=== PATIENT | male | born 1950 | race Caucasian/White ===

== ENCOUNTER 2020-08-22 10:37 | Day surgery (SDC) | payer MEDICARE, MEDICAID, SELFPAY ==
[2020-08-17 15:00] VITALS: BMI 25.4
--- NOTE | 2020-08-21 15:42 | HO.ANESPROP2 ---
HPI - Anesthesia Eval Consult details Narrative: 69yo M for colonoscopy Recent cardiac and neuro visits - stable conditions PMFSH Past Medical History Medical History Anxiety Arthritis Back pain Bipolar 1 disorder BPH (benign prostatic hyperplasia) Depression Diarrhea Heart palpitations History of alcohol abuse Hypertension Insomnia Leukopenia OAB (overactive bladder) Seizure disorder Surgical History Surgical History History of total knee arthroplasty Hx of bilateral inguinal hernia repair Hx of cervical spine surgery Hx of colonoscopy Social History Social History Smoking Status: Never smoker Meds Allergies Allergy/AdvReac Type Severity Reaction Status Date / Time No Known Allergies Allergy Unverified 08/03/20 17:18 Home Medications Medication Instructions Recorded Confirmed Type buspirone 1 tab PO BID 08/17/20 08/17/20 History metoprolol succinate 1 tab PO DAILY 08/17/20 08/17/20 History mirabegron [Myrbetriq] 1 tab PO DAILY 08/17/20 08/17/20 History mv,Ca,sfn-vmck-IM-lycopene 1 tab PO 08/17/20 History [Centrum Men] omeprazole 1 cap PO DAILY 08/17/20 08/17/20 History oxcarbazepine 1 tab PO BID 08/17/20 08/17/20 History paroxetine HCl 1 tab PO DAILY 08/17/20 08/17/20 History primidone 1 tab PO BID 08/17/20 08/17/20 History tamsulosin 1 cap PO BEDTIME 08/17/20 08/17/20 History trazodone 0.5 tab PO BEDTIME PRN 08/17/20 08/17/20 History zolpidem 1 tab PO BEDTIME 08/17/20 08/17/20 History Exam Exam Date and Time: August 21, 2020 1542 Height,Weight and Vital Signs: Height 5 ft 10 in Weight 80.286 kg Pertinent Lab Results Pertinent Lab Results: Laboratory Tests 07/31/20 07/31/20 15:35 15:35 WBC 4.6 L Hgb 13.7 L Hct 40.7 L Plt Count 255 Sodium 139 Potassium 4.8 Chloride 105 Bicarbonate 27 BUN 19 H Creatinine 0.95 Assessment and Plan Assessment Anesthesia Assessment: Chart Reviewed
[2020-08-22 11:21] VITALS: BP 138/73; PULSE 60; RESP 16; TEMP 36.6; O2SAT 98
[2020-08-22 11:26] VITALS: BMI 25.4
[2020-08-22] MEDS: Lactated Ringers 1,000 ML 100 ML IVCONT (11:26)
--- NOTE | 2020-08-22 12:09 | P.BOP_ITS ---
Brief Operative Note Date of procedure: 08/22/20 Pre-op diagnosis: Colon cancer screening, hx of colon polyps Post-op diagnosis: other (Colon polyps, diverticulosis, hemorrhoids) Procedure: COLONOSCOPY PROCEDURE NOTE Consent: Indications for the procedure and potential complications of bleeding, perforation, reaction to medications and missed diagnosis were discussed with the patient and informed consent was obtained. Instrument: Olympus PCF H 190 L variable stiffness pediatric colonoscope Monitoring: Vital signs and clinical assessment, intermittent blood pressure monitoring, continuous EKG monitoring, Pulse oximetry and Carbon Dioxide monitoring were done throughout the procedure. Colon withdrawl time was 50 minutes. Procedure: The patient was placed in the left lateral decubitis position and pre-procedure medications were administered. After a digital rectal examination of the ano-rectum, the video colonoscope was inserted into the rectum and advanced through the colon to the cecum. The colonoscope was slowly withdrawn in a retrograde panoramic fashion and the colon mucosa was carefully examined including a retroflexed view of the rectum. Findings and interventions are described below. Procedure Difficulty: Without difficulty Findings: Terminal Ileum: Distal 5 cms was examined and appeared normal Cecum: A 15 - 18 mm sessile polyp raised with 4 cc of normal saline and removed with a hot snare. Polyp was retrieved with a [place] net. Ascending Colon: A 7-8 mm sessile polyp in the distal AC removed with a hot snare Transverse Colon: Three 8-10 mm sessile polyps removed with a cold snare and a 3-4 mm sessile polyp removed with a cold bx (one polyp was not retrieved Descending Colon: A 12-14 mm sessile polyp removed with a hot snare and moderate diverticulosis. Sigmoid Colon: Three 10-12 mm sessile polyp removed with a hot and cold snare and a 2 cms sessile polyp at 30 cms removed with a hot snare. Severe diverticulosis with luminal narrowing. Rectum: Normal Ano-rectum: Small internal hemorrhoids Colon preparation: Excellent Impression and Post Procedure Diagnosis: Colonoscopy Findings: Ten polyps removed - one polyp was not retrieved Random biopsies were obtained from the right and left colon. Moderate to severe diverticulosis seen in the left colon Small hemorrhoids on retroflexed exam. Plan: Await pathology results Patient has an appointment on 08/29/20 in the GI Clinic with HARRY Wilcox. Repeat Colonoscopy interval based on path results - in 1 years if several polyps are adenomatous and consider Genetic Testing since multiple polyps removed. Above findings were reviewed with the patient and colon polyps and divert iculosis handouts were given in the discharge area Anesthesia: MAC ( Dr. Marques, Dr. Vera) Surgeon: Anu Vallejo Pathology: other (A. cecal polyp, B. right colon random biopsies, C. ascending colon polyp, D. transverse colon polyps, E. descending colon polyp, F. sigmoid colon polyps, G. left colon random biopsies, H. sigmoid colon polyp at 30 cm) Condition: stable Disposition: PACU
--- NOTE | 2020-08-22 12:09 | MHC.SHP ---
Pre-Procedural Eval Section A The patient is an INPATIENT: No Changes since office visit: Yes Patient answered all questions The History & Physical has been completed within 30 days and I have reviewed it.: No Section B Chief Complaint: Colon cancer screening Details of Present Illness: Colon cancer screening, history of colon polyps Post prandial abdominal pain, diarrhea alternating with constipation Relevant Family History (Specify if Yes): Yes Relevant Social History: Alcohol Use (past ETOH abuse) Present Medications: see Short Stay Collaborative assessment Medical History: Significant History (BPH, LBP, Vertigo, DJD, OA Rt knee, Depression, Anxiety, High cholesterol) History of Previous Operations: Relevant previous surgery/procedure and date(s) (Double hernia repair, Left TKR) Allergies: Allergies Allergy/AdvReac Type Severity Reaction Status Date / Time No Known Allergies Allergy Unverified 08/03/20 17:18 Review of Systems Sugical H&P ROS: Negative: Constitution, Neurological and Musculoskeletal and Yes, Specify: Cardiovascular (Heart murmur and palpitations), Respiratory (intermittent cough with phlegm), Psychiatric (Anxiety and depression), Gastrointestinal (abd pain, diarrhea alternating with constipation) and Genitourinary (Difficulty urinating) Exam Surgical H&P Exam: Normal: HEENT, Normal: Heart, Normal: Lungs, Normal: Extremities and Normal: Abdomen Plan Diagnosis/Plan: Unchanged Patient has been examined and remains a candidate for the planned procedure
--- NOTE | 2020-08-22 12:13 | P.CONAN_ITS ---
[facility] Past Medical History Medical History Anxiety Arthritis Back pain Bipolar 1 disorder BPH (benign prostatic hyperplasia) Depression Diarrhea Heart palpitations History of alcohol abuse Hypertension Insomnia Leukopenia OAB (overactive bladder) Seizure disorder Surgical History Surgical History History of total knee arthroplasty Hx of bilateral inguinal hernia repair Hx of cervical spine surgery Hx of colonoscopy Social History Social History Smoking Status: Never smoker Use of substances other than those prescribed or required for medical reasons: No Advance Directives: No Advance Directives Information Provided: No Advance Directives on File: No Meds Allergies Allergy/AdvReac Type Severity Reaction Status Date / Time No Known Allergies Allergy Unverified 08/03/20 17:18 Home Medications Medication Instructions Recorded Confirmed Type buspirone 1 tab PO BID 08/17/20 08/17/20 History metoprolol succinate 1 tab PO DAILY 08/17/20 08/17/20 History mirabegron [Myrbetriq] 1 tab PO DAILY 08/17/20 08/17/20 History mv,Ca,tfj-erky-RS-lycopene 1 tab PO 08/17/20 History [Centrum Men] omeprazole 1 cap PO DAILY 08/17/20 08/17/20 History oxcarbazepine 1 tab PO BID 08/17/20 08/17/20 History paroxetine HCl 1 tab PO DAILY 08/17/20 08/17/20 History primidone 1 tab PO BID 08/17/20 08/17/20 History tamsulosin 1 cap PO BEDTIME 08/17/20 08/17/20 History trazodone 0.5 tab PO BEDTIME PRN 08/17/20 08/17/20 History zolpidem 1 tab PO BEDTIME 08/17/20 08/17/20 History Exam Exam Date and Time: August 22, 2020 1213 Height,Weight and Vital Signs: Height 5 ft 10 in Weight 80.286 kg Last Vital Signs Temp 97.8 F 08/22/20 11:21 Pulse 60 08/22/20 11:21 Resp 16 08/22/20 11:21 BP 138/73 08/22/20 11:21 Pulse Ox 98 08/22/20 11:21 Airway Mallampati Class: I TM Dist: >3cm Neck ROM: Full Heart: RRR Lungs: CTA BL
[2020-08-22 13:52] VITALS: BP 124/59; PULSE 63; RESP 16; TEMP 36.6; O2SAT 98
[2020-08-22 14:24] VITALS: BP 132/62; PULSE 56; RESP 20; TEMP 36.6; O2SAT 98
--- NOTE | 2020-08-22 15:03 | HO.POSTANES ---
Post Anesthesia Evaluation Post Anesthesia Evaluation Vital Signs: Vital Signs Temp Pulse Resp BP Pulse Ox 08/22/20 14:24 97.9 F 56 20 132/62 98 08/22/20 13:52 97.9 F 63 16 124/59 L 98 08/22/20 11:21 97.8 F 60 16 138/73 98 Anesthesia: Monitored Mental Status: Awake Pain Control: Satisfactory Nausea/Vomiting: None Hydration: Adequate Anesthesia-Related Issues: No Anes. Related Issues
== END 2020-08-22 15:16 | disposition home or self-care (01) ==
PROVIDERS: PCP Internal Medicine; Visit Provider Internal Medicine Gastroenterology
PROC: 0DJD8ZZ Inspection of Lower Intestinal Tract, Via Natural or Artificial Opening Endoscopic (ICD-10-PCS; CPT 45378; principal; 2020-08-22 11:40)
DX: Z12.11 Encounter for screening for malignant neoplasm of colon (principal); Z86.010 Personal history of colon polyps; D12.0 Benign neoplasm of cecum; D12.2 Benign neoplasm of ascending colon; D12.3 Benign neoplasm of transverse colon; D12.5 Benign neoplasm of sigmoid colon; K57.30 Diverticulosis of large intestine without perforation or abscess without bleeding; K64.8 Other hemorrhoids; I10 Essential (primary) hypertension
CPT/HCPCS: 45385; 45380; 88305

== ENCOUNTER → 2020-08-29 13:59 | Outpatient (BNVA) | payer MEDICARE, MEDICAID, SELFPAY | PROVIDERS: PCP Internal Medicine; Referring Provider Internal Medicine; Visit Provider Physician Assistant | DX: K57.30 Diverticulosis of large intestine without perforation or abscess without bleeding (principal); D12.6 Benign neoplasm of colon, unspecified; Z98.890 Other specified postprocedural states | CPT/HCPCS: 99213 ==

== ENCOUNTER 2020-09-01 16:20 | Outpatient (REF) | payer MEDICARE, MEDICAID, SELFPAY ==
--- NOTE | 2020-09-01 | XR_ITS ---
EXAMINATION: XR CHEST CLINICAL INFORMATION: Cough. Hypertension. COMPARISON: None TECHNIQUE: 2 views of the chest were obtained. FINDINGS: Cardiac silhouette is normal in size. The lungs are well aerated. There is no lobar consolidation. No pleural effusion or pneumothorax. Symmetric subcentimeter nodular densities of the lung bases are most suggestive of nipple shadow. Moderate degenerative changes of the thoracic spine. IMPRESSION: No acute pulmonary pathology.
[2020-09-01 17:12] LABS: MANUAL DIFF FLAG NO
[2020-09-01 17:29] LABS: Basophils Percent Auto 0.6 % (0-2); Eosinophils Absolute Auto 0.1 X10*3/uL (0.0-0.4); Eosinophils Percent Auto 2.5 % (0-4); Hematocrit 39.8 % (42-52); Hemoglobin 13.3 g/dl (14.0-18.0); Imm Gran Abs Auto 0.01 X10*3/uL (0.00-0.03); Imm Gran Pct Auto 0.3 % (0.0-0.4); Lymphocytes Absolute Auto 0.7 X10*3/uL (1.2-4.9); Lymphocytes Percent Auto 20.4 % (20-40); Mean Corpuscular HGB Conc 33.4 g/dl (31.0-36.0); Mean Corpuscular Hemoglobin 31.6 pg (27.0-33.0); Mean Corpuscular Volume 94.5 fL (80-98); Mean Platelet Volume 8.5 fL (9.4-12.4); Monocytes Absolute Auto 0.2 X10*3/uL (0.1-1.2); Monocytes Percent Auto 6.7 % (2-11); Neutrophils Absolute Auto 2.5 X10*3/uL (2.0-8.3); Neutrophils Percent Auto 69.5 % (45-73); Platelet Count 253 X10*3/uL (160-400); Red Blood Count 4.21 X10*6/uL (4.60-5.80); Red Cell Distribution Width 12.3 % (11.0-16.0); White Blood Count 3.6 X10*3/uL (4.8-10.8)
[2020-09-01 17:55] LABS: Alanine Aminotransferase 16 U/L (0-40); Albumin Level 4.2 g/dL (3.5-5.0); Alkaline Phosphatase 84 U/L (39-117); Anion Gap 8 (12-20); Aspartate Amino Transferase 19 U/L (5-37); Bilirubin Total 0.3 mg/dL (0.0-1.0); Blood Urea Nitrogen 15 mg/dL (9-16); C Reactive Protein 0.08 mg/dL (< or = 0.50); Calcium 9.8 mg/dL (8.4-10.2); Carbon Dioxide 31 mmol/L (22-29); Chloride 103 mmol/L (96-108); Estimated Glomerular Filt Rate > 60; Glucose Random 78 mg/dL (60-115); Potassium 4.6 mmol/l (3.3-5.1); Sodium 137 mmol/L (135-145)
== END 2020-09-01 16:21 | disposition home or self-care (01) ==
LOC: HO.LAB 16:20
PROVIDERS: PCP Internal Medicine; Visit Provider Internal Medicine
DX: R05 Cough (principal); R19.7 Diarrhea, unspecified; I10 Essential (primary) hypertension
CPT/HCPCS: 36415; 71046; 80053; 85025; 86140

== ENCOUNTER 2020-09-06 22:30 | Outpatient (REF) | payer MEDICARE, MEDICAID, SELFPAY | END 2020-09-06 22:31 | disposition home or self-care (01) | LOC: HO.LNP 22:30 | PROVIDERS: Visit Provider Internal Medicine | DX: R19.7 Diarrhea, unspecified (principal) | CPT/HCPCS: 87045; 87046 ==

== ENCOUNTER → 2020-09-13 14:31 | Outpatient (BNV) | payer MEDICARE, MEDICAID, SELFPAY | PROVIDERS: PCP Internal Medicine Geriatric Medicine; Visit Provider Internal Medicine | DX: C90.00 Multiple myeloma not having achieved remission (principal); A31.9 Mycobacterial infection, unspecified; M85.80 Other specified disorders of bone density and structure, unspecified site | CPT/HCPCS: 99212; 99213; 99214; 99215; 99442; G2211 ==

== ENCOUNTER → 2020-10-24 13:30 | Outpatient (BNVA) | payer MEDICARE, MEDICAID, SELFPAY | PROVIDERS: PCP Internal Medicine Geriatric Medicine; Visit Provider Physician Assistant | DX: K58.2 Mixed irritable bowel syndrome (principal) | CPT/HCPCS: Q3014 ==

== ENCOUNTER → 2020-11-20 15:22 | Outpatient (BNVA) | payer MEDICARE, MEDICAID, SELFPAY | PROVIDERS: PCP Internal Medicine Geriatric Medicine; Visit Provider Internal Medicine Gastroenterology | DX: K58.2 Mixed irritable bowel syndrome (principal); R14.0 Abdominal distension (gaseous); D12.6 Benign neoplasm of colon, unspecified; Z79.899 Other long term (current) drug therapy | CPT/HCPCS: Q3014 ==

== ENCOUNTER → 2020-12-06 15:10 | Outpatient (BNVA) | payer MEDICARE, MEDICAID, SELFPAY | PROVIDERS: PCP Internal Medicine Geriatric Medicine; Visit Provider Surgery | DX: K64.5 Perianal venous thrombosis (principal) | CPT/HCPCS: 46600; 99202 ==

== ENCOUNTER → 2021-01-18 15:17 | Outpatient (BNVA) | payer MEDICARE, MEDICAID, SELFPAY | PROVIDERS: PCP Internal Medicine Geriatric Medicine; Visit Provider Internal Medicine Gastroenterology | DX: K58.2 Mixed irritable bowel syndrome (principal); K57.30 Diverticulosis of large intestine without perforation or abscess without bleeding; D12.6 Benign neoplasm of colon, unspecified; R14.0 Abdominal distension (gaseous) | CPT/HCPCS: Q3014 ==

== ENCOUNTER 2021-04-17 09:03 | Day surgery (SDC) | payer MEDICARE, MEDICAID, SELFPAY ==
[2021-04-10 15:03] VITALS: BMI 25.7
--- NOTE | 2021-04-17 09:12 | P.OP_ITS ---
Operative Note Operative Note Date of Service: 04/17/21 Narrative: Pre-op diagnosis: Colon cancer screening, follow-up of multiple colon polyps, GERD Post-op diagnosis: other (Colon polyps, diverticulosis, esophagitis, hiatal hernia, gastritis, duodenitis, gastric polyps) Procedure: FLEXIBLE TRANSORAL UPPER GASTROINTESTINAL ENDOSCOPY WITH BIOPSIES AND COLONOSCOPY TILL CECUM WITH SNARE POLYPECTOMY UPPER ENDOSCOPY Consent: Indications for the procedure and potential complications of bleeding, perforation, reaction to medications and missed diagnosis were discussed with the patient and informed consent was obtained. Instrument: Olympus GIF H 190 mid size upper endoscope Monitoring: Vital signs and clinical assessment, continuous EKG monitoring, Pulse oximetry, Carbon Dioxide monitoring and blood pressure monitoring were done throughout the procedure. Procedure: The patient was placed in the left lateral decubitis position and pre-procedure medications were administered and a bite block was placed. The endoscope was inserted into the mouth and advanced under direct vision to the third part of duodenum. A careful inspection was made as the upper endoscope was withdrawn including a retroflexed examination of the proximal stomach; Findings and interventions are described below. Findings: Larynx: Normal Esophagus: GE junction at 37 cms, hiatal hernia 37 to 41 cms. Irregular Z line with focal esophagitis at GE junction - biopsied to check for Russo's. Stomach: Multiple 3-8 mm benign appearing sessile polyps. A 7-8 mm hemorrhagic appearing polyp in the fundus removed with a cold snare. Mild gastric erythema. Antral biopsies were obtained. Grade 2 flap valve on retroflexed examination of the cardia. Duodenum: Duodenitis in the bulb with 5-6 mm superficial erosions. Normal descending duodenum - biopsies obtained to check for celiac sprue Intervention: Biopsies as noted above COLONOSCOPY PROCEDURE NOTE Consent: Indications for the procedure and potential complications of bleeding, perforation, reaction to medications and missed diagnosis were discussed with the patient and informed consent was obtained. Instrument: Olympus PCF H 190 L variable stiffness pediatric colonoscope Monitoring: Vital signs and clinical assessment, intermittent blood pressure monitoring, continuous EKG monitoring, Pulse oximetry and Carbon Dioxide monitoring were done throughout the procedure. Colon withdrawl time was 25 minutes. Procedure: The patient was placed in the left lateral decubitis position and pre-procedure medications were administered. After a digital rectal examination of the ano-rectum, the video colonoscope was inserted into the rectum and advanced through the colon to the cecum. The colonoscope was slowly withdrawn in a retrograde panoramic fashion and the colon mucosa was carefully examined including a retroflexed view of the rectum. Findings and interventions are described below. Procedure Difficulty: : Without difficulty Findings: Terminal Ileum: Not evaluated Cecum: A 7-8 mm sessile polyp removed with a cold snare. Ascending Colon: Three 8-10 mm sessile polyps removed with a cold snare Transverse Colon: Normal Descending Colon: Moderate diverticulosis Sigmoid Colon: Severe diverticulosis with luminal narrowing Rectum: Normal Ano-rectum: Normasl Colon preparation: Good after some irrigation Impression and Post Procedure Diagnosis: Endoscopy Findings: ESOPHAGUS: Hiatal hernia 37 to 41 cms. Irregular Z line with focal esophagitis at GE junction - biopsied to check for Russo's. STOMACH: Multiple 3-8 mm benign appearing sessile polyps. A 7-8 mm hemorrhagic appearing polyp in the fundus removed with a cold snare. Mild gastric erythema. Antral biopsies were obtained. DUODENUM: Duodenitis in the bulb with 5-6 mm superficial erosions. Normal descending duodenum - biopsies obtained to check for celiac sprue Colonoscopy Findings: Four small to medium sized polyps removed Moderate to severe diverticulosis seen in the left colon Plan: Await pathology results Patient has an appointment on 05/02/21 in the GI Clinic with HARRY Wilcox. Repeat Colonoscopy interval based on path results - in 3-5 years if polyps are adenomatous and 10 years if polyps are hyperplastic. Above findings were reviewed with the patient and GERD, colon polyps and diverticulosis handouts were given in the discharge area Surgeon: Anu Vallejo MD Anesthesia: MAC (Lena Cruz CRNA & Dr Doshi) Was an Seam Rubbing Machine Operator used for this Procedure?: No Seam Rubbing Machine Operator: Matt Abdalla Estimated blood loss (mL): 0 Pathology: other (A- SMALL BOWEL BXS R/O CELIAC B- GASTRIC ANTRUM BXS R/O H. PYLORI C- POLYP GASTRIC FUNDUS D-EG JUNCTION BXS R/O RUSSO'S E- CECAL POLYP F- ASCENDING COLON POLYPS) Condition: stable Disposition: PACU
--- NOTE | 2021-04-17 09:12 | P.HPSUR_ITS ---
Pre-Procedural Eval Section A The patient is an INPATIENT: No The History & Physical has been completed within 30 days and I have reviewed it.: No Section B Chief Complaint: Mixed IBS, GERD Details of Present Illness: Colon cancer screening, history of multiple colon polyps, GERD Relevant Family History (Specify if Yes): Yes Relevant Social History: None Present Medications: see Short Stay Collaborative assessment Medical History: Significant History (Anxiety Arthritis Back pain Bipolar 1 disorder BPH (benign prostatic hyperplasia) Depression Diarrhea Diverticulosis of colon Heart palpitations History of alcohol abuse Hypertension Insomnia Irritable bowel syndrome with constipation and diarrhea Leukopenia OAB (overactive bladder) PVC (premature v) History of Previous Operations: Relevant previous surgery/procedure and date(s) (History of total knee arthroplasty Hx of bilateral inguinal hernia repair Hx of cervical spine surgery Hx of colonoscopy) Allergies: Allergies Allergy/AdvReac Type Severity Reaction Status Date / Time No Known Allergies Allergy Verified 01/18/21 15:17 Review of Systems Sugical H&P ROS: Negative: Constitution, Cardiovascular, Respiratory and Victoriano rointestinal Exam Surgical H&P Exam: Normal: Heart, Normal: Lungs, Normal: Extremities and Normal: Abdomen Plan Diagnosis/Plan: Unchanged I have reviewed the history and physical and performed a pertinent physical examination on my patient. No changes have occurred unless specified.
[2021-04-17 09:28] VITALS: BP 162/71; PULSE 54; RESP 16; TEMP 36.8; O2SAT 98
--- NOTE | 2021-04-17 09:35 | HO.ANESPROP2 ---
HPI - Anesthesia Eval Consult details Narrative: 70yo male patient here for EGD and Colonoscopy [facility] Active Problems Active Problems: All Active Problems (Updated 04/10/21 @ 15:02 by Evelyn Valero) Adenomatous colon polyp (Acute) Leukopenia (Chronic) Abdominal bloating (Acute) Thrombosed external hemorrhoids (Acute) Irritable bowel syndrome with constipation and diarrhea (Acute) PVC (premature ventricular contraction) (Acute) Diverticulosis of colon (Acute) Past Medical History Medical History Anxiety Arthritis Back pain Bipolar 1 disorder BPH (benign prostatic hyperplasia) Depression Diarrhea Diverticulosis Diverticulosis of colon Has a tremor Heart palpitations History of alcohol abuse Hx of skin cancer, basal cell Hypertension IBS (irritable colon syndrome) Insomnia Irritable bowel syndrome with constipation and diarrhea Leukopenia OAB (overactive bladder) PVC (premature ventricular contraction) Seizure disorder Thrombosed external hemorrhoids Family History Family History Maternal Aunt Colon cancer Father No problems noted. Mother No problems noted. Brother No problems noted. Family history of problems with anesthesia: No Surgical History Surgical History History of total knee arthroplasty Hx of bilateral inguinal hernia repair Hx of cervical spine surgery Hx of colonoscopy History of Problems with Anesthesia: No Social History Social History Household Members: Family Household Members Other:: Brother Alcohol intake: former Are you DNR?: No Advance Directives: No Advance Directives Information Provided: No Advance Directives on File: No Current occupational status: disabled Meds Allergies Allergy/AdvReac Type Severity Reaction Status Date / Time No Known Allergies Allergy Verified 01/18/21 15:17 Home Medications Medication Instructions Recorded Confirmed Last Taken Type Centrum Men 1 tab PO DAILY 08/17/20 01/18/21 Unknown History Myrbetriq 1 tab PO DAILY 08/17/20 01/18/21 Unknown History buspirone 1 tab PO BID 08/17/20 01/18/21 Unknown History omeprazole 1 cap PO DAILY 08/17/20 01/18/21 Unknown History oxcarbazepine 1 tab PO BID 08/17/20 01/18/21 Unknown History paroxetine HCl 1 tab PO DAILY 08/17/20 01/18/21 Unknown History primidone 1 tab PO BID 08/17/20 01/18/21 Unknown History tamsulosin 1 cap PO BEDTIME 08/17/20 01/18/21 Unknown History trazodone 0.5 tab PO BEDTIME PRN 08/17/20 01/18/21 Unknown History zolpidem 1 tab PO BEDTIME 08/17/20 03/27/21 Unknown History Exam Exam Date and Time: April 17, 2021 0935 Height,Weight and Vital Signs: Height 5 ft 10 in Weight 81.193 kg Last Vital Signs Temp 98.3 F 04/17/21 09:28 Pulse 54 04/17/21 09:28 Resp 16 04/17/21 09:28 BP 162/71 H 04/17/21 09:28 Pulse Ox 98 04/17/21 09:28 Airway Mallampati Class: II TM Dist: >3cm Neck ROM: Full Loose/Missing/Broken Teeth: No (Dental implant top front) Heart: RRR Lungs: CTAB Assessment and Plan Assessment Anesthesia Assessment: Anesthesia Plan Discussed and Chart Reviewed Final Anesthetic Review NPO: Yes ASA Class: III Final Preanesthetic Review: No Changes in Pt Med Stat, Meds/Allgs Chart Reviewed, Consent Obtained/Reviewed and Anes Risks/Benef Reviewed Patient Risk: Intermediate Procedure Risk: Low Assessment/Block/Sedation in SS: Assess/Block/Sedation-SS Anesthetic Plan Anesthetic Plan: MAC: Disposition: Standard PACU
[2021-04-17] MEDS: Lactated Ringers 1,000 ML 100 ML IVCONT (09:40)
[2021-04-17 11:22] VITALS: BP 119/45; PULSE 53; RESP 16; TEMP 36.3; O2SAT 98
[2021-04-17 11:37] VITALS: BP 132/68; PULSE 47; RESP 17; TEMP 36.3; O2SAT 99
== END 2021-04-17 12:38 | disposition home or self-care (01) ==
PROVIDERS: PCP Internal Medicine; Visit Provider Internal Medicine Gastroenterology
PROC: (CPT 45385; principal; 2021-04-17 09:10)
DX: Z12.11 Encounter for screening for malignant neoplasm of colon (principal); Z86.010 Personal history of colon polyps; K58.2 Mixed irritable bowel syndrome; D12.0 Benign neoplasm of cecum; D12.2 Benign neoplasm of ascending colon; K57.30 Diverticulosis of large intestine without perforation or abscess without bleeding; K21.9 Gastro-esophageal reflux disease without esophagitis; K29.50 Unspecified chronic gastritis without bleeding; K29.80 Duodenitis without bleeding; K31.7 Polyp of stomach and duodenum; K44.9 Diaphragmatic hernia without obstruction or gangrene; I10 Essential (primary) hypertension; G40.909 Epilepsy, unspecified, not intractable, without status epilepticus; N40.0 Benign prostatic hyperplasia without lower urinary tract symptoms; N32.81 Overactive bladder; R00.2 Palpitations; Z85.828 Personal history of other malignant neoplasm of skin; Z79.899 Other long term (current) drug therapy
CPT/HCPCS: 45385; 43239; 88305; 88342; J3010

== ENCOUNTER → 2021-05-02 12:19 | Outpatient (BNVA) | payer MEDICARE, MEDICAID, SELFPAY | PROVIDERS: Visit Provider Physician Assistant | CPT/HCPCS: Q3014 ==

== ENCOUNTER → 2021-05-14 | Outpatient (BNVA) | payer MEDICARE, MEDICAID, SELFPAY | PROVIDERS: Visit Provider Internal Medicine Gastroenterology | DX: K58.2 Mixed irritable bowel syndrome (principal); K57.30 Diverticulosis of large intestine without perforation or abscess without bleeding; R14.0 Abdominal distension (gaseous); K21.9 Gastro-esophageal reflux disease without esophagitis; D12.6 Benign neoplasm of colon, unspecified; Z79.899 Other long term (current) drug therapy | CPT/HCPCS: Q3014 ==

== ENCOUNTER 2021-05-16 15:39 | Outpatient (REF) | payer MEDICARE, MEDICAID, SELFPAY ==
[2021-05-16 16:29] LABS: MANUAL DIFF FLAG NO
[2021-05-16 16:34] LABS: Basophils Percent Auto 0.5 % (0-2); Eosinophils Absolute Auto 0.1 X10*3/uL (0.0-0.4); Eosinophils Percent Auto 2.1 % (0-4); Hematocrit 41.7 % (42-52); Hemoglobin 13.7 g/dl (14.0-18.0); Imm Gran Abs Auto 0.01 X10*3/uL (0.00-0.03); Imm Gran Pct Auto 0.3 % (0.0-0.4); Lymphocytes Absolute Auto 0.6 X10*3/uL (1.2-4.9); Lymphocytes Percent Auto 16.8 % (20-40); Mean Corpuscular HGB Conc 32.9 g/dl (31.0-36.0); Mean Corpuscular Hemoglobin 30.8 pg (27.0-33.0); Mean Corpuscular Volume 93.7 fL (80-98); Mean Platelet Volume 8.1 fL (9.4-12.4); Monocytes Absolute Auto 0.2 X10*3/uL (0.1-1.2); Monocytes Percent Auto 4.5 % (2-11); Neutrophils Absolute Auto 2.9 X10*3/uL (2.0-8.3); Neutrophils Percent Auto 75.8 % (45-73); Platelet Count 205 X10*3/uL (160-400); Red Blood Count 4.45 X10*6/uL (4.60-5.80); Red Cell Distribution Width 12.6 % (11.0-16.0); White Blood Count 3.8 X10*3/uL (4.8-10.8)
[2021-05-16 16:55] LABS: Alanine Aminotransferase 14 U/L (0-40); Albumin Level 4.3 g/dL (3.5-5.0); Alkaline Phosphatase 100 U/L (39-117); Anion Gap 12 (12-20); Aspartate Amino Transferase 18 U/L (5-37); Bilirubin Total 0.3 mg/dL (0.0-1.0); Blood Urea Nitrogen 12 mg/dL (9-16); C Reactive Protein 0.55 mg/dL (< or = 0.50); Calcium 9.8 mg/dL (8.4-10.2); Carbon Dioxide 28 mmol/L (22-29); Chloride 105 mmol/L (96-108); Estimated Glomerular Filt Rate > 60; Glucose Random 93 mg/dL (60-115); Potassium 4.7 mmol/L (3.3-5.1); Sodium 140 mmol/L (135-145)
[2021-05-16 17:18] LABS: TSH reflex Free T4 0.68 uIU/mL (0.32-4.0)
[2021-05-17 16:06] LABS: Immunoglobulin A 18 mg/dL (70-320)
[2021-05-17 20:07] LABS: IgA 18 mg/dL (70-320); IgG 1384 mg/dL (600-1540); IgM 13 mg/dL (50-300)
[2021-05-24 16:08] LABS: Transglutaminase Ab IgG 1 U/mL; Transglutaminase IgA 1 U/mL
== END 2021-05-16 15:40 | disposition home or self-care (01) ==
LOC: HO.LAB 15:39
PROVIDERS: PCP Internal Medicine; Referring Provider Internal Medicine Gastroenterology; Visit Provider Internal Medicine
DX: D72.819 Decreased white blood cell count, unspecified (principal); D12.6 Benign neoplasm of colon, unspecified; K57.30 Diverticulosis of large intestine without perforation or abscess without bleeding; K58.2 Mixed irritable bowel syndrome; R14.0 Abdominal distension (gaseous)
CPT/HCPCS: 36415; 80053; 82784; 83516; 84443; 85025; 86140; 86334

== ENCOUNTER 2021-06-25 14:06 | Outpatient (REF) | payer MEDICARE, MEDICAID, SELFPAY ==
--- NOTE | ~2021-06-25 | US_ITS ---
EXAMINATION: US EXTRACRANIAL CAROTID DUPLEX, BILATERAL CLINICAL INFORMATION: This is a 70-year-old male with history of syncope. Carotid artery disease. COMPARISON: None TECHNIQUE: Real-time ultrasound and Doppler techniques (integrating B-mode 2-D vascular images, Doppler spectral analysis and color-flow Doppler imaging) were utilized to interrogate the extracranial carotid arteries, the vertebral arteries and proximal subclavian arteries bilaterally. The degree of stenosis is determined by criteria similar to NASCET. FINDINGS: Right Side: 1. There is moderate atherosclerotic plaque seen in the bifurcation/proximal ICA region. 2. The common carotid artery PSV proximally is 160 cm/s and distally 104 cm/s. 3. The proximal internal carotid artery velocities are 141 cm/s systolic and 20 cm/s diastolic. 4. The proximal external carotid artery PSV is 124 cm/s. 5. The vertebral artery shows antegrade flow. 6. The subclavian artery waveforms are normal. Left Side: 1. There is moderate atherosclerotic plaque seen in the bifurcation/proximal ICA region. 2. The common carotid artery PSV proximally is 128 cm/s and distally 89 cm/s. 3. The proximal internal carotid artery velocities are 198 cm/s systolic and 24 cm/s diastolic. 4. The proximal external carotid artery PSV is 267 cm/s. There is a moderate hemodynamically significant stenosis within the external carotid artery. 5. The vertebral artery shows antegrade flow. 6. The subclavian artery waveforms are normal. US/US carotid duplex BI IMPRESSION: 1. RIGHT: Moderate, hemodynamically significant stenosis of the proximal right internal carotid artery corresponding to a 50-79% stenosis by velocity criteria. 2. LEFT: Moderate, hemodynamically significant stenosis of the proximal left internal carotid artery corresponding to a 50-79% stenosis by velocity criteria. 3. There is a hemodynamically significant stenosis in the external carotid artery.
== END 2021-06-25 14:07 | disposition home or self-care (01) ==
LOC: HO.HMGCX 14:06
PROVIDERS: PCP Internal Medicine; Visit Provider Psychiatry & Neurology Neurology
DX: R42 Dizziness and giddiness (principal)
CPT/HCPCS: 93880

== ENCOUNTER 2021-07-18 13:45 | Outpatient (REF) | payer MEDICARE, MEDICAID, SELFPAY ==
--- NOTE | ~2021-07-18 | XR_ITS ---
EXAMINATION: XR ABDOMEN WITH DECUBITUS VIEWS CLINICAL INDICATION: Rule out obstruction. Abdominal pain. COMPARISON: July 10, 2020 and January 28, 2012 TECHNIQUE: Abdominal series with supine and upright views. FINDINGS: No free air is identified. No significantly dilated loops of large or small bowel are seen. Stool and gas seen within the colon. Psoas margins are intact. No definite renal or ureteral calculi seen. Patient status post mesh placement about the pelvis. XR/XR abdomen w decubitus IMPRESSION: No evidence of obstruction or ileus. No free air.
[2021-07-18 14:36] LABS: MANUAL DIFF FLAG NO
[2021-07-18 14:39] LABS: Basophils Percent Auto 0.6 % (0-2); Eosinophils Absolute Auto 0.1 X10*3/uL (0.0-0.4); Eosinophils Percent Auto 2.1 % (0-4); Hematocrit 33.6 % (42-52); Imm Gran Abs Auto 0.02 X10*3/uL (0.00-0.03); Imm Gran Pct Auto 0.4 % (0.0-0.4); Lymphocytes Absolute Auto 0.8 X10*3/uL (1.2-4.9); Lymphocytes Percent Auto 14.7 % (20-40); Mean Corpuscular HGB Conc 32.7 g/dl (31.0-36.0); Mean Corpuscular Hemoglobin 31.3 pg (27.0-33.0); Mean Corpuscular Volume 95.5 fL (80-98); Monocytes Absolute Auto 0.4 X10*3/uL (0.1-1.2); Monocytes Percent Auto 7.4 % (2-11); Neutrophils Absolute Auto 3.9 X10*3/uL (2.0-8.3); Neutrophils Percent Auto 74.8 % (45-73); Platelet Count 552 X10*3/uL (160-400); Red Blood Count 3.52 X10*6/uL (4.60-5.80); Red Cell Distribution Width 13.7 % (11.0-16.0); White Blood Count 5.2 X10*3/uL (4.8-10.8)
[2021-07-18 15:10] LABS: Alanine Aminotransferase 15 U/L (0-40); Albumin Level 4.1 g/dL (3.5-5.0); Alkaline Phosphatase 125 U/L (39-117); Anion Gap 11 (12-20); Aspartate Amino Transferase 18 U/L (5-37); Bilirubin Total 0.4 mg/dL (0.0-1.0); Blood Urea Nitrogen 20 mg/dL (9-16); Carbon Dioxide 26 mmol/L (22-29); Chloride 102 mmol/L (96-108); Estimated Glomerular Filt Rate > 60; Glucose Random 110 mg/dL (60-115); Lipase 71 U/L (8-78); Potassium 4.6 mmol/L (3.3-5.1); Sodium 134 mmol/L (135-145); Total Protein 7.3 g/dL (6.5-8.0)
== END 2021-07-18 13:46 | disposition home or self-care (01) ==
LOC: HO.XRAY 13:45
PROVIDERS: PCP Internal Medicine; Visit Provider Internal Medicine
DX: R10.9 Unspecified abdominal pain (principal)
CPT/HCPCS: 36415; 74021; 80053; 83690; 85025

== ENCOUNTER → 2021-07-26 15:38 | Outpatient (BNVA) | payer MEDICARE, MEDICAID, SELFPAY | PROVIDERS: PCP Internal Medicine; Referring Provider Internal Medicine; Visit Provider Internal Medicine Gastroenterology | CPT/HCPCS: 99212 ==

== ENCOUNTER → 2021-10-15 15:36 | Outpatient (BNVA) | payer MEDICARE, MEDICAID, SELFPAY | PROVIDERS: PCP Internal Medicine; Referring Provider Internal Medicine; Visit Provider Internal Medicine Cardiovascular Disease | DX: I49.3 Ventricular premature depolarization (principal) | CPT/HCPCS: 93005; 99212 ==

== ENCOUNTER → 2021-11-22 15:26 | Outpatient (BNVA) | payer MEDICARE, MEDICAID, SELFPAY | PROVIDERS: PCP Internal Medicine; Visit Provider Internal Medicine Gastroenterology | DX: K58.2 Mixed irritable bowel syndrome (principal); K21.9 Gastro-esophageal reflux disease without esophagitis; R14.0 Abdominal distension (gaseous); K57.30 Diverticulosis of large intestine without perforation or abscess without bleeding; D64.9 Anemia, unspecified; Z86.010 Personal history of colon polyps | CPT/HCPCS: 99212 ==

== ENCOUNTER 2022-01-08 13:56 | Outpatient (REF) | payer MEDICARE, MEDICAID, SELFPAY ==
--- NOTE | ~2022-01-08 | XR_ITS ---
EXAMINATION: XR LUMBOSACRAL SPINE CLINICAL INFORMATION: Spondylosis COMPARISON: None TECHNIQUE: Three views of the lumbosacral spine. FINDINGS: Bone alignment is normal. No fracture or dislocation is seen. There is multilevel degenerative spondylosis greatest at L1-L2 and L2-L3. There is degenerative disc disease at L1-L2 3 and L5-S1, greatest at L5-S1. There is lower lumbar spine facet arthritis. There is evidence of previous pelvic hernia repair with mesh. XR/XR lumbar spine 2-3V IMPRESSION: Multilevel degenerative changes.
== END 2022-01-08 13:57 | disposition home or self-care (01) ==
LOC: HO.XRAY 13:56
PROVIDERS: PCP Internal Medicine; Visit Provider Nurse Practitioner Family
DX: M47.816 Spondylosis without myelopathy or radiculopathy, lumbar region (principal); F41.8 Other specified anxiety disorders; F31.9 Bipolar disorder, unspecified; Z96.82 Presence of neurostimulator; Z79.899 Other long term (current) drug therapy
CPT/HCPCS: 72100; 99202

== ENCOUNTER → 2022-01-16 13:40 | Outpatient (BNVA) | payer MEDICARE, MEDICAID, SELFPAY | PROVIDERS: PCP Internal Medicine; Visit Provider Dietitian, Registered | DX: K58.9 Irritable bowel syndrome, unspecified (principal) | CPT/HCPCS: 97803 ==

== ENCOUNTER → 2022-01-31 12:09 | Outpatient (BNVA) | payer MEDICARE, MEDICAID, SELFPAY | PROVIDERS: PCP Internal Medicine; Referring Provider Internal Medicine; Visit Provider Internal Medicine Gastroenterology | DX: K58.9 Irritable bowel syndrome, unspecified (principal); K57.30 Diverticulosis of large intestine without perforation or abscess without bleeding; K21.9 Gastro-esophageal reflux disease without esophagitis; K52.9 Noninfective gastroenteritis and colitis, unspecified; D12.6 Benign neoplasm of colon, unspecified; D64.9 Anemia, unspecified; R14.0 Abdominal distension (gaseous) | CPT/HCPCS: 99212 ==

== ENCOUNTER 2022-02-02 21:00 | Outpatient (REF) | payer MEDICARE, MEDICAID, SELFPAY ==
[2022-02-09 17:42] LABS: Pancreatic Elastase-1 33 mcg/g
== END 2022-02-02 21:01 | disposition home or self-care (01) ==
LOC: HO.LNP 21:00
PROVIDERS: Visit Provider Internal Medicine Gastroenterology
DX: K58.2 Mixed irritable bowel syndrome (principal)
CPT/HCPCS: 82656

== ENCOUNTER → 2022-03-12 15:10 | Outpatient (BNVA) | payer MEDICARE, MEDICAID, SELFPAY | PROVIDERS: PCP Internal Medicine; Visit Provider Nurse Practitioner Family | DX: M47.816 Spondylosis without myelopathy or radiculopathy, lumbar region (principal); M25.561 Pain in right knee; Z96.89 Presence of other specified functional implants; Z96.651 Presence of right artificial knee joint | CPT/HCPCS: 99212 ==

== ENCOUNTER → 2022-04-03 15:15 | Outpatient (BNVA) | payer MEDICARE, MEDICAID, SELFPAY | PROVIDERS: PCP Internal Medicine; Visit Provider Nurse Practitioner Family | DX: M54.9 Dorsalgia, unspecified (principal); G89.29 Other chronic pain; M25.561 Pain in right knee; M47.816 Spondylosis without myelopathy or radiculopathy, lumbar region | CPT/HCPCS: Q3014 ==

== ENCOUNTER → 2022-04-16 16:02 | Outpatient (BNVA) | payer MEDICARE, MEDICAID, SELFPAY | PROVIDERS: PCP Internal Medicine; Visit Provider Anesthesiology | DX: Z13.89 Encounter for screening for other disorder (principal) | CPT/HCPCS: Q3014 ==

== ENCOUNTER 2022-05-07 12:11 | Day surgery (SDC) | payer MEDICARE, MEDICAID, SELFPAY ==
[2022-04-30 13:51] VITALS: BMI 26.0
--- NOTE | 2022-05-06 09:28 | HO.ANESPROP2 ---
Documented by User: Adali Garcia NP 05/06/22 09:34 HPI - Anesthesia Eval Consult details Narrative: 71yo M for Bone Marrow Biopsy s/p endos 04/2021 with [facility] Active Problems Active Problems: All Active Problems (Updated 04/09/22 @ 13:59 by Payal Hackett MD) Adenomatous colon polyp (Acute) Diverticulosis of colon (Acute) PVC (premature ventricular contraction) (Acute) Leukopenia (Chronic) Irritable bowel syndrome with constipation and diarrhea (Acute) Abdominal bloating (Acute) Thrombosed external hemorrhoids (Acute) Diverticulosis of colon (Acute) Anemia (Acute) GERD (gastroesophageal reflux disease) (Acute) Spondylosis of lumbar spine (Acute) S/P insertion of spinal cord stimulator (Acute) IBS (irritable bowel syndrome) (Acute) Status post total right knee replacement (Acute) Right knee pain (Acute) Chronic diarrhea (Acute) Pancreatic insufficiency (Acute) Chronic back pain (Acute) Past Medical History Medical History Anxiety Arthritis Back pain Bipolar 1 disorder BPH (benign prostatic hyperplasia) Depression Diarrhea Diverticulosis Has a tremor Heart palpitations History of alcohol abuse History of basal cell cancer Hx of skin cancer, basal cell Hypertension IBS (irritable colon syndrome) Insomnia Leukopenia OAB (overactive bladder) Seizure disorder Family History Family History Maternal Aunt Colon cancer Father No problems noted. Mother No problems noted. Brother No problems noted. Family history of problems with anesthesia: No Surgical History Surgical History History of total knee arthroplasty History of total knee arthroplasty Hx of bilateral inguinal hernia repair Hx of cervical spine surgery Hx of colonoscopy Hx of esophagogastroduodenoscopy History of Problems with Anesthesia: No Social History Social History Household Members: Family Household Members Other:: Brother Alcohol intake: former Patient Tobacco Use Status: Never used Tobacco Use of substances other than those prescribed or required for medical reasons: No Are you DNR?: No Advance Directives: No Advance Directives Information Provided: Yes Current occupational status: disabled Meds Allergies Allergy/AdvReac Type Severity Reaction Status Date / Time No Known Allergies Allergy Verified 04/30/22 13:02 Home Medications Medication Instructions Recorded Confirmed Last Taken Type buspirone 5 mg tablet 1 tab PO BID 08/17/20 04/30/22 Unknown History mirabegron 25 mg tablet,extended 1 tab PO DAILY 08/17/20 04/30/22 Unknown History release 24 hr (Myrbetriq) multivit,Ca,min-iron 8 mg-folic 1 tab PO DAILY 08/17/20 04/30/22 Unknown History acid 200 mcg-lycopene 600 mcg tablet (Centrum Men) oxcarbazepine 300 mg tablet 1 tab PO BID 08/17/20 04/30/22 Unknown History paroxetine HCl 40 mg tablet 1 tab PO DAILY 08/17/20 04/30/22 Unknown History primidone 50 mg tablet 1 tab PO BID 08/17/20 04/30/22 Unknown History tamsulosin 0.4 mg capsule 1 cap PO BEDTIME 08/17/20 04/30/22 Unknown History trazodone 50 mg tablet 0.5 tab PO BEDTIME PRN insomnia 08/17/20 04/30/22 Unknown History zolpidem 10 mg tablet 1 tab PO BEDTIME 08/17/20 04/30/22 Unknown History omeprazole 20 mg capsule,delayed 1 cap PO DAILY 10/10/21 04/30/22 Unknown History release celecoxib 200 mg capsule 200 mg PO DAILY 03/12/22 04/30/22 Unknown History Exam Exam Date and Time: May 06, 2022 0928 Height,Weight and Vital Signs: Height 5 ft 10 in Weight 82.4 kg Pertinent Lab Results Pertinent Lab Results: Laboratory Tests 04/09/22 04/09/22 14:45 14:45 WBC 2.8 L Hgb 12.8 L Hct 38.9 L Plt Count 227 Sodium 141 Potassium 4.6 Chloride 108 Carbon Dioxide 27 BUN 18 H Creatinine 1.06 Narrative Narrative: EKG SB @ 53, otherwise nml Assessment and Plan Assessment Anesthesia Assessment: Chart Reviewed Final Anesthetic Review Family History of Problems with Anesthesia: No History of Problems with Anesthesia: No Documented by User: Ayanna Marques MD 05/07/22 12:54 PMFSH Past Medical History Medical History Anxiety Arthritis Back pain Bipolar 1 disorder BPH (benign prostatic hyperplasia) Depression Diarrhea Diverticulosis Has a tremor Heart palpitations History of alcohol abuse History of basal cell cancer Hx of skin cancer, basal cell Hypertension IBS (irritable colon syndrome) Insomnia Leukopenia OAB (overactive bladder) Seizure disorder Functional capacity: independent ambulation Family History Family History Maternal Aunt Colon cancer Father No problems noted. Mother No problems noted. Brother No problems noted. Surgical History Surgical History History of total knee arthroplasty History of total knee arthroplasty Hx of bilateral inguinal hernia repair Hx of cervical spine surgery Hx of colonoscopy Hx of esophagogastroduodenoscopy Social History Social History Household Members: Family Household Members Other:: Brother Alcohol intake: former Patient Tobacco Use Status: Never used Tobacco Use of substances other than those prescribed or required for medical reasons: No Are you DNR?: No Advance Directives: No Advance Directives Information Provided: Yes Current occupational status: disabled Meds Allergies Allergy/AdvReac Type Severity Reaction Status Date / Time No Known Allergies Allergy Verified 04/30/22 13:02 Home Medications Medication Instructions Recorded Confirmed Last Taken Type buspirone 5 mg tablet 1 tab PO BID 08/17/20 04/30/22 Unknown History mirabegron 25 mg tablet,extended 1 tab PO DAILY 08/17/20 04/30/22 Unknown History release 24 hr (Myrbetriq) multivit,Ca,min-iron 8 mg-folic 1 tab PO DAILY 08/17/20 04/30/22 Unknown History acid 200 mcg-lycopene 600 mcg tablet (Centrum Men) oxcarbazepine 300 mg tablet 1 tab PO BID 08/17/20 04/30/22 Unknown History paroxetine HCl 40 mg tablet 1 tab PO DAILY 08/17/20 04/30/22 Unknown History primidone 50 mg tablet 1 tab PO BID 08/17/20 04/30/22 Unknown History tamsulosin 0.4 mg capsule 1 cap PO BEDTIME 08/17/20 04/30/22 Unknown History trazodone 50 mg tablet 0.5 tab PO BEDTIME PRN insomnia 08/17/20 04/30/22 Unknown History zolpidem 10 mg tablet 1 tab PO BEDTIME 08/17/20 04/30/22 Unknown History omeprazole 20 mg capsule,delayed 1 cap PO DAILY 10/10/21 04/30/22 Unknown History release celecoxib 200 mg capsule 200 mg PO DAILY 03/12/22 04/30/22 Unknown History Exam Airway Mallampati Class: II TM Dist: >3cm Neck ROM: Full Heart: RRR Lungs: CTA Assessment and Plan Final Anesthetic Review ASA Class: II Final Preanesthetic Review: No Changes in Pt Med Stat, Meds/Allgs Chart Reviewed, Consent Obtained/Reviewed and Anes Risks/Benef Reviewed Patient Risk: Low Procedure Risk: Low Anesthetic Plan Anesthetic Plan: MAC: Disposition: Standard PACU
[2022-05-07 12:37] VITALS: BMI 25.5
[2022-05-07 12:53] VITALS: BP 124/67; PULSE 53; RESP 16; TEMP 36.4; O2SAT 98
[2022-05-07] MEDS: Lactated Ringers 1,000 ML 100 ML IVCONT (13:09)
--- NOTE | 2022-05-07 13:45 | PM.HEMONCBM ---
Bone Marrow Aspiration - Bone Marrow Aspiration Procedure:: *Service Date: [05/07/22] Pre Op Diagnosis:: MDS/multiple myeloma Post Op Diagnosis:: MDS/multiple myeloma Surgeon:: Payal Hackett MD Anesthesia:: local and monitored anesthesia Consent:: Informed consent obtained from the patient for the procedure. Pros and cons of biopsy explained. The patient was willing to proceed with the procedure under monitored anesthesia. Procedure in Detail:: The patient was positioned in left lateral decubitus and the right posterior superior iliac spine prepped and draped. Under aseptic precautions, 10 ml of 1% lidocaine used for local anesthesia. With the Jamshidi needle, 8 cc of aspirate and 2 cm core biopsy obtained without any complications. The patient tolerated the procedure well. Bandage was applied and patient was positioned on back for 10 to 15 minutes after the procedure. The patient was advised to call us if he develops any pain or swelling at the surgical site. Follow up in 2 weeks.
[2022-05-07 14:19] VITALS: BP 102/56; PULSE 53; RESP 16; TEMP 37.3; O2SAT 96
--- NOTE | 2022-05-07 14:22 | HO.POSTANES ---
Post Anesthesia Evaluation Post Anesthesia Evaluation Vital Signs: Vital Signs Temp Pulse Resp BP Pulse Ox O2 Del Method 05/07/22 12:53 97.5 F 53 16 124/67 98 Room Air Anesthesia: Monitored Mental Status: Awake Pain Control: Satisfactory Nausea/Vomiting: None Hydration: Adequate Anesthesia-Related Issues: No Anes. Related Issues
[2022-05-07 14:23] LABS: Bone Marrow SEE SEPARATE REPORT
[2022-05-07 14:34] VITALS: BP 130/51; PULSE 46; RESP 16; O2SAT 97
[2022-05-07 14:49] VITALS: BP 121/54; PULSE 50; RESP 16; TEMP 37.3; O2SAT 98
[2022-05-07 15:10] LABS: Baso%MD 0.4 %; Eos%MD 5.1 %; Hematocrit 34.4 % (42.0-52.0); Hemoglobin 11.3 g/dl (14.0-18.0); IG%MD 0.4 %; Lymph%MD 19.9 %; Mean Corpuscular HGB Conc 32.8 g/dl (31.0-36.0); Mean Corpuscular Volume 94.5 fL (80.0-98.0); Mean Platelet Volume 8.1 fL (9.4-12.4); Mono%MD 8.3 %; Neut%MD 65.9 %; Platelet Count 181 X10*3/uL (160-400); Red Blood Count 3.64 X10*6/uL (4.60-5.80); Red Cell Distribution Width 12.6 % (11.0-16.0); White Blood Count 2.8 X10*3/uL (4.8-10.8)
[2022-05-07 18:40] LABS: Band Neutrophils Percent 1 % (3-5); Basophils Percent Manual 1 % (0-2); Eosinophils Absolute Manual 0.2 X10*3/uL (0.0-0.4); Eosinophils Percent Manual 8 % (0-4); Lymphocytes Absolute Manual 0.4 X10*3/uL (1.2-4.9); Lymphocytes Percent Manual 15 % (20-40); Monocytes Absolute Manual 0.1 X10*3/uL (0.1-1.2); Monocytes Percent Manual 4 % (2-11); Neutrophils Percent Manual 71 % (45-73)
[2022-05-07 18:41] LABS: Platelet Estimate NORMAL (NORMAL); Platelet Morphology Comment NORMAL; RBC Morphology NORMAL
== END 2022-05-07 15:22 | disposition home or self-care (01) ==
PROVIDERS: PCP Internal Medicine Geriatric Medicine; Visit Provider Internal Medicine
PROC: (CPT 38221; principal; 2022-05-07 13:30)
DX: D47.2 Monoclonal gammopathy (principal); D46.9 Myelodysplastic syndrome, unspecified; C90.00 Multiple myeloma not having achieved remission; D72.818 Other decreased white blood cell count; G40.909 Epilepsy, unspecified, not intractable, without status epilepticus; N40.0 Benign prostatic hyperplasia without lower urinary tract symptoms; F31.9 Bipolar disorder, unspecified; F10.21 Alcohol dependence, in remission; R25.1 Tremor, unspecified; Z79.899 Other long term (current) drug therapy
CPT/HCPCS: 38222; 36415; 85007; 85027; 85097; 88184; 88185; 88237; 88264; 88305; 88311; 88313; 88342; 88374; J2250

== ENCOUNTER 2022-05-14 06:31 | Outpatient (REF) | payer MEDICARE, MEDICAID, SELFPAY ==
--- NOTE | ~2022-05-14 | FL_ITS ---
EXAMINATION: XR FLUOROSCOPY WITH IMAGES CLINICAL INFORMATION: Spondylosis without myelopathy or radiculopathy. COMPARISON: 01/08/2022. TECHNIQUE: Fluoroscopy performed by Dr. Demian Alvarez. Fluoroscopy time: 14.7 seconds DlP: 5.47 mGy Images: 1 FINDINGS: Lateral view of the lumbar spine on C-arm image demonstrates a needle and some contrast in the region of the posterior epidural space at the L4-L5 disc space level. FL/FL guidance in treatment room IMPRESSION: Intraoperative fluoroscopy for pain management procedure.
== END 2022-05-14 06:32 | disposition home or self-care (01) ==
LOC: HO.RADIR 06:31
PROVIDERS: Visit Provider Anesthesiology
DX: M47.816 Spondylosis without myelopathy or radiculopathy, lumbar region (principal); G89.29 Other chronic pain; M25.561 Pain in right knee; M48.00 Spinal stenosis, site unspecified
CPT/HCPCS: 62323; J3300

== ENCOUNTER → 2022-06-06 12:15 | Outpatient (BNVA) | payer MEDICARE, MEDICAID, SELFPAY | PROVIDERS: PCP Internal Medicine Geriatric Medicine; Visit Provider Internal Medicine Gastroenterology | DX: K59.09 Other constipation (principal); D12.6 Benign neoplasm of colon, unspecified; K57.30 Diverticulosis of large intestine without perforation or abscess without bleeding; K58.2 Mixed irritable bowel syndrome; R14.0 Abdominal distension (gaseous); K21.9 Gastro-esophageal reflux disease without esophagitis; K58.9 Irritable bowel syndrome, unspecified; K86.89 Other specified diseases of pancreas | CPT/HCPCS: Q3014 ==

== ENCOUNTER → 2022-06-18 14:00 | Outpatient (BNVA) | payer MEDICARE, MEDICAID, SELFPAY | PROVIDERS: PCP Internal Medicine Geriatric Medicine; Visit Provider Nurse Practitioner Family | DX: M54.9 Dorsalgia, unspecified (principal); G89.29 Other chronic pain; M25.561 Pain in right knee; M47.816 Spondylosis without myelopathy or radiculopathy, lumbar region | CPT/HCPCS: Q3014 ==

== ENCOUNTER 2022-07-02 15:39 | Outpatient (REF) | payer MEDICARE, MEDICAID, SELFPAY ==
[2022-07-02 15:54] LABS: MANUAL DIFF FLAG NO
[2022-07-02 16:29] LABS: Basophils Percent Auto 0.7 % (0-2); Eosinophils Absolute Auto 0.1 X10*3/uL (0.0-0.4); Eosinophils Percent Auto 3.2 % (0-4); Hematocrit 37.7 % (42.0-52.0); Hemoglobin 12.3 g/dl (14.0-18.0); Imm Gran Abs Auto 0.01 X10*3/uL (0.00-0.03); Imm Gran Pct Auto 0.2 % (0.0-0.4); Lymphocytes Absolute Auto 0.6 X10*3/uL (1.2-4.9); Lymphocytes Percent Auto 13.2 % (20-40); Mean Corpuscular HGB Conc 32.6 g/dl (31.0-36.0); Mean Corpuscular Hemoglobin 31.3 pg (27.0-33.0); Mean Corpuscular Volume 95.9 fL (80.0-98.0); Mean Platelet Volume 8.4 fL (9.4-12.4); Monocytes Absolute Auto 0.3 X10*3/uL (0.1-1.2); Monocytes Percent Auto 6.9 % (2-11); Neutrophils Absolute Auto 3.3 x10*3/uL (2.0-8.3); Neutrophils Percent Auto 75.8 % (45-73); Platelet Count 300 X10*3/uL (160-400); Red Blood Count 3.93 X10*6/uL (4.60-5.80); Red Cell Distribution Width 12.7 % (11.0-16.0); White Blood Count 4.3 X10*3/uL (4.8-10.8)
[2022-07-02 16:59] LABS: Alanine Aminotransferase 11 U/L (0-40); Albumin Level 4.3 g/dL (3.5-5.0); Alkaline Phosphatase 97 U/L (39-117); Anion Gap 15 (12-20); Aspartate Amino Transferase 16 U/L (5-37); Bilirubin Total 0.2 mg/dL (0.0-1.0); Blood Urea Nitrogen 21 mg/dL (9-16); Calcium 9.8 mg/dL (8.4-10.2); Carbon Dioxide 25 mmol/L (22-29); Chloride 104 mmol/L (96-108); Estimated Glomerular Filt Rate > 60; Glucose Random 98 mg/dL (60-115); Potassium 4.8 mmol/L (3.3-5.1); Sodium 139 mmol/L (135-145); Total Protein 7.8 g/dL (6.5-8.0)
[2022-07-02 18:55] LABS: Carbamazepine Tegretol < 2.0 mcg/mL (5.0-12.0)
[2022-07-04 17:23] LABS: IgA 21 mg/dL (70-320); IgG 2130 mg/dL (600-1540); IgM 14 mg/dL (50-300)
== END 2022-07-02 15:40 | disposition home or self-care (01) ==
LOC: HO.LAB 15:39
PROVIDERS: Absent Provider Internal Medicine; PCP Internal Medicine; Visit Provider Internal Medicine
DX: Z13.89 Encounter for screening for other disorder (principal)
CPT/HCPCS: 36415; 80053; 80156; 82784; 85025; 87086

== ENCOUNTER 2022-07-04 16:10 | Outpatient (REF) | payer MEDICARE, MEDICAID, SELFPAY | END 2022-07-04 16:11 | disposition home or self-care (01) | LOC: HO.LNP 16:10 | PROVIDERS: Visit Provider Internal Medicine | DX: C90.00 Multiple myeloma not having achieved remission (principal) | CPT/HCPCS: 86335 ==

== ENCOUNTER 2022-07-10 14:19 | Outpatient (REF) | payer MEDICARE, MEDICAID, SELFPAY ==
--- NOTE | ~2022-07-10 | FL_ITS ---
EXAMINATION: XR BARIUM SWALLOW CLINICAL INFORMATION: Dysphagia COMPARISON: None TECHNIQUE: Modified barium swallow was performed in lateral position upright under fluoroscopy in presence of speech therapist. FINDINGS: On oral administration of thin, thick barium, honey consistency barium, chicken and barium and barium coated cookie there is normal propagation of bolus from the oral cavity through the pharynx and esophagus without laryngeal penetration or aspiration. There is ventral plate and screws for fusion as well as bilateral posterior laminar screws and rods for posterior stability. FLUOROSCOPY TIME: 1.3 minutes DOSE AREA PRODUCT: 1.69 uGy-m2 (microgray-meter squared) FL/FL barium swallow modified IMPRESSION: Unremarkable modified barium swallow exam on lateral fluoroscopy. Correlate with speech therapy report.
--- NOTE | 2022-07-12 16:43 | MHC.SL.IMP ---
Date of Plan of Treatment: 07/10/22 Onset of Symptoms/Illness: 07/10/22 Date Treatment Started: 07/10/22 Admitting Diagnosis: Medical History (Updated 06/06/22 @ 13:13 by Anu Vallejo MD) Anxiety Arthritis Back pain Bipolar 1 disorder BPH (benign prostatic hyperplasia) Depression Diarrhea Diverticulosis Diverticulosis of colon Has a tremor Heart palpitations History of alcohol abuse History of basal cell cancer Hx of skin cancer, basal cell Hypertension IBS (irritable colon syndrome) Insomnia Irritable bowel syndrome with constipation and diarrhea Leukopenia OAB (overactive bladder) PVC (premature ventricular contraction) Seizure disorder Thrombosed external hemorrhoids Surgical History (Updated 06/06/22 @ 12:19 by Florina Levy) History of total knee arthroplasty History of total knee arthroplasty Hx of bilateral inguinal hernia repair Hx of cervical spine surgery Hx of colonoscopy Hx of esophagogastroduodenoscopy Hx of right knee surgery Primary Speech & Language Diagnosis: R13.12 Oropharyngeal Phase Dysphagia Reason for Today's Visit: 83999 Modified Barium Swallow Study Pre-evaluation Dietary Consistencies: Regular Pre-evaluation Liquid Consistency: Thin Pre-evaluation Medication Administration: Whole with Liquid Medical History: Modified Barium Swallow Study Fluoroscopic Evaluation of Swallowing Function CPT Code 33083 Evaluation Year: 2021 Reason for Study: Patient reports globus sensation. Referring Physician: Dr. Nito Newell Evaluating Clinician: Nessa Gordon MA, CCC-FOREIGN STUDENT ADVISER Study Number: 1 Patient Name: Storm Alvarado Status: Outpatient Age: 71 Gender: Male MEDICAL HISTORY: Year of Onset or Diagnosis: 2021 Comorbidities: Medical History (Updated 06/06/22 @ 13:13 by Anu Vallejo MD) Anxiety Arthritis Back pain Bipolar 1 disorder BPH (benign prostatic hyperplasia) Depression Diarrhea Diverticulosis Diverticulosis of colon Has a tremor Heart palpitations History of alcohol abuse History of basal cell cancer Hx of skin cancer, basal cell Hypertension IBS (irritable colon syndrome) Insomnia Irritable bowel syndrome with constipation and diarrhea Leukopenia OAB (overactive bladder) PVC (premature ventricular contraction) Seizure disorder Thrombosed external hemorrhoids Surgical History (Updated 06/06/22 @ 12:19 by Florina Levy) History of total knee arthroplasty History of total knee arthroplasty Hx of bilateral inguinal hernia repair Hx of cervical spine surgery Hx of colonoscopy Hx of esophagogastroduodenoscopy Hx of right knee surgery Current (pre-evaluation) Intake/Diet: Route: PO Diet Grade: Regular Liquid Consistencies: Thin Pre-Study Functional Oral Intake Scale (FOIS): 7- Total oral intake with no restrictions Pain: None reported at time of study SUBJECTIVE: Pt is a 71 year old male who attended this exam unaccompanied. Pt reported onset of dysphagia ?years ago,? and stated that his symptoms have been stable. Pt reports globus sensation with foods such as spaghetti and hamburgers with milkshakes. Pt reports he must chew extra and eat slowly. Pt reports he was previously taking medication to manage GERD, but is no longer taking it. Oral Motor Exam Facial Symmetry: Symmetrical Mouth Occlusion: Normal Oral-Facial Teeth Characteristics: Intact/Normal Oral-Facial Lip Pucker Description: Normal Oral-Facial Smile (Lips) Description: Normal Oral-Facial Puff Cheeks Description: Normal Tongue Size: Normal Food and Liquid Trials: Oral Impairment: Lip Closure: Did not test Oral Impairment: Tongue Control During Bolus Hold: 0=Cohesive bolus between tongue to palatal seal Oral Impairment: Bolus Preparation/Mastication: 0=Timely and efficient chewing and mashing Oral Impairment: Bolus Transport/Lingual Motion: 0=Brisk tongue motion Oral Impairment: Oral Residue: 1=Trace residue lining oral structures Oral Impairment:Initiation of Pharyngeal Swallow: 0=Bolus head at posterior angle of ramus (first hyoid excursion) Pharyngeal Impairment: Soft Palate Elevation: 0=No bolus between soft palate (SP)/pharyngeal wall (PW) Pharyngeal Impairment: Laryngeal Elevation: 1=Partial thyroid cartilage/arytenoids to epiglottic petiole movement Pharyngeal Impairment: Anterior Hyoid Excursion: 1=Partial anterior movement Pharyngeal Impairment: Epiglottic Movement: 0=Complete inversion Pharyngeal Impairment: Laryngeal Vestibular Closure:: 0=Complete: no air/contrast in laryngeal vestibule Pharyngeal Impairment: Pharyngeal Stripping Wave: 0=Present: complete Pharyngeal Impairment: Pharyngeal Contraction: Did not test Pharyngeal Impairment: Pharyngoesophageal Segment Openin=Complete distension and complete duration: no obstruction of flow Pharyngeal Impairment: Tongue Base (TB) Retraction: 2=Narrow column of contrast/air between TB and posterior PW Pharyngeal Impairment: Pharyngeal Residue: 1=Trace residue within or on pharyngeal structures Pharyngeal Impairment: Esophageal Clearance Upright Position: 0=Complete clearance: esophageal coating Impressions and Recommendations Clinical Observations: OBJECTIVE: Time-out: performed at 03:15 Evaluation Start: 03:00; Stop: 3:20 Patient Positioning: Standing Viewing Planes: LATERAL ONLY Contrast: MBSImP? Standardized Protocol using commercially prepared, standardized Barium viscosities, including: Varibar? THIN LIQUID (40% w/v, <15 cps) , 1/2 Shortbread Cookie (1 x1 x.25 ) MBSImP ID: [id number] MBSImP Results: Lip closure for intraoral bolus containment could not be assessed due to logistical reasons not related to physiologic impairment. Tongue control during bolus hold maintained a cohesive bolus held between tongue to palate seal. Bolus preparation and mastication resulted in timely and efficient chewing and mashing. Bolus transport/lingual motion was with brisk tongue motion. Oral residue was a trace, lining oral structures. Initiation of the pharyngeal swallow occurred as the bolus head reached the posterior angle of the mandibular ramus. Soft palate elevation resulted in no bolus between the soft palate and the pharyngeal wall. Laryngeal elevation was decreased, with partial superior movement of the thyroid cartilage/partial approximation of the arytenoids to the epiglottic petiole. Anterior hyoid excursion demonstrated partial anterior movement. Epiglottic movement resulted in complete inversion. Laryngeal vestibular closure was complete, as indicated by no air or contrast within the laryngeal vestibule at the height of the swallow. Pharyngeal stripping wave was present and complete. Pharyngeal contraction could not be determined due to logistical reasons not related to physiologic impairment. Pharyngoesophageal segment opening was completely distended for complete duration with no obstruction of bolus flow. Tongue base retraction allowed a narrow column of contrast or air between the retracted tongue base and the posterior pharyngeal wall. Pharyngeal residue was a trace within or on pharyngeal structures. Esophageal clearance in the upright position was complete, with only a coating of contrast, if any. Oral Impairment Score: 0 (absence of score, component 1) Pharyngeal Impairment Score: 4 (absence of score, component 13) Esophageal Impairment Score: 0 Laryngeal Penetration and Aspiration: Neither penetration nor aspiration was observed in today's study with Cookie, Thin. ASSESSMENT: Clinician Assessment: This exam was conducted by a multidisciplinary team, which included a speech pathologist, radiologist, and electrical engineering technician. Imaging was taken in lateral view only. Pt trialed the following liquid and solid consistencies: thin liquid barium by cup, pureed solid (mixture applesauce with barium paste), ground solid (chicken salad with barium paste), and regular solid (Lore Doone cookie coated in barium paste). Pt demonstrated good tongue control with brisk posterior lingual movement. Mastication was timely and efficient. Trace oral residue cleared subsequently. Pharyngeal swallow trigger was timely, initiated when bolus head was at posterior angle of ramus. There was no nasopharyngeal reflux. Laryngeal elevation was incomplete with partial anterior hyoid excursion. Complete epiglottic inversion with complete laryngeal vestibular closure. There was no evidence of aspiration or penetration with solids and liquids during this exam. Trace pharyngeal residue cleared with subsequent swallow. There was no obstruction of flow through pharyngoesophageal segment opening. Radiologist noted: ?There is ventral plate and screws for fusion as well as bilateral posterior laminar screws and rods for posterior stability.? Liquid Intake Recommendation: Thin Liquid Intake Strategies: Dietary Recommendations: Regular Medication Administration: Whole with Liquid Please contact the pharmacy regarding appropriate crushable or liquid drug formulations that are available whenever modified delivery is recommended. Compensatory Strategies Recommended: Sitting Upright (90 deg) Small Bites and Sips Alternate Liquids/Solids Rate of Ingestion Change Supervision during eating and or drinking: None Needed Recommendation for Speech Therapy: NA:Typical Evaluation Text Comment: PLAN: Intake Recommendations: Route: PO Diet Grade: Regular Liquid Consistencies: Thin Post-Study Functional Oral Intake Scale (FOIS): 7- Total oral intake with no restrictions Recommend resume unmodified diet regular solids with thin liquids. Pt may benefit from referral w/ G.I. for further workup given pt?s reported history of GERD. Suggested Referrals: The patient might benefit from a referral to: Gastroenterology Therapy Recommendations: Therapy will be discontinued Prognosis for Improvement: The prognosis for the patient to meet nutritional needs by mouth is excellent based on degree of impairment. Clinician - Supplemental, Miscellaneous Communication: It is important to note MBSS objective studies are snapshots in time and Patient function might vary with factors such as time of day or concomitant medical conditions. For this reason, the final treatment plan for this patient should rest with their medical care team. Additional recommendations should be considered with the totality of the Patient in mind. Thank for the opportunity to participate in the care of this patient. If you have any questions about the content of this report, please contact the [facility] at [facility]. Education: Education regarding findings from today's study and plans for therapy were provided to Patient only through Verbal Instruction. Understanding was expressed by the Patient only. Explosive Ordnance Technician Clinician/Clinical Fellow: No Supervisory Statement: N/A Speech Language Pathologist: Nessa Gordon M.A., [facility]-FOREIGN STUDENT ADVISER
== END 2022-07-10 14:20 | disposition home or self-care (01) ==
LOC: HO.XRAY 14:19
PROVIDERS: Visit Provider Internal Medicine
DX: R13.10 Dysphagia, unspecified (principal)
CPT/HCPCS: 74230; 92611

== ENCOUNTER 2022-07-23 13:16 | Outpatient (REF) | payer MEDICARE, MEDICAID, SELFPAY ==
--- NOTE | ~2022-07-23 | PE_ITS ---
EXAMINATION: Fluorine-18 FDG PET/CT Scan CLINICAL INDICATION: Initial treatment management. Multiple myeloma. PROCEDURE: 95 minutes following the intravenous administration of 21.1 mCi of fluorine 18 FDG, images from top of the skull to the feet were obtained using a combined PET/CT scanner with CT scan based attenuation correction. No intravenous contrast was administered. Transverse, coronal, sagittal, and volume reconstruction projections were obtained. The patient's blood glucose as determined by a finger stick, was 98 mg/dl immediately prior to injection. The radiotracer was injected through the left antecubital superficial vein, without any complication. Total CT exam dose-length product 997.17 mGy-cm * These CT images were obtained using dose optimization techniques as appropriate, variously including the following: Automated exposure control * Adjustment of mA and/or kV according to patient size (this includes techniques or standardized protocols for targeted exams where dose is matched to indication/reason for exam; i.e. extremities or head) * Use of iterative reconstruction technique COMPARISON: MRI of the lumbar spine done on 03/22/2022. Radiographs of the lumbar spine done on 01/08/2022. FINDINGS: HEAD AND NECK: No metabolically active disease is present. THORAX: No metabolically active disease is present. Bilateral lung wright are clear. No evidence of any pleural or pericardial effusion. ABDOMEN AND PELVIS: No metabolically active disease is present. Cortical renal cysts are present within the right kidney. Small sliding hiatal hernia. Colonic diverticulosis without any CT features of superimposed acute diverticulitis. MUSCULOSKELETAL: Postsurgical changes of anterior cervical fusion at C2 and C3 and posterior cervical fusion at C3, C4 and C5 with intact hardware. Multilevel degenerative spondylosis related changes are present throughout the entire cervical, thoracic and lumbosacral spine. No evidence of any compression fracture. No evidence of any focal osteolytic lesion. Mild diffuse osteopenia. BOTH LOWER EXTREMITIES: Postsurgical changes of bilateral total knee arthroplasty is noted with intact hardware. No evidence of any focal osseous lesion or metabolically active disease. VASCULAR: Mild atherosclerotic disease of the thoracic aorta and dense coronary artery calcifications are present. No evidence of any aneurysm. PET/PET CT fusion whole body IMPRESSION: 1.The baseline PET/CT scan shows no evidence of any osteolytic lesion or metabolically active osseous or extramedullary disease. Mild diffuse osteopenia however is present throughout the entire skeleton. Durie-Glasco PLUS staging system-all negative (MGUS). 2. Postsurgical changes of cervical spine fusion and bilateral pedicle knee arthroplasty with intact hardware. 3. Incidental note is made of significant atherosclerotic coronary arterial disease. Durie-Glasco PLUS staging system (F-18 FDG PET/CT, MR, or both): MGUS: All negative Stage IA, smoldering or indolent: Can have single plasmacytoma or limited disease by imaging Stage IB: < 5 focal lesions, mild diffuse disease Stage IIA or IIB: 5-20 focal lesions, moderate diffuse disease Stage IIIA or IIIB: >20 focal lesions, severe diffuse disease
== END 2022-07-23 13:17 | disposition home or self-care (01) ==
LOC: HO.PET 13:16
PROVIDERS: Visit Provider Internal Medicine
DX: Z13.89 Encounter for screening for other disorder (principal)

== ENCOUNTER 2022-08-14 15:40 | Outpatient (REF) | payer MEDICARE, MEDICAID, SELFPAY ==
--- NOTE | ~2022-08-14 | CT_ITS ---
EXAMINATION: CT ABDOMEN AND PELVIS WITH CONTRAST CLINICAL INFORMATION: History of multiple myeloma. Disease of pancreas. COMPARISON: PET/CT study 07/23/2022. CT scan abdomen pelvis 01/28/2012 TECHNIQUE: Multidetector volumetric images were obtained from the superior aspect of the liver through the pubic symphysis following administration 85 mL of Omnipaque 350 intravenous contrast. Sagittal and coronal reformatted images were obtained on the technologist's workstation. Oral contrast: No This CT examination was performed using dose optimization techniques as appropriate, variously including the following: *Automated exposure control *Adjustment of mA and/or kV according to patient size (this includes techniques or standardized protocols for targeted exams where dose is matched to indication/reason for exam; i.e. extremities or head) *Use of iterative reconstruction technique DLP: 413 mGy-cm FINDINGS: LUNG BASES: The visualized lung bases are unremarkable. LIVER, GALLBLADDER, AND BILIARY TREE: The liver is normal in size, shape, and attenuation. No focal hepatic lesion or biliary ductal dilatation is present. The gallbladder is unremarkable with no evidence of radiopaque gallstones, gallbladder wall thickening, or obvious pericholecystic inflammatory changes. PANCREAS: Unremarkable. SPLEEN: Unremarkable. ADRENAL GLANDS: Unremarkable. KIDNEYS AND URETERS: The kidneys are normal in size, shape, and attenuation. No hydronephrosis, hydroureter, or calculi seen. No perinephric stranding. There are cysts in the right kidney. In the lower pole there is a 3 cm cyst, density measurement 4 Hounsfield units. At the upper pole there is a 2.4 cm cyst. Density measurement 6 Hounsfield units. There are multiple small hypodense cyst in the left kidney measuring up to about 1.4 cm. No follow-up imaging is recommended for simple renal cyst.. BLADDER: Unremarkable. GASTROINTESTINAL TRACT: There are scattered diverticula of the colon. There is no diverticulitis. There is no bowel wall thickening /edema. There is no bowel obstruction. There is a moderate volume of stool in the colon. The appendix is normal . The small bowel loops are unremarkable. The stomach is normal. There is no hiatal hernia. ABDOMINAL WALL: Status post abdominal wall surgery. Surgical mesh in place in lower pelvis. Surgical clips in the lower midline pelvis and groin bilaterally. No evidence of recurrent hernia. LYMPH NODES: Normal. VASCULAR: Unremarkable. PELVIC VISCERA: Prostate measures 5 cm transverse. OSSEOUS STRUCTURES: Multilevel degenerative spondylosis spine. No acute osseous abnormality. CT/CT abdomen pelvis w IV con IMPRESSION: No acute abnormality CT scan abdomen pelvis. This is normal. Fleischner guidelines were followed.
[2022-08-14] MEDS: iohexoL 350 MG/ML 100 ML INFUS..BTL IV (16:01)
== END 2022-08-14 15:41 | disposition home or self-care (01) ==
LOC: HO.CT 15:40
PROVIDERS: PCP Internal Medicine; Visit Provider Internal Medicine Gastroenterology
DX: K86.89 Other specified diseases of pancreas (principal)
CPT/HCPCS: 74177; Q9967

== ENCOUNTER → 2022-08-15 10:08 | Outpatient (BNVA) | payer MEDICARE, MEDICAID, SELFPAY | PROVIDERS: PCP Internal Medicine; Visit Provider Internal Medicine Gastroenterology | DX: D12.6 Benign neoplasm of colon, unspecified (principal); K57.30 Diverticulosis of large intestine without perforation or abscess without bleeding; K58.2 Mixed irritable bowel syndrome; K21.9 Gastro-esophageal reflux disease without esophagitis; K58.9 Irritable bowel syndrome, unspecified; K86.89 Other specified diseases of pancreas; R14.0 Abdominal distension (gaseous) | CPT/HCPCS: 99212 ==

== ENCOUNTER 2022-09-30 14:39 | Outpatient (REF) | payer MEDICARE, MEDICAID, SELFPAY ==
[2022-09-30 14:55] LABS: MANUAL DIFF FLAG NO
[2022-09-30 15:16] LABS: Basophils Percent Auto 0.3 % (0-2); Eosinophils Absolute Auto 0.1 X10*3/uL (0.0-0.4); Eosinophils Percent Auto 3.6 % (0-4); Hematocrit 38.2 % (42.0-52.0); Hemoglobin 12.6 g/dl (14.0-18.0); Lymphocytes Absolute Auto 0.6 X10*3/uL (1.2-4.9); Lymphocytes Percent Auto 18.2 % (20-40); Mean Corpuscular Hemoglobin 30.7 pg (27.0-33.0); Mean Corpuscular Volume 93.2 fL (80.0-98.0); Mean Platelet Volume 8.5 fL (9.4-12.4); Monocytes Absolute Auto 0.1 X10*3/uL (0.1-1.2); Neutrophils Absolute Auto 2.5 x10*3/uL (2.0-8.3); Neutrophils Percent Auto 74.9 % (45-73); Platelet Count 250 X10*3/uL (160-400); Red Cell Distribution Width 13.1 % (11.0-16.0); White Blood Count 3.3 X10*3/uL (4.8-10.8)
[2022-09-30 15:47] LABS: Alanine Aminotransferase 13 U/L (0-40); Albumin Level 4.1 g/dL (3.5-5.0); Alkaline Phosphatase 109 U/L (39-117); Anion Gap 14 (12-20); Aspartate Amino Transferase 18 U/L (5-37); Bilirubin Total 0.3 mg/dL (0.0-1.0); Blood Urea Nitrogen 12 mg/dL (9-16); C Reactive Protein 0.36 mg/dL (< or = 0.50); Calcium 9.8 mg/dL (8.4-10.2); Carbon Dioxide 26 mmol/L (22-29); Chloride 104 mmol/L (96-108); Estimated Glomerular Filt Rate > 60; Glucose Random 139 mg/dL (60-115); Lipase 38 U/L (8-78); Potassium 4.1 mmol/L (3.3-5.1); Sodium 140 mmol/L (135-145); Total Protein 7.7 g/dL (6.5-8.0)
== END 2022-09-30 14:40 | disposition home or self-care (01) ==
LOC: HO.LAB 14:39
PROVIDERS: Visit Provider Internal Medicine
DX: K21.9 Gastro-esophageal reflux disease without esophagitis (principal); D64.9 Anemia, unspecified; K58.9 Irritable bowel syndrome, unspecified; M19.90 Unspecified osteoarthritis, unspecified site
CPT/HCPCS: 36415; 80053; 83690; 85025; 86140

== ENCOUNTER 2022-11-04 14:47 | Outpatient (REF) | payer MEDICARE, MEDICAID, SELFPAY ==
[2022-11-04 15:37] LABS: Influenza A PCR POSITIVE (Negative); Influenza B PCR NEGATIVE (Negative); Resp Syncy Virus RNA Qual PCR NEGATIVE (Negative); SARS COV2 PCR INHOUSE NEGATIVE (Negative)
== END 2022-11-04 14:48 | disposition home or self-care (01) ==
LOC: HO.LNP 14:47
PROVIDERS: Visit Provider Internal Medicine
DX: Z20.822 Contact with and (suspected) exposure to COVID-19 (principal); R05.9 Cough, unspecified; R51.9 Headache, unspecified; R06.2 Wheezing
CPT/HCPCS: 0241U

== ENCOUNTER → 2022-11-07 10:52 | Outpatient (BNVA) | payer MEDICARE, MEDICAID, SELFPAY | PROVIDERS: PCP Internal Medicine; Visit Provider Internal Medicine Gastroenterology | DX: K21.9 Gastro-esophageal reflux disease without esophagitis (principal); K58.9 Irritable bowel syndrome, unspecified; K52.9 Noninfective gastroenteritis and colitis, unspecified; K57.30 Diverticulosis of large intestine without perforation or abscess without bleeding; K86.89 Other specified diseases of pancreas; D12.6 Benign neoplasm of colon, unspecified | CPT/HCPCS: Q3014 ==

== ENCOUNTER → 2022-12-16 09:50 | Outpatient (BNVA) | payer MEDICARE, MEDICAID, SELFPAY | PROVIDERS: PCP Internal Medicine; Visit Provider Hospitalist | DX: J30.9 Allergic rhinitis, unspecified (principal); K21.9 Gastro-esophageal reflux disease without esophagitis; R05.3 Chronic cough | CPT/HCPCS: 99202 ==

== ENCOUNTER 2022-12-27 12:58 | Outpatient (REF) | payer MEDICARE, MEDICAID, SELFPAY ==
--- NOTE | 2022-12-27 17:09 | PFT_ITS ---
Forced vital capacity 109%, FEV1 114%, DMI57-36 is 118% and MVV 117%. Post bronchodilator therapy, there is a significant improvement in GAB65-15. Total lung capacity 103%. Residual volume 98%. Diffusion capacity is 66%. CONCLUSION: Baseline spirometry and lung volumes are normal. There is a significant response to bronchodilator therapy as far as NTI38-53 is concerned and this indicates that there may be a mild small airway obstructive disorder, which improved after bronchodilator therapy. Clinical correlation is recommended. MD PRABHA Marquez/MODL / [id number]
== END 2022-12-27 12:59 | disposition home or self-care (01) ==
LOC: HO.RESP 12:58
PROVIDERS: PCP Internal Medicine; Visit Provider Hospitalist
DX: R05.3 Chronic cough (principal)
CPT/HCPCS: 94060; 94727; 94729

== ENCOUNTER → 2023-01-14 13:27 | Outpatient (BNVA) | payer MEDICARE, MEDICAID, SELFPAY | PROVIDERS: PCP Internal Medicine; Visit Provider Hospitalist | DX: J30.9 Allergic rhinitis, unspecified (principal); R06.3 Periodic breathing; K21.9 Gastro-esophageal reflux disease without esophagitis; D84.9 Immunodeficiency, unspecified | CPT/HCPCS: Q3014 ==

== ENCOUNTER 2023-01-30 07:12 | Day surgery (SDC) | payer MEDICARE, MEDICAID, SELFPAY ==
[2023-01-24 14:19] VITALS: BMI 24.7
[2023-01-24 15:08] VITALS: BMI 24.7
--- NOTE | 2023-01-29 09:53 | HO.ANESPROP2 ---
HPI - Anesthesia Eval Consult details Narrative: 72yo M for Bronchoscopy Fiberoptic PMFSH Active Problems Active Problems: All Active Problems (Updated 01/24/23 @ 15:11 by Evelyn Valero, RN) Adenomatous colon polyp (Acute) Leukopenia (Chronic) Abdominal bloating (Acute) Diverticulosis of colon (Acute) Anemia (Acute) GERD (gastroesophageal reflux disease) (Acute) Spondylosis of lumbar spine (Acute) S/P insertion of spinal cord stimulator (Acute) IBS (irritable bowel syndrome) (Acute) Status post total right knee replacement (Acute) Right knee pain (Acute) Chronic diarrhea (Acute) Pancreatic insufficiency (Acute) Chronic back pain (Acute) Immunodeficiency (Acute) Chronic cough (Acute) Chronic allergic rhinitis (Acute) Diverticulosis of colon (Acute) PVC (premature ventricular contraction) (Acute) Irritable bowel syndrome with constipation and diarrhea (Acute) Thrombosed external hemorrhoids (Acute) Past Medical History Medical History Anxiety Arthritis Back pain Bipolar 1 disorder BPH (benign prostatic hyperplasia) Chronic allergic rhinitis Chronic cough Depression Diarrhea Diverticulosis Diverticulosis of colon Has a tremor Heart palpitations History of alcohol abuse History of basal cell cancer History of cardiac murmur Hx of skin cancer, basal cell Hypertension IBS (irritable colon syndrome) Immunodeficiency Insomnia Irritable bowel syndrome with constipation and diarrhea Leukopenia OAB (overactive bladder) PVC (premature ventricular contraction) Seizure disorder Thrombosed external hemorrhoids Family History Family History Maternal Aunt Colon cancer Father No problems noted. Mother No problems noted. Brother No problems noted. Family history of problems with anesthesia: No Surgical History Surgical History History of total knee arthroplasty History of total knee arthroplasty Hx of bilateral inguinal hernia repair Hx of cervical spine surgery Hx of colonoscopy Hx of esophagogastroduodenoscopy Hx of right knee surgery History of Problems with Anesthesia: No Social History Social History Household Members: Family Household Members Other:: brother Both parents involved: No Housing: House Are you a primary administrator health care facility to a significant other at home: No Do you presently have visiting nurse or other home services: Yes ([facility] q/month) Alcohol intake: former Patient Tobacco Use Status: Never used Tobacco service: No Current occupational status: disabled Meds Allergies Allergy/AdvReac Type Severity Reaction Status Date / Time No Known Allergies Allergy Verified 01/30/23 08:24 Home Medications Medication Instructions Recorded Confirmed Last Taken Type buspirone 5 mg tablet 1 tab PO BID 08/17/20 01/24/23 05/07/22 History mirabegron 25 mg tablet,extended 1 tab PO DAILY 08/17/20 01/24/23 05/07/22 History release 24 hr (Myrbetriq) multivit,Ca,min-iron 8 mg-folic 1 tab PO DAILY 08/17/20 01/24/23 Unknown History acid 200 mcg-lycopene 600 mcg tablet (Centrum Men) oxcarbazepine 300 mg tablet 1 tab PO BID 08/17/20 01/24/23 05/07/22 History paroxetine HCl 40 mg tablet 1 tab PO DAILY 08/17/20 01/24/23 05/07/22 History primidone 50 mg tablet 1 tab PO BID 08/17/20 01/24/23 05/07/22 History tamsulosin 0.4 mg capsule 1 cap PO BEDTIME 08/17/20 01/24/23 Unknown History trazodone 50 mg tablet 0.5 tab PO BEDTIME PRN insomnia 08/17/20 01/24/23 Unknown History zolpidem 10 mg tablet 1 tab PO BEDTIME 08/17/20 01/24/23 Unknown History celecoxib 200 mg capsule 200 mg PO DAILY 01/14/23 01/24/23 Unknown History hydroxyzine HCl 25 mg tablet 25 mg PO BID 01/14/23 01/24/23 Unknown History llajgh-gzgeuzgk-tcjbiay 1 cap PO TID 01/14/23 01/24/23 Unknown History 20,000-63,000-84,000 unit capsule, delayed rel (Zenpep) prednisone 20 mg tablet 20 mg PO BID 01/14/23 01/24/23 Unknown History Fiber Therapy Laxative 01/24/23 01/24/23 Unknown History Exam Exam Date and Time: January 29, 2023 0953 Height,Weight and Vital Signs: Height 5 ft 10 in Weight 78.018 kg Pertinent Lab Results Pertinent Lab Results: Laboratory Tests 11/28/22 11/28/22 14:33 14:33 WBC 3.3 L Hgb 11.8 L Hct 35.9 L Plt Count 239 Sodium 138 Potassium 4.1 Chloride 103 Carbon Dioxide 27 BUN 23 H Creatinine 1.15 Assessment and Plan Assessment Anesthesia Assessment: Chart Reviewed Final Anesthetic Review Family History of Problems with Anesthesia: No History of Problems with Anesthesia: No
[2023-01-30] VITALS (8 sets, daily range): BP systolic 108–161; BP diastolic 45–60; PULSE 44–54; RESP 16–18; TEMP 36.3–36.6; O2SAT 97–99
[2023-01-30] MEDS: Lactated Ringers 1,000 ML 100 ML IVCONT (08:18)
--- NOTE | 2023-01-30 12:55 | PM.OP ---
Brief Operative Note Date of Service: 01/30/23 Pre-op diagnosis: chronic bronchitis Post-op diagnosis: same Procedure: Bronchoscopy with endobronchial biopsies, washings and brushings Implants: Surgeon: Anshul Baez MD Anesthesia: GLMA Was an Screen Handler used for this Procedure?: No Estimated blood loss (mL): 0 Pathology: other (bronchus intermedius polypoid lesion biopsy (likely chondroma)) Condition: stable Disposition: same day
--- NOTE | 2023-02-05 20:44 | OP_ITS ---
DATE OF SERVICE: 01/30/2023 SURGEON: Anshul Baez MD PREOPERATIVE DIAGNOSIS: Chronic bronchitis. POSTOPERATIVE DIAGNOSIS: Chronic bronchitis in addition to endobronchial polypoid area. PROCEDURE PERFORMED: ESTIMATED BLOOD LOSS: COMPLICATIONS: ANESTHESIA: LMA. ASSISTANTS: SPECIMENS: PROCEDURES PERFORMED: Bronchoscopy, endobronchial biopsies, washings, and brushings. DIRECTOR OF CASEWORK: None. DESCRIPTION OF PROCEDURE: After the patient was adequately sedated, a flexible digital bronchoscope was inserted over the LMA to the level of vocal cords. Vocal cords moved symmetrically to the midline without any lesions or masses. After instilling lidocaine, the bronchoscope was then passed to the level of trachea. Trachea was normal. No evidence of any malacia. The bronchoscope was navigated to the entire tracheobronchial tree without any significant secretions. No evidence of any bleeding. The patient, however, did have a small little polypoid area in the bronchus intermedius area. No other lesions noted. The patient had washings of the airways. We sent bronchial washings bilaterally, also brushings in the right lower lobe area. At the end of the procedure, we did take couple of forceps biopsies of that polypoid area likely to be more of a chondroma, but does not appear to be without any neovascularization and does not appear to be concerning. The bronchoscope was then removed. The total endoscopic time approximately 12 minutes. Patient tolerated the procedure well, vital signs were stable. No apparent complications. MD LUCAS Salas/MARITZA / [id number]
== END 2023-01-30 11:30 | disposition home or self-care (01) ==
PROVIDERS: PCP Internal Medicine; Visit Provider Hospitalist
PROC: 0BJ08ZZ Inspection of Tracheobronchial Tree, Via Natural or Artificial Opening Endoscopic (ICD-10-PCS; CPT 31622; principal; 2023-01-30 08:50)
DX: J42 Unspecified chronic bronchitis (principal); R05.3 Chronic cough; J98.09 Other diseases of bronchus, not elsewhere classified; J30.89 Other allergic rhinitis; I10 Essential (primary) hypertension; C90.00 Multiple myeloma not having achieved remission; G40.909 Epilepsy, unspecified, not intractable, without status epilepticus; R25.1 Tremor, unspecified; R00.2 Palpitations; D72.819 Decreased white blood cell count, unspecified; K21.9 Gastro-esophageal reflux disease without esophagitis; F10.11 Alcohol abuse, in remission; Z85.828 Personal history of other malignant neoplasm of skin; Z79.51 Long term (current) use of inhaled steroids; Z79.899 Other long term (current) drug therapy
CPT/HCPCS: 31625; 31623; 87070; 87102; 87116; 87118; 87186; 87205; 87206; 88112; 88305; J0171; J2250

== ENCOUNTER → 2023-02-12 10:09 | Outpatient (BNVA) | payer MEDICARE, MEDICAID, SELFPAY | PROVIDERS: PCP Internal Medicine; Visit Provider Hospitalist | DX: J30.9 Allergic rhinitis, unspecified (principal); R05.3 Chronic cough; K21.9 Gastro-esophageal reflux disease without esophagitis; D84.9 Immunodeficiency, unspecified | CPT/HCPCS: 99212 ==

== ENCOUNTER → 2023-02-13 14:19 | Outpatient (BNVA) | payer MEDICARE, MEDICAID, SELFPAY | PROVIDERS: PCP Internal Medicine; Referring Provider Internal Medicine; Visit Provider Internal Medicine Cardiovascular Disease | DX: I49.3 Ventricular premature depolarization (principal) | CPT/HCPCS: 93005; 99212 ==

== ENCOUNTER 2023-03-18 09:55 | Day surgery (SDC) | payer MEDICARE, MEDICAID, SELFPAY ==
--- NOTE | ~2023-03-18 | CT_ITS ---
PROCEDURE: CT GUIDED BONE MARROW BIOPSY CLINICAL INFORMATION: Multiple myeloma. COMPARISON: None available. TECHNIQUE: Following explaining CT fluoroscopy-guided bone marrow biopsy iliac crest procedure, benefits and risk, a written consent was obtained. Patient was placed prone and preliminary CT imaging was obtained through the pelvis. Markers were placed overlying the left iliac crest and repeat CT imaging was obtained. An optimal marker was selected and was marked on the skin. The area marked was cleaned and draped in usual sterile manner with 2% chlorhexidine solution. 1% lidocaine was administered at puncture site. Through a small skin incision a 16 guide needle was advanced from the skin to the level of periosteum. With a hand drill the needle is extending into the bone marrow. The stylet was removed and bone marrow was aspirated in 2 syringes with TYLER and heparin respectively. Subsequently, coaxially a 17-gauge needle was advanced and a core biopsy was obtained. Postprocedure stylet was reintroduced and the guide needle was withdrawn. Complete hemostasis was achieved at puncture site. Conscious sedation was utilized for 20 minutes. No immediate complication seen. This CT examination was performed using dose optimization techniques as appropriate, variously including the following: *Automated exposure control *Adjustment of mA and/or kV according to patient size (this includes techniques or standardized protocols for targeted exams where dose is matched to indication/reason for exam; i.e. extremities or head) *Use of iterative reconstruction technique DLP: 218 mGy-cm FINDINGS: On preliminary limited imaging through the pelvis the bone marrow signal of the sacrum and iliac bone appears unremarkable. Visualized bladder and prostate gland appear unremarkable. Scattered calcifications are seen in the seminal vesicles. No abnormality seen involving the bowel loops. No abnormal lymph nodes. CT/CT biopsy aspirate bone marrow IMPRESSION: Successful CT fluoroscopy-guided bone marrow biopsy and aspiration of left iliac bone under conscious sedation..
[2023-03-18 10:22] VITALS: BMI 25.1
[2023-03-18 10:54] LABS: MANUAL DIFF FLAG NO
[2023-03-18 10:57] LABS: Basophils Percent Auto 0.5 % (0-2); Eosinophils Absolute Auto 0.2 X10*3/uL (0.0-0.4); Eosinophils Percent Auto 4.3 % (0-4); Hematocrit 35.5 % (42.0-52.0); Hemoglobin 11.5 g/dl (14.0-18.0); Lymphocytes Absolute Auto 0.8 X10*3/uL (1.2-4.9); Lymphocytes Percent Auto 21.6 % (20-40); Mean Corpuscular HGB Conc 32.4 g/dl (31.0-36.0); Mean Corpuscular Hemoglobin 30.8 pg (27.0-33.0); Mean Corpuscular Volume 95.2 fL (80.0-98.0); Mean Platelet Volume 8.2 fL (9.4-12.4); Monocytes Absolute Auto 0.2 X10*3/uL (0.1-1.2); Monocytes Percent Auto 4.6 % (2-11); Neutrophils Absolute Auto 2.6 x10*3/uL (2.0-8.3); Platelet Count 266 X10*3/uL (160-400); Red Blood Count 3.73 X10*6/uL (4.60-5.80); White Blood Count 3.7 X10*3/uL (4.8-10.8)
[2023-03-18 11:09] LABS: Partial Thromboplastin Time 32.2 SEC (26.0-36.4)
[2023-03-18 12:55] VITALS: BP 138/60; PULSE 53; RESP 18; TEMP 37; O2SAT 99
[2023-03-18 13:10] VITALS: BP 133/55; PULSE 45; RESP 18; O2SAT 95
[2023-03-18 13:25] VITALS: BP 138/54; PULSE 45; RESP 16; O2SAT 96
[2023-03-18 13:29] LABS: Bone Marrow SEE SEPARATE REPORT
[2023-03-18 13:40] VITALS: BP 128/53; PULSE 46; RESP 16; O2SAT 96
[2023-03-18] MEDS: Lidocaine HCl 1 % MPF 30 ML VIAL 10 ML SUBCUT (13:49)
[2023-03-18 13:55] VITALS: BP 130/51; PULSE 46; RESP 16; TEMP 36.3; O2SAT 96
[2023-03-18 14:45] VITALS: BP 126/49; PULSE 51; RESP 18; TEMP 36.6; O2SAT 98
== END 2023-03-18 14:49 | disposition home or self-care (01) ==
PROVIDERS: Radiology Diagnostic Radiology; PCP Internal Medicine; Visit Provider Internal Medicine
PROC: (CPT 38221; principal; 2023-03-18 11:30)
DX: C90.00 Multiple myeloma not having achieved remission (principal); D75.9 Disease of blood and blood-forming organs, unspecified; G40.209 Localization-related (focal) (partial) symptomatic epilepsy and epileptic syndromes with complex partial seizures, not intractable, without status epilepticus; I10 Essential (primary) hypertension; I49.3 Ventricular premature depolarization; F10.10 Alcohol abuse, uncomplicated; D80.3 Selective deficiency of immunoglobulin G [IgG] subclasses; K58.2 Mixed irritable bowel syndrome; R00.2 Palpitations; D70.9 Neutropenia, unspecified; Z79.899 Other long term (current) drug therapy
CPT/HCPCS: 36415; 38221; 38222; 85025; 85610; 85730; 88184; 88185; 88237; 88264; 88305; 88311; 88313; 88341; 88342; 88344; 88374; 99152; J1642; J2250; J3010

== ENCOUNTER 2023-04-01 09:27 | Outpatient (REF) | payer MEDICARE, MEDICAID, SELFPAY ==
--- NOTE | ~2023-04-01 | PE_ITS ---
EXAMINATION: Fluorine-18 FDG PET/CT Scan CLINICAL INDICATION: Initial treatment management. Multiple myeloma, restaging PROCEDURE: 79 minutes following the intravenous administration of 20.1 mCi of fluorine 18 FDG, images of the whole body were obtained using a combined PET/CT scanner with CT scan based attenuation correction. No oral contrast was administered. No intravenous contrast was administered. Transverse, coronal, sagittal, and volume reconstruction projections were obtained. The patient's blood glucose as determined by a finger stick, was 90 mg/dl immediately prior to injection. Total CT exam dose-length product 1017.46 mGy-cm * These CT images were obtained using dose optimization techniques as appropriate, variously including the following: Automated exposure control * Adjustment of mA and/or kV according to patient size (this includes techniques or standardized protocols for targeted exams where dose is matched to indication/reason for exam; i.e. extremities or head) * Use of iterative reconstruction technique COMPARISON: The previous PET CT scan dated 07/23/2022 is available for comparison. CT scan of the abdomen and pelvis dated 08/14/2022 is also available for comparison. FINDINGS: (Slice numbers described in this report are numbered superiorly to inferiorly with slice #1 in the head) NECK AND VISUALIZED HEAD: No foci of abnormal FDG activity are noted. The distribution of FDG activity is physiological. There is no cervical lymphadenopathy. THORAX: Present in the expected chest normal ABDOMEN AND PELVIS: There are no foci of abnormal FDG activity. Mild FDG activity is present throughout the gastrointestinal tract without a suspicious focal component. There is diverticulosis without evidence of diverticulitis. The hollow viscera are otherwise unremarkable. The liver, gallbladder and spleen are unremarkable. Hypodense renal cysts are present in the right kidney, markedly FDG photopenic and unchanged from prior studies. These likely represent simple cysts. The kidneys are otherwise unremarkable. The adrenal glands and pancreas are unremarkable. There is no retroperitoneal, mesenteric, pelvic or inguinal lymphadenopathy. A small periumbilical fat-containing hernia is present. The pelvic organs are unremarkable. MUSCULOSKELETAL: There are no foci of abnormal FDG activity in the osseous structures. There are degenerative changes in the spine, most severely in the mid and lower thoracic spine. Cervical spine fusion hardware is present with no associated abnormal FDG activity. Bilateral total knee prostheses are present and there is mild FDG activity surrounding both of these, likely due to normal postoperative inflammatory changes. There is no significant focal component in either knee. There are no suspicious sclerotic or lytic lesions present. VASCULAR: Vascular calcifications including coronary. PET/PET CT fusion whole body IMPRESSION: 1. There are no abnormal FDG avid foci suspicious for malignancy present at any site. 2. No suspicious osseous lesions are visualized. 3. Using the Durie-Ironwood PLUS staging system this scan is all negative (MGUS). 4. Vascular calcifications including coronary. Durie-Ironwood PLUS staging system: MGUS: All negative Stage IA, smoldering or indolent: Can have single plasmacytoma or limited disease by imaging Stage IB: < 5 focal lesions, mild diffuse disease Stage IIA or IIB: 5-20 focal lesions, moderate diffuse disease Stage IIIA or IIIB: >20 focal lesions, severe diffuse disease
== END 2023-04-01 09:28 | disposition home or self-care (01) ==
LOC: HO.PET 09:27
PROVIDERS: PCP Internal Medicine; Visit Provider Internal Medicine
DX: Z13.89 Encounter for screening for other disorder (principal)

== ENCOUNTER 2023-04-08 09:43 | Outpatient (REF) | payer MEDICARE, MEDICAID, SELFPAY ==
--- NOTE | ~2023-04-08 | FL_ITS ---
EXAMINATION: FL BARIUM SWALLOW CLINICAL INFORMATION: Gastroesophageal reflux disease without esophagitis COMPARISON: Previous barium swallow June 2022 TECHNIQUE: Barium swallow examination is performed using fluoroscopic evaluation in addition to multiple fluoroscopic spot views. The patient is imaged both upright and prone and using both thick and thin sulfate along with effervescent granules. Barium tablet was also administered Fluoroscopy time: 1.1 minutes DAP: 7.2 Gycm2 total dose 35 mgy Images: 62 FINDINGS: The swallowing mechanism is normal. No aspiration or penetration. There is a prominent cricopharyngeus muscle. There is a Schatzki ring. There is mild gastroesophageal reflux. Small hiatal hernia. Barium tablet passed freely into the stomach. Orthopedic hardware in the cervical spine. FL/FL barium swallow IMPRESSION: Mild gastroesophageal reflux. Schatzki ring and small hiatal hernia.
== END 2023-04-08 09:44 | disposition home or self-care (01) ==
LOC: HO.XRAY 09:43
PROVIDERS: PCP Internal Medicine; Visit Provider Hospitalist
DX: K21.9 Gastro-esophageal reflux disease without esophagitis (principal)
CPT/HCPCS: 74220

== ENCOUNTER 2023-04-11 12:25 | Outpatient (REF) | payer MEDICARE, MEDICAID, SELFPAY ==
--- NOTE | ~2023-04-11 | XR_ITS ---
EXAMINATION: XR ABDOMEN KUB CLINICAL INDICATION: Abdominal pain COMPARISON: None available. TECHNIQUE: AP view of the abdomen. FINDINGS: There is oral contrast seen in the colon from barium swallow earlier in the week. There are no dilated loops of bowel to suggest obstruction. There is no evidence of free air. No calcifications. Mild degenerative changes at the hip joints. XR/XR KUB IMPRESSION: Barium in the colon from previous upper GI. No evidence of obstruction or free air.
[2023-04-11 12:36] LABS: MANUAL DIFF FLAG NO
[2023-04-11 13:09] LABS: Basophils Percent Auto 0.3 % (0-2); Eosinophils Absolute Auto 0.1 X10*3/uL (0.0-0.4); Hematocrit 33.8 % (42.0-52.0); Imm Gran Abs Auto 0.01 X10*3/uL (0.00-0.03); Imm Gran Pct Auto 0.3 % (0.0-0.4); Lymphocytes Absolute Auto 0.6 X10*3/uL (1.2-4.9); Lymphocytes Percent Auto 20.5 % (20-40); Mean Corpuscular HGB Conc 32.5 g/dl (31.0-36.0); Mean Corpuscular Hemoglobin 30.8 pg (27.0-33.0); Mean Corpuscular Volume 94.7 fL (80.0-98.0); Mean Platelet Volume 8.6 fL (9.4-12.4); Monocytes Absolute Auto 0.1 X10*3/uL (0.1-1.2); Monocytes Percent Auto 3.8 % (2-11); Neutrophils Absolute Auto 2.1 x10*3/uL (2.0-8.3); Neutrophils Percent Auto 73.1 % (45-73); Platelet Count 274 X10*3/uL (160-400); Red Blood Count 3.57 X10*6/uL (4.60-5.80); Red Cell Distribution Width 13.2 % (11.0-16.0); White Blood Count 2.9 X10*3/uL (4.8-10.8)
[2023-04-11 13:14] LABS: Appearance Urine Clear; Color Urine Yellow; Glucose Urine UA Negative (Negative); Leukocyte Esterase Urine Negative (Negative); Nitrite Urine Negative (Negative); Specific Gravity - Urine 1.025 (1.005-1.025); UMIC TRIGGER UACC YES; Urine Blood Trace (Negative); Urine Ketones Negative (Negative); Urine Protein 300 (3+) mg/dL (Neg-Trace)
[2023-04-11 13:19] LABS: Bacteria Urine None Seen (None Seen); RBC Urine 0-2 /HPF (0-2); Squamous Epithelial Cell Urine 0-2 /HPF (0-2); WBC Urine 0-5 /HPF (0-5)
[2023-04-11 13:47] LABS: Alanine Aminotransferase 15 U/L (0-40); Alkaline Phosphatase 113 U/L (39-117); Anion Gap 11 (12-20); Aspartate Amino Transferase 19 U/L (5-37); Bilirubin Total 0.3 mg/dL (0.0-1.0); Blood Urea Nitrogen 17 mg/dL (9-16); Calcium 10.1 mg/dL (8.4-10.2); Carbon Dioxide 28 mmol/L (22-29); Chloride 104 mmol/L (96-108); Estimated Glomerular Filt Rate > 60; Glucose Random 102 mg/dL (60-115); Potassium 4.3 mmol/L (3.3-5.1); Sodium 139 mmol/L (135-145); Total Protein 8.4 g/dL (6.5-8.0)
== END 2023-04-11 12:26 | disposition home or self-care (01) ==
LOC: HO.LAB 12:25
PROVIDERS: PCP Internal Medicine; Visit Provider Internal Medicine
DX: R10.9 Unspecified abdominal pain (principal); I10 Essential (primary) hypertension; R39.89 Other symptoms and signs involving the genitourinary system
CPT/HCPCS: 36415; 74018; 80053; 81001; 81003; 85025; 87086

== ENCOUNTER 2023-04-23 11:11 | Day surgery (SDC) | payer MEDICARE, MEDICAID, SELFPAY ==
[2023-04-21 14:04] VITALS: BMI 24.7
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
[2023-04-23] VITALS (9 sets, daily range): BP systolic 92–136; BP diastolic 40–75; PULSE 45–61; RESP 16–18; TEMP 36.1–36.4; O2SAT 96–99; BMI 24.4
[2023-04-23] MEDS: Lactated Ringers 1,000 ML 100 ML IVCONT (12:15)
--- NOTE | 2023-04-23 12:30 | HO.ANESPROP2 ---
Documented by User: Adali Garcia NP 04/22/23 10:35 HPI - Anesthesia Eval Consult details Narrative: 72yo M for right Eye Muscle inferior rectus Recession,Left inferior oblique PCP cleared Stable at 01/2023 cardiac office visit [facility] Active Problems Active Problems: All Active Problems (Updated 03/27/23 @ 15:23 by Payal Hackett MD) Adenomatous colon polyp (Acute) Leukopenia (Chronic) Abdominal bloating (Acute) Diverticulosis of colon (Acute) Anemia (Acute) GERD (gastroesophageal reflux disease) (Acute) Spondylosis of lumbar spine (Acute) S/P insertion of spinal cord stimulator (Acute) IBS (irritable bowel syndrome) (Acute) Status post total right knee replacement (Acute) Right knee pain (Acute) Chronic diarrhea (Acute) Pancreatic insufficiency (Acute) Chronic back pain (Acute) Multiple myeloma (Acute) Immunodeficiency (Acute) Chronic cough (Acute) Chronic allergic rhinitis (Acute) Diverticulosis of colon (Acute) PVC (premature ventricular contraction) (Acute) Irritable bowel syndrome with constipation and diarrhea (Acute) Thrombosed external hemorrhoids (Acute) Past Medical History Medical History Anxiety Arthritis Back pain Bipolar 1 disorder BPH (benign prostatic hyperplasia) Chronic allergic rhinitis Chronic cough Depression Diarrhea Diverticulosis Diverticulosis of colon Has a tremor Heart palpitations History of alcohol abuse History of basal cell cancer History of cardiac murmur Hx of skin cancer, basal cell Hypertension IBS (irritable colon syndrome) Immunodeficiency Insomnia Irritable bowel syndrome with constipation and diarrhea Leukopenia OAB (overactive bladder) PVC (premature ventricular contraction) Seizure disorder Thrombosed external hemorrhoids Family History Family History Maternal Aunt Colon cancer Father No problems noted. Mother No problems noted. Brother No problems noted. Family history of problems with anesthesia: No Surgical History Surgical History History of bone marrow biopsy History of bronchoscopy History of total knee arthroplasty History of total knee arthroplasty Hx of bilateral inguinal hernia repair Hx of cervical spine surgery Hx of colonoscopy Hx of esophagogastroduodenoscopy Hx of right knee surgery History of Problems with Anesthesia: No Social History Social History Household Members: Family Household Members Other:: brother Housing: House Are you a primary senior resident care director to a significant other at home: No Do you presently have visiting nurse or other home services: 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 If so, by whom?: No Are you DNR?: No Advance Directives: No Advance Directives Information Provided: Yes Advance Directives on File: No Recently lost weight without trying: No service: No Current occupational status: disabled Meds Allergies Allergy/AdvReac Type Severity Reaction Status Date / Time No Known Allergies Allergy Verified 04/21/23 14:00 Home Medications Medication Instructions Recorded Confirmed Last Taken Type mirabegron 25 mg tablet,extended 1 tab PO DAILY 08/17/20 04/21/23 05/07/22 History release 24 hr (Myrbetriq) multivit,Ca,min-iron 8 mg-folic 1 tab PO DAILY 08/17/20 04/21/23 Unknown History acid 200 mcg-lycopene 600 mcg tablet (Centrum Men) paroxetine HCl 40 mg tablet 1 tab PO DAILY 08/17/20 04/21/23 05/07/22 History primidone 50 mg tablet 1 tab PO BID 08/17/20 04/21/23 05/07/22 History tamsulosin 0.4 mg capsule 1 cap PO BEDTIME 08/17/20 04/21/23 Unknown History trazodone 50 mg tablet 1.5 tab PO BEDTIME PRN insomnia 08/17/20 04/21/23 Unknown History zolpidem 10 mg tablet 1 tab PO BEDTIME 08/17/20 04/21/23 Unknown History hydroxyzine HCl 25 mg tablet 25 mg PO BID 01/14/23 04/21/23 Unknown History sypmaa-tkmyjyhh-osvjhqa 1 cap PO TID 01/14/23 04/23/23 Unknown History 20,000-63,000-84,000 unit capsule, delayed rel (Zenpep) Fiber Therapy Laxative 01/24/23 02/13/23 Unknown History buspirone 5 mg tablet 5 mg PO BID 02/13/23 04/21/23 Unknown History oxcarbazepine 300 mg tablet 300 mg PO BID 02/13/23 04/21/23 Unknown History Exam Exam Date and Time: April 22, 2023 1031 Height,Weight and Vital Signs: Height 5 ft 10 in Weight 78.018 kg Pertinent Lab Results Pertinent Lab Results: Laboratory Tests 04/11/23 04/11/23 12:35 12:35 WBC 2.9 L Hgb 11.0 L Hct 33.8 L Plt Count 274 Sodium 139 Potassium 4.3 Chloride 104 Carbon Dioxide 28 BUN 17 H Creatinine 0.95 Narrative Narrative: EKG 01/2023 Sinus bradycardia 54 beats per minute normal ECG, QTC 386 millisecond. Assessment and Plan Assessment Anesthesia Assessment: Chart Reviewed Final Anesthetic Review Family History of Problems with Anesthesia: No History of Problems with Anesthesia: No Documented by User: Juani Painting DO 04/23/23 13:24 [facility] Past Medical History Medical History Anxiety Arthritis Back pain Bipolar 1 disorder BPH (benign prostatic hyperplasia) Chronic allergic rhinitis Chronic cough Depression Diarrhea Diverticulosis Diverticulosis of colon Has a tremor Heart palpitations History of alcohol abuse History of basal cell cancer History of cardiac murmur Hx of skin cancer, basal cell Hypertension IBS (irritable colon syndrome) Immunodeficiency Insomnia Irritable bowel syndrome with constipation and diarrhea Leukopenia OAB (overactive bladder) PVC (premature ventricular contraction) Seizure disorder Thrombosed external hemorrhoids Family History Family History Maternal Aunt Colon cancer Father No problems noted. Mother No problems noted. Brother No problems noted. 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 If so, by whom?: No Are you DNR?: No Advance Directives: No Advance Directives Information Provided: Yes Advance Directives on File: No Recently lost weight without trying: No service: No Current occupational status: disabled Meds Allergies Allergy/AdvReac Type Severity Reaction Status Date / Time No Known Allergies Allergy Verified 04/21/23 14:00 Home Medications Medication Instructions Recorded Confirmed Last Taken Type mirabegron 25 mg tablet,extended 1 tab PO DAILY 08/17/20 04/21/23 05/07/22 History release 24 hr (Myrbetriq) multivit,Ca,min-iron 8 mg-folic 1 tab PO DAILY 08/17/20 04/21/23 Unknown History acid 200 mcg-lycopene 600 mcg tablet (Centrum Men) paroxetine HCl 40 mg tablet 1 tab PO DAILY 08/17/20 04/21/23 05/07/22 History primidone 50 mg tablet 1 tab PO BID 08/17/20 04/21/23 05/07/22 History tamsulosin 0.4 mg capsule 1 cap PO BEDTIME 08/17/20 04/21/23 Unknown History trazodone 50 mg tablet 1.5 tab PO BEDTIME PRN insomnia 08/17/20 04/21/23 Unknown History zolpidem 10 mg tablet 1 tab PO BEDTIME 08/17/20 04/21/23 Unknown History hydroxyzine HCl 25 mg tablet 25 mg PO BID 01/14/23 04/21/23 Unknown History cudckf-ewfapfck-vucphvl 1 cap PO TID 01/14/23 04/23/23 Unknown History 20,000-63,000-84,000 unit capsule, delayed rel (Zenpep) Fiber Therapy Laxative 01/24/23 02/13/23 Unknown History buspirone 5 mg tablet 5 mg PO BID 02/13/23 04/21/23 Unknown History oxcarbazepine 300 mg tablet 300 mg PO BID 02/13/23 04/21/23 Unknown History Exam Exam Date and Time: April 23, 2023 1230 Height,Weight and Vital Signs: Height 5 ft 10 in Weight 78.018 kg Vital Signs Temperature 97.6 F 04/23/23 11:31 Pulse Rate 45 L 04/23/23 11:31 Respiratory Rate 18 04/23/23 11:31 Blood Pressure 119/40 L 04/23/23 11:31 Pulse Oximetry 98 04/23/23 11:31 Oxygen Delivery Method Room Air 04/23/23 11:31 Temperature 97.6 F 04/23/23 11:31 Pulse Rate 45 L 04/23/23 11:31 Respiratory Rate 18 04/23/23 11:31 Blood Pressure 119/40 L 04/23/23 11:31 Pulse Oximetry 98 04/23/23 11:31 Oxygen Delivery Method Room Air 04/23/23 11:31 Airway Mallampati Class: I TM Dist: >3cm Neck ROM: Full Loose/Missing/Broken Teeth: No Heart: S1S2 Lungs: CTAB Assessment and Plan Final Anesthetic Review History of Problems with Anesthesia: No NPO: Yes ASA Class: III Final Preanesthetic Review: No Changes in Pt Med Stat, Meds/Allgs Chart Reviewed, Consent Obtained/Reviewed and Anes Risks/Benef Reviewed Patient Risk: Intermediate Procedure Risk: Low Anesthetic Plan Anesthetic Plan: GA and Agree w/ Assess. and Plan Disposition: Standard PACU
--- NOTE | 2023-04-23 14:06 | HO.OPHTHAL ---
Ophthalmology Operative Note Date of Service: 04/23/23 Narrative: Diagnosis left superior oblique palsy. Procedures 1. Recession and anterior transposition of left inferior oblique muscle 2. Recession of left medial rectus muscle 3.[address] Dave anesthesia general complications none. The patient was brought to the operating room placed under general anesthesia. The eyes were prepped and draped in the usual sterile ophthalmic fashion. An incision was made down to bare sclera in the inferotemporal fornix. The inferior and lateral rectus muscles were placed on large muscle hooks and the inferior oblique carefully identified and grasped with 2 small tenotomy hooks. The muscle was transferred to the large muscle hooks and grasped near its insertion with a curved mosquito. The muscle was then disinserted the globe and transposed to a position 2 mm posterior and 2 mm temporal to the temporal insertion of the inferior rectus muscle. Conjunctiva was closed with interrupted Vicryl sutures. An incision was then made down to bare sclera in the infero nasal fornix. The medial rectus muscle was hooked and secured with a double-armed Vicryl suture. The muscle was then disinserted the globe and reattached to a position 3.5 mm behind the original insertion. Conjunctiva was closed with interrupted Vicryl sutures. The patient was then awoken from general anesthesia and discharged to postoperative recovery in good condition.
== END 2023-04-23 16:15 | disposition home or self-care (01) ==
PROVIDERS: PCP Internal Medicine; Visit Provider Ophthalmology
PROC: (CPT 67311; principal; 2023-04-23 12:10)
DX: H49.12 Fourth [trochlear] nerve palsy, left eye (principal); H49.00 Third [oculomotor] nerve palsy, unspecified eye; I10 Essential (primary) hypertension; D64.9 Anemia, unspecified; N40.0 Benign prostatic hyperplasia without lower urinary tract symptoms; G40.89 Other seizures; K58.9 Irritable bowel syndrome, unspecified; F31.9 Bipolar disorder, unspecified; F41.1 Generalized anxiety disorder; Z85.828 Personal history of other malignant neoplasm of skin; Z79.899 Other long term (current) drug therapy; Z79.51 Long term (current) use of inhaled steroids
CPT/HCPCS: 67311; 67314; J0131; J1100; J2370; J2405

== ENCOUNTER → 2023-05-13 11:07 | Outpatient (BNVA) | payer MEDICARE, MEDICAID, SELFPAY | PROVIDERS: PCP Internal Medicine; Visit Provider Hospitalist | DX: A31.0 Pulmonary mycobacterial infection (principal); J30.9 Allergic rhinitis, unspecified; R05.3 Chronic cough; D84.9 Immunodeficiency, unspecified; K21.9 Gastro-esophageal reflux disease without esophagitis; Z79.899 Other long term (current) drug therapy | CPT/HCPCS: 99212 ==

== ENCOUNTER 2023-05-24 18:47 | Emergency (ER) | payer MEDICARE, MEDICAID, SELFPAY ==
[2023-05-24] VITALS (7 sets, daily range): BP systolic 139–152; BP diastolic 44–62; PULSE 48–58; RESP 14–18; TEMP 36.8–37.4; O2SAT 95–99; BMI 24.5
--- NOTE | 2023-05-24 18:56 | ED_ITS ---
HPI - General Adult General Chief complaint: General Medical Stated complaint: hiccups chemo tx 05/23 Time Seen by Provider: 05/24/23 20:59 Source: patient Mode of arrival: ambulatory History of Present Illness HPI narrative: 72-year-old male who presents after receiving multiple treatments for his underlying malignancy and states that he has not had very much sleep over the past 18 hours due to hiccups. Otherwise, he denies any other symptoms such as fevers, chills, shortness of breath, chest pain/palpitations, nausea or vomiting. Related Data Home Medications Medication Instructions Recorded Confirmed mirabegron 25 mg tablet,extended 1 tab PO DAILY 08/17/20 05/07/23 release 24 hr (Myrbetriq) multivit,Ca,min-iron 8 mg-folic 1 tab PO DAILY 08/17/20 05/07/23 acid 200 mcg-lycopene 600 mcg tablet (Centrum Men) paroxetine HCl 40 mg tablet 1 tab PO DAILY 08/17/20 05/07/23 primidone 50 mg tablet 1 tab PO BID 08/17/20 05/07/23 tamsulosin 0.4 mg capsule 1 cap PO BEDTIME 08/17/20 05/07/23 trazodone 50 mg tablet 1.5 tab PO BEDTIME PRN insomnia 08/17/20 05/07/23 zolpidem 10 mg tablet 1 tab PO BEDTIME 08/17/20 05/07/23 hydroxyzine HCl 25 mg tablet 25 mg PO BID 01/14/23 05/07/23 eyolst-gzihgnhm-ourfvfu 1 cap PO TID 01/14/23 05/07/23 20,000-63,000-84,000 unit capsule, delayed rel (Zenpep) Fiber Therapy Laxative 01/24/23 02/13/23 buspirone 5 mg tablet 5 mg PO BID 02/13/23 05/07/23 oxcarbazepine 300 mg tablet 300 mg PO BID 02/13/23 05/07/23 celecoxib 200 mg capsule 200 mg PO DAILY 05/13/23 Previous Rx's Medication Instructions Recorded codeine 10 mg-guaifenesin 100 mg/5 10 ml PO Q6H PRN cough 10 days 12/16/22 mL oral liquid #300 mL ipratropium bromide 42 mcg (0.06 2 spray intranasal TID PRN allergy 12/16/22 %) nasal spray symptoms #15 mL budesonide-formoterol HFA 160 2 puff inhalation BID 30 days 02/12/23 mcg-4.5 mcg/actuation aerosol #10.2 grams inhaler (Symbicort) chlorhexidine gluconate 0.12 % 15 ml buccal BID 14 days #420 mL 02/12/23 mouthwash metoprolol succinate 50 mg 50 mg PO DAILY #90 tabs 03/10/23 tablet,extended release 24 hr dicyclomine 10 mg capsule 10 mg PO TID PRN abdominal cramps 04/29/23 60 days #60 caps acyclovir 400 mg tablet 400 mg PO BID #60 tabs 05/09/23 aspirin 325 mg tablet 325 mg PO DAILY #90 tabs 05/09/23 ondansetron 8 mg disintegrating 8 mg PO Q8H PRN Nausea #60 tabs 05/09/23 tablet azithromycin 500 mg tablet 500 mg PO 3XW 28 days #12 tabs 05/13/23 rifampin 300 mg capsule 300 mg PO 3XW 28 days #12 caps 05/13/23 lenalidomide 20 mg capsule 20 mg PO DAILY #14 caps 05/14/23 (Revlimid) chlorpromazine 25 mg tablet 25 mg PO Q6H PRN persistent 05/25/23 hiccups #4 tabs Allergies Allergy/AdvReac Type Severity Reaction Status Date / Time No Known Allergies Allergy Verified 05/24/23 18:59 Review of Systems Review of Systems: Pertinent positives and negatives as stated in HPI [facility] Past Medical History Source: nursing notes reviewed Medical History Anxiety Arthritis Back pain Bipolar 1 disorder BPH (benign prostatic hyperplasia) Chronic allergic rhinitis Chronic cough Depression Diarrhea Diverticulosis Diverticulosis of colon Has a tremor Heart palpitations History of alcohol abuse History of basal cell cancer History of cardiac murmur Hx of skin cancer, basal cell Hypertension IBS (irritable colon syndrome) Immunodeficiency Insomnia Irritable bowel syndrome with constipation and diarrhea Leukopenia Nontuberculous mycobacterial disease of lung OAB (overactive bladder) PVC (premature ventricular contraction) Seizure disorder Thrombosed external hemorrhoids Surgical History History of bone marrow biopsy History of bronchoscopy History of total knee arthroplasty History of total knee arthroplasty Hx of bilateral inguinal hernia repair Hx of cervical spine surgery Hx of colonoscopy Hx of esophagogastroduodenoscopy Hx of right knee surgery Family History Family History Maternal Aunt Colon cancer Father No problems noted. Mother No problems noted. Brother No problems noted. 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) Alcohol intake: former Patient Tobacco Use Status: Never used Tobacco Smoked in Last 30 Days: Yes Use of substances other than those prescribed or required for medical reasons: No Advance Directives: No Advance Directives Information Provided: Yes service: No Current occupational status: disabled Physical Exam ED Vital Signs: Vital Signs - 24 hr 05/24/23 18:56 05/24/23 20:20 05/24/23 20:31 Temperature 99.4 F 99.1 F Pulse Rate 52 48 L Respiratory Rate 18 14 Blood Pressure 139/44 L 150/62 H Pulse Oximetry 95 98 Oxygen Delivery Method Room Air Room Air 05/24/23 21:30 05/24/23 21:46 05/24/23 22:57 Temperature 99.0 F Pulse Rate 56 58 52 Respiratory Rate 16 16 16 Blood Pressure 145/55 H 152/54 H Pulse Oximetry 99 97 98 Oxygen Delivery Method Room Air Room Air Room Air 05/24/23 22:59 05/25/23 00:00 Temperature 98.2 F Pulse Rate 59 Respiratory Rate 18 Blood Pressure 152/59 H 145/60 H Pulse Oximetry 95 Oxygen Delivery Method Room Air BMI result Body Mass Index 24.5 VITAL SIGNS: Reviewed. GENERAL: Well developed, well nourished, in no acute distress. HEAD: Normocephalic/atraumatic EYES: PERRLA, EOMI LUNGS: Normal breath sounds. No adventitious sounds or accessory muscle use. SpO2<97> CARDIOVASCULAR: Regular rate and rhythm without noted murmurs ABDOMEN: Soft, non-tender, non-distended with bowel sounds. MUSCULOSKELETAL: No tenderness, deformities, or effusions noted on gross inspection. EXTREMITIES: No cyanosis, clubbing or edema. SKIN: Inspection of the skin reveals no rashes NEUROLOGIC: Alert and oriented x 4. Strength and sensation to light touch were grossly intact x 4. Course Course Course Narrative: RME: 72yo M w/PMHx etoh abuse, partial seizures, multiple myeloma started on Chemo (1st time yesterday 05/[address] Hackett) c/o hiccups since 3AM. Reports assoc abdominal soreness . denies CP/SOB Mild appreciable hiccups during triage EKG, Labs ordered Full HPI, ROS and PE to be performed by primary ED provider. Medications Administered Discontinued Medications Generic Name Dose Route Start Last Admin Trade Name Freq PRN Reason Stop Dose Admin Chlorpromazine HCl 25 mg 05/24/23 22:23 05/24/23 22:54 Chlorpromazine Hcl 25 Mg Tablet PO 05/24/23 22:24 25 mg ONCE ONE Administration Medical Decision Making Medical Decision Making MDM Narrative: 72-year-old male with history and clinical presentation, DDX: Hiccups less than 48 hours will evaluate etiology as electrolytes, bilateral ear cerumen impaction, sodium or calcium derangements. In the meantime will attempt to offer ice water, sugar, if these do not work then will proceed with chlorpromazine. I suspect that the underlying cause is secondary to chemotherapy drugs as sodium and calcium are inconsistent with etiologies for patient's hiccups. On evaluation of the your exam they are clear and there is no pressure to bilateral TMs. Patient otherwise appears hemodynamically stable and well. I reviewed all investigations and hematologic indices chronically stable, on evaluation of chemistry studies there is a very mild elevation of the BUN likely secondary to hydration status, calcium is noted to be 10.4 but appears to be chronically stable when compared to last 2 laboratory studies dating back to 05/07. On re-evaluation patient has hiccups appear to have significantly improved after combination of ice water and chlorpromazine. Patient will receive an additional dose of chlorpromazine and then be discharged home. Differential Diagnosis Please see the discussion above Lab Data Please see the discussion above 05/24/23 19:08 05/24/23 19:08 Labs: Lab Results 05/24/23 05/24/23 Range/Units 19:08 19:08 WBC 3.1 L (4.8-10.8) X10*3/uL RBC 3.18 L (4.60-5.80) X10*6/uL Hgb 9.9 L (14.0-18.0) g/dl Hct 30.2 L (42.0-52.0) % MCV 95.0 (80.0-98.0) fL MCH 31.1 (27.0-33.0) pg MCHC 32.8 (31.0-36.0) g/dl RDW 13.9 (11.0-16.0) % Plt Count 196 (160-400) X10*3/uL MPV 9.2 L (9.4-12.4) fL Immature Gran % (Auto) 0.3 (0.0-0.4) % Neut % (Auto) 89.5 H (45-73) % Lymph % (Auto) 8.7 L (20-40) % [place] % (Auto) 0.6 L (2-11) % Eos % (Auto) 0.6 (0-4) % Baso % (Auto) 0.3 (0-2) % Lymph # (Auto) 0.3 L (1.2-4.9) X10*3/uL [place] # (Auto) 0.0 L (0.1-1.2) X10*3/uL Eos # (Auto) 0.0 (0.0-0.4) X10*3/uL Baso # (Auto) 0.0 (0.0-0.2) X10*3/uL Abs Immat Gran (auto) 0.01 (0.00-0.03) X10*3/uL Absolute Neuts (auto) 2.8 (2.0-8.3) x10*3/uL Absolute Nucleated RBC 0.000 (0.0-0.012) X10*3/uL Nucleated RBC % (auto) 0.0 (0.0-0.2) /100WBC Sodium 139 (135-145) mmol/L Potassium 4.4 (3.3-5.1) mmol/L Chloride 106 (96-108) mmol/L Carbon Dioxide 23 (22-29) mmol/L Anion Gap 14 (12-20) BUN 20 H (9-16) mg/dL Creatinine 1.07 (0.5-1.4) mg/dL Estim Creat Clear Calc 65.3 Estimated GFR > 60 Random Glucose 98 (60-115) mg/dL Calcium 10.4 H (8.4-10.2) mg/dL Magnesium 1.8 (1.6-2.6) mg/dL Total Bilirubin 0.2 (0.0-1.0) mg/dL Direct Bilirubin < 0.2 (0.0-0.5) mg/dL AST 16 (5-37) U/L ALT 15 (0-40) U/L Alkaline Phosphatase 88 (39-117) U/L Total Protein 8.3 H (6.5-8.0) g/dL Albumin 3.7 (3.5-5.0) g/dL Lipase 23 (8-78) U/L Independent Interpretation I performed an independent interpretation of an: EKG Interpretation: Sinus bradycardia, HR-51, no STEMI, HI/QRS/QTC is within normal limits. External Record Review External record reviewed: Outpatient record and Prior outpatient labs Discharge Plan Discharge Clinical Impression: Intractable hiccups, Side effect of drug Patient Disposition: Home, Self-Care Instructions: Hiccups (ED) Additional Instructions: 1. Resume all home medications as prescribed. 2. Please follow-up with your primary care doctor in the next 1-2 days. Return to the ER for any worsening symptoms. Prescriptions: New chlorpromazine 25 mg tablet 25 mg PO Q6H PRN (Reason: persistent hiccups) Qty: 4 0RF No Action metoprolol succinate 50 mg tablet extended release 24 hr 50 mg PO DAILY Qty: 90 3RF dicyclomine 10 mg capsule 10 mg PO TID PRN (Reason: abdominal cramps) 60 Days Qty: 60 2RF primidone 50 mg tablet 1 tab PO BID trazodone 50 mg tablet 1.5 tab PO BEDTIME PRN (Reason: insomnia) tamsulosin 0.4 mg capsule 1 cap PO BEDTIME zolpidem 10 mg tablet 1 tab PO BEDTIME paroxetine HCl 40 mg tablet 1 tab PO DAILY Centrum Men 8 mg iron- 200 mcg-600 mcg Tablet 1 tab PO DAILY Myrbetriq 25 mg tablet extended release 24 hr 1 tab PO DAILY buspirone 5 mg tablet 5 mg PO BID oxcarbazepine 300 mg tablet 300 mg PO BID aspirin 325 mg Tablet 325 mg PO DAILY Qty: 90 3RF acyclovir 400 mg Tablet 400 mg PO BID Qty: 60 3RF ondansetron 8 mg Tablet,Disintegrating 8 mg PO Q8H PRN (Reason: Nausea) Qty: 60 3RF lenalidomide [Revlimid] 20 mg Capsule 20 mg PO DAILY Qty: 14 3RF Rx Instructions: Take for 2 weeks on, 1 week off. swallow whole with glass of water; do not open, crush, chew , break, or dissolve Fiber Therapy Laxative codeine-guaifenesin 10-100 mg/5 mL liquid 10 ml PO Q6H PRN (Reason: cough) 10 Days Qty: 300 0RF ipratropium bromide 42 mcg (0.06 %) spray,non-aerosol 2 spray intranasal TID PRN (Reason: allergy symptoms) Qty: 15 6RF Rx Instructions: administer into each nostril hydroxyzine HCl 25 mg tablet 25 mg PO BID Zenpep 20,000-63,000- 84,000 unit capsule,delayed release(DR/EC) 1 cap PO TID Rx Instructions: administer with meals and/or snacks chlorhexidine gluconate 0.12 % mouthwash 15 ml buccal BID 14 Days Qty: 420 0RF budesonide-formoterol [Symbicort] 160-4.5 mcg/actuation HFA aerosol inhaler 2 puff inhalation BID 30 Days Qty: 10.2 11RF celecoxib 200 mg capsule 200 mg PO DAILY azithromycin 500 mg tablet 500 mg PO 3XW 28 Days Qty: 12 6RF Rx Instructions: FRIDAY, FRIDAY, FRIDAY rifampin 300 mg capsule 300 mg PO 3XW 28 Days Qty: 12 6RF Referrals: Nito Newell MD [Primary Care Provider] -
[2023-05-24 19:27] LABS: Alanine Aminotransferase 15 U/L (0-40); Albumin Level 3.7 g/dL (3.5-5.0); Alkaline Phosphatase 88 U/L (39-117); Anion Gap 14 (12-20); Aspartate Amino Transferase 16 U/L (5-37); Bilirubin Direct < 0.2 mg/dL (0.0-0.5); Bilirubin Total 0.2 mg/dL (0.0-1.0); Blood Urea Nitrogen 20 mg/dL (9-16); Calcium 10.4 mg/dL (8.4-10.2); Carbon Dioxide 23 mmol/L (22-29); Chloride 106 mmol/L (96-108); Creatinine Clr Calc Pharmacy 65.3; Estimated Glomerular Filt Rate > 60; Glucose Random 98 mg/dL (60-115); Lipase 23 U/L (8-78); Magnesium 1.8 mg/dL (1.6-2.6); Potassium 4.4 mmol/L (3.3-5.1); Sodium 139 mmol/L (135-145); Total Protein 8.3 g/dL (6.5-8.0)
--- NOTE | 2023-05-24 20:28 | PC.NURSE ---
ox4. calm, cooperative. reports hiccups since 299 and has not been able to eat since or take am meds. reports hx bradycardia w/o issues- hr now upper 40s-50s. no sob/cp/dizziness. no n/v/d. +BS. kylahen s/nt/nd. talking w/o issue. currently no hiccups observed at the time of assessment by rn. repots last hiccup 15 min ago.
--- NOTE | 2023-05-24 21:50 | MHC.EDTECH ---
THIS PCT JUST ASSUMED CARE OF PATIENT ,VITALS SIGN TAKEN ,PT WAS GIVEN WARM BLANKET AND PILLOW .
--- NOTE | 2023-05-24 22:08 | PC.NURSE ---
per attending md administered to pt small bit of water re: hiccups. notified pt to report when he next has a hiccup per md request.
--- NOTE | 2023-05-24 23:00 | PC.NURSE ---
pt given thorazine per md b order as pt did not respond to resolve his hicups with sugar and water was had been given per verbal order. aox4. calm, coopeartive.
[2023-05-25] VITALS: BP 145/60; PULSE 59; RESP 18; O2SAT 95
== END 2023-05-25 01:05 | disposition home or self-care (01) ==
PROVIDERS: Physician Assistant; Emergency Provider Student in an Organized Health Care Education/Training Program; PCP Internal Medicine
DX: R06.6 Hiccough (principal); T45.1X5A Adverse effect of antineoplastic and immunosuppressive drugs, initial encounter; Y92.9 Unspecified place or not applicable; C90.00 Multiple myeloma not having achieved remission; I10 Essential (primary) hypertension; Z79.899 Other long term (current) drug therapy
CPT/HCPCS: 36415; 80048; 80076; 83690; 83735; 85025; 93005; 99283; 99285

== ENCOUNTER → 2023-06-06 16:01 | Outpatient (BNV) | payer MEDICARE, MEDICAID, SELFPAY | PROVIDERS: PCP Internal Medicine; Visit Provider Internal Medicine Cardiovascular Disease | DX: C90.00 Multiple myeloma not having achieved remission (principal) | CPT/HCPCS: 93010 ==

== ENCOUNTER 2023-06-09 09:37 | Outpatient (AMB) | payer MEDICARE, MEDICAID, SELFPAY ==
[2023-06-09 09:40] VITALS: BP 160/70; PULSE 81; BMI 24.4
--- NOTE | 2023-06-09 09:40 | MHC.OFFVIS ---
Intake Vital Signs 06/09/23 09:40 Height 5 ft 10 in Weight 169 lb 12.095 oz BMI 24.4 BP 160/70 H Blood Pressure Location Lt brachial Position Sitting Pulse 81 Intake Visit Reasons: with ekg per Dr. Hackett Intake Note: with ekg DR. DALY dizziness District Resource Officer Required: No Allergies No Known Allergies Allergy (Verified 06/09/23 09:50) Medication List - Last Reconciled 06/09/23 by Tigre Cook MD acyclovir 400 mg PO BID aspirin 325 mg PO DAILY budesonide-formoterol 160-4.5 mcg/actuation (Symbicort) 2 puffs inhalation BID 30 days buspirone 5 mg PO BID celecoxib 200 mg PO DAILY chlorhexidine gluconate 0.12% 15 mL buccal BID 14 days chlorpromazine 25 mg PO Q6H PRN chlorpromazine 25 mg PO Q6H PRN codeine-guaifenesin 10-100 mg/5 mL 10 mL PO Q6H PRN 10 days dicyclomine 10 mg PO TID PRN 60 days [Fiber Therapy Laxative ] hydrocortisone-aloe vera 1 % (Hydrocortisone Plus) 1 appl topical BID hydroxyzine HCl 25 mg PO BID ipratropium bromide 2 sprays intranasal TID PRN lenalidomide (Revlimid) 20 mg PO DAILY wpyeln-baijqogw-opxwfks 20,000-63,000- 84,000 unit (Zenpep) 1 cap PO TID loratadine (Claritin) 10 mg PO DAILY metoprolol succinate ER 50 mg PO DAILY mirabegron ER (Myrbetriq) 1 tab PO DAILY mv,Ca,gkx-mwym-BT-lycopene 8 mg iron- 200 mcg-600 mcg (Centrum Men) 1 tab PO DAILY ondansetron 8 mg PO Q8H PRN oxcarbazepine 300 mg PO BID paroxetine HCl 1 tab PO DAILY primidone 1 tab PO BID tamsulosin 1 cap PO BEDTIME trazodone 1.5 tabs PO BEDTIME PRN zolpidem 1 tab PO BEDTIME HPI HPI Comments History of Present Illness Details 72-year-old gentleman who is here for follow-up. He was previously seen for PVCs and palpitations. Was started on beta-robbie. He did well after that and has not had significant palpitations. Is saying at nighttime occasionally gets some palpitation but during the day he has not had any symptoms. No chest pain or shortness of breath. Taking beta-robbie regularly without any issues. He has been exercising regularly without any exertional symptoms. 06/09/23: He returns for follow-up. He saw Dr. Hackett in the clinic for multiple myeloma. He was noticed to be bradycardic in the 40s. His beta-robbie was discontinued. He has been experiencing some side effects from problem it and. He got a rash on his body after getting Revlimid and was treated for that. He is saying the rash is improving at this point. He has no chest discomfort. He is getting some palpitations and feels the heart is pounding at times. He looks quite stress right now. His blood pressure is elevated. [facility] Medical History Anxiety Arthritis Back pain Bipolar 1 disorder BPH (benign prostatic hyperplasia) Chronic allergic rhinitis Chronic cough Depression Diarrhea Diverticulosis Diverticulosis of colon Has a tremor Heart palpitations History of alcohol abuse History of basal cell cancer History of cardiac murmur Hx of skin cancer, basal cell Hypertension IBS (irritable colon syndrome) Immunodeficiency Insomnia Irritable bowel syndrome with constipation and diarrhea Leukopenia Nontuberculous mycobacterial disease of lung OAB (overactive bladder) PVC (premature ventricular contraction) Seizure disorder Thrombosed external hemorrhoids Surgical History History of bone marrow biopsy History of bronchoscopy History of total knee arthroplasty History of total knee arthroplasty Hx of bilateral inguinal hernia repair Hx of cervical spine surgery Hx of colonoscopy Hx of esophagogastroduodenoscopy Hx of right knee surgery Family History Maternal Aunt Colon cancer Father No problems noted. Mother No problems noted. Brother No problems noted. 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) Alcohol intake: former Patient Tobacco Use Status: Never used Tobacco service: No Current occupational status: disabled Review of Systems ENT Reports dizziness Card Denies chest pain, Denies chest pain at rest, Denies chest pain with activity, Denies rapid heart rate, Denies pedal edema, Denies edema, Denies leg edema, Denies lightheadedness, Denies palpitations, Denies dyspnea, Denies dyspnea on exertion and Denies orthopnea Resp Denies cough, Denies dyspnea and Denies dyspnea on exertion GI Denies hematochezia and Denies change in stool character Musc Denies abnormal gait, Reports limited range of motion, Reports muscle cramps, Denies muscle weakness, Denies numbness, Denies radiating pain into limb, Denies stiffness and Denies tingling Neuro Denies abnormal gait, Reports dizziness, Denies numbness and Denies tingling Endo Denies palpitations Physical Exam Vital Signs: Last Vital Signs Pulse 81 06/09/23 09:40 BP 160/70 H 06/09/23 09:40 BMI result Body Mass Index 24.4 GENERAL APPEARANCE: Stressed and anxious. NECK: no carotid bruit, no jugular venous distention. SKIN: no suspicious lesions, warm and dry. HEART: no murmurs, regular rate and rhythm. LUNGS: clear to auscultation bilaterally. ABDOMEN: soft, nontender. EXTREMITIES: no edema. PERIPHERAL PULSES: equal. NEUROLOGIC: No gross deficits, AAO X 3 Office Procedures EKG Details: Sinus rhythm 80 beats per min, normal axis, nonspecific ST changes, QTc 439 milliseconds. [id number], Complete Assessment & Plan Assessment & Plan (1) PVC (premature ventricular contraction): Code(s): I49.3 - Ventricular premature depolarization (2) Bradycardia: Code(s): R00.1 - Bradycardia, unspecified (3) Essential hypertension: Code(s): I10 - Essential (primary) hypertension Plan 72 gentleman here for follow-up. He has multiple myeloma and has been started on Revlimid. He is following with Dr. Hackett and also has been to [facility]. Was noticed to be bradycardic with heart rate of 46 on 06/06/2023 during office visit. His Toprol-XL was stopped. He returns today with us and has some palpitations and pounding of his heart. His blood pressure is elevated. He is quite stressed and anxious. We are going to restart the Toprol-XL at 25 mg daily. Blood pressure is elevated but he looks quite stressed and anxious and difficult to say whether this is related to his anxiety or not. In any case we will reassess him in couple of months. For now restarting the Toprol-XL 25 mg once a day. Thank you for allowing me to participate in the care of your patient. Please feel free to contact me if you have any questions. Medications: New metoprolol succinate ER (Toprol XL) 25 mg PO DAILY 60 tabs 3RF I10 - Essential (primary) hypertension Discontinued lenalidomide Take for 2 weeks on, 1 week off. swallow whole with glass of water; do not open, crush, chew , break, or dissolve 20 mg PO DAILY 14 caps 3RF metoprolol succinate ER Discontinued Reason: None 50 mg PO DAILY 90 tabs 3RF I49.3 - Ventricular premature depolarization Coding Level of Care Code Est Pt Level 3 (73415) Diagnoses PVC (premature ventricular contraction) I49.3 Bradycardia R00.1 Essential hypertension I10 CPT Codes EKG - CPT: 51913-[id number], Complete ([id number])
== END 2023-06-09 10:12 | disposition home or self-care (01) ==
PROVIDERS: PCP Internal Medicine; Visit Provider Internal Medicine Cardiovascular Disease
DX: I49.3 Ventricular premature depolarization (principal); I10 Essential (primary) hypertension
CPT/HCPCS: 93010; 99213

== ENCOUNTER → 2023-06-09 09:37 | Outpatient (BNVA) | payer MEDICARE, MEDICAID, SELFPAY | PROVIDERS: PCP Internal Medicine; Visit Provider Internal Medicine Cardiovascular Disease | DX: I49.3 Ventricular premature depolarization (principal); I10 Essential (primary) hypertension; R00.1 Bradycardia, unspecified | CPT/HCPCS: 93005; 99212 ==

== ENCOUNTER → 2023-06-13 14:08 | Outpatient (BNV) | payer MEDICARE, MEDICAID, SELFPAY | PROVIDERS: PCP Internal Medicine; Visit Provider Internal Medicine Cardiovascular Disease | DX: R00.2 Palpitations (principal) | CPT/HCPCS: 93010 ==

== ENCOUNTER 2023-08-15 11:09 | Outpatient (AMB) | payer MEDICARE, MEDICAID, SELFPAY ==
[2023-08-15 11:13] VITALS: PULSE 66; O2SAT 95; BMI 25.1
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
== END 2023-08-15 11:34 | disposition home or self-care (01) ==
PROVIDERS: PCP Internal Medicine; Visit Provider Hospitalist
DX: A31.0 Pulmonary mycobacterial infection (principal); J30.9 Allergic rhinitis, unspecified; R05.3 Chronic cough; D84.9 Immunodeficiency, unspecified; K21.9 Gastro-esophageal reflux disease without esophagitis
CPT/HCPCS: 99214

== ENCOUNTER → 2023-08-15 11:09 | Outpatient (BNVA) | payer MEDICARE, MEDICAID, SELFPAY | PROVIDERS: PCP Internal Medicine; Visit Provider Hospitalist | DX: J30.9 Allergic rhinitis, unspecified (principal); R05.3 Chronic cough; A31.0 Pulmonary mycobacterial infection; D84.9 Immunodeficiency, unspecified; K21.9 Gastro-esophageal reflux disease without esophagitis | CPT/HCPCS: 99212 ==

== ENCOUNTER 2023-08-23 11:23 | Emergency (ER) | payer MEDICARE, MEDICAID, SELFPAY ==
--- NOTE | ~2023-08-23 | CT_ITS ---
EXAMINATION: CT ABDOMEN AND PELVIS WITH CONTRAST CLINICAL INFORMATION: Periumbilical abdominal pain COMPARISON: CT abdomen pelvis 08/14/2022. TECHNIQUE: Multidetector volumetric images were obtained from the superior aspect of the liver through the pubic symphysis following administration 85 mL of Omnipaque 350 intravenous contrast. Sagittal and coronal reformatted images were obtained on the technologist's workstation. Oral contrast: No This CT examination was performed using dose optimization techniques as appropriate, variously including the following: *Automated exposure control *Adjustment of mA and/or kV according to patient size (this includes techniques or standardized protocols for targeted exams where dose is matched to indication/reason for exam; i.e. extremities or head) *Use of iterative reconstruction technique DLP: 495 mGy-cm FINDINGS: LUNG BASES: Coronary artery calcifications present. Visualized lung bases otherwise unremarkable. LIVER AND BILIARY TREE: Unremarkable. GALLBLADDER: Unremarkable. PANCREAS: Unremarkable. SPLEEN: Unremarkable. ADRENAL GLANDS: Unremarkable. KIDNEYS AND URETERS: Redemonstrated lobulated renal contours. Bilateral renal cysts and scattered subcentimeter hypoattenuating lesions, too small to characterize but statistically likely to represent benign cysts for which no follow-up imaging is recommended. GASTROINTESTINAL TRACT: Scattered sigmoid predominant colonic diverticulosis without evidence of acute diverticulitis. Normal appendix. VASCULAR: Mild aortoiliac calcific atherosclerosis. LYMPH NODES: No lymphadenopathy. PERITONEUM: No ascites. BLADDER: Unremarkable. PELVIC VISCERA: Unremarkable ABDOMINAL AND PELVIC WALL: Tiny fat-containing umbilical hernia. Ventral lower abdominal/pelvic hernia mesh in place without abnormal fluid or fat stranding. No significant inguinal hernias. OSSEOUS STRUCTURES: Mild multilevel degenerative lumbar spondylosis again seen. CT/CT abdomen pelvis w IV con IMPRESSION: 1. No acute abnormality of the abdomen or pelvis. 2. Tiny fat-containing umbilical hernia. 3. Ventral lower abdominal/pelvic hernia mesh in place without evidence of complications.
[2023-08-23 11:58] VITALS: BP 144/57; PULSE 64; RESP 19; TEMP 36.6; O2SAT 98; BMI 24.8
--- NOTE | 2023-08-23 11:59 | ED.ABDPAIN ---
HPI - Abdominal Pain General Chief Complaint: Abdominal Pain Stated Complaint: sent by , infection? Time Seen by Provider: 08/23/23 16:26 Source: patient Mode of arrival: ambulatory Limitations: no limitations History of Present Illness HPI narrative: a 72-year-old male history of multiple myeloma received subcutaneous Revlimid injection every Friday after the patient received the injection in his stomach yesterday ever since his been feeling sore in his stomach, patient was diagnosed with infection and the injection side finish a course of Keflex as an outpatient patient is today complaining of severe soreness in his mid abdomen at the injection site, patient is applying ice to the area, No fever, no chills, no nausea, no vomiting. patient also is receiving the steroid for multiple myeloma. Related Data Home Medications Medication Instructions Recorded Confirmed mirabegron 25 mg tablet,extended 1 tab PO DAILY 08/17/20 07/17/23 release 24 hr (Myrbetriq) multivit,Ca,min-iron 8 mg-folic 1 tab PO DAILY 08/17/20 07/17/23 acid 200 mcg-lycopene 600 mcg tablet (Centrum Men) primidone 50 mg tablet 1 tab PO BID 08/17/20 07/17/23 tamsulosin 0.4 mg capsule 1 cap PO BEDTIME 08/17/20 07/17/23 trazodone 50 mg tablet 1.5 tab PO BEDTIME PRN insomnia 08/17/20 07/17/23 zolpidem 10 mg tablet 1 tab PO BEDTIME 08/17/20 07/17/23 hydroxyzine HCl 25 mg tablet 25 mg PO BID 01/14/23 07/17/23 kyqnah-vkemlixx-augdpbc 1 cap PO TID 01/14/23 07/17/23 20,000-63,000-84,000 unit capsule, delayed rel (Zenpep) Fiber Therapy Laxative 01/24/23 06/09/23 buspirone 5 mg tablet 5 mg PO BID 02/13/23 07/17/23 oxcarbazepine 300 mg tablet 300 mg PO BID 02/13/23 07/17/23 celecoxib 200 mg capsule 200 mg PO DAILY 05/13/23 07/17/23 Previous Rx's Medication Instructions Recorded codeine 10 mg-guaifenesin 100 mg/5 10 ml PO Q6H PRN cough 10 days 12/16/22 mL oral liquid #300 mL ipratropium bromide 42 mcg (0.06 2 spray intranasal TID PRN allergy 12/16/22 %) nasal spray symptoms #15 mL chlorhexidine gluconate 0.12 % 15 ml buccal BID 14 days #420 mL 02/12/23 mouthwash acyclovir 400 mg tablet 400 mg PO BID #60 tabs 05/09/23 aspirin 325 mg tablet 325 mg PO DAILY #90 tabs 05/09/23 ondansetron 8 mg disintegrating 8 mg PO Q8H PRN Nausea #60 tabs 05/09/23 tablet chlorpromazine 25 mg tablet 25 mg PO Q6H PRN Hiccups #60 tabs 05/25/23 chlorpromazine 25 mg tablet 25 mg PO Q6H PRN persistent 05/25/23 hiccups #4 tabs hydrocortisone-aloe vera 1 % 1 appl topical BID #200 grams 06/04/23 topical cream (Hydrocortisone Plus) metoprolol succinate 25 mg 25 mg PO DAILY #60 tabs 06/09/23 tablet,extended release 24 hr (Toprol XL) lorazepam 0.5 mg tablet 0.5 mg PO BID PRN Anxiety #20 tabs 06/13/23 dicyclomine 10 mg capsule 10 mg PO TID PRN abdominal cramps 07/04/23 60 days #60 caps loratadine 10 mg tablet (Claritin) 10 mg PO DAILY #30 tabs 07/11/23 lenalidomide 5 mg capsule 5 mg PO DAILY #14 caps 08/06/23 cephalexin 500 mg capsule 500 mg PO Q8H #21 caps 08/13/23 budesonide-formoterol HFA 160 2 puff inhalation BID 30 days 08/15/23 mcg-4.5 mcg/actuation aerosol #10.2 grams inhaler (Symbicort) tramadol 50 mg tablet 25 mg (1/2 x 50 mg) PO Q8H PRN 08/20/23 Breakthrough Pain, Moderate #30 tabs lenalidomide 5 mg capsule 5 mg PO DAILY #14 caps 08/21/23 (Revlimid) lenalidomide 5 mg capsule 5 mg PO DAILY #14 caps 08/22/23 (Revlimid) lenalidomide 5 mg capsule 5 mg PO DAILY #14 caps 08/22/23 (Revlimid) Allergies Allergy/AdvReac Type Severity Reaction Status Date / Time No Known Allergies Allergy Verified 08/23/23 11:58 Review of Systems Review of Systems All other systems are reviewed and are negative Constitutional: Reports as per HPI and Reports no additional constitutional complaints Eyes: Reports as per HPI and Reports no additional eye complaints Reports system reviewed and no additional complaints, except as documented Cardiovascular: Reports as per HPI and Reports no additional cardiovascular complaints Respiratory: Reports as per HPI and Reports no additional respiratory complaints Gastrointestinal: Reports as per HPI and Reports no additional gastrointestinal complaints Genitourinary: Reports no additional female genitourinary complaints Musculoskeletal: Reports no additional musculoskeletal complaints Skin/Breast: Reports system reviewed and no additional complaints, except as docu Psychiatric: Reports no additional psychiatric complaints Endocrine: Reports no additional endocrine complaints Hematologic/Lymphatic: Reports no additional hematologic/lymphatic complaints Allergic/Immunologic: Reports no additional allergic/immunologic complaints Reports system reviewed and no additional complaints, except as documented and Reports Abnormal speech present [facility] Past Medical History Medical History Nontuberculous mycobacterial disease of lung History of cardiac murmur Immunodeficiency Chronic cough Chronic allergic rhinitis History of basal cell cancer Hx of skin cancer, basal cell Has a tremor Diverticulosis IBS (irritable colon syndrome) Thrombosed external hemorrhoids Irritable bowel syndrome with constipation and diarrhea PVC (premature ventricular contraction) Diverticulosis of colon History of alcohol abuse Back pain Arthritis Leukopenia Diarrhea OAB (overactive bladder) BPH (benign prostatic hyperplasia) Anxiety Depression Bipolar 1 disorder Seizure disorder Insomnia Heart palpitations Hypertension Surgical History History of bone marrow biopsy History of bronchoscopy Hx of right knee surgery Hx of esophagogastroduodenoscopy History of total knee arthroplasty Hx of colonoscopy Hx of cervical spine surgery Hx of bilateral inguinal hernia repair History of total knee arthroplasty Family History Family History Maternal Aunt Colon cancer Father No problems noted. Mother No problems noted. Brother No problems noted. 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) Alcohol intake: former Patient Tobacco Use Status: Never used Tobacco Smoked in Last 30 Days: No Use of substances other than those prescribed or required for medical reasons: No Advance Directives: No service: No Current occupational status: disabled Physical Exam ED Vital Signs: Vital Signs - 24 hr 08/23/23 11:58 08/23/23 13:35 08/23/23 16:08 Temperature 98 F 98.1 F 97.9 F Pulse Rate 64 56 52 Respiratory Rate 19 17 18 Blood Pressure 144/57 H 138/58 L 149/57 H Pulse Oximetry 98 97 98 Oxygen Delivery Method Room Air Room Air Room Air BMI result Body Mass Index 24.8 Vital signs have been reviewed and appear to be correct. Blood pressure elevated. Heart rate normal. Respiratory rate normal. Temperature normal. Oxygen saturation normal. Appearance: Alert. Oriented X3. No acute distress. Head: Normal external exam. Normocephalic. Atraumatic. No [place] signs noted. No raccoon eyes noted Eyes: PERRLA. EOMI. Conjunctiva and sclera normal. Eyelids normal. ENT: TM's Normal. Pharynx normal. Uvula midline. Moist mucous membranes. No trismus noted. No drooling noted. No muffled voice noted. Neck: Normal inspection. Neck supple. FROM. No adenopathy. Thyroid Normal. No meningeal signs. No neck mass noted. CVS: Normal heart rate and rhythm. Heart sound normal. No murmurs noted. Pulses normal throughout. Respiratory: No respiratory distress. Painless inspiration. Breath sounds normal. No wheezes/rales/rhonchi noted. Chest nontender. No accessory muscle usage noted or decreased air movement noted. Abdomen: Soft and nontender. Bowel sounds normal in all 4 quadrants. No distention noted. No organomegaly noted. No visible injury noted. Back: No CVA tenderness. Full range of motion noted. Skin: Skin warm and dry. Normal skin color. Normal skin turgor. No rashes/lesions/lacerations noted. Extremities: No lower extremity edema. Extremities exhibit normal range of motion. Extremities nontender. Neuro: Oriented X 3. Cranial nerve exam: II-XII are grossly intact No motor deficit. No sensory deficit. Reflexes normal. Course Course Course Narrative: RME - 72 y/o with history of multiple myeloma on injections w/ oncologist, diverticulosis, PVC, pancreatic insufficiency who presents to the ER for evaluation of 10/10 periumbilical abdominal pain for the last 9 days. Recently treated with abx for stomach infection and urine infection. Pain started after getting his injections in the stomach and leg. completed abx yesterday. reports ongoing pain w/ urination. No N/V/D or fevers. +constipation. Plan: start with lab workup. +/- imaging based on results. Reevaluation(s) Reevaluation #1: 72-year-old male came in for evaluation of abdominal pain patient received an injection in his abdomen of Rilimid for multiple myeloma, there is no sign of cellulitis (patient just finished a course of Keflex ) there is no CT evidence of subcu abscess or intra-abdominal pathology except for nonsignificant umbilical hernia that contains fat. Patient has no fever, no chills. As patient was instructed to follow-up with PCP take Tylenol if needed for pain return if redness, hotness, tenderness of the abdomen otherwise follow-up with PCP. Time: 19:31 Medical Decision Making Differential Diagnosis Differential Diagnoses: The differential diagnosis associated with the presentation includes ( Abdominal wall cellulitis, subcu abscess, pancreatitis, colitis, appendicitis, electrolyte abnormality, severe anemia.) Admission/Observation Consideration of admission/observation: Escalation of care including admission/observation considered Lab Data MDM Lab Attestation statement: I reviewed the patient's lab results. 08/23/23 12:19 08/23/23 12:19 Labs: Lab Results 08/23/23 Range/Units 12:19 WBC 11.0 H (4.8-10.8) X10*3/uL RBC 3.83 L (4.60-5.80) X10*6/uL Hgb 10.8 L (14.0-18.0) g/dl Hct 33.7 L (42.0-52.0) % MCV 88.0 (80.0-98.0) fL MCH 28.2 (27.0-33.0) pg MCHC 32.0 (31.0-36.0) g/dl RDW 15.4 (11.0-16.0) % Plt Count 329 (160-400) X10*3/uL MPV 9.2 L (9.4-12.4) fL Immature Gran % (Auto) 0.4 (0.0-0.4) % Neut % (Auto) 88.7 H (45-73) % Lymph % (Auto) 6.5 L (20-40) % [place] % (Auto) 4.0 (2-11) % Eos % (Auto) 0.3 (0-4) % Baso % (Auto) 0.1 (0-2) % Lymph # (Auto) 0.7 L (1.2-4.9) X10*3/uL [place] # (Auto) 0.4 (0.1-1.2) X10*3/uL Eos # (Auto) 0.0 (0.0-0.4) X10*3/uL Baso # (Auto) 0.0 (0.0-0.2) X10*3/uL Abs Immat Gran (auto) 0.04 H (0.00-0.03) X10*3/uL Absolute Neuts (auto) 9.7 H (2.0-8.3) x10*3/uL Absolute Nucleated RBC 0.000 (0.0-0.012) X10*3/uL Nucleated RBC % (auto) 0.0 (0.0-0.2) /100WBC Sodium 137 (135-145) mmol/L Potassium 4.2 (3.3-5.1) mmol/L Chloride 105 (96-108) mmol/L Carbon Dioxide 21 L (22-29) mmol/L Anion Gap 15 (12-20) BUN 28 H (9-16) mg/dL Creatinine 1.06 (0.5-1.4) mg/dL Estim Creat Clear Calc 65.9 Estimated GFR > 60 Random Glucose 125 H (60-115) mg/dL Calcium 10.3 H (8.4-10.2) mg/dL Magnesium 2.0 (1.6-2.6) mg/dL Total Bilirubin 0.2 (0.0-1.0) mg/dL Direct Bilirubin < 0.2 (0.0-0.5) mg/dL AST 18 (5-37) U/L ALT 17 (0-40) U/L Alkaline Phosphatase 94 (39-117) U/L Total Protein 7.3 (6.5-8.0) g/dL Albumin 3.9 (3.5-5.0) g/dL Lipase 44 (8-78) U/L Urine Color Yellow Urine Appearance Clear Urine pH 5.5 (5.0-9.0) Ur Specific [place] 1.020 (1.005-1.025) Urine Protein 30 (1+) H (Neg-Trace) mg/dL Urine Glucose (UA) Negative (Negative) mg/dL Urine Ketones Negative (Negative) mg/dL Urine Blood Negative (Negative) Urine Nitrite Negative (Negative) Ur Leukocyte Esterase Negative (Negative) Urine RBC 0-2 (0-2) /HPF Urine WBC 0-5 (0-5) /HPF Ur Squamous Epith Cells 0-2 (0-2) /HPF Urine Bacteria None Seen (None Seen) Hyaline Casts 0-2 (0-2) /LPF Independent Interpretation I performed an independent interpretation of an: CT Scan ( Abdomen pelvis: No acute intra-abdominal pathology.) Radiology Impression Discussion of test interpretation with radiology: I have reviewed the radiologist's reading. Chronic Conditions Patient?s care impacted by: Other ( Multiple myeloma with SQ injections frequently.) Medications Administered Discontinued Medications Generic Name Dose Route Start Last Admin Trade Name Freq PRN Reason Stop Dose Admin Iohexol 100 ml 08/23/23 15:24 08/23/23 15:25 Iohexol 350 Mg/Ml 100 Ml Infus..Btl IV 08/23/23 15:25 85 ml ONCE ONE Administration Discharge Plan Discharge Clinical Impression: Abdominal pain Patient Disposition: Home, Self-Care Instructions: Abdominal Pain (ED) Additional Instructions: seek immediate medical attention if start notice redness or hotness or tenderness to touch of the abdominal wall. Otherwise take Tylenol 500 mg every 6 hours if needed for pain and follow-up with your PCP. Prescriptions: No Action dicyclomine 10 mg capsule 10 mg PO TID PRN (Reason: abdominal cramps) 60 Days Qty: 60 2RF loratadine [Claritin] 10 mg Tablet 10 mg PO DAILY Qty: 30 0RF primidone 50 mg tablet 1 tab PO BID trazodone 50 mg tablet 1.5 tab PO BEDTIME PRN (Reason: insomnia) tamsulosin 0.4 mg capsule 1 cap PO BEDTIME zolpidem 10 mg tablet 1 tab PO BEDTIME Centrum Men 8 mg iron- 200 mcg-600 mcg Tablet 1 tab PO DAILY Myrbetriq 25 mg tablet extended release 24 hr 1 tab PO DAILY buspirone 5 mg tablet 5 mg PO BID oxcarbazepine 300 mg tablet 300 mg PO BID aspirin 325 mg Tablet 325 mg PO DAILY Qty: 90 3RF acyclovir 400 mg Tablet 400 mg PO BID Qty: 60 3RF ondansetron 8 mg Tablet,Disintegrating 8 mg PO Q8H PRN (Reason: Nausea) Qty: 60 3RF chlorpromazine 25 mg Tablet 25 mg PO Q6H PRN (Reason: Hiccups) Qty: 60 3RF hydrocortisone-aloe vera [Hydrocortisone Plus] 1 % Cream 1 appl TOPICAL BID Qty: 200 3RF lorazepam 0.5 mg Tablet 0.5 mg PO BID PRN (Reason: Anxiety) Qty: 20 0RF lenalidomide 5 mg Capsule 5 mg PO DAILY Qty: 14 3RF Rx Instructions: 2 weeks on, 1 week off. swallow whole with glass of water; do not open, crush, chew , break, or dissolve cephalexin 500 mg Capsule 500 mg PO Q8H Qty: 21 0RF tramadol 50 mg Tablet 25 mg PO Q8H PRN (Reason: Breakthrough Pain, Moderate) Qty: 30 0RF lenalidomide [Revlimid] 5 mg Capsule 5 mg PO DAILY Qty: 14 0RF Rx Instructions: swallow whole with glass of water; do not open, crush, chew , break, or dissolve. [id number]. lenalidomide [Revlimid] 5 mg Capsule 5 mg PO DAILY Qty: 14 0RF Rx Instructions: swallow whole with glass of water; do not open, crush, chew , break, or dissolve. [id number] lenalidomide [Revlimid] 5 mg Capsule 5 mg PO DAILY Qty: 14 0RF Rx Instructions: swallow whole with glass of water; do not open, crush, chew , break, or dissolve [id number]. Fiber Therapy Laxative chlorpromazine 25 mg tablet 25 mg PO Q6H PRN (Reason: persistent hiccups) Qty: 4 0RF codeine-guaifenesin 10-100 mg/5 mL liquid 10 ml PO Q6H PRN (Reason: cough) 10 Days Qty: 300 0RF ipratropium bromide 42 mcg (0.06 %) spray,non-aerosol 2 spray intranasal TID PRN (Reason: allergy symptoms) Qty: 15 6RF Rx Instructions: administer into each nostril hydroxyzine HCl 25 mg tablet 25 mg PO BID Zenpep 20,000-63,000- 84,000 unit capsule,delayed release(DR/EC) 1 cap PO TID Rx Instructions: administer with meals and/or snacks chlorhexidine gluconate 0.12 % mouthwash 15 ml buccal BID 14 Days Qty: 420 0RF celecoxib 200 mg capsule 200 mg PO DAILY budesonide-formoterol [Symbicort] 160-4.5 mcg/actuation HFA aerosol inhaler 2 puff inhalation BID 30 Days Qty: 10.2 11RF metoprolol succinate [Toprol XL] 25 mg tablet extended release 24 hr 25 mg PO DAILY Qty: 60 3RF Referrals: Nito Newell MD [Primary Care Provider] -
[2023-08-23 12:39] LABS: Alanine Aminotransferase 17 U/L (0-40); Albumin Level 3.9 g/dL (3.5-5.0); Alkaline Phosphatase 94 U/L (39-117); Anion Gap 15 (12-20); Aspartate Amino Transferase 18 U/L (5-37); Bilirubin Direct < 0.2 mg/dL (0.0-0.5); Bilirubin Total 0.2 mg/dL (0.0-1.0); Blood Urea Nitrogen 28 mg/dL (9-16); Calcium 10.3 mg/dL (8.4-10.2); Carbon Dioxide 21 mmol/L (22-29); Chloride 105 mmol/L (96-108); Creatinine Clr Calc Pharmacy 65.9; Estimated Glomerular Filt Rate > 60; Glucose Random 125 mg/dL (60-115); Lipase 44 U/L (8-78); Potassium 4.2 mmol/L (3.3-5.1); Sodium 137 mmol/L (135-145); Total Protein 7.3 g/dL (6.5-8.0)
[2023-08-23 13:35] VITALS: BP 138/58; PULSE 56; RESP 17; TEMP 36.7; O2SAT 97
[2023-08-23 16:08] VITALS: BP 149/57; PULSE 52; RESP 18; TEMP 36.6; O2SAT 98
[2023-08-23 19:45] VITALS: BP 153/62; PULSE 55; RESP 16; TEMP 36.8; O2SAT 96
== END 2023-08-23 20:00 | disposition home or self-care (01) ==
PROVIDERS: Physician Assistant; Emergency Provider Emergency Medicine; PCP Internal Medicine
DX: R10.9 Unspecified abdominal pain (principal); I10 Essential (primary) hypertension; D64.9 Anemia, unspecified; Z79.82 Long term (current) use of aspirin; Z79.899 Other long term (current) drug therapy
CPT/HCPCS: 36415; 74177; 80048; 80076; 81001; 83690; 83735; 85025; 99284; Q9967

== ENCOUNTER 2023-08-26 11:02 | Outpatient (REF) | payer MEDICARE, MEDICAID, SELFPAY | END 2023-08-26 11:03 | disposition home or self-care (01) | LOC: HO.MAMMO 11:02 | PROVIDERS: PCP Internal Medicine; Visit Provider Internal Medicine | DX: Z13.820 Encounter for screening for osteoporosis (principal); C90.00 Multiple myeloma not having achieved remission; M85.852 Other specified disorders of bone density and structure, left thigh | CPT/HCPCS: 77080 ==

== ENCOUNTER 2023-11-19 08:43 | Day surgery (SDC) | payer MEDICARE, MEDICAID, SELFPAY ==
[2023-11-14 16:38] VITALS: BMI 25.4
--- NOTE | 2023-11-18 18:18 | HP_ITS ---
DATE OF SERVICE: 11/19/2023 HISTORY OF PRESENT ILLNESS: The patient is a 73-year-old male, scheduled for eye surgery tomorrow with Dr. Dave. Patient was seen in the office 11/06/2023 for preop evaluation prior to what he describes as dental work, but has just been notified now, he is going to have eye surgery on November 19, tomorrow. He had been cleared for the dental work procedure, but has not had an EKG because of unawareness that he was going to have general anesthesia, so the EKG was completed today. PAST MEDICAL HISTORY: Significant for multiple myeloma, BPH, hypertension, gastroesophageal reflux disease, bipolar, overactive bladder, diverticulosis, chronic renal insufficiency, back pain, IBS. REVIEW OF SYSTEMS: Weight is up 6 pounds. No fevers, chills, or sweats. No headaches. No palpitations or chest pain. No peripheral edema. No complaints of cough or shortness of breath. Occasional diarrhea. No abdominal pain or heartburn. Some straining with urinating. No complaints of joint pains. Speech is normal. No confusion at this time. Sleep and appetite are normal. He does not complain of seasonal allergies. He has occasional rashes. FAMILY HISTORY: Mother at age 83 since CHF. Father at 90 from heart disease. He has 1 brother in good health. SOCIAL HISTORY: Lives alone. Retired. Never smoked. PHYSICAL EXAMINATION: GENERAL: He is awake and alert, in no distress. VITAL SIGNS: 98.2 for the temperature, pulse is 56, respirations 12, blood pressure 112/62, 99% oxygen on room air. Weight is 177. HEENT: Clear. HEART: Sounds S1 and S2. Regular rate. LUNGS: Clear. ABDOMEN: Soft, nontender. EXTREMITIES: No clubbing, cyanosis, or edema. NEUROLOGIC: Cranial nerves II through XII are intact. He is awake and alert and oriented. LABORATORY DATA: EKG was done showing sinus bradycardia at 46. No ischemic changes. He has had lab work completed already. PRESENT MEDICATIONS: 1. BuSpar 10 mg twice a day. 2. Prilosec 20 mg a day. 3. Flomax 0.4 mg a day. 4. Metoprolol-XL 25 mg a day. 5. Paroxetine 20 mg a day. 6. Primidone 50 mg a day. 7. Trazodone 50 mg a day. 8. Omeprazole 20 mg twice a day. 9. Prednisone 20 mg a day. 10. Oxcarbazepine. 11. Myrbetriq. 12. Revlimid. ASSESSMENT AND PLAN: He is medically stable for the proposed procedure. I will be available if there are any medical issues. MD HERNANDEZ Collado/MARITZA / [phone]
[2023-11-19 09:20] VITALS: BMI 23.5
[2023-11-19 09:43] VITALS: BP 131/65; PULSE 55; RESP 16; TEMP 36.7; O2SAT 98
--- NOTE | 2023-11-19 10:30 | P.CONAN_ITS ---
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 [facility] Active Problems Active Problems: All Active Problems (Updated 11/18/23 @ 09:22 by Juani Moise, RN) Essential hypertension (Acute) Bradycardia (Acute) Multiple myeloma (Chronic) Chronic back pain (Acute) Pancreatic insufficiency (Acute) Chronic diarrhea (Acute) Right knee pain (Acute) Status post total right knee replacement (Acute) IBS (irritable bowel syndrome) (Acute) S/P insertion of spinal cord stimulator (Acute) Spondylosis of lumbar spine (Acute) GERD (gastroesophageal reflux disease) (Acute) Anemia (Acute) Diverticulosis of colon (Acute) Abdominal bloating (Acute) Leukopenia (Chronic) Adenomatous colon polyp (Acute) 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 (Acute) Chronic cough (Acute) Chronic allergic rhinitis (Acute) Diverticulosis of colon (Acute) PVC (premature ventricular contraction) (Acute) Irritable bowel syndrome with constipation and diarrhea (Acute) Thrombosed external hemorrhoids (Acute) Past Medical History Medical History (Updated 11/18/23 @ 09:22 by Juani Moise RN) Multiple myeloma Nontuberculous mycobacterial disease of lung History of cardiac murmur Immunodeficiency Chronic cough Chronic allergic rhinitis History of basal cell cancer Hx of skin cancer, basal cell Has a tremor Diverticulosis IBS (irritable colon syndrome) Thrombosed external hemorrhoids Irritable bowel syndrome with constipation and diarrhea PVC (premature ventricular contraction) Diverticulosis of colon History of alcohol abuse Back pain Arthritis Leukopenia Diarrhea OAB (overactive bladder) BPH (benign prostatic hyperplasia) Anxiety Depression Bipolar 1 disorder Seizure disorder Insomnia Heart palpitations Hypertension Family History Family History Maternal Aunt Colon cancer Father No problems noted. Mother No problems noted. Brother No problems noted. Family history of problems with anesthesia: No Surgical History Surgical History History of bone marrow biopsy History of bronchoscopy Hx of right knee surgery Hx of esophagogastroduodenoscopy History of total knee arthroplasty Hx of colonoscopy Hx of cervical spine surgery Hx of bilateral inguinal hernia repair History of total knee arthroplasty History of Problems with Anesthesia: No Social History Social History Household Members: Family Household Members Other:: brother Housing: House Are you a primary pharmacy care coordinator to a significant other at home: No Do you presently have visiting nurse or other home services: No Alcohol intake: former Patient Tobacco Use Status: Never used Tobacco Use of substances other than those prescribed or required for medical reasons: No Have you been hit, kicked, punched, or otherwise hurt by someone within the past year? If so, by whom?: No Are you DNR?: No Advance Directives: No Advance Directives Information Provided: Yes Advance Directives on File: No Recently lost weight without trying: No Nutrition Risks: No Nutritional Risk Poor oral hygiene: Yes (cracked front upper tooth, getting it fixed 11/21/2022 ) service: No Current occupational status: disabled Meds Allergies Allergy/AdvReac Type Severity Reaction Status Date / Time No Known Allergies Allergy Verified 11/14/23 16:38 Home Medications Medication Instructions Recorded Confirmed Last Taken Type mirabegron 25 mg tablet,extended 1 tab PO DAILY 08/17/20 11/14/23 05/07/22 History release 24 hr (Myrbetriq) multivit,Ca,min-iron 8 mg-folic 1 tab PO DAILY 08/17/20 11/14/23 Unknown History acid 200 mcg-lycopene 600 mcg tablet (Centrum Men) primidone 50 mg tablet 1 tab PO BID 08/17/20 11/14/23 05/07/22 History tamsulosin 0.4 mg capsule 1 cap PO BEDTIME 08/17/20 11/14/23 Unknown History trazodone 50 mg tablet 1 tab PO BEDTIME PRN insomnia 08/17/20 11/14/23 Unknown History zolpidem 10 mg tablet 1 tab PO BEDTIME 08/17/20 11/14/23 Unknown History hydroxyzine HCl 25 mg tablet 25 mg PO BID 01/14/23 11/14/23 Unknown History Fiber Therapy Laxative 1 cap PO DAILY 01/24/23 11/14/23 Unknown History buspirone 5 mg tablet 15 mg PO BID 02/13/23 11/14/23 11/19/23 08:00 History oxcarbazepine 300 mg tablet 300 mg PO BID 02/13/23 11/14/23 11/19/23 08:00 History prednisone 10 mg tablet 10 mg PO BEDTIME 11/14/23 11/14/23 Unknown History Exam Height,Weight and Vital Signs: Height 5 ft 10 in Weight 80.286 kg Pertinent Lab Results Pertinent Lab Results: Laboratory Tests 10/24/23 13:14 WBC 4.2 L Hgb 12.6 L Hct 39.6 L Plt Count 223 Sodium 142 Potassium 4.7 Chloride 107 Carbon Dioxide 30 H BUN 19 H Creatinine 0.95 Narrative Narrative: EKG 05/2023 Vent. Rate : 063 BPM Atrial Rate : 063 BPM P-R Int : 164 ms QRS Dur : 090 ms QT Int : 404 ms P-R-T Axes : 037 -11 037 degrees QTc Int : 413 ms Normal sinus rhythm Minimal voltage criteria for LVH, may be normal variant ( R in aVL ) Borderline ECG When compared with ECG of 06-JUN-2023 16:01, No significant change was found Assessment and Plan Assessment Anesthesia Assessment: Chart Reviewed Final Anesthetic Review Family History of Problems with Anesthesia: No History of Problems with Anesthesia: No Documented by User: Juani Painting DO 11/19/23 10:33 HPI - Anesthesia Eval Consult details Narrative: 73yo M for Right Medial Eye Muscle Recession/Resection [facility] Past Medical History Medical History (Updated 11/18/23 @ 09:22 by Juani Moise RN) Multiple myeloma Nontuberculous mycobacterial disease of lung History of cardiac murmur Immunodeficiency Chronic cough Chronic allergic rhinitis History of basal cell cancer Hx of skin cancer, basal cell Has a tremor Diverticulosis IBS (irritable colon syndrome) Thrombosed external hemorrhoids Irritable bowel syndrome with constipation and diarrhea PVC (premature ventricular contraction) Diverticulosis of colon History of alcohol abuse Back pain Arthritis Leukopenia Diarrhea OAB (overactive bladder) BPH (benign prostatic hyperplasia) Anxiety Depression Bipolar 1 disorder Seizure disorder Insomnia Heart palpitations Hypertension Family History Family History Maternal Aunt Colon cancer Father No problems noted. Mother No problems noted. Brother No problems noted. Family history of problems with anesthesia: No Surgical History Surgical History History of bone marrow biopsy History of bronchoscopy Hx of right knee surgery Hx of esophagogastroduodenoscopy History of total knee arthroplasty Hx of colonoscopy Hx of cervical spine surgery Hx of bilateral inguinal hernia repair History of total knee arthroplasty History of Problems with Anesthesia: No Social History Social History Household Members: Family Household Members Other:: brother Housing: House Are you a primary pharmacy care coordinator to a significant other at home: No Do you presently have visiting nurse or other home services: No Alcohol intake: former Patient Tobacco Use Status: Never used Tobacco Use of substances other than those prescribed or required for medical reasons: No Have you been hit, kicked, punched, or otherwise hurt by someone within the past year? If so, by whom?: No Are you DNR?: No Advance Directives: No Advance Directives Information Provided: Yes Advance Directives on File: No Recently lost weight without trying: No Nutrition Risks: No Nutritional Risk Poor oral hygiene: Yes (cracked front upper tooth, getting it fixed 11/21/2022 ) service: No Current occupational status: disabled Meds Allergies Allergy/AdvReac Type Severity Reaction Status Date / Time No Known Allergies Allergy Verified 11/14/23 16:38 Home Medications Medication Instructions Recorded Confirmed Last Taken Type mirabegron 25 mg tablet,extended 1 tab PO DAILY 08/17/20 11/14/23 05/07/22 History release 24 hr (Myrbetriq) multivit,Ca,min-iron 8 mg-folic 1 tab PO DAILY 08/17/20 11/14/23 Unknown History acid 200 mcg-lycopene 600 mcg tablet (Centrum Men) primidone 50 mg tablet 1 tab PO BID 08/17/20 11/14/23 05/07/22 History tamsulosin 0.4 mg capsule 1 cap PO BEDTIME 08/17/20 11/14/23 Unknown History trazodone 50 mg tablet 1 tab PO BEDTIME PRN insomnia 08/17/20 11/14/23 Unknown History zolpidem 10 mg tablet 1 tab PO BEDTIME 08/17/20 11/14/23 Unknown History hydroxyzine HCl 25 mg tablet 25 mg PO BID 01/14/23 11/14/23 Unknown History Fiber Therapy Laxative 1 cap PO DAILY 01/24/23 11/14/23 Unknown History buspirone 5 mg tablet 15 mg PO BID 02/13/23 11/14/23 11/19/23 08:00 History oxcarbazepine 300 mg tablet 300 mg PO BID 02/13/23 11/14/23 11/19/23 08:00 History prednisone 10 mg tablet 10 mg PO BEDTIME 11/14/23 11/14/23 Unknown History Exam Height,Weight and Vital Signs: Height 5 ft 10 in Weight 80.286 kg Height 5 ft 10 in Weight 74.389 kg Vital Signs Temperature 98.0 F 11/19/23 09:43 Pulse Rate 55 11/19/23 09:43 Respiratory Rate 16 11/19/23 09:43 Blood Pressure 131/65 11/19/23 09:43 Pulse Oximetry 98 11/19/23 09:43 Oxygen Delivery Method Room Air 11/19/23 09:43 Temperature 98.0 F 11/19/23 09:43 Pulse Rate 55 11/19/23 09:43 Respiratory Rate 16 11/19/23 09:43 Blood Pressure 131/65 11/19/23 09:43 Pulse Oximetry 98 11/19/23 09:43 Oxygen Delivery Method Room Air 11/19/23 09:43 Airway Mallampati Class: I TM Dist: >3cm Neck ROM: Full Loose/Missing/Broken Teeth: No Heart: S1S2 Lungs: CTAB Assessment and Plan Assessment Anesthesia Assessment: Anesthesia Plan Discussed and Chart Reviewed Final Anesthetic Review Family History of Problems with Anesthesia: No History of Problems with Anesthesia: No NPO: Yes ASA Class: III Final Preanesthetic Review: No Changes in Pt Med Stat, Meds/Allgs Chart Reviewed, Consent Obtained/Reviewed and Anes Risks/Benef Reviewed Patient Risk: Intermediate Procedure Risk: Low Anesthetic Plan Anesthetic Plan: GA and Agree w/ Assess. and Plan Disposition: Standard PACU
--- NOTE | 2023-11-19 11:27 | HO.OPHTHAL ---
Ophthalmology Operative Note Date of Service: 11/19/23 Narrative: Diagnosis esotropia. Procedure recession of right medial rectus muscle 3.[address] Dave. Anesthesia general. Complications none. The patient was brought to the operating room placed under general anesthesia. The eye was prepped and draped in the usual sterile ophthalmic fashion. A lid speculum was placed in the right eye and a peritomy was created around the medial rectus muscle. The muscle was hooked and secured with a double-armed Vicryl suture. It was disinserted from the globe and reattached to a position 3.5 mm behind the original insertion. Conjunctiva was closed with interrupted Vicryl sutures. The patient was then awoken from general anesthesia and discharged to postoperative recovery in good condition.
[2023-11-19 11:28] VITALS: BP 136/60; PULSE 63; RESP 18; TEMP 36.4; O2SAT 100
[2023-11-19 11:30] VITALS: BP 147/65; PULSE 62; RESP 16; O2SAT 100
[2023-11-19 11:35] VITALS: BP 156/57; PULSE 63; RESP 16; O2SAT 100
[2023-11-19 11:40] VITALS: BP 131/59; PULSE 58; RESP 16; O2SAT 98
[2023-11-19 11:55] VITALS: BP 145/46; PULSE 50; RESP 16; TEMP 36.4; O2SAT 98
== END 2023-11-19 12:25 | disposition home or self-care (01) ==
PROVIDERS: PCP Internal Medicine; Visit Provider Ophthalmology
PROC: (CPT 67311; principal; 2023-11-19 10:40)
DX: H53.2 Diplopia (principal); H50.00 Unspecified esotropia; C90.00 Multiple myeloma not having achieved remission; G89.29 Other chronic pain; M54.9 Dorsalgia, unspecified; N40.0 Benign prostatic hyperplasia without lower urinary tract symptoms; I12.9 Hypertensive chronic kidney disease with stage 1 through stage 4 chronic kidney disease, or unspecified chronic kidney disease; N18.9 Chronic kidney disease, unspecified; K21.9 Gastro-esophageal reflux disease without esophagitis; F31.9 Bipolar disorder, unspecified; Z79.52 Long term (current) use of systemic steroids; Z79.899 Other long term (current) drug therapy; Z98.890 Other specified postprocedural states
CPT/HCPCS: 67311; J0131; J1100; J1596; J1885; J2405; J2704

== ENCOUNTER 2023-12-19 16:20 | Outpatient (REF) | payer MEDICARE, MEDICAID, SELFPAY ==
--- NOTE | ~2023-12-19 | XR_ITS ---
EXAMINATION: XR chest 2V CLINICAL INFORMATION: Reason for Exam COUGH WHEEZING COMPARISON: Chest radiograph 09/01/2020 TECHNIQUE: 2 views of the chest FINDINGS: Clear lungs. No pneumothorax or pleural effusion. Normal cardiomediastinal silhouette. XR/XR chest 2V Impression: * Clear lungs.
== END 2023-12-19 16:21 | disposition home or self-care (01) ==
LOC: HO.XRAY 16:20
PROVIDERS: PCP Internal Medicine; Visit Provider Internal Medicine
DX: R05.9 Cough, unspecified (principal); R09.89 Other specified symptoms and signs involving the circulatory and respiratory systems
CPT/HCPCS: 71046

== ENCOUNTER 2023-12-31 13:51 | Emergency (ER) | payer MEDICARE, MEDICAID, SELFPAY ==
--- NOTE | ~2023-12-31 | CT_ITS ---
EXAMINATION: CT CHEST WITHOUT CONTRAST CLINICAL INFORMATION: Cough, rule out pneumonia COMPARISON: 12/19/2023 chest radiograph TECHNIQUE: Multidetector volumetric CT imaging of the chest was done. Axial MIP volume rendering provided. Sagittal and coronal reformatted images were obtained. This CT examination was performed using dose optimization techniques as appropriate, variously including the following: *Automated exposure control *Adjustment of mA and/or kV according to patient size (this includes techniques or standardized protocols for targeted exams where dose is matched to indication/reason for exam; i.e. extremities or head) *Use of iterative reconstruction technique DLP: 60 mGy-cm FINDINGS: PAPER TUBE GRADER: Minor left base atelectasis. LUNGS: Trachea and bronchi are patent with diffuse mild thickening. There is a 6 mm left anterolateral intraluminal soft tissue density within the anti--dependent tracheal lumen. Scattered minor atelectasis. No lung nodules, consolidations or groundglass opacities. MEDIASTINUM: Unremarkable thyroid. No pathologic lymphadenopathy. Heart is not enlarged. No pericardial effusion. Atherosclerotic calcifications nonaneurysmal aorta. Nonenlarged pulmonary arteries. CORONARY ARTERY CALCIFICATION: Moderately severe. PLEURA: There is no pleural effusion. No pleural mass or thickening. AXILLA: No lymphadenopathy. UPPER ABDOMEN: 2.8 cm right renal cyst. OSSEOUS STRUCTURES: Unremarkable. CT/CT chest wo IV con IMPRESSION: No CT evidence of pneumonia. 6 mm tracheal intraluminal density, possible debris/mucus, lesion not excluded. Consider short-term follow-up CT versus direct visualization. Right renal cyst. Fleischner guidelines were followed.
[2023-12-31 14:42] VITALS: BP 127/64; PULSE 66; RESP 18; TEMP 36.1; O2SAT 94; BMI 25.3
--- NOTE | 2023-12-31 14:43 | ED.GENADULT ---
HPI - General Adult General Chief complaint: Upper Respiratory Symptoms Stated complaint: Needs IV Antibiotic Sent By Lew Time Seen by Provider: 12/31/23 22:27 History of Present Illness HPI narrative: The patient is a 73-year-old male currently being treated for multiple myeloma. He has been having problems with a cough for about 3 weeks. He was seen at the emergency room at [facility] a week or 2 ago with a negative workup. He is currently finishing a course of Augmentin that was prescribed by his oncologist 5 days ago. His symptoms of cough have not really responded at all to the Augmentin. Today he was advised to come to the emergency room by his oncologist. No fevers. Related Data Home Medications Medication Instructions Recorded Confirmed mirabegron 25 mg tablet,extended 1 tab PO DAILY 08/17/20 11/14/23 release 24 hr (Myrbetriq) multivit,Ca,min-iron 8 mg-folic 1 tab PO DAILY 08/17/20 11/14/23 acid 200 mcg-lycopene 600 mcg tablet (Centrum Men) primidone 50 mg tablet 1 tab PO BID 08/17/20 11/14/23 tamsulosin 0.4 mg capsule 1 cap PO BEDTIME 08/17/20 11/14/23 trazodone 50 mg tablet 1 tab PO BEDTIME PRN insomnia 08/17/20 11/14/23 zolpidem 10 mg tablet 1 tab PO BEDTIME 08/17/20 11/14/23 hydroxyzine HCl 25 mg tablet 25 mg PO BID 01/14/23 11/14/23 Fiber Therapy Laxative 1 cap PO DAILY 01/24/23 11/14/23 buspirone 5 mg tablet 15 mg PO BID 02/13/23 11/14/23 oxcarbazepine 300 mg tablet 300 mg PO BID 02/13/23 11/14/23 prednisone 10 mg tablet 10 mg PO BEDTIME 11/14/23 11/14/23 Previous Rx's Medication Instructions Recorded ipratropium bromide 42 mcg (0.06 2 spray intranasal TID PRN allergy 12/16/22 %) nasal spray symptoms #15 mL chlorhexidine gluconate 0.12 % 15 ml buccal BID 14 days #420 mL 02/12/23 mouthwash hydrocortisone-aloe vera 1 % 1 appl topical BID #200 grams 06/04/23 topical cream (Hydrocortisone Plus) metoprolol succinate 25 mg 25 mg PO DAILY #60 tabs 06/09/23 tablet,extended release 24 hr (Toprol XL) budesonide-formoterol HFA 160 2 puff inhalation BID 30 days 08/15/23 mcg-4.5 mcg/actuation aerosol #10.2 grams inhaler (Symbicort) acyclovir 400 mg tablet 400 mg PO BID #60 tabs 09/26/23 aspirin 81 mg chewable tablet 81 mg PO DAILY #90 tabs 11/13/23 lenalidomide 5 mg capsule 5 mg PO DAILY #21 caps 11/25/23 (Revlimid) amoxicillin 500 mg-potassium 1 tab PO Q12H #14 tabs 12/26/23 clavulanate 125 mg tablet (Augmentin) albuterol sulfate 90 mcg/actuation 2 puff inhalation Q4-6H PRN 01/01/24 aerosol inhaler shortness of breath or wheezing #8.5 grams doxycycline monohydrate 100 mg 100 mg PO BID #14 caps 01/01/24 capsule prednisone 20 mg tablet 60 mg (3 x 20 mg) PO DAILY 4 days 01/01/24 #12 tabs Allergies Allergy/AdvReac Type Severity Reaction Status Date / Time No Known Allergies Allergy Verified 12/31/23 14:42 Review of Systems Review of Systems: Yes all other systems are reviewed and are negative [facility] Past Medical History Medical History (Updated 01/01/24 @ 02:46 by Brayan Avitia MD) Multiple myeloma Nontuberculous mycobacterial disease of lung History of cardiac murmur Immunodeficiency Chronic cough Chronic allergic rhinitis History of basal cell cancer Hx of skin cancer, basal cell Has a tremor Diverticulosis IBS (irritable colon syndrome) Thrombosed external hemorrhoids Irritable bowel syndrome with constipation and diarrhea PVC (premature ventricular contraction) Diverticulosis of colon History of alcohol abuse Back pain Arthritis Leukopenia Diarrhea OAB (overactive bladder) BPH (benign prostatic hyperplasia) Anxiety Depression Bipolar 1 disorder Seizure disorder Insomnia Heart palpitations Hypertension Surgical History History of bone marrow biopsy History of bronchoscopy Hx of right knee surgery Hx of esophagogastroduodenoscopy History of total knee arthroplasty Hx of colonoscopy Hx of cervical spine surgery Hx of bilateral inguinal hernia repair History of total knee arthroplasty Family History Family History Maternal Aunt Colon cancer Father No problems noted. Mother No problems noted. Brother No problems noted. Social History Social History Household Members: Family Household Members Other:: brother Housing: House Are you a primary medicare contact specialist to a significant other at home: No Do you presently have visiting nurse or other home services: No Alcohol intake: former Patient Tobacco Use Status: Never used Tobacco Advance Directives: No Advance Directives Information Provided: No service: No Current occupational status: disabled Physical Exam ED Vital Signs: Vital Signs - 24 hr 12/31/23 14:42 12/31/23 20:33 12/31/23 22:40 Temperature 97 F 97.8 F Pulse Rate 66 60 51 Respiratory Rate 18 18 20 Blood Pressure 127/64 129/61 149/46 H Pulse Oximetry 94 95 96 Oxygen Delivery Method Room Air Room Air Room Air 12/31/23 23:09 01/01/24 01:27 Temperature Pulse Rate 57 55 Respiratory Rate 18 18 Blood Pressure Pulse Oximetry Oxygen Delivery Method BMI result Body Mass Index 25.3 Const Other: The patient is awake and alert. He does not appear toxic or in obvious distress although he has a frequent cough. No increased work of breathing. Respiratory distress. HENMT Other: The face is symmetrical. ?Mucous membranes moist. Eyes Other: Pupils are round equal, conjunctivae are clear, extraocular movements intact Neck Other: No JVD Resp Other: The patient has frequent coughing and he has inspiratory and expiratory wheezes bilaterally. Cardio Rate: regular rate Rhythm: regular rhythm Heart sounds: S1 normal heart sound present and S2 normal heart sound present GI Other: Abdomen is soft and nontender Skin Other: Skin is pale and dry Neuro Other: The patient is awake, alert, pleasant, cooperative, mental status is normal, speech is clear, face symmetrical, moving extremities symmetrically, grossly neurologically intact. Extrem Other: No peripheral edema, no calf asymmetry Course Course Course Narrative: Patient is here because of productive cough that has lasted for 3 weeks, no shortness of breath He has multiple myeloma and saw Dr. hackett today who called in and expect, she is concerned he has pneumonia not seen on chest x-ray I texted her to confirm that and she has requesting a noncontrast CT of the chest which I ordered as well as basic labs This is rapid medical exam and triage pending full evaluation and dispo by ER provider Reevaluation(s) Reevaluation #1: I felt the patient was exhibiting significant bronchospasm. The patient was treated with bronchodilator updrafts and started on prednisone. The patient received a 7.5 mg albuterol updrafts, a DuoNeb updraft, and 2 albuterol puffs with teaching of how to use a metered-dose inhaler with an AeroChamber. The patient is also started on prednisone and doxycycline. The patient improved and seemed well enough for discharge. The patient will be prescribed prednisone, doxycycline, and an albuterol inhaler. Medications Administered Discontinued Medications Generic Name Dose Route Start Last Admin Trade Name Freq PRN Reason Stop Dose Admin Albuterol Sulfate 5 mg/ 7.5 mg 01/01/24 01:20 01/01/24 01:26 Albuterol Sulfate 2.5 mg INHALE 01/01/24 01:21 7.5 mg ONCE ONE Administration Albuterol Sulfate 2 puff 01/01/24 01:48 01/01/24 03:19 Albuterol Sulfate 90 Mcg 8 Gm Inhaler INHALE 01/01/24 01:49 2 puff ONCE ONE Administration Albuterol/Ipratropium 3 ml 12/31/23 22:47 12/31/23 23:08 Albuterol/Iprat 2.5/0.5mg 3 Ml Ampul.Neb INHALE 12/31/23 22:48 3 ml ONCE ONE Administration Doxycycline Monohydrate 100 mg 01/01/24 00:55 01/01/24 01:23 Doxycycline Monohydrate 100 Mg Capsule PO 01/01/24 00:56 100 mg ONCE ONE Administration Prednisone 60 mg 01/01/24 00:04 01/01/24 00:40 Prednisone 20 Mg Tablet PO 01/01/24 00:05 60 mg ONCE ONE Administration Medical Decision Making Medical Decision Making MDM Narrative: The patient presents with several weeks of cough and other upper respiratory symptoms. The course of Augmentin has not been helpful. On my exam the patient is very significantly wheezy. The patient at 1st denied a history of asthma but later said that he had used an albuterol inhaler in the past. The patient had a CT scan that does not show any acute infiltrate. My impression is that the patient is really having an acute asthma exacerbation or similar bronchospastic process rather than anything resembling sepsis. Differential Diagnosis Chief on my differential is acute asthma like exacerbation. I think a pneumonia or other septic process is less likely. Lab Data The patient has an unremarkable white count, CBC is essentially at baseline. C-reactive protein is not significantly elevated at 2.8. Chemistries are unremarkable. 12/31/23 16:37 12/31/23 16:37 Labs: Lab Results 12/31/23 Range/Units 16:37 WBC 4.8 (4.8-10.8) X10*3/uL RBC 4.31 L (4.60-5.80) X10*6/uL Hgb 12.2 L (14.0-18.0) g/dl Hct 37.3 L (42.0-52.0) % MCV 86.5 (80.0-98.0) fL MCH 28.3 (27.0-33.0) pg MCHC 32.7 (31.0-36.0) g/dl RDW 16.6 H (11.0-16.0) % Plt Count 241 (160-400) X10*3/uL MPV 8.9 L (9.4-12.4) fL Immature Gran % (Auto) 0.2 (0.0-0.4) % Neut % (Auto) 68.8 (45-73) % Lymph % (Auto) 17.2 L (20-40) % [place] % (Auto) 8.0 (2-11) % Eos % (Auto) 5.0 H (0-4) % Baso % (Auto) 0.8 (0-2) % Lymph # (Auto) 0.8 L (1.2-4.9) X10*3/uL [place] # (Auto) 0.4 (0.1-1.2) X10*3/uL Eos # (Auto) 0.2 (0.0-0.4) X10*3/uL Baso # (Auto) 0.0 (0.0-0.2) X10*3/uL Abs Immat Gran (auto) 0.01 (0.00-0.03) X10*3/uL Absolute Neuts (auto) 3.3 (2.0-8.3) x10*3/uL Absolute Nucleated RBC 0.000 (0.0-0.012) X10*3/uL Nucleated RBC % (auto) 0.0 (0.0-0.2) /100WBC Sodium 138 (135-145) mmol/L Potassium 4.2 (3.3-5.1) mmol/L Chloride 105 (96-108) mmol/L Carbon Dioxide 27 (22-29) mmol/L Anion Gap 10 L (12-20) BUN 15 (9-16) mg/dL Creatinine 0.98 (0.5-1.4) mg/dL Estim Creat Clear Calc 70.3 Estimated GFR > 60 Random Glucose 91 (60-115) mg/dL Calcium 9.2 (8.4-10.2) mg/dL C-Reactive Protein 2.87 H (< or = 0.50) mg/dL COVID-19 (MELANI) Negative (Negative) COVID-19 Clin Com See Note Influenza Type A (TERESA) Negative (Negative) Influenza Type B (TERESA) Negative (Negative) Influenza A & B Note See Note Discharge Plan Discharge Clinical Impression: Acute asthmatic bronchitis Patient Disposition: Home, Self-Care Instructions: Asthma (ED), How to Use a Metered-Dose Inhaler and a Spacer (ED) Additional Instructions: You seemed to have a case of what I feel is asthmatic bronchitis. Please use the albuterol inhaler 2 puffs every 4 hours as needed for coughing or shortness of breath. Please take prednisone daily as prescribed. Please take the antibiotic doxycycline 2 times a day as prescribed (approximately every 12 hours). Drink lot of fluids. Stay in touch with your regular doctor for additional advice as needed. Also stay in touch with your oncologist. Return to the emergency room if you feel significantly worse. Prescriptions: New prednisone 20 mg tablet 60 mg PO DAILY 4 Days Qty: 12 0RF doxycycline monohydrate 100 mg capsule 100 mg PO BID Qty: 14 0RF albuterol sulfate 90 mcg/actuation HFA aerosol inhaler 2 puff inhalation Q4-6H PRN (Reason: shortness of breath or wheezing) Qty: 8.5 0RF No Action primidone 50 mg tablet 1 tab PO BID trazodone 50 mg tablet 1 tab PO BEDTIME PRN (Reason: insomnia) tamsulosin 0.4 mg capsule 1 cap PO BEDTIME zolpidem 10 mg tablet 1 tab PO BEDTIME Centrum Men 8 mg iron- 200 mcg-600 mcg Tablet 1 tab PO DAILY Myrbetriq 25 mg tablet extended release 24 hr 1 tab PO DAILY buspirone 5 mg tablet 15 mg PO BID oxcarbazepine 300 mg tablet 300 mg PO BID hydrocortisone-aloe vera [Hydrocortisone Plus] 1 % Cream 1 appl TOPICAL BID Qty: 200 3RF acyclovir 400 mg Tablet 400 mg PO BID Qty: 60 3RF aspirin 81 mg Tablet,Chewable 81 mg PO DAILY Qty: 90 3RF lenalidomide [Revlimid] 5 mg Capsule 5 mg PO DAILY Qty: 21 3RF Rx Instructions: swallow whole with glass of water; do not open, crush, chew , break, or dissolve. Take day 1-21 every 28 day cycle. amoxicillin-pot clavulanate [Augmentin] 500-125 mg Tablet 1 tab PO Q12H Qty: 14 0RF Fiber Therapy Laxative 1 cap PO DAILY prednisone 10 mg tablet 10 mg PO BEDTIME ipratropium bromide 42 mcg (0.06 %) spray,non-aerosol 2 spray intranasal TID PRN (Reason: allergy symptoms) Qty: 15 6RF Rx Instructions: administer into each nostril hydroxyzine HCl 25 mg tablet 25 mg PO BID chlorhexidine gluconate 0.12 % mouthwash 15 ml buccal BID 14 Days Qty: 420 0RF budesonide-formoterol [Symbicort] 160-4.5 mcg/actuation HFA aerosol inhaler 2 puff inhalation BID 30 Days Qty: 10.2 11RF metoprolol succinate [Toprol XL] 25 mg tablet extended release 24 hr 25 mg PO DAILY Qty: 60 3RF Referrals: Nito Newell MD [Primary Care Provider] - (Asthmatic bronchitis) Payal Hackett MD [Physician] - (Asthmatic bronchitis) Interventions: ED Discharge Assessment Last Done: 01/01/24 03:14 Discharge Date/Time: 01/01/24 03:27
[2023-12-31 16:42] LABS: MANUAL DIFF FLAG NO
[2023-12-31 16:44] LABS: Basophils Percent Auto 0.8 % (0-2); Eosinophils Absolute Auto 0.2 X10*3/uL (0.0-0.4); Hematocrit 37.3 % (42.0-52.0); Hemoglobin 12.2 g/dl (14.0-18.0); Imm Gran Abs Auto 0.01 X10*3/uL (0.00-0.03); Imm Gran Pct Auto 0.2 % (0.0-0.4); Lymphocytes Absolute Auto 0.8 X10*3/uL (1.2-4.9); Lymphocytes Percent Auto 17.2 % (20-40); Mean Corpuscular HGB Conc 32.7 g/dl (31.0-36.0); Mean Corpuscular Hemoglobin 28.3 pg (27.0-33.0); Mean Corpuscular Volume 86.5 fL (80.0-98.0); Mean Platelet Volume 8.9 fL (9.4-12.4); Monocytes Absolute Auto 0.4 X10*3/uL (0.1-1.2); Neutrophils Absolute Auto 3.3 x10*3/uL (2.0-8.3); Neutrophils Percent Auto 68.8 % (45-73); Platelet Count 241 X10*3/uL (160-400); Red Blood Count 4.31 X10*6/uL (4.60-5.80); Red Cell Distribution Width 16.6 % (11.0-16.0); White Blood Count 4.8 X10*3/uL (4.8-10.8)
[2023-12-31 16:57] LABS: Anion Gap 10 (12-20); Blood Urea Nitrogen 15 mg/dL (9-16); Calcium 9.2 mg/dL (8.4-10.2); Carbon Dioxide 27 mmol/L (22-29); Chloride 105 mmol/L (96-108); Creatinine Clr Calc Pharmacy 70.3; Estimated Glomerular Filt Rate > 60; Glucose Random 91 mg/dL (60-115); Potassium 4.2 mmol/L (3.3-5.1); Sodium 138 mmol/L (135-145)
[2023-12-31 16:58] LABS: COVID-19 Test Negative (Negative); IDNOW Serial# 152EDE1D
[2023-12-31 16:59] LABS: IDNOW Serial# 58CA691E; Influenza A Negative (Negative); Influenza B2 Negative (Negative)
[2023-12-31 20:33] VITALS: BP 129/61; PULSE 60; RESP 18; TEMP 36.6; O2SAT 95
[2023-12-31 22:40] VITALS: BP 149/46; PULSE 51; RESP 20; O2SAT 96
[2023-12-31] MEDS: Albuterol/Iprat 2.5/0.5MG 3 ML AMPUL.NEB INHALE (23:08)
[2023-12-31 23:09] VITALS: PULSE 57; RESP 18; O2SAT 95
[2023-12-31 23:17] LABS: C Reactive Protein 2.87 mg/dL (< or = 0.50)
[2024-01-01] MEDS: predniSONE 20 MG TABLET 60 MG PO (00:40)
[2024-01-01] MEDS: Doxycycline Monohydrate 100 MG CAPSULE PO (01:23)
[2024-01-01] MEDS: Albuterol Sulfate 5 MG, Albuterol Sulfate (0.083%) 2.5 MG 7.5 MG INHALE (01:26)
[2024-01-01 01:27] VITALS: PULSE 55; RESP 18; O2SAT 96
[2024-01-01] MEDS: Albuterol Sulfate 90 MCG 8 GM INHALER 2 PUFF INHALE (03:19)
== END 2024-01-01 03:27 | disposition home or self-care (01) ==
PROVIDERS: Physician Assistant Medical; Emergency Provider Emergency Medicine; PCP Internal Medicine
DX: J45.909 Unspecified asthma, uncomplicated (principal); Z11.52 Encounter for screening for COVID-19; I10 Essential (primary) hypertension
CPT/HCPCS: 71250; 80048; 85025; 86140; 87502; 87635; 94640; 99283; 99285

== ENCOUNTER 2024-01-14 11:35 | Outpatient (AMB) | payer MEDICARE, MEDICAID, SELFPAY ==
[2024-01-14 11:37] VITALS: PULSE 67; O2SAT 96; BMI 25.3
--- NOTE | 2024-01-14 11:37 | A.OFFVIS_ITS ---
Intake Vital Signs 01/14/24 11:37 Height 5 ft 10 in Weight 176 lb 2.389 oz BMI 25.3 Pulse 67 Pulse Source Pulse Oximeter Pulse Oximetry (%) 96 Oxygen Delivery Method Room Air Intake Visit Reasons: sick visit per MD [employer] Required: No Allergies No Known Allergies Allergy (Verified 01/14/24 11:39) HPI HPI Comments History of Present Illness Details The patient is a 73-year-old gentleman with a known history multiple myeloma in addition to a chronic cough. The patient states that he has had a chronic cough since he was a teenager. Although he has noticed that since the fall 2021 the cough has gotten worse. The cough is persistent. He is constantly clearing his throat. He coughs usually nonproductive although sometimes she does bring up a speck of sputum. Feels like there is irritation to his throat. He did try to get to ENT but it was a 6 month wait for an percy ointment so he was sent to Pulmonary. In the meantime he has tried prednisone without any significant help. He has tried Flonase. In addition to that he had tried a rescue inhaler many years ago which did not feel that it was helpful. In addition to the cough is noticed some voice changes. Typically he loses the his voice after the a day is speaking throughout the day. His cough and clearing his throat because he feels a sensation of something within the throat area. He does have medications for reflux disease and also has a degree of postnasal drip. He has never tested for allergies and has never had breathing studies. As far as imaging studies he did have a PET scan back in Jul 2022 with no parenchymal disease, normal larynx, just some evidence of bronchitis. The patient does not have any pulmonary function studies at this time. Will plan to treating for an upper airway cough syndrome and provide him with cough suppressants. Will follow-up after the patient undergoes blood work including allergy testing and pulmonary function studies. 01/15/2023 this is a telehealth visit. Th e patient continues to have this chronic cough. Productive in nature. No significant improvement with the medication changes. The Benzonate still help settle down the cough to some degree. He has been able to sing. He really enjoys singing specially in the choir and at congregation. He has noticed that he has been losing his voice. We have seen ENT as of yet. Therefore, at this point will go ahead and start him on inhaled cortical steroid inhaler in addition to that will further evaluate the airways with bronchoscopy for direct visualization for both diagnostic and hopefully therapeutic purposes. Will plan to do the bronchoscopy in a few weeks. In the meantime he can try the fluticasone HFA inhaler to try to decrease some of the inflammation of the upper and also lower airways. 02/12/2023 the patient is here for pulmon samira follow-up visit. The patient underwent a bronchoscopy. No abnormalities noted of his airways. No significant secretions. However, the patient did have a small chondroma that we biopsied was benign. In addition to that his cultures were positive for strep viridans. Explained to him that does suggest the possibility of micro aspirations into the lung. He does have poor dentition. Therefore, will going to have him undergo a barium swallow. Will have him on perform chlorhexidine mouthwash to clear any bacteria from his teeth. In addition to that will go ahead and start him on Symbicort and also a small course of Medrol to try to help him with bronchospasms. 05/13/2023 the the patient is here for pu lmonary follow-up visit. He does have a chronic cough. He sometimes productive. Moderate severity. We did review his bronchoscopy specimens. 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 The patient does have immunodeficiency. We did do sensitivities to the mycobacterial his sensitive to azithromycin micro lot. Will go ahead and start him on azithromycin 3 times a week and also on rifampin. The patient recently had eye surgery and having some visual changes are for the time being to all would be problematic. The patient did have an EKG done a few months ago with a normal QT interval. Will have a repeat EKG in the next several weeks to make sure that his tube he continues to be good while on the azithromycin therapy. Will monitor closely symptoms. He will follow-up in 3 months. At the time depending on his symptoms would consider increasing the medication. Will also have to resend a sputum to make sure that we evaluate he the bacteria. 08/15/2023 the patient is here for a pulmonary follow-up visit. The patient overall has been feeling worse from a respiratory status. He is responding well to his current respiratory regimen. Although he is concerned about his living situation. He just moved to a basement of his home and his brother smokes in the proximity and he gets exposed to the secondhand smoke. I did provide him with a letter for his brother not to expose him to secondhand smoke. Hopefully this will work. In the meantime the patient was taken off his mycobacterial therapy because of his chemotherapy interactions. He is developing worsening cough and chest congestion. Explained to him that this may just be the result of the worsening mycobacterial disease. 01/14/2024 the patient is here for sick visit. He has been having worsening respiratory symptoms with this couple weeks. Productive cough with yellow phlegm. Moderate severity. He has been using his respiratory inhalers with partial improvement. recently, he was seen in the ER. He did undergo CT scan the chest which demonstrated no evidence of any pneumonia. Although he did have a Density on the trachea. He was given a course of prednisone and doxycycline. Currently his symptoms are improving. Still feels some chest congestion. He is immunosuppressed. Go ahead and give him longer course of antibiotics. Also he is having some wheezing on exam. Therefore switch him over to Medrol where he can do another 6 days. He will return in 3 months and we will repeat his CT chest prior to that visit. [facility] Medical History (Updated 01/14/24 @ 18:16 by Anshul Baez MD) Multiple myeloma Nontuberculous mycobacterial disease of lung History of cardiac murmur Immunodeficiency Chronic cough Chronic allergic rhinitis History of basal cell cancer Hx of skin cancer, basal cell Has a tremor Diverticulosis IBS (irritable colon syndrome) Thrombosed external hemorrhoids Irritable bowel syndrome with constipation and diarrhea PVC (premature ventricular contraction) Diverticulosis of colon History of alcohol abuse Back pain Arthritis Leukopenia Diarrhea OAB (overactive bladder) BPH (benign prostatic hyperplasia) Anxiety Depression Bipolar 1 disorder Seizure disorder Insomnia Heart palpitations Hypertension Surgical History History of bone marrow biopsy History of bronchoscopy Hx of right knee surgery Hx of esophagogastroduodenoscopy History of total knee arthroplasty Hx of colonoscopy Hx of cervical spine surgery Hx of bilateral inguinal hernia repair History of total knee arthroplasty Family History Maternal Aunt Colon cancer Father No problems noted. Mother No problems noted. Brother No problems noted. Social History Household Members: Family Household Members Other:: brother Both parents involved: No Housing: House Are you a primary wound care specialist to a significant other at home: No Do you presently have visiting nurse or other home services: No Alcohol intake: former Patient Tobacco Use Status: Never used Tobacco service: No Current occupational status: disabled Review of Systems Const Denies body aches and Denies fever(s) Eyes Denies change in vision ENT Reports change in voice, Reports hoarseness, Reports nasal congestion, Reports nasal discharge and Reports post nasal drip Card Denies chest pain Resp Reports change in phlegm color, Reports chest congestion, Reports cough and Reports wheezing GI Reports dyspepsia and Reports heartburn Musc Reports no additional complaints Skin/Breast Denies jaundice Neuro Reports no additional complaints Endo Denies heat intolerance Leobardo/Lymph Denies easy bleeding and Denies easy bruising Aller/Immun Reports wheezing Physical Exam Vital Signs: Last Vital Signs Pulse 67 01/14/24 11:37 Pulse Ox 96 01/14/24 11:37 Oxygen Delivery Method Room Air 01/14/24 11:37 BMI result Body Mass Index 25.3 Const General: comfortable HEENT General nose exam: Abnormal mucous membranes and turbinates present erythematous Throat: Yes postnasal drainage and Yes cobblestoning Eyes General: appearance normal, both eyes and all related structures Neck Neck: Yes supple Chest Chest palpation & inspection: normal inspection of the chest Resp Auscultation: wheezes and diminished lung sounds Cardio Rate: regular rate Rhythm: regular rhythm Heart sounds: S1 normal heart sound present and S2 normal heart sound present GI Auscultation: normal bowel sounds Skin General skin exam: no rashes or lesions noted Extrem General: Yes no clubbing, cyanosis or edema Assessment & Plan Assessment & Plan (1) Bronchitis with wheezing: Code(s): J40 - Bronchitis, not specified as acute or chronic (2) 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 Code(s): A31.0 - Pulmonary mycobacterial infection (3) Chronic allergic rhinitis: Code(s): J30.9 - Allergic rhinitis, unspecified (4) Chronic cough: Comment: Likely upper airway cough syndrome Code(s): R05.3 - Chronic cough (5) Immunodeficiency: Comment: low IgA and IgM, likely poor functioning IgG Code(s): D84.9 - Immunodeficiency, unspecified (6) GERD (gastroesophageal reflux disease): Code(s): K21.9 - Gastro-esophageal reflux disease without esophagitis Qualifiers: Esophagitis presence: without esophagitis Qualified Code(s): K21.9 - Gastro-esophageal reflux disease without esophagitis Plan continue Symbicort restart Doxycycline x 10 days start Medrol pack [address] chest in 3 months to f/u abnormal density in the trachea CPT with acapella valve for pulmonary clearence Ipratropium nasal spray as needed nasal rinsing consider repeating sputum cultures GS and AFB during the next visitr F/U 4-6 months Orders: Orders CT chest wo IV con 3 Months 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
== END 2024-01-14 11:56 | disposition home or self-care (01) ==
PROVIDERS: PCP Internal Medicine; Visit Provider Hospitalist
DX: J40 Bronchitis, not specified as acute or chronic (principal); A31.0 Pulmonary mycobacterial infection; J30.9 Allergic rhinitis, unspecified; R05.3 Chronic cough; D84.9 Immunodeficiency, unspecified; K21.9 Gastro-esophageal reflux disease without esophagitis
CPT/HCPCS: 99214

== ENCOUNTER → 2024-01-14 11:35 | Outpatient (BNVA) | payer MEDICARE, MEDICAID, SELFPAY | PROVIDERS: PCP Internal Medicine; Visit Provider Hospitalist | DX: J40 Bronchitis, not specified as acute or chronic (principal); J30.9 Allergic rhinitis, unspecified; A31.0 Pulmonary mycobacterial infection; R05.3 Chronic cough; D84.9 Immunodeficiency, unspecified; K21.9 Gastro-esophageal reflux disease without esophagitis | CPT/HCPCS: 99212 ==

== ENCOUNTER 2024-03-11 12:28 | Outpatient (AMB) | payer MEDICARE, MEDICAID, SELFPAY ==
--- NOTE | 2024-03-11 12:44 | A.OFFVIS_ITS ---
Vital Signs 03/11/24 12:48 Height 5 ft 10 in Weight 175 lb BMI 25.1 BP 126/59 L Blood Pressure Location Lt brachial Position Sitting Pulse 69 Intake Visit Reasons: appointment req by patient Intake Note: Patient request appt Patient cc: gassy, abdominal cramping and bloating, and hard BM even with medication. Denies sny other GI issues. Human Factors Ergonomist Required: No Accompanied by: Self / Same As Patient Allergies No Known Allergies Allergy (Verified 03/11/24 12:42) Medication List - Last Reconciled 03/11/24 by Anu Vallejo MD acyclovir 400 mg PO BID albuterol sulfate 90 mcg/actuation 2 puffs inhalation Q4-6H PRN aspirin 81 mg PO DAILY azithromycin 500 mg PO 3XW 28 days budesonide-formoterol 160-4.5 mcg/actuation (Symbicort) 2 puffs inhalation BID 30 days buspirone 15 mg PO BID chlorhexidine gluconate 0.12% 15 mL buccal BID 14 days dicyclomine 10 mg PO TID PRN 60 days doxycycline monohydrate 100 mg PO BID 10 days [Fiber Therapy Laxative 1 cap PO DAILY] hydrocortisone-aloe vera 1 % (Hydrocortisone Plus) 1 appl topical BID hydroxyzine HCl 25 mg PO BID PRN ipratropium bromide 2 sprays intranasal TID PRN lenalidomide (Revlimid) 5 mg PO DAILY methylprednisolone (Medrol (Justice)) PO PER PKG DIR 6 days metoprolol succinate ER (Toprol XL) 25 mg PO DAILY mirabegron ER (Myrbetriq) 1 tab PO DAILY mv,Ca,vpu-lbfe-YK-lycopene 8 mg iron- 200 mcg-600 mcg (Centrum Men) 1 tab PO DAILY oxcarbazepine 300 mg PO BID pantoprazole 40 mg PO DAILY paroxetine HCl 40 mg PO DAILY prednisone 60 mg (3 x 20 mg) PO DAILY 4 days primidone 1 tab PO BID tamsulosin 1 cap PO BEDTIME trazodone 1 tab PO BEDTIME PRN vibegron (Gemtesa) 75 mg PO DAILY zolpidem 1 tab PO BEDTIME HPI HPI appointment req by patient: Details: GI CLINIC VISIT FOR THIS 73-YEAR-OLD MALE FOR FOLLOW-UP OF IBS. ENDOSCOPIC STUDIES: 04/17/21 EGD AND COLONOSCOPY SHOWED: ESOPHAGUS:? Hiatal hernia 37 to 41 cms.? Irregular Z line with focal esophagitis at GE junction - biopsied to check for Vides's. STOMACH: Multiple 3-8 mm benign appearing sessile polyps.? A 7-8 mm hemorrhagic appearing polyp in the fundus removed with a cold snare.? Mild gastric erythema. Antral biopsies were obtained. DUODENUM:? Duodenitis in the bulb with 5-6 mm superficial erosions.? Normal descending duodenum - biopsies obtained to check for celiac sprue Colonoscopy Findings:? Four small to medium sized polyps removed Moderate to severe diverticulosis seen in the left colon Plan:? Patient has an appointment on 05/02/21 in the GI Clinic with HARRY Hall. Repeat Colonoscopy interval based on path results - in 3-5 years if polyps are adenomatous and 10 years if polyps are hyperplastic. BIOPSIES SHOWED:? ? Gastric biopsies were negative for Helicobacter pylori, esophageal biopsies were negative for Vides's E.? Cecum, polypectomy:? Fragments of tubular adenoma; no high-grade dysplasia or carcinoma seen. F.? Colon, ascending, polypectomies:? Fragments of tubular adenoma; no high- grade dysplasia or carcinoma seen. 08/22/20 COLONOSCOPY SHOWED: Ten polyps removed - one polyp was not retrieved Random biopsies were obtained from the right and left colon. Moderate to severe diverticulosis seen in the left colon Small hemorrhoids on retroflexed exam. Plan:? Patient has an appointment on 08/29/20 in the GI Clinic with HARRY Mercedes. Repeat Colonoscopy interval based on path results - in 1 years if several polyps are adenomatous and consider Genetic Testing since multiple polyps removed. Above findings were reviewed with the patient and colon polyps and diverticulosis handouts were given in the discharge area IMAGING STUDIES:? 08/14/[address] SCAN SHOWED: GASTROINTESTINAL TRACT: There are scattered diverticula of the colon. There is no diverticulitis. There is no bowel wall thickening /edema. There is no bowel obstruction. There is a moderate volume of stool in the colon. The appendix is normal . The small bowel loops are unremarkable. The stomach is normal. There is no hiatal hernia.? TODAY'S VISIT: Patient cc: gassy, abdominal cramping and bloating, and hard BM even with medication. Taking gas x and dicyclomine Abd cramps every time he eats Has to strain while having a BM - takes Miralax once a day Stool can be soft or sometimes like a rock. Has 2 BMs a day Notes abdominal cramps in the stomach. Gets up late and has a snack (Mauritian muffin) eats when [facility] [place] [facility]. Being treated with Revlimid every Friday for multiple myloma PAST VISITS: Has the flu. COVID test was negative. Took Miralax day before yesterday for constipation Does not feel hungry. Taking only soup with bread and butter. Has abdominal cramps, notes stomach aches after he eats Tried FODMAP diet and unable to follow Tries to avoid things like chocolates, peanuts and fruits. Has to have red meat due to anemia. Has grilled chicken and does not eats fries. Not taking Omeprazole due to prostate problem Zenpep 2 capsules with dinner (is eating 1 to 2 times a day). Has a lot of gas. Stopped eating pizza and avoids greasy and fried foods. Weighs 173 lbs. Seen at [facility] in [place] for multiple myeloma and no treatment advised PAST VISITS: Feels Zenpep is not working.Zenpep with each meal and 2 at night with cereal Increased to 2-3 Zenpep with each meal. Has one meal a day and a snack at night. Wt was 188 lbs and decreased to 171 lbs. Eating rice crispies at night. Notes deep stomach cramps which go away later in the day. Had multiple BMs with vomiting on 08/12/22. Roast beef potatoes, sweet carrots at [employer] on 08/11/2208/12 he ate pizza (no onions or peppers) - had a couple of lactaid pills with the pizza. No BMs yesterday and the day before. Pt had knee replacement surgery on his rt knee in 06/2022. Saw a chiropracter who worked on the same knee resulting in damage to the knee. Right knee surgery was redone on 06/04/22. Has been home and having a lot of pain in the knee. Taking Dilaudid for knee pain. When he urinates he is unable to empty his bladder and then has to go again after 20 min. Has not had a BM since 05/31/22 (had a large BM). Abdominal cramps are better since he started taking the Zenpep. Planning to take a chocolate bar since it helps him have a BM. Saw Vicky and taking Lactaid pills with cheese pizza. Took glucose free wafers the following day Drinking Lactaid milk. Had abdominal cramps with soft stools and vomiting in the afternoon. Usually has abdominal cramps with diarrhea or soft stools Denies constipation. Following a FODMAP and not following it too strictly Not noticing any improvement yet. Patient 3 month follow up for IBS. Patient cc: N/V, stomach discomfort, diarrhea/constipation, and medication is helping him with GERD a little bite, some problem with swallowing food, and a lot of burping. Continues to have intermittent symptoms. Has not been having bland foods. Can have intermittent abdominal pain. Has to stay away from vegetables and fruits. Eats beets due to high iron content. Eats at 4:30 or 5 pm. Gets pains from non-eating at 11:30 pm - has rice crispies and opener cupcakes. Past hx of episodes of pancreatitis related to ETOH abuse. Stopped ETOH 4 yrs?ago [facility] Medical History (Updated 01/19/24 @ 12:01 by Payal Hackett MD) Multiple myeloma Nontuberculous mycobacterial disease of lung History of cardiac murmur Immunodeficiency Chronic cough Chronic allergic rhinitis History of basal cell cancer Hx of skin cancer, basal cell Has a tremor Diverticulosis IBS (irritable colon syndrome) Thrombosed external hemorrhoids Irritable bowel syndrome with constipation and diarrhea PVC (premature ventricular contraction) Diverticulosis of colon History of alcohol abuse Back pain Arthritis Leukopenia Diarrhea OAB (overactive bladder) BPH (benign prostatic hyperplasia) Anxiety Depression Bipolar 1 disorder Seizure disorder Insomnia Heart palpitations Hypertension Surgical History History of bone marrow biopsy History of bronchoscopy Hx of right knee surgery Hx of esophagogastroduodenoscopy History of total knee arthroplasty Hx of colonoscopy Hx of cervical spine surgery Hx of bilateral inguinal hernia repair History of total knee arthroplasty Family History Maternal Aunt Colon cancer Father No problems noted. Mother No problems noted. Brother No problems noted. Social History Household Members: Family Household Members Other:: brother Both parents involved: No Housing: House Are you a primary healthcare administration intern to a significant other at home: No Do you presently have visiting nurse or other home services: No Alcohol intake: former Patient Tobacco Use Status: Never used Tobacco service: No Current occupational status: disabled Review of Systems Const All systems reviewed & are unremarkable except as noted in HPI and below Physical Exam Vital Signs: Last Vital Signs Pulse 69 03/11/24 12:48 BP 126/59 L 03/11/24 12:48 BMI result Body Mass Index 25.1 Const General: healthy appearing, no acute distress and anxious Nutritional Appearance: overweight Orientation/consciousness: patient oriented x3 Limitations: no limitations HEENT Head: Yes normal to inspection Ears: hearing grossly normal bilaterally Eyes Sclerae: sclerae normal Pupils: Equal, round and reactive pupils present Neck Neck: Yes normal visual inspection Chest Chest palpation & inspection: normal inspection of the chest Resp Effort & Inspection: normal respiratory effort Auscultation: clear to auscultation bilaterally Cardio Palpation: normal PMI Rate: regular rate Rhythm: regular rhythm Heart sounds: S1 normal heart sound present, S2 normal heart sound present and no murmurs GI Palpation (GI): Soft to palpation, nontender and No hepatosplenomegaly present Auscultation: normal bowel sounds Rectal Exam - Male: Yes deferred Skin General skin exam: no rashes or lesions noted Neuro General: patient oriented x3, gait normal and moves all extremities Cranial nerves: Yes Equal, round and reactive pupils present Psych Appearance: grossly normal Mental Status: mental status grossly normal Assessment & Plan Assessment & Plan (1) Adenomatous colon polyp: Comment: 04/2021 Four small to medium sized adenomatous polyps were removed. Repeat colonoscopy advised in 3 year (due 04/2024) Code(s): D12.6 - Benign neoplasm of colon, unspecified Category: Medical (2) Irritable bowel syndrome with constipation and diarrhea: Comment: He is willing to trial with Citrucel 2 tabs b.i.d. in hopes this gives him more consistent stool pattern. Code(s): K58.2 - Mixed irritable bowel syndrome Category: Medical (3) Diverticulosis of colon: Comment: Moderate to severe diverticulosis-maintain high-fiber diet, review says symptoms diverticulitis Code(s): K57.30 - Diverticulosis of large intestine without perforation or abscess without bleeding Category: Medical (4) GERD (gastroesophageal reflux disease): Code(s): K21.9 - Gastro-esophageal reflux disease without esophagitis Category: Medical Qualifiers: Esophagitis presence: without esophagitis Qualified Code(s): K21.9 - Gastro-esophageal reflux disease without esophagitis (5) IBS (irritable bowel syndrome): Comment: Pt was referred for low FODMAP diet. Per conversation Pt reports improvement in GI symptoms when drinking lactose free milk however consuming other foods with lactose contributing to GI Code(s): K58.9 - Irritable bowel syndrome without diarrhea Category: Medical (6) Chronic diarrhea: Code(s): K52.9 - Noninfective gastroenteritis and colitis, unspecified Category: Medical (7) Pancreatic insufficiency: Comment: Pancreatic elastase was 33 indicating severe pancreatic insufficiency. Patient was started on Zenpep with improvement in abdominal cramping. Code(s): K86.89 - Other specified diseases of pancreas Category: Medical Plan 73 year-old anxious male with IBS associated with diarrhea and constipation.? He is managing his symptoms with a change in diet and imodium prn. He was advised to take Citrucel daily and Dicyclomine prn for abdominal pain. Patient does admit to anxiety worsening his symptoms, he is currently living with his brother which is not the best scenario but is tolerable.? He has and? been followed recently for mild seizure activity and has not had any further issue? since dose of medications was increased. 04/2021 Four small to medium sized adenomatous polyps were removed. Repeat colonoscopy advised in 3 year (due 04/2024). Pt was given the following advice: 1.? Please continue to keep a FOOD dairy 2.? Take Polyethylene Glycol once a day on days you do not have a bowel movement 3.? No milk products - Ok to take yogurt with Probiotics. 4.? If you continue to have problems, you can start a FODMAP diet. 5.? Famotidine twice daily for GERD in place of Omeprazole Pt was seen by Nutrition and advised to take Lactaid pills with cheese and pizza. He is keeping a food dairy. Advised to follow a FODMAP diet and not following it too strictly. Stool tests showed a low pancreatic elastase suggestive of pancreatic insufficiency Prescription for Zenpep (pancreatic enzyme preparation) was sent to the pharmacy. Patient had a surgery on his right knee on 06/04/2022 and has been taking Dilaudid. Patient is advised to start MiraLax 1-2 times daily for constipation. If he continues to have symptoms he can take senna 2 capsules at bedtime p.r.n. 11/07/22 Pt advised to resume taking Dicyclomine 10 mg three times daily prn for abd cramps 03/22/24 Abd cramps every time he eats Has to strain while having a BM - takes Miralax once a day Pt advised to start LInzess for constipation and schedule an EGD and Colon (scheduled 09/06/24) FU in 3 months Medications: New wgrwqz-xderequv-ivrqsbb 12,000-38,000 -60,000 unit (Creon) administer with meals and/or snacks 1 cap PO TID 180 caps 3RF 60 days K86.89 - Other specified diseases of pancreas linaclotide (Linzess) 145 mcg orally take every other day; Take every other day 20 caps 3RF 30 days K58.2 - Mixed irritable bowel syndrome magnesium citrate 300 mL PO DAILY 296 mL 0RF Colon prep 1 day linaclotide (Linzess) 145 mcg orally take every other day; Take every other day 20 caps 3RF 30 days K58.2 - Mixed irritable bowel syndrome rmglxx-yjsvewiw-hwnrxti 12,000-38,000 -60,000 unit (Creon) administer with meals and/or snacks 1 cap PO TID 180 caps 3RF 60 days K86.89 - Other specified diseases of pancreas bisacodyl (Dulcolax (bisacodyl)) Take 2 tablets at 12 pm starting 5 days before colonoscopy 10 mg (2 x 5 mg) PO ONCE 10 tabs 0RF colon prep 5 days Coding Level of Care Code Est Pt Level 4 (66142) Diagnoses Adenomatous colon polyp D12.6 Irritable bowel syndrome with constipation and diarrhea K58.2 Diverticulosis of colon K57.30 Gastroesophageal reflux disease without esophagitis K21.9 Esophagitis presence: without esophagitis IBS (irritable bowel syndrome) K58.9 Chronic diarrhea K52.9 Pancreatic insufficiency K86.89 Time Spent (min) 25
[2024-03-11 12:48] VITALS: BP 126/59; PULSE 69; BMI 25.1
== END 2024-03-11 13:51 | disposition home or self-care (01) ==
PROVIDERS: PCP Internal Medicine; Visit Provider Internal Medicine Gastroenterology
DX: K58.2 Mixed irritable bowel syndrome (principal); Z86.010 Personal history of colon polyps; K57.30 Diverticulosis of large intestine without perforation or abscess without bleeding; K21.9 Gastro-esophageal reflux disease without esophagitis; K86.89 Other specified diseases of pancreas
CPT/HCPCS: 99214

== ENCOUNTER → 2024-03-11 12:28 | Outpatient (BNVA) | payer MEDICARE, MEDICAID, SELFPAY | PROVIDERS: PCP Internal Medicine; Visit Provider Internal Medicine Gastroenterology | DX: K58.2 Mixed irritable bowel syndrome (principal); K57.30 Diverticulosis of large intestine without perforation or abscess without bleeding; K21.9 Gastro-esophageal reflux disease without esophagitis; K86.89 Other specified diseases of pancreas; Z86.010 Personal history of colon polyps | CPT/HCPCS: 99212 ==

== ENCOUNTER 2024-04-14 11:02 | Outpatient (AMB) | payer MEDICARE, MEDICAID, SELFPAY ==
[2024-04-14 11:14] VITALS: BP 106/62; PULSE 56; O2SAT 95; BMI 25.4
--- NOTE | 2024-04-14 11:14 | A.OFFVIS_ITS ---
Vital Signs 04/14/24 11:14 Height 5 ft 10 in Weight 177 lb 4.026 oz BMI 25.4 BP 106/62 Blood Pressure Location Lt brachial Position Sitting Pulse 56 Pulse Source Pulse Oximeter Pulse Oximetry (%) 95 Intake Visit Reasons: 1 yr f/up r/s 02/15 Central Service Tech Required: No Accompanied by: Self / Same As Patient Allergies No Known Allergies Allergy (Verified 03/11/24 12:42) Medication List - Last Reconciled 04/14/24 by Tigre oCok MD albuterol sulfate 90 mcg/actuation 2 puffs inhalation Q4-6H PRN aspirin 81 mg PO DAILY bisacodyl (Dulcolax (bisacodyl)) 10 mg (2 x 5 mg) PO ONCE 5 days buspirone 15 mg PO BID chlorhexidine gluconate 0.12% 15 mL buccal BID 14 days dicyclomine 10 mg PO TID PRN 60 days doxycycline monohydrate 100 mg PO BID 10 days [Fiber Therapy Laxative 1 cap PO DAILY] hydrocortisone-aloe vera 1 % (Hydrocortisone Plus) 1 appl topical BID hydroxyzine HCl 25 mg PO BID PRN ipratropium bromide 2 sprays intranasal TID PRN lenalidomide (Revlimid) 5 mg PO DAILY linaclotide (Linzess) 145 mcg orally take every other day; Take every other day 30 days fbpvjw-ssautxdj-lszlnad 12,000-38,000 -60,000 unit (Creon) 1 cap PO TID 60 days magnesium citrate 300 mL PO DAILY 1 day methylprednisolone (Medrol (Justice)) PO PER PKG DIR 6 days metoprolol succinate ER (Toprol XL) 25 mg PO DAILY mirabegron ER (Myrbetriq) 1 tab PO DAILY mv,Ca,ojh-ynnr-ZP-lycopene 8 mg iron- 200 mcg-600 mcg (Centrum Men) 1 tab PO DAILY oxcarbazepine 300 mg PO BID pantoprazole 40 mg PO DAILY paroxetine HCl 40 mg PO DAILY prednisone 60 mg (3 x 20 mg) PO DAILY 4 days primidone 1 tab PO BID tamsulosin 1 cap PO BEDTIME trazodone 1 tab PO BEDTIME PRN vibegron (Gemtesa) 75 mg PO DAILY zolpidem 1 tab PO BEDTIME HPI Comments Details: 73-year-old gentleman who is here for follow-up. He was previously seen for PVCs and palpitations. Was started on beta-robbie. He did well after that and has not had significant palpitations. Is saying at nighttime occasionally gets some palpitation but during the day he has not had any symptoms. No chest pain or shortness of breath. Taking beta-robbie regularly without any issues. He has been exercising regularly without any exertional symptoms. 06/09/23: He returns for follow-up. He saw Dr. Hackett in the clinic for multiple myeloma. He was noticed to be bradycardic in the 40s. His beta- robbie was discontinued. He has been experiencing some side effects from problem it and. He got a rash on his body after getting Revlimid and was treated for that. He is saying the rash is improving at this point. He has no chest discomfort. He is getting some palpitations and feels the heart is pounding at times. He looks quite stress right now. His blood pressure is elevated. 04/14/24: He returns for follow-up. Saying myeloma is stable currently and is following in [place]. Denying significant palpitations on follow-up. He is saying that trazodone probably is playing a role in his palpitations because he has been taking 1-1/2 tablet at night for sleep. I have advised him to cut back to 1 tablet and discuss with his primary for alternate medications if this is causing side effects. [facility] Medical History (Updated 01/19/24 @ 12:01 by Payal Hackett MD) Multiple myeloma Nontuberculous mycobacterial disease of lung History of cardiac murmur Immunodeficiency Chronic cough Chronic allergic rhinitis History of basal cell cancer Hx of skin cancer, basal cell Has a tremor Diverticulosis IBS (irritable colon syndrome) Thrombosed external hemorrhoids Irritable bowel syndrome with constipation and diarrhea PVC (premature ventricular contraction) Diverticulosis of colon History of alcohol abuse Back pain Arthritis Leukopenia Diarrhea OAB (overactive bladder) BPH (benign prostatic hyperplasia) Anxiety Depression Bipolar 1 disorder Seizure disorder Insomnia Heart palpitations Hypertension Surgical History (Reviewed 04/14/24 @ 11:20 by Hannah Moore [facility]) History of bone marrow biopsy History of bronchoscopy Hx of right knee surgery Hx of esophagogastroduodenoscopy History of total knee arthroplasty Hx of colonoscopy Hx of cervical spine surgery Hx of bilateral inguinal hernia repair History of total knee arthroplasty Family History (Reviewed 04/14/24 @ 11:20 by Hannah Moore [facility]) Maternal Aunt Colon cancer Father No problems noted. Mother No problems noted. Brother No problems noted. Social History (Reviewed 04/14/24 @ 11:20 by Hannah Moore [facility]) Household Members: Family Household Members Other:: brother Both parents involved: No Housing: House Are you a primary pet caregiver to a significant other at home: No Do you presently have visiting nurse or other home services: No Alcohol intake: former Patient Tobacco Use Status: Never used Tobacco service: No Current occupational status: disabled Review of Systems Const Denies chills, Denies fatigue, Denies fever(s), Denies frequent falls, Denies weakness, Denies weight gain and Denies weight loss ENT Denies dizziness Card Denies chest pain, Denies leg edema, Denies lightheadedness, Denies palpitations, Denies dyspnea and Denies dyspnea on exertion Resp Denies cough, Denies dyspnea and Denies dyspnea on exertion GI Denies hematochezia Musc Denies abnormal gait, Denies muscle weakness, Denies numbness, Denies radiating pain into limb and Denies tingling Neuro Denies abnormal gait, Denies dizziness, Denies frequent falls, Denies numbness, Denies tingling and Denies weakness Endo Denies fatigue and Denies palpitations Physical Exam Vital Signs: Last Vital Signs Pulse 56 04/14/24 11:14 BP 106/62 04/14/24 11:14 Pulse Ox 95 04/14/24 11:14 BMI result Body Mass Index 25.4 GENERAL APPEARANCE: In no distress. Pleasant. NECK: no carotid bruit, no jugular venous distention. SKIN: no suspicious lesions, warm and dry. HEART: no murmurs, regular rate and rhythm. LUNGS: clear to auscultation bilaterally. ABDOMEN: soft, nontender. EXTREMITIES: no edema. PERIPHERAL PULSES: equal. NEUROLOGIC: No gross deficits, AAO X 3 Assessment & Plan Assessment & Plan (1) Essential hypertension: Code(s): I10 - Essential (primary) hypertension Category: Medical (2) PVC (premature ventricular contraction): Code(s): I49.3 - Ventricular premature depolarization Category: Medical Plan Pleasant 73 year gentleman who is here for follow-up. He has multiple myeloma and is following with Hematology at [place] and in [place]. She has background history of PVCs and he did well with low-dose metoprolol in the past. On metoprolol he is denying CP or palpitations currently. Blood pressure control is good. Overall stable. He will see us back in 6 months. Thank you for allowing me to participate in the care of your patient. Please feel free to contact me if you have any questions. Coding Level of Care Code Est Pt Level 4 (08657) Diagnoses Essential hypertension I10 PVC (premature ventricular contraction) I49.3
== END 2024-04-14 11:38 | disposition home or self-care (01) ==
PROVIDERS: PCP Internal Medicine; Visit Provider Internal Medicine Cardiovascular Disease
DX: I10 Essential (primary) hypertension (principal); I49.3 Ventricular premature depolarization
CPT/HCPCS: 99214

== ENCOUNTER → 2024-04-14 11:02 | Outpatient (BNVA) | payer MEDICARE, MEDICAID, SELFPAY | PROVIDERS: PCP Internal Medicine; Visit Provider Internal Medicine Cardiovascular Disease | DX: I10 Essential (primary) hypertension (principal); I49.3 Ventricular premature depolarization | CPT/HCPCS: 99212 ==

== ENCOUNTER 2024-04-15 13:00 | Outpatient (REF) | payer MEDICARE, MEDICAID, SELFPAY ==
--- NOTE | ~2024-04-15 | CT_ITS ---
EXAMINATION: CT CHEST WITHOUT CONTRAST CLINICAL INFORMATION: Follow-up tracheal nodule COMPARISON: CT chest from 12/31/2023 TECHNIQUE: Multidetector volumetric CT imaging of the chest was done. Axial MIP volume rendering provided. Sagittal and coronal reformatted images were obtained. This CT examination was performed using dose optimization techniques as appropriate, variously including the following: *Automated exposure control *Adjustment of mA and/or kV according to patient size (this includes techniques or standardized protocols for targeted exams where dose is matched to indication/reason for exam; i.e. extremities or head) *Use of iterative reconstruction technique DLP: 234 mGy-cm FINDINGS: CONDENSER OPERATOR: Unremarkable LUNGS: The lungs are clear with no evidence of inflammation or nodules. Previously seen nodularity along the nondependent wall of the trachea is no longer present. No significant tracheal or bronchial wall thickening on the current examination. Minimal interstitial groundglass changes seen in the lateral aspect of the right lower lobe and right middle lobe which could represent residual inflammatory or infectious pneumonitis. No suspicious pulmonary nodules MEDIASTINUM: Heart is normal in size. Pericardium is normal. No mediastinal or hilar lymphadenopathy. Thoracic aorta is normal in caliber with scattered atherosclerotic wall calcifications. CORONARY ARTERY CALCIFICATION: Present PLEURA: There is no pleural effusion. No pleural mass or thickening. AXILLA: No lymphadenopathy. UPPER ABDOMEN: Partially visualized right renal cyst again noted. OSSEOUS STRUCTURES: Degenerative changes of the thoracic spine. CT/CT chest wo IV con IMPRESSION: Previously seen nodularity along the nondependent wall of the trachea is no longer present. No significant tracheal or bronchial wall thickening on the current examination. Minimal interstitial groundglass changes seen in the lateral aspect of the right lower lobe and right middle lobe which could represent residual inflammatory or infectious pneumonitis. No suspicious pulmonary nodules.
== END 2024-04-15 13:01 | disposition home or self-care (01) ==
LOC: HO.CT 13:00
PROVIDERS: PCP Internal Medicine; Visit Provider Hospitalist
DX: Q32.1 Other congenital malformations of trachea (principal)
CPT/HCPCS: 71250

== ENCOUNTER 2024-04-27 14:11 | Outpatient (AMB) | payer MEDICARE, MEDICAID, SELFPAY ==
[2024-04-27 14:15] VITALS: BP 124/60; PULSE 56; O2SAT 98; BMI 25.1
--- NOTE | 2024-04-27 14:15 | MHC.OFFVIS ---
Vital Signs 04/27/24 14:15 Height 5 ft 10 in Weight 175 lb BMI 25.1 BP 124/60 Blood Pressure Location Lt brachial Position Sitting Pulse 56 Pulse Source Pulse Oximeter Pulse Oximetry (%) 98 Oxygen Delivery Method Room Air Intake Visit Reasons: [employer] [employer] Manager Required: No Allergies No Known Allergies Allergy (Verified 04/27/24 14:17) HPI Comments Details: The patient is a 73-year-old gentleman with a known history multiple myeloma in addition to a chronic cough. The patient states that he has had a chronic cough since he was a teenager. Although he has noticed that since the fall 2021 the cough has gotten worse. The cough is persistent. He is constantly clearing his throat. He coughs usually nonproductive although sometimes she does bring up a speck of sputum. Feels like there is irritation to his throat. He did try to get to ENT but it was a 6 month wait for an appointment so he was sent to Pulmonary. In the meantime he has tried prednisone without any significant help. He has tried Flonase. In addition to that he had tried a rescue inhaler many years ago which did not feel that it was helpful. In addition to the cough is noticed some voice changes. Typically he loses the his voice after the a day is speaking throughout the day. His cough and clearing his throat because he feels a sensation of something within the throat area. He does have medications for reflux disease and also has a degree of postnasal drip. He has never tested for allergies and has never had breathing studies. As far as imaging studies he did have a PET scan back in Jul 2022 with no parenchymal disease, normal larynx, just some evidence of bronchitis. The patient does not have any pulmonary function studies at this time. Will plan to treating for an upper airway cough syndrome and provide him with cough suppressants. Will follow-up after the patient undergoes blood work including allergy testing and pulmonary function studies. 01/15/2023 this is a telehealth visit. The patient continues to have this chronic cough. Productive in nature. No significant improvement with the medication changes. The Benzonate still help settle down the cough to some degree. He has been able to sing. 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 He has noticed that he has been losing his voice. We have seen ENT as of yet. Therefore, at this point will go ahead and start him on inhaled cortical steroid inhaler in addition to that will further evaluate the airways with bronchoscopy for direct visualization for both diagnostic and hopefully therapeutic purposes. Will plan to do the bronchoscopy in a few weeks. In the meantime he can try the fluticasone HFA inhaler to try to decrease some of the inflammation of the upper and also lower airways. 02/12/2023 the patient is here for pulmonary follow-up visit. The patient underwent a bronchoscopy. No abnormalities noted of his airways. No significant secretions. However, the patient did have a small chondroma that we biopsied was benign. In addition to that his cultures were positive for strep viridans. Explained to him that does suggest the possibility of micro aspirations into the lung. He does have poor dentition. Therefore, will going to have him undergo a barium swallow. Will have him on perform chlorhexidine mouthwash to clear any bacteria from his teeth. In addition to that will go ahead and start him on Symbicort and also a small course of Medrol to try to help him with bronchospasms. 05/13/2023 the the patient is here for pulmonary follow-up visit. He does have a chronic cough. He sometimes productive. Moderate severity. We did review his bronchoscopy specimens. 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 The patient does have immunodeficiency. We did do sensitivities to the mycobacterial his sensitive to azithromycin micro lot. Will go ahead and start him on azithromycin 3 times a week and also on rifampin. The patient recently had eye surgery and having some visual changes are for the time being to all would be problematic. The patient did have an EKG done a few months ago with a normal QT interval. Will have a repeat EKG in the next several weeks to make sure that his tube he continues to be good while on the azithromycin therapy. Will monitor closely symptoms. He will follow-up in 3 months. At the time depending on his symptoms would consider increasing the medication. Will also have to resend a sputum to make sure that we evaluate he the bacteria. 08/15/2023 the patient is here for a pulmonary follow-up visit. The patient overall has been feeling worse from a respiratory status. He is responding well to his current respiratory regimen. Although he is concerned about his living situation. He just moved to a basement of his home and his brother smokes in the proximity and he gets exposed to the secondhand smoke. I did provide him with a letter for his brother not to expose him to secondhand smoke. Hopefully this will work. In the meantime the patient was taken off his mycobacterial therapy because of his chemotherapy interactions. He is developing worsening cough and chest congestion. Explained to him that this may just be the result of the worsening mycobacterial disease. 01/14/2024 the patient is here for sick visit. He has been having worsening respiratory symptoms with this couple weeks. Productive cough with yellow phlegm. Moderate severity. He has been using his respiratory inhalers with partial improvement. recently, he was seen in the ER. He did undergo CT scan the chest which demonstrated no evidence of any pneumonia. Although he did have a Density on the trachea. He was given a course of prednisone and doxycycline. Currently his symptoms are improving. Still feels some chest congestion. He is immunosuppressed. Go ahead and give him longer course of antibiotics. Also he is having some wheezing on exam. Therefore switch him over to Medrol where he can do another 6 days. He will return in 3 months and we will repeat his CT chest prior to that visit. 04/27/2024 the patient is here for a pulmonary follow-up visit. the patient has been no better. Still complaining of significant productive cough with green sputum. Moderate in severity. He has been on a couple courses of doxycycline. He has not seen any improvement. He also did of small course of prednisone. He complains of sinus pressure and ear pressure. He is also felt some dizziness. He did recently had a CT scan of chest that would I personally reviewed with him. This was done in 04/15/2024. Had not been officially read yet. However, looks pretty stable some minimal areas of mosaic pattern ground-glass opacities but these have been there before. No significant airspace disease to be concerned about although explain his ongoing symptoms. His respiratory exam is also reassuring. It appears that mainly his symptoms are from the sinuses. Will go ahead and switch his antibiotic to Augmentin to try help him with that. In the meantime also provide him with additional therapies. If the patient is no better he may benefit from getting sinus CT scan to better address any sinus disease specially with immunosuppression. [facility] Medical History (Updated 04/27/24 @ 23:32 by Anshul Baez MD) Sinusitis Multiple myeloma Nontuberculous mycobacterial disease of lung History of cardiac murmur Immunodeficiency Chronic cough Chronic allergic rhinitis History of basal cell cancer Hx of skin cancer, basal cell Has a tremor Diverticulosis IBS (irritable colon syndrome) Thrombosed external hemorrhoids Irritable bowel syndrome with constipation and diarrhea PVC (premature ventricular contraction) Diverticulosis of colon History of alcohol abuse Back pain Arthritis Leukopenia Diarrhea OAB (overactive bladder) BPH (benign prostatic hyperplasia) Anxiety Depression Bipolar 1 disorder Seizure disorder Insomnia Heart palpitations Hypertension Surgical History History of bone marrow biopsy History of bronchoscopy Hx of right knee surgery Hx of esophagogastroduodenoscopy History of total knee arthroplasty Hx of colonoscopy Hx of cervical spine surgery Hx of bilateral inguinal hernia repair History of total knee arthroplasty Family History Maternal Aunt Colon cancer Father No problems noted. Mother No problems noted. Brother No problems noted. Social History Household Members: Family Household Members Other:: brother Both parents involved: No Housing: House Are you a primary memory care program resident to a significant other at home: No Do you presently have visiting nurse or other home services: No Alcohol intake: former Patient Tobacco Use Status: Never used Tobacco service: No Current occupational status: disabled Review of Systems Const Denies body aches, Denies fever(s) and Reports headache(s) Eyes Denies change in vision ENT Reports change in voice, Reports dizziness, Reports headache(s), Reports hoarseness, Reports nasal congestion, Reports nasal discharge, Reports nasal obstruction, Reports post nasal drip and Reports sinus pressure Card Denies chest pain Resp Reports change in phlegm color, Reports chest congestion, Reports cough and Reports wheezing GI Reports dyspepsia and Reports heartburn Musc Reports no additional complaints Skin/Breast Denies jaundice Neuro Reports no additional complaints, Reports dizziness and Reports headache(s) Endo Denies heat intolerance Leobardo/Lymph Denies easy bleeding and Denies easy bruising Aller/Immun Reports wheezing Physical Exam Vital Signs: Last Vital Signs Pulse 56 04/27/24 14:15 BP 124/60 04/27/24 14:15 Pulse Ox 98 06/11/24 14:15 Oxygen Delivery Method Room Air 04/27/24 14:15 BMI result Body Mass Index 25.1 Const General: comfortable HEENT General nose exam: Abnormal mucous membranes and turbinates present erythematous Throat: Yes postnasal drainage and Yes cobblestoning Eyes General: appearance normal, both eyes and all related structures Neck Neck: Yes supple Chest Chest palpation & inspection: normal inspection of the chest Resp Effort & Inspection: normal respiratory effort and able to speak in complete sentences Auscultation: wheezes and diminished lung sounds Cardio Rate: regular rate Rhythm: regular rhythm Heart sounds: S1 normal heart sound present and S2 normal heart sound present GI Palpation (GI): Soft to palpation Auscultation: normal bowel sounds Skin General skin exam: no rashes or lesions noted Extrem General: Yes no clubbing, cyanosis or edema Assessment & Plan Assessment & Plan (1) 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 Code(s): A31.0 - Pulmonary mycobacterial infection Category: Medical (2) Chronic allergic rhinitis: Code(s): J30.9 - Allergic rhinitis, unspecified Category: Medical (3) Chronic cough: Comment: Likely upper airway cough syndrome Code(s): R05.3 - Chronic cough Category: Medical (4) Immunodeficiency: Comment: low IgA and IgM, likely poor functioning IgG Code(s): D84.9 - Immunodeficiency, unspecified Category: Medical (5) GERD (gastroesophageal reflux disease): Code(s): K21.9 - Gastro-esophageal reflux disease without esophagitis Category: Medical Qualifiers: Esophagitis presence: without esophagitis Qualified Code(s): K21.9 - Gastro-esophageal reflux disease without esophagitis (6) Sinusitis: Code(s): J32.9 - Chronic sinusitis, unspecified Category: Medical Qualifiers: Sinusitis location: unspecified location Chronicity: subacute Qualified Code(s): J01.90 - Acute sinusitis, unspecified Plan continue Symbicort or alternative start Augmentin x 14 days start prednisone taper start Afrin x 5 days cough medicine CPT with acapella valve for pulmonary clearence Ipratropium nasal spray as needed nasal rinsing consider CT sinus if no better F/U 4-6 months Medications: New amoxicillin-pot clavulanate 875-125 mg 1 tab PO BID 28 tabs 0RF 14 days prednisone PO daily; Take 3 tabs daily x 5 days, then 2 tabs daily x 5 days, then 1 tab daily x 5 days 30 tabs 0RF 15 days oxymetazoline 0.05% (Afrin (oxymetazoline)) 2 sprays intranasal Q12H PRN 22 mL 0RF nasal congestion 5 days codeine-guaifenesin 10-100 mg/5 mL 10 mL PO Q6H PRN 300 mL 0RF cough 10 days Coding Level of Care Code Est Pt Level 4 (70532) Diagnoses Nontuberculous mycobacterial disease of lung A31.0 Chronic allergic rhinitis J30.9 Chronic cough R05.3 Immunodeficiency D84.9 Gastroesophageal reflux disease without esophagitis K21.9 Esophagitis presence: without esophagitis Subacute sinusitis, unspecified location J01.90 Sinusitis location: unspecified location Chronicity: subacute Time Spent (min) 18
== END 2024-04-27 14:39 | disposition home or self-care (01) ==
PROVIDERS: PCP Internal Medicine; Visit Provider Hospitalist
DX: A31.0 Pulmonary mycobacterial infection (principal); J30.9 Allergic rhinitis, unspecified; R05.3 Chronic cough; D84.9 Immunodeficiency, unspecified; K21.9 Gastro-esophageal reflux disease without esophagitis; J01.90 Acute sinusitis, unspecified
CPT/HCPCS: 99214

== ENCOUNTER → 2024-04-27 14:11 | Outpatient (BNVA) | payer MEDICARE, MEDICAID, SELFPAY | PROVIDERS: PCP Internal Medicine; Visit Provider Hospitalist | DX: R05.3 Chronic cough (principal); A31.0 Pulmonary mycobacterial infection; J01.90 Acute sinusitis, unspecified; J30.9 Allergic rhinitis, unspecified; D84.9 Immunodeficiency, unspecified; K21.9 Gastro-esophageal reflux disease without esophagitis; Z85.79 Personal history of other malignant neoplasms of lymphoid, hematopoietic and related tissues | CPT/HCPCS: 99212 ==

== ENCOUNTER 2024-06-14 12:32 | Outpatient (REF) | payer MEDICARE, MEDICAID, SELFPAY ==
[2024-06-14 13:28] LABS: Appearance Urine Clear; Color Urine Yellow; Glucose Urine UA Negative (Negative); Leukocyte Esterase Urine Negative (Negative); Nitrite Urine Negative (Negative); PH 6.5 (5.0-9.0); Urine Blood Negative (Negative); Urine Ketones Negative (Negative); Urine Protein Negative (Neg-Trace)
[2024-06-14 13:31] LABS: MANUAL DIFF FLAG NO
[2024-06-14 13:53] LABS: Basophils Absolute Auto 0.1 X10*3/uL (0.0-0.2); Basophils Percent Auto 1.7 % (0-2); Eosinophils Absolute Auto 0.3 X10*3/uL (0.0-0.4); Eosinophils Percent Auto 8.8 % (0-4); Hematocrit 39.8 % (42.0-52.0); Hemoglobin 13.3 g/dl (14.0-18.0); Imm Gran Abs Auto 0.01 X10*3/uL (0.00-0.03); Imm Gran Pct Auto 0.3 % (0.0-0.4); Lymphocytes Absolute Auto 0.7 X10*3/uL (1.2-4.9); Lymphocytes Percent Auto 20.4 % (20-40); Mean Corpuscular HGB Conc 33.4 g/dl (31.0-36.0); Mean Corpuscular Hemoglobin 31.3 pg (27.0-33.0); Mean Corpuscular Volume 93.6 fL (80.0-98.0); Mean Platelet Volume 8.8 fL (9.4-12.4); Monocytes Absolute Auto 0.4 X10*3/uL (0.1-1.2); Monocytes Percent Auto 9.6 % (2-11); Neutrophils Absolute Auto 2.2 x10*3/uL (2.0-8.3); Neutrophils Percent Auto 59.2 % (45-73); Platelet Count 220 X10*3/uL (160-400); Red Blood Count 4.25 X10*6/uL (4.60-5.80); Red Cell Distribution Width 14.7 % (11.0-16.0); White Blood Count 3.6 X10*3/uL (4.8-10.8)
[2024-06-14 14:43] LABS: Anion Gap 10 (12-20); Blood Urea Nitrogen 15 mg/dL (9-16); C Reactive Protein 0.23 mg/dL (< or = 0.50); Calcium 9.2 mg/dL (8.4-10.2); Carbon Dioxide 28 mmol/L (22-29); Chloride 106 mmol/L (96-108); Estimated Glomerular Filt Rate > 60; Glucose Random 89 mg/dL (60-115); Sodium 140 mmol/L (135-145)
== END 2024-06-14 12:33 | disposition home or self-care (01) ==
LOC: HO.10HDL 12:32
PROVIDERS: Visit Provider Internal Medicine
DX: R10.31 Right lower quadrant pain (principal); J44.9 Chronic obstructive pulmonary disease, unspecified; D64.9 Anemia, unspecified
CPT/HCPCS: 36415; 80048; 81003; 82550; 85025; 86140; 87086

== ENCOUNTER 2024-06-17 13:59 | Outpatient (AMB) | payer MEDICARE, MEDICAID, SELFPAY ==
--- NOTE | 2024-06-17 14:06 | A.OFFVIS_ITS ---
Vital Signs 06/17/24 14:10 Height 5 ft 10 in Weight 177 lb BMI 25.4 BP 119/44 L Blood Pressure Location Lt brachial Position Sitting Pulse 56 Intake Visit Reasons: follow up Intake Note: Patient follow up for Adenomatous colon polyps. Patient cc: diarrhea and low back pain. Denies any other GI issues. Funeral Director/Embalmer Required: No Accompanied by: Self / Same As Patient Allergies No Known Allergies Allergy (Verified 07/05/24 14:29) Medication List - Last Reconciled 06/17/24 by Anu Vallejo MD acyclovir 400 mg PO BID albuterol sulfate 90 mcg/actuation 2 puffs inhalation Q4-6H PRN aspirin 81 mg PO DAILY bisacodyl (Dulcolax (bisacodyl)) 10 mg (2 x 5 mg) PO ONCE 5 days buspirone 15 mg PO BID chlorhexidine gluconate 0.12% 15 mL buccal BID 14 days dicyclomine 10 mg PO TID PRN [Fiber Therapy Laxative 1 cap PO DAILY] hydrocortisone-aloe vera 1 % (Hydrocortisone Plus) 1 appl topical BID hydroxyzine HCl 25 mg PO BID PRN ipratropium bromide 2 sprays intranasal TID PRN lenalidomide (Revlimid) 5 mg PO DAILY linaclotide (Linzess) 145 mcg orally take every other day; Take every other day 30 days efykjv-sbutpief-rrdqapt 12,000-38,000 -60,000 unit (Creon) 1 cap PO TID 60 days magnesium citrate 300 mL PO DAILY 1 day metoprolol succinate ER (Toprol XL) 25 mg PO DAILY mirabegron ER (Myrbetriq) 1 tab PO DAILY mv,Ca,npq-fxyb-OL-lycopene 8 mg iron- 200 mcg-600 mcg (Centrum Men) 1 tab PO DAILY oxcarbazepine 300 mg PO BID oxymetazoline 0.05% (Afrin (oxymetazoline)) 2 sprays intranasal Q12H PRN 5 days pantoprazole 40 mg PO DAILY paroxetine HCl 40 mg PO DAILY prednisone 60 mg (3 x 20 mg) PO DAILY 4 days prednisone PO daily; Take 3 tabs daily x 5 days, then 2 tabs daily x 5 days, then 1 tab daily x 5 days 15 days primidone 1 tab PO BID solifenacin 5 mg PO DAILY tamsulosin 1 cap PO BEDTIME trazodone 1 tab PO BEDTIME PRN vibegron (Gemtesa) 75 mg PO DAILY zolpidem 1 tab PO BEDTIME HPI HPI follow up: Details: GI CLINIC VISIT FOR THIS 73-YEAR-OLD MALE FOR FOLLOW-UP OF IBS. ENDOSCOPIC STUDIES: 04/17/21 EGD AND COLONOSCOPY SHOWED: ESOPHAGUS:? Hiatal hernia 37 to 41 cms.? Irregular Z line with focal esophagitis at GE junction - biopsied to check for Vides's. STOMACH: Multiple 3-8 mm benign appearing sessile polyps.? A 7-8 mm hemorrhagic appearing polyp in the fundus removed with a cold snare.? Mild gastric erythema. Antral biopsies were obtained. DUODENUM:? Duodenitis in the bulb with 5-6 mm superficial erosions.? Normal descending duodenum - biopsies obtained to check for celiac sprue Colonoscopy Findings:? Four small to medium sized polyps removed Moderate to severe diverticulosis seen in the left colon Plan:? Patient has an appointment on 05/02/21 in the GI Clinic with HARRY Wilcox. Repeat Colonoscopy interval based on path results - in 3-5 years if polyps are adenomatous and 10 years if polyps are hyperplastic. BIOPSIES SHOWED:? ? Gastric biopsies were negative for Helicobacter pylori, esophageal biopsies were negative for Vides's E.? Cecum, polypectomy:? Fragments of tubular adenoma; no high-grade dysplasia or carcinoma seen. F.? Colon, ascending, polypectomies:? Fragments of tubular adenoma; no high- grade dysplasia or carcinoma seen. 08/22/20 COLONOSCOPY SHOWED: Ten polyps removed - one polyp was not retrieved Random biopsies were obtained from the right and left colon. Moderate to severe diverticulosis seen in the left colon Small hemorrhoids on retroflexed exam. Plan:? Patient has an appointment on 08/29/20 in the GI Clinic with HARRY Wilcox. Repeat Colonoscopy interval based on path results - in 1 years if several polyps are adenomatous and consider Genetic Testing since multiple polyps removed. Above findings were reviewed with the patient and colon polyps and diverticulosis handouts were given in the discharge area IMAGING STUDIES:? 08/14/[address] SCAN SHOWED: GASTROINTESTINAL TRACT: There are scattered diverticula of the colon. There is no diverticulitis. There is no bowel wall thickening /edema. There is no bowel obstruction. There is a moderate volume of stool in the colon. The appendix is normal . The small bowel loops are unremarkable. The stomach is normal. There is no hiatal hernia.? TODAY'S VISIT: Patient cc: diarrhea and low back pain. Denies any other GI issues. Noted RLQ pain radiating to the rt flank for the past 2 weeks. Pain is 10/10 in intensity, constant and is worse on moving and standing - unable to sleep on the right side Admits to burning micturation Has been drinking a lot water. Denies fever, chills or sweating, nausea or vomiting Had vicious diarrhea for the past 2 days. Notes diarrhea 1/2 an hour after eating dinner Takes 2 tablets of max strength gas X before dinner No change in wt. PAST VISITS: Taking gas x and dicyclomine Abd cramps every time he eats Has to strain while having a BM - takes Miralax once a day Stool can be soft or sometimes like a rock. Has 2 BMs a day Notes abdominal cramps in the stomach. Gets up late and has a snack (Indonesian muffin) eats when [facility]. Being treated with Revlimid every Friday for multiple myloma Patient cc: gassy, abdominal cramping and bloating, and hard BM even with medication. Has the flu. COVID test was negative. Took Miralax day before yesterday for constipation Does not feel hungry. Taking only soup with bread and butter. Has abdominal cramps, notes stomach aches after he eats Tried FODMAP diet and unable to follow Tries to avoid things like chocolates, peanuts and fruits. Has to have red meat due to anemia. Has grilled chicken and does not eats fries. Not taking Omeprazole due to prostate problem Zenpep 2 capsules with dinner (is eating 1 to 2 times a day). Has a lot of gas. Stopped eating pizza and avoids greasy and fried foods. Weighs 173 lbs. Seen at [facility] in [place] for multiple myeloma and no treatment advised PAST VISITS: Feels Zenpep is not working.Zenpep with each meal and 2 at night with cereal Increased to 2-3 Zenpep with each meal. Has one meal a day and a snack at night. Wt was 188 lbs and decreased to 171 lbs. Eating rice crispies at night. Notes deep stomach cramps which go away later in the day. Had multiple BMs with vomiting on 08/12/22. Roast beef potatoes, sweet carrots at [employer] on 08/11/2208/12 he ate pizza (no onions or peppers) - had a couple of lactaid pills with the pizza. No BMs yesterday and the day before. Pt had knee replacement surgery on his rt knee in 06/2022. Saw a chiropracter who worked on the same knee resulting in damage to the knee. Right knee surgery was redone on 06/04/22. Has been home and having a lot of pain in the knee. Taking Dilaudid for knee pain. When he urinates he is unable to empty his bladder and then has to go again a fter 20 min. Has not had a BM since 05/31/22 (had a large BM). Abdominal cramps are better since he started taking the Zenpep. Planning to take a chocolate bar since it helps him have a BM. Saw Vicky and taking Lactaid pills with cheese pizza. Took glucose free wafers the following day Drinking Lactaid milk. Had abdominal cramps with soft stools and vomiting in the afternoon. Usually has abdominal cramps with diarrhea or soft stools Denies constipation. Following a FODMAP and not following it too strictly Not noticing any improvement yet. Patient 3 month follow up for IBS. Patient cc: N/V, stomach discomfort, diarrhea/constipation, and medication is helping him with GERD a little bite, some problem with swallowing food, and a lot of burping. Continues to have intermittent symptoms. Has not been having bland foods. Can have intermittent abdominal pain. Has to stay away from vegetables and fruits. Eats beets due to high iron content. Eats at 4:30 or 5 pm. 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 Past hx of episodes of pancreatitis related to ETOH abuse. Stopped ETOH 4 yrs?ago [facility] Medical History (Updated 06/18/24 @ 00:01 by Background Dalory) Sinusitis Multiple myeloma Nontuberculous mycobacterial disease of lung History of cardiac murmur Immunodeficiency Chronic cough Chronic allergic rhinitis History of basal cell cancer Hx of skin cancer, basal cell Has a tremor Diverticulosis IBS (irritable colon syndrome) Thrombosed external hemorrhoids Irritable bowel syndrome with constipation and diarrhea PVC (premature ventricular contraction) Diverticulosis of colon History of alcohol abuse Back pain Arthritis Leukopenia Diarrhea OAB (overactive bladder) BPH (benign prostatic hyperplasia) Anxiety Depression Bipolar 1 disorder Seizure disorder Insomnia Heart palpitations Hypertension Surgical History History of bone marrow biopsy History of bronchoscopy Hx of right knee surgery Hx of esophagogastroduodenoscopy History of total knee arthroplasty Hx of colonoscopy Hx of cervical spine surgery Hx of bilateral inguinal hernia repair History of total knee arthroplasty Family History Maternal Aunt Colon cancer Father No problems noted. Mother No problems noted. Brother No problems noted. Social History Household Members: Family Household Members Other:: brother Both parents involved: No Housing: House Are you a primary career professional to a significant other at home: No Do you presently have visiting nurse or other home services: No Alcohol intake: former Patient Tobacco Use Status: Never used Tobacco service: No Current occupational status: disabled Review of Systems Const All systems reviewed & are unremarkable except as noted in HPI and below Physical Exam Vital Signs: Last Vital Signs Pulse 56 06/17/24 14:10 BP 119/44 L 06/17/24 14:10 BMI result Body Mass Index 25.4 Const General: healthy appearing, no acute distress and anxious Nutritional Appearance: overweight Orientation/consciousness: patient oriented x3 Limitations: no limitations HEENT Head: Yes normal to inspection Ears: hearing grossly normal bilaterally Eyes Sclerae: sclerae normal Pupils: Equal, round and reactive pupils present Neck Neck: Yes normal visual inspection Chest Chest palpation & inspection: normal inspection of the chest Resp Effort & Inspection: normal respiratory effort Auscultation: clear to auscultation bilaterally Cardio Palpation: normal PMI Rate: regular rate Rhythm: regular rhythm Heart sounds: S1 normal heart sound present, S2 normal heart sound present and no murmurs GI Palpation (GI): Soft to palpation, nontender and No hepatosplenomegaly present Auscultation: normal bowel sounds Rectal Exam - Male: Yes deferred Skin General skin exam: no rashes or lesions noted Neuro General: patient oriented x3, gait normal and moves all extremities Cranial nerves: Yes Equal, round and reactive pupils present Psych Appearance: grossly normal Mental Status: mental status grossly normal Assessment & Plan Assessment & Plan (1) Adenomatous colon polyp: Comment: 04/2021 Four small to medium sized adenomatous polyps were removed. Repeat colonoscopy advised in 3 year (due 04/2024) Code(s): D12.6 - Benign neoplasm of colon, unspecified Category: Medical (2) Diverticulosis of colon: Comment: diverticulosis, he has never had episode of diverticulitis. Code(s): K57.30 - Diverticulosis of large intestine without perforation or abscess without bleeding Category: Medical (3) Irritable bowel syndrome with constipation and diarrhea: Comment: He is willing to trial with Citrucel 2 tabs b.i.d. in hopes this gives him more consistent stool pattern. Code(s): K58.2 - Mixed irritable bowel syndrome Category: Medical (4) Abdominal bloating: Code(s): R14.0 - Abdominal distension (gaseous) Category: Medical (5) Diverticulosis of colon: Comment: Moderate to severe diverticulosis-maintain high-fiber diet, review says symptoms diverticulitis Code(s): K57.30 - Diverticulosis of large intestine without perforation or abscess without bleeding Category: Medical (6) GERD (gastroesophageal reflux disease): Code(s): K21.9 - Gastro-esophageal reflux disease without esophagitis Category: Medical Qualifiers: Esophagitis presence: without esophagitis Qualified Code(s): K21.9 - Gastro-esophageal reflux disease without esophagitis (7) IBS (irritable bowel syndrome): Comment: Pt was referred for low FODMAP diet. Per conversation Pt reports improvement in GI symptoms when drinking lactose free milk however consuming other foods with lactose contributing to GI Code(s): K58.9 - Irritable bowel syndrome without diarrhea Category: Medical (8) Chronic diarrhea: Code(s): K52.9 - Noninfective gastroenteritis and colitis, unspecified Category: Medical (9) Pancreatic insufficiency: Comment: Pancreatic elastase was 33 indicating severe pancreatic insufficiency. Patient was started on Zenpep with improvement in abdominal cramping. Code(s): K86.89 - Other specified diseases of pancreas Category: Medical Plan 73 year-old anxious male with IBS associated with diarrhea and constipation.? He is managing his symptoms with a change in diet and imodium prn. He was advised to take Citrucel daily and Dicyclomine prn for abdominal pain. Patient does admit to anxiety worsening his symptoms, he is currently living with his brother which is not the best scenario but is tolerable.? He has and? been followed recently for mild seizure activity and has not had any further issue? since dose of medications was increased. 04/2021 Four small to medium sized adenomatous polyps were removed. Repeat colonoscopy advised in 3 year (due 04/2024). Pt was given the following advice: 1.? Please continue to keep a FOOD dairy 2.? Take Polyethylene Glycol once a day on days you do not have a bowel movement 3.? No milk products - Ok to take yogurt with Probiotics. 4.? If you continue to have problems, you can start a FODMAP diet. 5.? Famotidine twice daily for GERD in place of Omeprazole Pt was seen by Nutrition and advised to take Lactaid pills with cheese and pizza. He is keeping a food dairy. Advised to follow a FODMAP diet and not following it too strictly. Stool tests showed a low pancreatic elastase suggestive of pancreatic insufficiency Prescription for Zenpep (pancreatic enzyme preparation) was sent to the pharmacy. Patient had a surgery on his right knee on 06/04/2022 and has been taking Dilaudid. Patient is advised to start MiraLax 1-2 times daily for constipation. If he continues to have symptoms he can take senna 2 capsules at bedtime p.r.n. 11/07/22 Pt advised to resume taking Dicyclomine 10 mg three times daily prn for abd cramps 03/22/24 Abd cramps every time he eats Has to strain while having a BM - takes Miralax once a day Pt advised to start Linzess for constipation and schedule an EGD and Colon (scheduled 09/06/24) 06/17/24 Noted RLQ pain radiating to the rt flank for the past 2 weeks. Pain is 10/10 in intensity, constant and is worse on moving and standing - unable to sleep on the right side Admits to burning micturation Has been drinking a lot water. Flank pain suggestive of kidney stones Pt advised to go to the ED for evaluation Pt is scheduled for an EGD and Colon on 09/06/24 FU in 3 months ADDENDUM: Seen in the ER and finnegan was negative: Clinical Impression: Dysuria, Diarrhea Patient Disposition: Home, Self-Care Instructions: Acute Diarrhea (ED), Dysuria (ED) Additional Instructions: You were seen today for diarrhea and trouble urinating. You had normal labs CT. Please call follow-up with your doctor if you have any other concerns please return to the emergency department. Medications: Refilled [id number] 12,000-38,000 -60,000 unit (Creon) administer with meals and/or snacks 1 cap PO TID 180 caps 3RF 60 days K86.89 - Other specified diseases of pancreas Coding Level of Care Code Est Pt Level 4 (69611) Diagnoses Adenomatous colon polyp D12.6 Diverticulosis of colon K57.30 Irritable bowel syndrome with constipation and diarrhea K58.2 Abdominal bloating R14.0 Gastroesophageal reflux disease without esophagitis K21.9 Esophagitis presence: without esophagitis IBS (irritable bowel syndrome) K58.9 Chronic diarrhea K52.9 Pancreatic insufficiency K86.89 Time Spent (min) 22
[2024-06-17 14:10] VITALS: BP 119/44; PULSE 56; BMI 25.4
== END 2024-06-17 14:39 | disposition home or self-care (01) ==
PROVIDERS: PCP Internal Medicine; Visit Provider Internal Medicine Gastroenterology
DX: D12.6 Benign neoplasm of colon, unspecified (principal); K57.30 Diverticulosis of large intestine without perforation or abscess without bleeding; K58.2 Mixed irritable bowel syndrome; R14.0 Abdominal distension (gaseous); K21.9 Gastro-esophageal reflux disease without esophagitis; K58.9 Irritable bowel syndrome, unspecified; K52.9 Noninfective gastroenteritis and colitis, unspecified; K86.89 Other specified diseases of pancreas
CPT/HCPCS: 99214

== ENCOUNTER → 2024-06-17 13:59 | Outpatient (BNVA) | payer MEDICARE, MEDICAID, SELFPAY | PROVIDERS: PCP Internal Medicine; Visit Provider Internal Medicine Gastroenterology | DX: K57.30 Diverticulosis of large intestine without perforation or abscess without bleeding (principal); K58.2 Mixed irritable bowel syndrome; K21.9 Gastro-esophageal reflux disease without esophagitis; K52.9 Noninfective gastroenteritis and colitis, unspecified; K86.89 Other specified diseases of pancreas; D12.6 Benign neoplasm of colon, unspecified; R14.0 Abdominal distension (gaseous) | CPT/HCPCS: 99212 ==

== ENCOUNTER 2024-06-17 14:46 | Emergency (ER) | payer MEDICARE, MEDICAID, SELFPAY ==
--- NOTE | ~2024-06-17 | CT_ITS ---
EXAMINATION: CT ABDOMEN AND PELVIS WITHOUT CONTRAST CLINICAL INFORMATION: Right flank pain. COMPARISON: 08/23/2023 TECHNIQUE: Multidetector volumetric imaging was performed from the superior aspect of the liver through the pubic symphysis. Sagittal and coronal reformatted images were obtained on the technologist's workstation. This CT examination was performed using dose optimization techniques as appropriate, variously including the following: *Automated exposure control *Adjustment of mA and/or kV according to patient size (this includes techniques or standardized protocols for targeted exams where dose is matched to indication/reason for exam; i.e. extremities or head) *Use of iterative reconstruction technique DLP: 43 mGy-cm FINDINGS: LUNG BASES: No pleural or pericardial effusion. LIVER, GALLBLADDER, AND BILIARY TREE: The noncontrast liver is normal in size and contour. No biliary ductal dilatation is present. The gallbladder is unremarkable with no evidence of radiopaque gallstones, gallbladder wall thickening, or obvious pericholecystic inflammatory changes. PANCREAS: Unremarkable. SPLEEN: Unremarkable. ADRENAL GLANDS: Unremarkable. KIDNEYS AND URETERS: The kidneys are symmetric in size. Bilateral renal cysts for which no further imaging follow-up is needed. No hydronephrosis. No perinephric stranding. BLADDER: Decompressed. GASTROINTESTINAL TRACT: No small bowel obstruction. Appendix is within normal limits. Marked retained stool in the colon. ABDOMINAL WALL: Prior ventral hernia repair with surgical mesh in place. LYMPH NODES: No bulky lymphadenopathy. VASCULAR: Normal caliber abdominal aorta. PELVIC VISCERA: Enlarged prostate gland. OSSEOUS STRUCTURES: No destructive bone lesions. CT/CT abdomen pelvis wo IV con IMPRESSION: No acute abnormality in the abdomen or pelvis.
--- NOTE | 2024-06-17 14:47 | ED_ITS ---
HPI - General Adult General Chief complaint: Abdominal Pain Stated complaint: Abd/back pain R side Time Seen by Provider: 06/17/24 16:42 Source: patient Mode of arrival: ambulatory Limitations: no limitations History of Present Illness ED Provider: Dr. Mendez HPI narrative: 73 year old male PMH: BS (constipation and diarrhea), bipolar 1 disorder, BPH, overactive bladder, depression, anxiety, and epilepsy who presents from Dr. Vallejo's office concerned that he might have C diff also kidney stone and wants definitive testing labs were ordered in triage. Related Data Home Medications ?Medication ?Instructions ?Recorded ?Confirmed mirabegron 25 mg tablet,extended 1 tab PO DAILY 08/17/20 06/17/24 release 24 hr (Myrbetriq) multivit,Ca,min-iron 8 mg-folic 1 tab PO DAILY 08/17/20 06/17/24 acid 200 mcg-lycopene 600 mcg tablet (Centrum Men) primidone 50 mg tablet 1 tab PO BID 08/17/20 06/17/24 tamsulosin 0.4 mg capsule 1 cap PO BEDTIME 08/17/20 06/17/24 trazodone 50 mg tablet 1 tab PO BEDTIME PRN insomnia 08/17/20 06/17/24 zolpidem 10 mg tablet 1 tab PO BEDTIME 08/17/20 06/17/24 Fiber Therapy Laxative 1 cap PO DAILY 01/24/23 06/17/24 oxcarbazepine 300 mg tablet 300 mg PO BID 02/13/23 06/17/24 buspirone 15 mg tablet 15 mg PO BID 01/14/24 06/17/24 pantoprazole 40 mg tablet,delayed 40 mg PO DAILY 01/14/24 06/17/24 release paroxetine HCl 40 mg tablet 40 mg PO DAILY 01/14/24 06/17/24 vibegron 75 mg tablet (Gemtesa) 75 mg PO DAILY 01/14/24 06/17/24 solifenacin 5 mg tablet 5 mg PO DAILY 04/27/24 06/17/24 Previous Rx's ?Medication ?Instructions ?Recorded ipratropium bromide 42 mcg (0.06 2 spray intranasal TID PRN allergy 12/16/22 %) nasal spray symptoms #15 mL chlorhexidine gluconate 0.12 % 15 ml buccal BID 14 days #420 mL 02/12/23 mouthwash hydrocortisone-aloe vera 1 % 1 appl topical BID #200 grams 06/04/23 topical cream (Hydrocortisone Plus) metoprolol succinate 25 mg 25 mg PO DAILY #60 tabs 06/09/23 tablet,extended release 24 hr (Toprol XL) aspirin 81 mg chewable tablet 81 mg PO DAILY #90 tabs 11/13/23 albuterol sulfate 90 mcg/actuation 2 puff inhalation Q4-6H PRN 01/01/24 aerosol inhaler shortness of breath or wheezing #8.5 grams prednisone 20 mg tablet 60 mg (3 x 20 mg) PO DAILY 4 days 01/01/24 #12 tabs hydroxyzine HCl 25 mg tablet 25 mg PO BID PRN Itching #60 tabs 01/12/24 bisacodyl 5 mg tablet,delayed 10 mg (2 x 5 mg) PO ONCE colon 03/11/24 release (Dulcolax (bisacodyl)) prep 5 days #10 tabs linaclotide 145 mcg capsule 145 mcg PO .COMPLEX 30 days #20 03/11/24 (Linzess) caps magnesium citrate 300 ml PO DAILY Colon prep 1 day 03/11/24 #296 mL dicyclomine 10 mg capsule 10 mg PO TID PRN for abdominal 04/20/24 pain #84 caps oxymetazoline 0.05 % nasal spray 2 spray intranasal Q12H PRN nasal 04/27/24 (Afrin (oxymetazoline)) congestion 5 days #22 mL prednisone 10 mg tablet See Rx Instructions PO DAILY 15 04/27/24 days #30 tabs acyclovir 400 mg tablet 400 mg PO BID #60 tabs 06/04/24 lenalidomide 5 mg capsule 5 mg PO DAILY #21 caps 06/09/24 (Revlimid) paqmee-tisepvid-qberpwm 1 cap PO TID 60 days #180 caps 06/17/24 12,000-38,000-60,000 unit capsule,delayed rel (Creon) Allergies Allergy/AdvReac Type Severity Reaction Status Date / Time No Known Allergies Allergy Verified 06/17/24 15:01 Review of Systems 2 Review of Systems: Review of systems: General: Patient denies any fever chills recent illness or falls Musculoskeletal: Denies back pain or body aches or other injuries HEENT: denies headache, runny nose, ear pain Respiratory: denies shortness of breath, cough Cardiovascular: no chest pain or palpitations : dysuria, frequency Abdomen: Diarrhea no nausea vomiting denies abdominal pain Extremities: no swelling, no pain Skin: no diaphoresis Yes all other systems are reviewed and are negative [facility] Past Medical History Medical History (Updated 06/17/24 @ 16:44 by Addi Mendez DO) Sinusitis Multiple myeloma Nontuberculous mycobacterial disease of lung History of cardiac murmur Immunodeficiency Chronic cough Chronic allergic rhinitis History of basal cell cancer Hx of skin cancer, basal cell Has a tremor Diverticulosis IBS (irritable colon syndrome) Thrombosed external hemorrhoids Irritable bowel syndrome with constipation and diarrhea PVC (premature ventricular contraction) Diverticulosis of colon History of alcohol abuse Back pain Arthritis Leukopenia Diarrhea OAB (overactive bladder) BPH (benign prostatic hyperplasia) Anxiety Depression Bipolar 1 disorder Seizure disorder Insomnia Heart palpitations Hypertension Surgical History History of bone marrow biopsy History of bronchoscopy Hx of right knee surgery Hx of esophagogastroduodenoscopy History of total knee arthroplasty Hx of colonoscopy Hx of cervical spine surgery Hx of bilateral inguinal hernia repair History of total knee arthroplasty Family History Family History Maternal Aunt Colon cancer Father No problems noted. Mother No problems noted. Brother No problems noted. Social History Social History Household Members: Family Household Members Other:: brother Housing: House Are you a primary career placement services counselor to a significant other at home: No Do you presently have visiting nurse or other home services: No Alcohol intake: former Patient Tobacco Use Status: Never used Tobacco Do you have a plan to hurt others: No Plan service: No Current occupational status: disabled Physical Exam ED Vital Signs: Vital Signs - 24 hr 06/17/24 14:57 Temperature 98.5 F Pulse Rate 52 Respiratory Rate 18 Blood Pressure 134/42 L Pulse Oximetry 98 Oxygen Delivery Method Room Air BMI result Body Mass Index 25.5 General: Well-appearing well-nourished in no signs of distress HEENT: Normocephalic atraumatic Neck: No signs of JVD, no masses no tenderness or lymphadenopathy Cardiovascular: Regular rate and rhythm Respiratory: Clear to auscultation bilaterally Abdomen: Soft nontender no masses no CVA tenderness Extremities: Normal pedal pulses no signs of edema Skin: Dry warm no rashes Back: No tenderness full ROM Course Course Course Narrative: This is a Rapid Medical Examination (RME) performed by Kevon Ryan PA-C in triage. Full HPI, ROS, assessment and treatment plan per primary provider in the Main ED. 73 yo male hx of IBS (constipation and diarrhea), bipolar 1 disorder, BPH, overactive bladder, depression, anxiety, and epilepsy presents from Dr. Vallejo's office for eval of 7/10 right flank pain radiating to right abdomen and dysuria x 2 wks. pain waxes and wanes in intensity. no OTC meds at home for pain. no known history of nephrolithiasis. saw dr. madera on friday, blood work/ urine unremarkable. I received an expect from Dr. Vallejo regarding patient's presentation today. Patient was seen by Dr. Vallejo today for routine IBS follow- up. She does note that patient was on antibiotics approximately 1 month ago and has been complaining of postprandial diarrhea. She is requesting that C diff testing be performed. Plan: labs, UA, ct scan, cdiff testing Medical Decision Making Medical Decision Making [facility] Narrative: Patient has no white blood cell count there is no blood in the urine CT was performed which is negative I do not see any necessary need for emergent testing of C diff can follow up outpatient Differential Diagnosis Differential Diagnoses: The differential diagnosis associated with the presentation includes Sent in for C diff possible kidney stone UTI Lab Data [facility] Lab Attestation statement: I reviewed the patient's lab results. 06/17/24 15:35 06/17/24 15:35 Labs: Lab Results 06/17/24 Range/Units 15:35 WBC 4.3 L (4.8-10.8) X10*3/uL RBC 4.13 L (4.60-5.80) X10*6/uL Hgb 13.1 L (14.0-18.0) g/dl Hct 38.5 L (42.0-52.0) % MCV 93.2 (80.0-98.0) fL MCH 31.7 (27.0-33.0) pg MCHC 34.0 (31.0-36.0) g/dl RDW 14.6 (11.0-16.0) % Plt Count 212 (160-400) X10*3/uL MPV 8.4 L (9.4-12.4) fL Immature Gran % (Auto) 0.2 (0.0-0.4) % Neut % (Auto) 63.8 (45-73) % Lymph % (Auto) 16.8 L (20-40) % Newton % (Auto) 10.3 (2-11) % Eos % (Auto) 7.0 H (0-4) % Baso % (Auto) 1.9 (0-2) % Lymph # (Auto) 0.7 L (1.2-4.9) X10*3/uL Newton # (Auto) 0.4 (0.1-1.2) X10*3/uL Eos # (Auto) 0.3 (0.0-0.4) X10*3/uL Baso # (Auto) 0.1 (0.0-0.2) X10*3/uL Abs Immat Gran (auto) 0.01 (0.00-0.03) X10*3/uL Absolute Neuts (auto) 2.7 (2.0-8.3) x10*3/uL Absolute Nucleated RBC 0.000 (0.0-0.012) X10*3/uL Nucleated RBC % (auto) 0.0 (0.0-0.2) /100WBC Sodium 139 (135-145) mmol/L Potassium 4.6 (3.3-5.1) mmol/L Chloride 109 H (96-108) mmol/L Carbon Dioxide 25 (22-29) mmol/L Anion Gap 10 L (12-20) BUN 15 (9-16) mg/dL Creatinine 1.12 (0.5-1.4) mg/dL Estim Creat Clear Calc 61.5 Estimated GFR > 60 Random Glucose 111 (60-115) mg/dL Calcium 9.0 (8.4-10.2) mg/dL Magnesium 1.9 (1.6-2.6) mg/dL Total Bilirubin 0.2 (0.0-1.0) mg/dL AST 18 (5-37) U/L ALT 16 (0-40) U/L Alkaline Phosphatase 94 (39-117) U/L Total Protein 6.5 (6.5-8.0) g/dL Albumin 4.2 (3.5-5.0) g/dL Lipase 28 (8-78) U/L Urine Color Dark Yellow Urine Appearance Clear Urine pH 5.5 (5.0-9.0) Ur Specific Glade 1.025 (1.005-1.025) Urine Protein Trace (Neg-Trace) mg/dL Urine Glucose (UA) Negative (Negative) mg/dL Urine Ketones Negative (Negative) mg/dL Urine Blood Negative (Negative) Urine Nitrite Negative (Negative) Ur Leukocyte Esterase Negative (Negative) Independent Interpretation I performed an independent interpretation of an: CT Scan Radiology Impression Discussion of test interpretation with radiology: I have reviewed the radiologist's reading. External Record Review External record reviewed: Inpatient record, Office record and Outpatient record Core Measures AMI core measures followed: No Discharge Plan Discharge Clinical Impression: Dysuria, Diarrhea Patient Disposition: Home, Self-Care Instructions: Acute Diarrhea (ED), Dysuria (ED) Additional Instructions: You were seen today for diarrhea and trouble urinating. You had normal labs CT. Please call follow-up with your doctor if you have any other concerns please return to the emergency department. Prescriptions: No Action dicyclomine 10 mg capsule 10 mg PO TID PRN (Reason: for abdominal pain) Qty: 84 0RF primidone 50 mg tablet 1 tab PO BID trazodone 50 mg tablet 1 tab PO BEDTIME PRN (Reason: insomnia) tamsulosin 0.4 mg capsule 1 cap PO BEDTIME zolpidem 10 mg tablet 1 tab PO BEDTIME Centrum Men 8 mg iron- 200 mcg-600 mcg Tablet 1 tab PO DAILY Myrbetriq 25 mg tablet extended release 24 hr 1 tab PO DAILY oxcarbazepine 300 mg tablet 300 mg PO BID hydrocortisone-aloe vera [Hydrocortisone Plus] 1 % Cream 1 appl TOPICAL BID Qty: 200 3RF aspirin 81 mg Tablet,Chewable 81 mg PO DAILY Qty: 90 3RF hydroxyzine HCl 25 mg Tablet 25 mg PO BID PRN (Reason: Itching) Qty: 60 3RF lenalidomide [Revlimid] 5 mg Capsule 5 mg PO DAILY Qty: 21 0RF Rx Instructions: swallow whole with glass of water; do not open, crush, chew , break, or dissolve Fiber Therapy Laxative 1 cap PO DAILY prednisone 20 mg tablet 60 mg PO DAILY 4 Days Qty: 12 0RF albuterol sulfate 90 mcg/actuation HFA aerosol inhaler 2 puff inhalation Q4-6H PRN (Reason: shortness of breath or wheezing) Qty: 8.5 0RF ipratropium bromide 42 mcg (0.06 %) spray,non-aerosol 2 spray intranasal TID PRN (Reason: allergy symptoms) Qty: 15 6RF Rx Instructions: administer into each nostril chlorhexidine gluconate 0.12 % mouthwash 15 ml buccal BID 14 Days Qty: 420 0RF Gemtesa 75 mg tablet 75 mg PO DAILY buspirone 15 mg tablet 15 mg PO BID pantoprazole 40 mg tablet,delayed release (DR/EC) 40 mg PO DAILY paroxetine HCl 40 mg tablet 40 mg PO DAILY Creon 12,000-38,000 -60,000 unit capsule,delayed release(DR/EC) 1 cap PO TID 60 Days Qty: 180 3RF Rx Instructions: administer with meals and/or snacks metoprolol succinate [Toprol XL] 25 mg tablet extended release 24 hr 25 mg PO DAILY Qty: 60 3RF Linzess 145 mcg capsule 145 mcg PO .COMPLEX 30 Days Qty: 20 3RF Rx Instructions: 145 mcg orally take every other day; Take every other day bisacodyl [Dulcolax (bisacodyl)] 5 mg tablet,delayed release (DR/EC) 10 mg PO ONCE 5 Days Qty: 10 0RF Rx Instructions: Take 2 tablets at 12 pm starting 5 days before colonoscopy magnesium citrate Solution 300 ml PO DAILY 1 Days Qty: 296 0RF solifenacin 5 mg tablet 5 mg PO DAILY prednisone 10 mg tablet See Rx Instructions PO DAILY 15 Days Qty: 30 0RF Rx Instructions: PO daily; Take 3 tabs daily x 5 days, then 2 tabs daily x 5 days, then 1 tab daily x 5 days oxymetazoline [Afrin (oxymetazoline)] 0.05 % spray,non-aerosol 2 spray intranasal Q12H PRN (Reason: nasal congestion) 5 Days Qty: 22 0RF acyclovir 400 mg tablet 400 mg PO BID Qty: 60 3RF Print Language: Faroese
[2024-06-17 14:57] VITALS: BP 134/42; PULSE 52; RESP 18; TEMP 36.9; O2SAT 98; BMI 25.5
[2024-06-17 15:42] LABS: MANUAL DIFF FLAG NO
[2024-06-17 15:43] LABS: Basophils Absolute Auto 0.1 X10*3/uL (0.0-0.2); Basophils Percent Auto 1.9 % (0-2); Eosinophils Absolute Auto 0.3 X10*3/uL (0.0-0.4); Hematocrit 38.5 % (42.0-52.0); Hemoglobin 13.1 g/dl (14.0-18.0); Imm Gran Abs Auto 0.01 X10*3/uL (0.00-0.03); Imm Gran Pct Auto 0.2 % (0.0-0.4); Lymphocytes Absolute Auto 0.7 X10*3/uL (1.2-4.9); Lymphocytes Percent Auto 16.8 % (20-40); Mean Corpuscular Hemoglobin 31.7 pg (27.0-33.0); Mean Corpuscular Volume 93.2 fL (80.0-98.0); Mean Platelet Volume 8.4 fL (9.4-12.4); Monocytes Absolute Auto 0.4 X10*3/uL (0.1-1.2); Monocytes Percent Auto 10.3 % (2-11); Neutrophils Absolute Auto 2.7 x10*3/uL (2.0-8.3); Neutrophils Percent Auto 63.8 % (45-73); Platelet Count 212 X10*3/uL (160-400); Red Blood Count 4.13 X10*6/uL (4.60-5.80); Red Cell Distribution Width 14.6 % (11.0-16.0); White Blood Count 4.3 X10*3/uL (4.8-10.8)
[2024-06-17 15:44] LABS: Appearance Urine Clear; Color Urine Dark Yellow; Glucose Urine UA Negative (Negative); Leukocyte Esterase Urine Negative (Negative); Nitrite Urine Negative (Negative); PH 5.5 (5.0-9.0); Specific Gravity - Urine 1.025 (1.005-1.025); Urine Blood Negative (Negative); Urine Ketones Negative (Negative); Urine Protein Trace mg/dL (Neg-Trace)
[2024-06-17 16:00] VITALS: BP 119/47; PULSE 69; RESP 19; TEMP 37.1; O2SAT 96
[2024-06-17 16:05] LABS: Alanine Aminotransferase 16 U/L (0-40); Albumin Level 4.2 g/dL (3.5-5.0); Alkaline Phosphatase 94 U/L (39-117); Anion Gap 10 (12-20); Aspartate Amino Transferase 18 U/L (5-37); Bilirubin Total 0.2 mg/dL (0.0-1.0); Blood Urea Nitrogen 15 mg/dL (9-16); Carbon Dioxide 25 mmol/L (22-29); Chloride 109 mmol/L (96-108); Creatinine Clr Calc Pharmacy 61.5; Estimated Glomerular Filt Rate > 60; Glucose Random 111 mg/dL (60-115); Lipase 28 U/L (8-78); Magnesium 1.9 mg/dL (1.6-2.6); Potassium 4.6 mmol/L (3.3-5.1); Sodium 139 mmol/L (135-145); Total Protein 6.5 g/dL (6.5-8.0)
[2024-06-17 16:51] VITALS: BP 119/57; PULSE 75; RESP 18; TEMP 36.8; O2SAT 98
== END 2024-06-17 16:58 | disposition home or self-care (01) ==
PROVIDERS: Physician Assistant Medical; Emergency Provider Student in an Organized Health Care Education/Training Program; PCP Internal Medicine
DX: R30.0 Dysuria (principal); R19.7 Diarrhea, unspecified; R10.9 Unspecified abdominal pain; I10 Essential (primary) hypertension; Z79.899 Other long term (current) drug therapy
CPT/HCPCS: 36415; 74176; 80053; 81003; 83690; 83735; 85025; 99283; 99284

== ENCOUNTER 2024-07-01 13:16 | Outpatient (REF) | payer MEDICARE, MEDICAID, SELFPAY ==
[2024-07-01 14:10] LABS: Influenza A PCR NEGATIVE (Negative); Influenza B PCR NEGATIVE (Negative); Resp Syncy Virus RNA Qual PCR NEGATIVE (Negative); SARS COV2 PCR INHOUSE NEGATIVE (Negative)
== END 2024-07-01 13:17 | disposition home or self-care (01) ==
LOC: HO.LNP 13:16
PROVIDERS: Visit Provider Internal Medicine
DX: R05.1 Acute cough (principal); R09.81 Nasal congestion
CPT/HCPCS: 0241U

== ENCOUNTER → 2024-07-05 14:20 | Outpatient (BNV) | payer MEDICARE, MEDICAID, SELFPAY ==
--- NOTE | 2024-07-05 14:20 | MHC.OFFVIS ---
Intake Visit Reasons: Amb Documentation Allergies No Known Allergies Allergy (Verified 07/05/24 14:29) HPI Comments Details: The patient is a 73-year-old gentleman with a known history multiple myeloma in addition to a chronic cough. The patient states that he has had a chronic cough since he was a teenager. Although he has noticed that since the fall 2021 the cough has gotten worse. The cough is persistent. He is constantly clearing his throat. He coughs usually nonproductive although sometimes she does bring up a speck of sputum. Feels like there is irritation to his throat. He did try to get to ENT but it was a 6 month wait for an appointment so he was sent to Pulmonary. In the meantime he has tried prednisone without any significant help. He has tried Flonase. In addition to that he had tried a rescue inhaler many years ago which did not feel that it was helpful. In addition to the cough is noticed some voice changes. Typically he loses the his voice after the a day is speaking throughout the day. His cough and clearing his throat because he feels a sensation of something within the throat area. He does have medications for reflux disease and also has a degree of postnasal drip. He has never tested for allergies and has never had breathing studies. As far as imaging studies he did have a PET scan back in Jul 2022 with no parenchymal disease, normal larynx, just some evidence of bronchitis. The patient does not have any pulmonary function studies at this time. Will plan to treating for an upper airway cough syndrome and provide him with cough suppressants. Will follow-up after the patient undergoes blood work including allergy testing and pulmonary function studies. 01/15/2023 this is a telehealth visit. The patient continues to have this chronic cough. Productive in nature. No significant improvement with the medication changes. The Benzonate still help settle down the cough to some degree. He has been able to sing. He really enjoys singing specially in the choir and at [employer]. He has noticed that he has been losing his voice. We have seen ENT as of yet. Therefore, at this point will go ahead and start him on inhaled cortical steroid inhaler in addition to that will further evaluate the airways with bronchoscopy for direct visualization for both diagnostic and hopefully therapeutic purposes. Will plan to do the bronchoscopy in a few weeks. In the meantime he can try the fluticasone HFA inhaler to try to decrease some of the inflammation of the upper and also lower airways. 02/12/2023 the patient is here for pulmonary follow-up visit. The patient underwent a bronchoscopy. No abnormalities noted of his airways. No significant secretions. However, the patient did have a small chondroma that we biopsied was benign. In addition to that his cultures were positive for strep viridans. Explained to him that does suggest the possibility of micro aspirations into the lung. He does have poor dentition. Therefore, will going to have him undergo a barium swallow. Will have him on perform chlorhexidine mouthwash to clear any bacteria from his teeth. In addition to that will go ahead and start him on Symbicort and also a small course of Medrol to try to help him with bronchospasms. 05/13/2023 the the patient is here for pulmonary follow-up visit. He does have a chronic cough. He sometimes productive. Moderate severity. We did review his bronchoscopy specimens. 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 The patient does have immunodeficiency. We did do sensitivities to the mycobacterial his sensitive to azithromycin micro lot. Will go ahead and start him on azithromycin 3 times a week and also on rifampin. The patient recently had eye surgery and having some visual changes are for the time being to all would be problematic. The patient did have an EKG done a few months ago with a normal QT interval. Will have a repeat EKG in the next several weeks to make sure that his tube he continues to be good while on the azithromycin therapy. Will monitor closely symptoms. He will follow-up in 3 months. At the time depending on his symptoms would consider increasing the medication. Will also have to resend a sputum to make sure that we evaluate he the bacteria. 08/15/2023 the patient is here for a pulmonary follow-up visit. The patient overall has been feeling worse from a respiratory status. He is responding well to his current respiratory regimen. Although he is concerned about his living situation. He just moved to a basement of his home and his brother smokes in the proximity and he gets exposed to the secondhand smoke. I did provide him with a letter for his brother not to expose him to secondhand smoke. Hopefully this will work. In the meantime the patient was taken off his mycobacterial therapy because of his chemotherapy interactions. He is developing worsening cough and chest congestion. Explained to him that this may just be the result of the worsening mycobacterial disease. 01/14/2024 the patient is here for sick visit. He has been having worsening respiratory symptoms with this couple weeks. Productive cough with yellow phlegm. Moderate severity. He has been using his respiratory inhalers with partial improvement. recently, he was seen in the ER. He did undergo CT scan the chest which demonstrated no evidence of any pneumonia. Although he did have a Density on the trachea. He was given a course of prednisone and doxycycline. Currently his symptoms are improving. Still feels some chest congestion. He is immunosuppressed. Go ahead and give him longer course of antibiotics. Also he is having some wheezing on exam. Therefore switch him over to Medrol where he can do another 6 days. He will return in 3 months and we will repeat his CT chest prior to that visit. 04/27/2024 the patient is here for a pulmonary follow-up visit. the patient has been no better. Still complaining of significant productive cough with green sputum. Moderate in severity. He has been on a couple courses of doxycycline. He has not seen any improvement. He also did of small course of prednisone. He complains of sinus pressure and ear pressure. He is also felt some dizziness. He did recently had a CT scan of chest that would I personally reviewed with him. This was done in 04/15/2024. Had not been officially read yet. However, looks pretty stable some minimal areas of mosaic pattern ground-glass opacities but these have been there before. No significant airspace disease to be concerned about although explain his ongoing symptoms. His respiratory exam is also reassuring. It appears that mainly his symptoms are from the sinuses. Will go ahead and switch his antibiotic to Augmentin to try help him with that. In the meantime also provide him with additional therapies. If the patient is no better he may benefit from getting sinus CT scan to better address any sinus disease specially with immunosuppression. [facility] Medical History (Updated 06/18/24 @ 00:01 by Background Carly) Sinusitis Multiple myeloma Nontuberculous mycobacterial disease of lung History of cardiac murmur Immunodeficiency Chronic cough Chronic allergic rhinitis History of basal cell cancer Hx of skin cancer, basal cell Has a tremor Diverticulosis IBS (irritable colon syndrome) Thrombosed external hemorrhoids Irritable bowel syndrome with constipation and diarrhea PVC (premature ventricular contraction) Diverticulosis of colon History of alcohol abuse Back pain Arthritis Leukopenia Diarrhea OAB (overactive bladder) BPH (benign prostatic hyperplasia) Anxiety Depression Bipolar 1 disorder Seizure disorder Insomnia Heart palpitations Hypertension Surgical History History of bone marrow biopsy History of bronchoscopy Hx of right knee surgery Hx of esophagogastroduodenoscopy History of total knee arthroplasty Hx of colonoscopy Hx of cervical spine surgery Hx of bilateral inguinal hernia repair History of total knee arthroplasty Family History Maternal Aunt Colon cancer Father No problems noted. Mother No problems noted. Brother No problems noted. Social History Household Members: Family Household Members Other:: brother Both parents involved: No Housing: House Are you a primary intensive care unit registered nurse to a significant other at home: No Do you presently have visiting nurse or other home services: No Alcohol intake: former Patient Tobacco Use Status: Never used Tobacco service: No Current occupational status: disabled Telehealth Telehealth Telehealth Platform: Telephone Location of provider rendering services: practice address Location of patient: address on file Patient Identification confirmed using: Name, : Yes Telehealth method: voice only Patient verbally consented to treatment: Yes Patient verbally consented to billing insurance company: Yes Patient informed of any privacy concerns related to visit: Yes Minutes spent on Phone/Video with Pt.: 12 Assessment & Plan Assessment & Plan (1) 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 Code(s): A31.0 - Pulmonary mycobacterial infection Category: Medical (2) Chronic allergic rhinitis: Code(s): J30.9 - Allergic rhinitis, unspecified Category: Medical (3) Chronic cough: Comment: Likely upper airway cough syndrome Code(s): R05.3 - Chronic cough Category: Medical (4) Immunodeficiency: Comment: low IgA and IgM, likely poor functioning IgG Code(s): D84.9 - Immunodeficiency, unspecified Category: Medical (5) GERD (gastroesophageal reflux disease): Code(s): K21.9 - Gastro-esophageal reflux disease without esophagitis Category: Medical Qualifiers: Esophagitis presence: without esophagitis Qualified Code(s): K21.9 - Gastro-esophageal reflux disease without esophagitis (6) Sinusitis: Code(s): J32.9 - Chronic sinusitis, unspecified Category: Medical Qualifiers: Chronicity: subacute Sinusitis location: unspecified location Qualified Code(s): J01.90 - Acute sinusitis, unspecified Plan continue Symbicort or alternative start Augmentin x 14 days start prednisone taper start Afrin x 5 days cough medicine CPT with acapella valve for pulmonary clearence Ipratropium nasal spray as needed nasal rinsing consider CT sinus if no better F/U 4-6 months Medications: New levofloxacin 500 mg PO DAILY 10 tabs 0RF 10 days codeine-guaifenesin 10-100 mg/5 mL 10 mL PO Q6H PRN 300 mL 0RF cough 10 days Discontinued azithromycin Discontinued Reason: Doctor's Order 500 mg PO DAILY 10 tabs 0RF Coding Level of Care Code Tele Est Pt Level 4 (28930) Diagnoses Nontuberculous mycobacterial disease of lung A31.0 Chronic allergic rhinitis J30.9 Chronic cough R05.3 Immunodeficiency D84.9 Gastroesophageal reflux disease without esophagitis K21.9 Esophagitis presence: without esophagitis Subacute sinusitis, unspecified location J01.90 Chronicity: subacute Sinusitis location: unspecified location
== END ==
PROVIDERS: PCP Internal Medicine; Visit Provider Hospitalist
DX: A31.0 Pulmonary mycobacterial infection (principal); J30.9 Allergic rhinitis, unspecified; R05.3 Chronic cough; D84.9 Immunodeficiency, unspecified; K21.9 Gastro-esophageal reflux disease without esophagitis; J01.90 Acute sinusitis, unspecified
CPT/HCPCS: 99442

== ENCOUNTER → 2024-07-05 14:27 | Outpatient (BNVA) | payer MEDICARE, MEDICAID, SELFPAY | PROVIDERS: PCP Internal Medicine; Visit Provider Hospitalist ==

== ENCOUNTER 2024-07-26 15:41 | Outpatient (AMB) | payer MEDICARE, MEDICAID, SELFPAY ==
--- NOTE | 2024-07-26 15:43 | MHC.OFFVIS ---
Vital Signs 07/26/24 15:45 Height 5 ft 10 in Weight 177 lb BMI 25.4 BP 122/60 Blood Pressure Location Rt brachial Position Sitting Pulse 53 Pulse Source Pulse Oximeter Pulse Oximetry (%) 96 Oxygen Delivery Method Room Air Intake Visit Reasons: Asthma Counter Tender Required: No Allergies No Known Allergies Allergy (Verified 07/26/24 15:47) HPI Comments Details: The patient is a 73-year-old gentleman with a known history multiple myeloma in addition to a chronic cough. The patient states that he has had a chronic cough since he was a teenager. Although he has noticed that since the fall 2021 the cough has gotten worse. The cough is persistent. He is constantly clearing his throat. He coughs usually nonproductive although sometimes she does bring up a speck of sputum. Feels like there is irritation to his throat. He did try to get to ENT but it was a 6 month wait for an appointment so he was sent to Pulmonary. In the meantime he has tried prednisone without any significant help. He has tried Flonase. In addition to that he had tried a rescue inhaler many years ago which did not feel that it was helpful. In addition to the cough is noticed some voice changes. Typically he loses the his voice after the a day is speaking throughout the day. His cough and clearing his throat because he feels a sensation of something within the throat area. He does have medications for reflux disease and also has a degree of postnasal drip. He has never tested for allergies and has never had breathing studies. As far as imaging studies he did have a PET scan back in Jul 2022 with no parenchymal disease, normal larynx, just some evidence of bronchitis. The patient does not have any pulmonary function studies at this time. Will plan to treating for an upper airway cough syndrome and provide him with cough suppressants. Will follow-up after the patient undergoes blood work including allergy testing and pulmonary function studies. 01/14/2024 the patient is here for sick visit. He has been having worsening respiratory symptoms with this couple weeks. Productive cough with yellow phlegm. Moderate severity. He has been using his respiratory inhalers with partial improvement. recently, he was seen in the ER. He did undergo CT scan the chest which demonstrated no evidence of any pneumonia. Although he did have a Density on the trachea. He was given a course of prednisone and doxycycline. Currently his symptoms are improving. Still feels some chest congestion. He is immunosuppressed. Go ahead and give him longer course of antibiotics. Also he is having some wheezing on exam. Therefore switch him over to Medrol where he can do another 6 days. He will return in 3 months and we will repeat his CT chest prior to that visit. 04/27/2024 the patient is here for a pulmonary follow-up visit. the patient has been no better. Still complaining of significant productive cough with green sputum. Moderate in severity. He has been on a couple courses of doxycycline. He has not seen any improvement. He also did of small course of prednisone. He complains of sinus pressure and ear pressure. He is also felt some dizziness. He did recently had a CT scan of chest that would I personally reviewed with him. This was done in 04/15/2024. Had not been officially read yet. However, looks pretty stable some minimal areas of mosaic pattern ground-glass opacities but these have been there before. No significant airspace disease to be concerned about although explain his ongoing symptoms. His respiratory exam is also reassuring. It appears that mainly his symptoms are from the sinuses. Will go ahead and switch his antibiotic to Augmentin to try help him with that. In the meantime also provide him with additional therapies. If the patient is no better he may benefit from getting sinus CT scan to better address any sinus disease specially with immunosuppression. 07/05/2024 this is a telehealth visit. The patient called for sick visit. For the last week and a half he has had worsening respiratory symptoms. He has complaint of throat soreness in addition to cough. He is having worsening productive cough with green mucus. Having some increasing shortness breath and chest tightness. He has been having to use a nebulizer more often. Unfortunately he wishes sick couple months ago. He did require a prolonged course of antibiotics as well. The patient had an adverse reaction prednisone would like to hold off on any additional prednisone at this time. He continues uses respiratory therapy though. He was oriented 3 with Augmentin. The patient is immunocompromised. Will go ahead and give him Levaquin for treatment of bronchopneumonia. If the patient's symptoms do not improve in 24-48 hours. As far as imaging studies, the patient did have a CT scan of the abdomen. The lung bases appear clear. 07/26/2024 the patient is here for a pulmonary follow-up visit. He continues to struggle with his respiratory complaints. Having significant sinus pressure nasal drainage. Also postnasal drip. Also productive cough with very thick tenacious yellow phlegm. Sometimes resulting in cast. He sometimes chokes up because of the significant mucus burden. He was able to provide us sample here in the office. It appears to be greenish purulent in appearance. Will go ahead and treat him with Levaquin. In the meantime wait for the culture. We may have to switch therapies depending on the sensitivities in the identification of the organism. It would not able to get a appropriate specimen we can always consider bronchoscopy if the patient is not responding to the current therapy. No recent x-rays or sinus x-rays available to review. Therefore be reasonable for him to undergo additional imaging testing. [facility] Medical History (Updated 06/18/24 @ 00:01 by Miguel Angel Carroll) Sinusitis Multiple myeloma Nontuberculous mycobacterial disease of lung History of cardiac murmur Immunodeficiency Chronic cough Chronic allergic rhinitis History of basal cell cancer Hx of skin cancer, basal cell Has a tremor Diverticulosis IBS (irritable colon syndrome) Thrombosed external hemorrhoids Irritable bowel syndrome with constipation and diarrhea PVC (premature ventricular contraction) Diverticulosis of colon History of alcohol abuse Back pain Arthritis Leukopenia Diarrhea OAB (overactive bladder) BPH (benign prostatic hyperplasia) Anxiety Depression Bipolar 1 disorder Seizure disorder Insomnia Heart palpitations Hypertension Surgical History History of bone marrow biopsy History of bronchoscopy Hx of right knee surgery Hx of esophagogastroduodenoscopy History of total knee arthroplasty Hx of colonoscopy Hx of cervical spine surgery Hx of bilateral inguinal hernia repair History of total knee arthroplasty Family History Maternal Aunt Colon cancer Father No problems noted. Mother No problems noted. Brother No problems noted. Social History Household Members: Family Household Members Other:: brother Both parents involved: No Housing: House Are you a primary home care physical therapist to a significant other at home: No Do you presently have visiting nurse or other home services: No Alcohol intake: former Patient Tobacco Use Status: Never used Tobacco service: No Current occupational status: disabled Review of Systems Const Denies body aches, Reports fatigue, Denies fever(s) and Reports headache(s) Eyes Denies change in vision ENT Reports change in voice, Reports dizziness, Reports headache(s), Reports hoarseness, Reports nasal congestion, Reports nasal discharge, Reports nasal obstruction, Reports post nasal drip and Reports sinus pressure Card Denies chest pain Resp Reports change in phlegm color, Reports chest congestion, Reports cough and Reports wheezing GI Reports dyspepsia and Reports heartburn Musc Reports no additional complaints Skin/Breast Denies jaundice Neuro Reports no additional complaints, Reports dizziness and Reports headache(s) Endo Reports fatigue and Denies heat intolerance Leobardo/Lymph Denies easy bleeding and Denies easy bruising Aller/Immun Reports wheezing Physical Exam Vital Signs: Last Vital Signs Pulse 53 07/26/24 15:45 BP 122/60 07/26/24 15:45 Pulse Ox 96 07/26/24 15:45 Oxygen Delivery Method Room Air 07/26/24 15:45 BMI result Body Mass Index 25.4 Const General: comfortable HEENT General nose exam: Abnormal mucous membranes and turbinates present erythematous Throat: Yes postnasal drainage and Yes cobblestoning Eyes General: appearance normal, both eyes and all related structures Neck Neck: Yes supple Chest Chest palpation & inspection: normal inspection of the chest Resp Effort & Inspection: normal respiratory effort and able to speak in complete sentences Auscultation: no wheezes and diminished lung sounds Cardio Rate: regular rate Rhythm: regular rhythm Heart sounds: S1 normal heart sound present and S2 normal heart sound present GI Palpation (GI): Soft to palpation Auscultation: normal bowel sounds Skin General skin exam: no rashes or lesions noted Extrem General: Yes no clubbing, cyanosis or edema Assessment & Plan Assessment & Plan (1) 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 Code(s): A31.0 - Pulmonary mycobacterial infection Category: Medical (2) Chronic allergic rhinitis: Code(s): J30.9 - Allergic rhinitis, unspecified Category: Medical (3) Immunodeficiency: Comment: low IgA and IgM, likely poor functioning IgG Code(s): D84.9 - Immunodeficiency, unspecified Category: Medical (4) Sinusitis: Code(s): J32.9 - Chronic sinusitis, unspecified Category: Medical Qualifiers: Sinusitis location: unspecified location Chronicity: subacute Qualified Code(s): J01.90 - Acute sinusitis, unspecified Plan continue Symbicort sputm cx chest/sinus xrays start Levaquin cough medicine CPT with acapella valve for pulmonary clearence nasal rinsing consider ENt eval consider bronchoscopy F/U 3 weeks Orders: Orders Sputum Cult + Gram stain Today J40 - Bronchitis, not specified as acute or chronic XR sinus min 3V Today J01.90 - Acute sinusitis, unspecified, J40 - Bronchitis, not specified as acute or chronic XR chest 2V Today J01.90 - Acute sinusitis, unspecified, J40 - Bronchitis, not specified as acute or chronic Medications: New levofloxacin 500 mg PO DAILY 14 tabs 0RF 14 days Coding Level of Care Code Est Pt Level 4 (73296) Diagnoses Nontuberculous mycobacterial disease of lung A31.0 Chronic allergic rhinitis J30.9 Immunodeficiency D84.9 Subacute sinusitis, unspecified location J01.90 Sinusitis location: unspecified location Chronicity: subacute Time Spent (min) 17
[2024-07-26 15:45] VITALS: BP 122/60; PULSE 53; O2SAT 96; BMI 25.4
== END 2024-07-26 16:09 | disposition home or self-care (01) ==
PROVIDERS: PCP Internal Medicine; Visit Provider Hospitalist
DX: A31.0 Pulmonary mycobacterial infection (principal); J30.9 Allergic rhinitis, unspecified; D84.9 Immunodeficiency, unspecified; J01.90 Acute sinusitis, unspecified
CPT/HCPCS: 99214

== ENCOUNTER 2024-07-26 15:41 | Outpatient (REF) | payer MEDICARE, MEDICAID, SELFPAY | END 2024-07-26 15:42 | disposition home or self-care (01) | LOC: HO.LNP 15:41 | PROVIDERS: PCP Internal Medicine; Visit Provider Hospitalist | DX: A31.0 Pulmonary mycobacterial infection (principal); J30.9 Allergic rhinitis, unspecified; D84.9 Immunodeficiency, unspecified; J01.90 Acute sinusitis, unspecified | CPT/HCPCS: 87070; 87077; 87186; 87205; 99212 ==

== ENCOUNTER 2024-07-27 12:11 | Outpatient (REF) | payer MEDICARE, MEDICAID, SELFPAY ==
--- NOTE | ~2024-07-27 | XR_ITS ---
EXAMINATION: XR CHEST XR SINUSES CLINICAL INDICATION: Acute sinusitis. TECHNIQUE: PA and lateral views of the chest. 4 views of the paranasal sinuses. COMPARISON: CT chest 04/15/2024 x-ray chest 12/19/2023 and dating back to x-ray chest 09/01/2020. FINDINGS: CHEST: The lungs are well inflated. There is no gross pneumothorax. Heart size is normal. Degenerative changes in the thoracic spine. Mild left basilar streaky opacities. No significant pleural effusion. SINUSES: No significant air fluid level appreciated in the maxillary sinuses. Frontal sinuses are hypoplastic. Mild rightward deviation of the septum. Postsurgical changes in the partially imaged cervical spine. XR/XR sinus min 3V IMPRESSION: 1. Mild left basilar streaky opacities. 2. No significant air fluid level appreciated in the maxillary sinuses. Frontal sinuses are hypoplastic. Mild rightward deviation of the septum. Dedicated CT scan of the paranasal sinuses is strongly recommended for further evaluation if there is clinical concern for sinus pathology as CT scan is much more sensitive for detection of sinus/intracranial pathology pathology. This study was presented today August 11, 2024 for interpretation. Stat results provided at this time as requested by referring provider. Electronically signed by: Christine Vera MD 08/11/2024 01:25 PM EDT
--- NOTE | ~2024-07-27 | XR_ITS ---
EXAMINATION: XR CHEST XR SINUSES CLINICAL INDICATION: Acute sinusitis. TECHNIQUE: PA and lateral views of the chest. 4 views of the paranasal sinuses. COMPARISON: CT chest 04/15/2024 x-ray chest 12/19/2023 and dating back to x-ray chest 09/01/2020. FINDINGS: CHEST: The lungs are well inflated. There is no gross pneumothorax. Heart size is normal. Degenerative changes in the thoracic spine. Mild left basilar streaky opacities. No significant pleural effusion. SINUSES: No significant air fluid level appreciated in the maxillary sinuses. Frontal sinuses are hypoplastic. Mild rightward deviation of the septum. Postsurgical changes in the partially imaged cervical spine. XR/XR chest 2V IMPRESSION: 1. Mild left basilar streaky opacities. 2. No significant air fluid level appreciated in the maxillary sinuses. Frontal sinuses are hypoplastic. Mild rightward deviation of the septum. Dedicated CT scan of the paranasal sinuses is strongly recommended for further evaluation if there is clinical concern for sinus pathology as CT scan is much more sensitive for detection of sinus/intracranial pathology pathology. This study was presented today August 11, 2024 for interpretation. Stat results provided at this time as requested by referring provider. Electronically signed by: Christine Vera MD 08/11/2024 01:25 PM EDT
== END 2024-07-27 12:12 | disposition home or self-care (01) ==
LOC: HO.XRAY 12:11
PROVIDERS: PCP Internal Medicine; Visit Provider Hospitalist
DX: J40 Bronchitis, not specified as acute or chronic (principal); J01.90 Acute sinusitis, unspecified
CPT/HCPCS: 70220; 71046

== ENCOUNTER 2024-08-09 14:37 | Outpatient (REF) | payer MEDICARE, MEDICAID, SELFPAY | END 2024-08-09 14:38 | disposition home or self-care (01) | LOC: HO.LNP 14:37 | PROVIDERS: PCP Internal Medicine; Visit Provider Hospitalist | DX: J01.90 Acute sinusitis, unspecified (principal); J40 Bronchitis, not specified as acute or chronic; A31.0 Pulmonary mycobacterial infection; J30.9 Allergic rhinitis, unspecified; D84.9 Immunodeficiency, unspecified | CPT/HCPCS: 87070; 87077; 87186; 87205; 99212 ==

== ENCOUNTER 2024-08-09 14:37 | Outpatient (AMB) | payer MEDICARE, MEDICAID, SELFPAY ==
--- NOTE | 2024-08-09 14:40 | A.OFFVIS_ITS ---
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 The patient states that he has had a chronic cough since he was a teenager. Although he has noticed that since the fall 2021 the cough has gotten worse. The cough is persistent. He is constantly clearing his throat. He coughs usually nonproductive although sometimes she does bring up a speck of sputum. Feels like there is irritation to his throat. He did try to get to ENT but it was a 6 month wait for an appointment so he was sent to Pulmonary. In the meantime he has tried prednisone without any significant help. He has tried Flonase. In addition to that he had tried a rescue inhaler many years ago which did not feel that it was helpful. In addition to the cough is noticed some voice changes. Typically he loses the his voice after the a day is speaking throughout the day. His cough and clearing his throat because he feels a sensation of something within the throat area. He does have medications for reflux disease and also has a degree of postnasal drip. He has never tested for allergies and has never had breathing studies. As far as imaging studies he did have a PET scan back in Jul 2022 with no parenchymal disease, normal larynx, just some evidence of bronchitis. The patient does not have any pulmonary function studies at this time. Will plan to treating for an upper airway cough syndrome and provide him with cough suppressants. Will follow-up after the patient undergoes blood work including allergy testing and pulmonary function studies. 01/14/2024 the patient is here for sick visit. He has been having worsening respiratory symptoms with this couple weeks. Productive cough with yellow phlegm. Moderate severity. He has been using his respiratory inhalers with partial improvement. recently, he was seen in the ER. He did undergo CT scan the chest which demonstrated no evidence of any pneumonia. Although he did have a Density on the trachea. He was given a course of prednisone and doxycycline. Currently his symptoms are improving. Still feels some chest congestion. He is immunosuppressed. Go ahead and give him longer course of antibiotics. Also he is having some wheezing on exam. Therefore switch him over to Medrol where he can do another 6 days. He will return in 3 months and we will repeat his CT chest prior to that visit. 04/27/2024 the patient is here for a pulmonary follow-up visit. the patient has been no better. Still complaining of significant productive cough with green sputum. Moderate in severity. He has been on a couple courses of doxycycline. He has not seen any improvement. He also did of small course of prednisone. He complains of sinus pressure and ear pressure. He is also felt some dizziness. He did recently had a CT scan of chest that would I personally reviewed with him. This was done in 04/15/2024. Had not been officially read yet. However, looks pretty stable some minimal areas of mosaic pattern ground-glass opacities but these have been there before. No significant airspace disease to be concerned about although explain his ongoing symptoms. His respiratory exam is also reassuring. It appears that mainly his symptoms are from the sinuses. Will go ahead and switch his antibiotic to Augmentin to try help him with that. In the meantime also provide him with additional therapies. If the patient is no better he may benefit from getting sinus CT scan to better address any sinus disease specially with immunosuppression. 07/05/2024 this is a telehealth visit. The patient called for sick visit. For the last week and a half he has had worsening respiratory symptoms. He has complaint of throat soreness in addition to cough. He is having worsening productive cough with green mucus. Having some increasing shortness breath and chest tightness. He has been having to use a nebulizer more often. Unfortunately he wishes sick couple months ago. He did require a prolonged course of antibiotics as well. The patient had an adverse reaction prednisone would like to hold off on any additional prednisone at this time. He continues uses respiratory therapy though. He was oriented 3 with Augmentin. The patient is immunocompromised. Will go ahead and give him Levaquin for treatment of b ronchopneumonia. If the patient's symptoms do not improve in 24-48 hours. As far as imaging studies, the patient did have a CT scan of the abdomen. The lung bases appear clear. 07/26/2024 the patient is here for a pulmonary follow-up visit. He continues to struggle with his respiratory complaints. Having significant sinus pressure nasal drainage. Also postnasal drip. Also productive cough with very thick tenacious yellow phlegm. Sometimes resulting in cast. He sometimes chokes up because of the significant mucus burden. He was able to provide us sample here in the office. It appears to be greenish purulent in appearance. Will go ahead and treat him with Levaquin. In the meantime wait for the culture. We may have to switch therapies depending on the sensitivities in the identification of the organism. It would not able to get a appropriate specimen we can always consider bronchoscopy if the patient is not responding to the current therapy. No recent x-rays or sinus x-rays available to review. Therefore be reasonable for him to undergo additional imaging testing. 08/09/2024 the patient is here for a pulmonary follow-up visit. He started the doxycycline to treat the MRSA infection in the sputum. He also started Bactroban for the nose. Overall he is doing okay although he is still having significant thick tenacious mucus. Breo should greenish in color. He did bring other sample with send the laboratory in case he has poly bacterial infection. He has also spending a lot of time in the steam room and I did advise him not to do that as this is potentially a hardware of Pseudomonas and other enteric bacteria. The patient did have an x-ray which was clear although has not been officially read. The sinus x-rays were limited that did appreciate some opa cification but is not clear. Therefore will continue the doxy and will see with the new sputum culture shows. If the patient continues to have worsening chest congestion without clear improvement then we can consider bronchoscopy. Otherwise if he is doing okay he should still follow-up with ENT in order to have laryngoscopy to assess his hoarseness. [facility] Medical History (Updated 06/18/24 @ 00:01 by Background Carly) Sinusitis Multiple myeloma Nontuberculous mycobacterial disease of lung History of cardiac murmur Immunodeficiency Chronic cough Chronic allergic rhinitis History of basal cell cancer Hx of skin cancer, basal cell Has a tremor Diverticulosis IBS (irritable colon syndrome) Thrombosed external hemorrhoids Irritable bowel syndrome with constipation and diarrhea PVC (premature ventricular contraction) Diverticulosis of colon History of alcohol abuse Back pain Arthritis Leukopenia Diarrhea OAB (overactive bladder) BPH (benign prostatic hyperplasia) Anxiety Depression Bipolar 1 disorder Seizure disorder Insomnia Heart palpitations Hypertension Surgical History History of bone marrow biopsy History of bronchoscopy Hx of right knee surgery Hx of esophagogastroduodenoscopy History of total knee arthroplasty Hx of colonoscopy Hx of cervical spine surgery Hx of bilateral inguinal hernia repair History of total knee arthroplasty Family History Maternal Aunt Colon cancer Father No problems noted. Mother No problems noted. Brother No problems noted. Social History Household Members: Family Household Members Other:: brother Both parents involved: No Housing: House Are you a primary intensive care unit registered nurse to a significant other at home: No Do you presently have visiting nurse or other home services: No Alcohol intake: former Patient Tobacco Use Status: Never used Tobacco service: No Current occupational status: disabled Review of Systems Const Denies body aches, Reports fatigue, Denies fever(s) and Reports headache(s) Eyes Denies change in vision ENT Reports change in voice, Reports dizziness, Reports headache(s), Reports hoars eness, Reports nasal congestion, Reports nasal discharge, Reports nasal obstruction, Reports post nasal drip and Reports sinus pressure Card Denies chest pain Resp Reports change in phlegm color, Reports chest congestion, Reports cough and Denies wheezing GI Reports dyspepsia and Reports heartburn Musc Reports no additional complaints Skin/Breast Denies jaundice Neuro Reports no additional complaints, Reports dizziness and Reports headache(s) Endo Reports fatigue and Denies heat intolerance Leobardo/Lymph Denies easy bleeding and Denies easy bruising Aller/Immun Denies wheezing Physical Exam Vital Signs: Last Vital Signs Pulse 60 08/09/24 14:42 BP 100/60 08/09/24 14:42 Pulse Ox 96 08/09/24 14:42 Oxygen Delivery Method Room Air 08/09/24 14:42 BMI result Body Mass Index 24.4 Const General: comfortable HEENT General nose exam: Abnormal mucous membranes and turbinates present erythematous Throat: Yes postnasal drainage and Yes cobblestoning Eyes General: appearance normal, both eyes and all related structures Neck Neck: Yes supple Chest Chest palpation & inspection: normal inspection of the chest Resp Effort & Inspection: normal respiratory effort and able to speak in complete sentences Auscultation: no wheezes and diminished lung sounds Cardio Rate: regular rate Rhythm: regular rhythm Heart sounds: S1 normal heart sound present and S2 normal heart sound present GI Palpation (GI): Soft to palpation Auscultation: normal bowel sounds Skin General skin exam: no rashes or lesions noted Extrem General: Yes no clubbing, cyanosis or edema Assessment & Plan Assessment & Plan (1) Sinusitis: Code(s): J32.9 - Chronic sinusitis, unspecified Category: Medical Qualifiers: Chronicity: subacute Sinusitis location: unspecified location Qualified Code(s): J01.90 - Acute sinusitis, unspecified (2) Bronchitis with wheezing: Code(s): J40 - Bronchitis, not specified as acute or chronic Category: Medical (3) 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 Code(s): A31.0 - Pulmonary mycobacterial infection Category: Medical (4) Chronic allergic rhinitis: Code(s): J30.9 - Allergic rhinitis, unspecified Category: Medical (5) Immunodeficiency: Comment: low IgA and IgM, likely poor functioning IgG Code(s): D84.9 - Immunodeficiency, unspecified Category: Medical Plan continue Symbicort sputm cx chest/sinus xrays results pending continue Doxy to treat the MRSA cough medicine CPT with acapella valve for pulmonary clearence nasal rinsing ENT eval referral consider bronchoscopy if no better F/U 4-6 weeks Orders: Orders Sputum Cult + Gram stain Today J40 - Bronchitis, not specified as acute or chronic Referrals Ear/Nose/Throat Referral J01.90 - Acute sinusitis, unspecified Coding Level of Care Code Est Pt Level 4 (74419) Complex EM visit Add On G2211 Diagnoses Subacute sinusitis, unspecified location J01.90 Chronicity: subacute Sinusitis location: unspecified location Bronchitis with wheezing J40 Nontuberculous mycobacterial disease of lung A31.0 Chronic allergic rhinitis J30.9 Immunodeficiency D84.9 Time Spent (min) 17
[2024-08-09 14:42] VITALS: BP 100/60; PULSE 60; O2SAT 96; BMI 24.4
== END 2024-08-09 14:59 | disposition home or self-care (01) ==
PROVIDERS: PCP Internal Medicine; Visit Provider Hospitalist
DX: J01.90 Acute sinusitis, unspecified (principal); J40 Bronchitis, not specified as acute or chronic; A31.0 Pulmonary mycobacterial infection; J30.9 Allergic rhinitis, unspecified; D84.9 Immunodeficiency, unspecified
CPT/HCPCS: 99214; G2211

== ENCOUNTER 2024-08-17 13:56 | Outpatient (REF) | payer MEDICARE, MEDICAID, SELFPAY ==
--- NOTE | ~2024-08-17 | US_ITS ---
EXAMINATION: US EXTRACRANIAL CAROTID DUPLEX, BILATERAL CLINICAL INFORMATION: Carotid stenosis COMPARISON: 06/25/2021 TECHNIQUE: Real-time ultrasound and Doppler techniques (integrating B-mode 2-D vascular images, Doppler spectral analysis and color-flow Doppler imaging) were utilized to interrogate the extracranial carotid arteries, the vertebral arteries and proximal subclavian arteries bilaterally. The degree of stenosis is determined by criteria similar to NASCET. FINDINGS: Right Side: 1. There is mild to moderate calcified atherosclerotic plaque seen in the bifurcation/proximal ICA region. 2. The common carotid artery PSV proximally is 178 cm/s and distally 79 cm/s. 3. The proximal internal carotid artery velocities are 122 cm/s systolic and 21.1 cm/s diastolic. 4. The proximal external carotid artery PSV is 109 cm/s. 5. The vertebral artery shows antegrade flow. 6. The subclavian artery waveforms are normal. Left Side: 1. There is moderate calcified atherosclerotic plaque seen in the bifurcation/proximal ICA region. 2. The common carotid artery PSV proximally is 111 cm/s and distally 93 cm/s. 3. The proximal internal carotid artery velocities are 156 cm/s systolic and 19.1 cm/s diastolic. 4. The proximal external carotid artery PSV is 270 cm/s. 5. The vertebral artery shows antegrade flow. 6. The subclavian artery waveforms are normal. US/US carotid duplex BI IMPRESSION: 1. RIGHT: Minimal, non-hemodynamically significant stenosis of the proximal right internal carotid artery corresponding to a 0-49% stenosis by velocity criteria. 2. LEFT: Moderate, hemodynamically significant stenosis of the proximal left internal carotid artery corresponding to a 50-79% stenosis by velocity criteria. 3. There is no change in the category severity of disease when compared to the previous study dated 06/25/2021 for the left carotid artery. Prior examination demonstrated elevated velocity consistent with a 50-79% stenosis in the right carotid artery which on the current examination is measuring less than 50%. Visually no significant change in degree of plaque formation. Electronically signed by: Gilberto Moreland MD 08/19/2024 09:10 AM EDT
== END 2024-08-17 13:57 | disposition home or self-care (01) ==
LOC: HO.US 13:56
PROVIDERS: PCP Internal Medicine; Visit Provider Psychiatry & Neurology Neurology
DX: I65.23 Occlusion and stenosis of bilateral carotid arteries (principal)
CPT/HCPCS: 93880

== ENCOUNTER 2024-09-15 13:50 | Outpatient (REF) | payer MEDICARE, MEDICAID, SELFPAY ==
--- NOTE | ~2024-09-15 | US_ITS ---
EXAMINATION: US RETROPERITONEAL LIMITED (RENAL ONLY) CLINICAL INFORMATION: Right lower quadrant-flank pain. COMPARISON: None available. TECHNIQUE: Real-time examination FINDINGS: RIGHT KIDNEY: 10.4 x 4.6 x 5.6 cm (SAG x AP x TRV). The kidney is normal in size, contour, and echogenicity. Renal cortical thickness is normal. No hydronephrosis. Upper pole simple appearing cyst observed at 2.7 cm maximally. Lower pole cyst appears simple and measures 3.9 cm maximally. No further follow-up of the cysts recommended. LEFT KIDNEY: 11.4 x 5.8 x 5.0 cm (SAG x AP x TRV). The kidney is normal in size, contour, and echogenicity. Renal cortical thickness is normal. No hydronephrosis. Upper pole small simple appearing cyst observed at 7 mm maximally, for which no further follow-up recommended. US/US renal BI IMPRESSION: Renal sizes as described above. No hydronephrotic changes. Other findings as described. Electronically signed by: Manoj Schroeder MD 09/16/2024 08:34 AM EDT
== END 2024-09-15 13:51 | disposition home or self-care (01) ==
LOC: HO.US 13:50
PROVIDERS: PCP Internal Medicine; Visit Provider Internal Medicine
DX: R10.31 Right lower quadrant pain (principal)
CPT/HCPCS: 76775

== ENCOUNTER 2024-09-16 13:32 | Outpatient (REF) | payer MEDICARE, MEDICAID, SELFPAY | END 2024-09-16 13:33 | disposition home or self-care (01) | LOC: HO.US 13:32 | PROVIDERS: PCP Internal Medicine; Visit Provider Internal Medicine | DX: R10.9 Unspecified abdominal pain (principal) | CPT/HCPCS: 76857 ==

== ENCOUNTER 2024-09-20 14:22 | Outpatient (REF) | payer MEDICARE, MEDICAID, SELFPAY ==
--- NOTE | ~2024-09-20 | XR_ITS ---
EXAMINATION: XR CHEST CLINICAL INFORMATION: Bronchitis. COMPARISON: Most recent chest radiograph dated 07/27/2024. TECHNIQUE: 2 views of the chest were obtained. FINDINGS: The lungs are clear. The cardiomediastinal silhouette is normal in size. There is no pleural effusion or pneumothorax. No acute osseous abnormality. XR/XR chest 2V IMPRESSION: No acute cardiopulmonary findings. Electronically signed by: Abbe Tineo MD 09/20/2024 03:55 PM [facility]
== END 2024-09-20 14:23 | disposition home or self-care (01) ==
LOC: HO.XRAY 14:22
PROVIDERS: PCP Internal Medicine; Visit Provider Hospitalist
DX: J40 Bronchitis, not specified as acute or chronic (principal)
CPT/HCPCS: 71046

== ENCOUNTER 2024-09-23 06:00 | Day surgery (SDC) | payer MEDICARE, MEDICAID, SELFPAY ==
--- NOTE | 2024-09-22 12:44 | P.CONAN_ITS ---
Documented by User: Adali Garcia NP 09/22/24 12:45 HPI - Anesthesia Eval Consult details Narrative: 73yo M for Bronchoscopy Fiberoptic Multiple myeloma - follows [facility] [place] Follows [facility] [place] Cardiology for PVCs - stable at 03/2024 office visit [facility] Active Problems Active Problems: All Active Problems Sinusitis (Acute) Bronchitis with wheezing (Acute) Essential hypertension (Acute) Bradycardia (Acute) Multiple myeloma (Chronic) Chronic back pain (Acute) Pancreatic insufficiency (Acute) Chronic diarrhea (Acute) Right knee pain (Acute) Status post total right knee replacement (Acute) IBS (irritable bowel syndrome) (Acute) S/P insertion of spinal cord stimulator (Acute) Spondylosis of lumbar spine (Acute) GERD (gastroesophageal reflux disease) (Acute) Anemia (Acute) Diverticulosis of colon (Acute) Abdominal bloating (Acute) Leukopenia (Chronic) Adenomatous colon polyp (Acute) 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 (Acute) Chronic cough (Acute) Chronic allergic rhinitis (Acute) Diverticulosis of colon (Acute) PVC (premature ventricular contraction) (Acute) Irritable bowel syndrome with constipation and diarrhea (Acute) Thrombosed external hemorrhoids (Acute) Past Medical History Medical History Sinusitis Multiple myeloma Nontuberculous mycobacterial disease of lung History of cardiac murmur Immunodeficiency Chronic cough Chronic allergic rhinitis History of basal cell cancer Hx of skin cancer, basal cell Has a tremor Diverticulosis IBS (irritable colon syndrome) Thrombosed external hemorrhoids Irritable bowel syndrome with constipation and diarrhea PVC (premature ventricular contraction) Diverticulosis of colon History of alcohol abuse Back pain Arthritis Leukopenia Diarrhea OAB (overactive bladder) BPH (benign prostatic hyperplasia) Anxiety Depression Bipolar 1 disorder Seizure disorder Insomnia Heart palpitations Hypertension Family History Family History Maternal Aunt Colon cancer Father No problems noted. Mother No problems noted. Brother No problems noted. Family history of problems with anesthesia: No Surgical History Surgical History History of bone marrow biopsy History of bronchoscopy Hx of right knee surgery Hx of esophagogastroduodenoscopy History of total knee arthroplasty Hx of colonoscopy Hx of cervical spine surgery Hx of bilateral inguinal hernia repair History of total knee arthroplasty History of Problems with Anesthesia: No Social History Social History Household Members: Family Household Members Other:: brother Housing: House Are you a primary career development engineer to a significant other at home: No Do you presently have visiting nurse or other home services: No Alcohol intake: former Patient Tobacco Use Status: Never used Tobacco Advance Directives: No Advance Directives Information Provided: Yes service: No Current occupational status: disabled Meds Allergies Allergy/AdvReac Type Severity Reaction Status Date / Time No Known Allergies Allergy Verified 09/17/24 13:37 Home Medications ?Medication ?Instructions ?Recorded ?Confirmed ?Last Taken ?Type mirabegron 25 mg tablet,extended 1 tab PO DAILY 08/17/20 09/17/24 05/07/22 History release 24 hr (Myrbetriq) multivit,Ca,min-iron 8 mg-folic 1 tab PO DAILY 08/17/20 09/17/24 Unknown History acid 200 mcg-lycopene 600 mcg tablet (Centrum Men) primidone 50 mg tablet 1 tab PO BID 08/17/20 09/17/24 05/07/22 History tamsulosin 0.4 mg capsule 1 cap PO BEDTIME 08/17/20 09/17/24 Unknown History trazodone 50 mg tablet 1 tab PO BEDTIME PRN insomnia 08/17/20 09/17/24 Unknown History zolpidem 10 mg tablet 1 tab PO BEDTIME 08/17/20 09/17/24 Unknown History Fiber Therapy Laxative 1 cap PO DAILY 01/24/23 09/17/24 Unknown History oxcarbazepine 300 mg tablet 300 mg PO BID 02/13/23 09/17/24 11/19/23 08:00 History buspirone 15 mg tablet 15 mg PO BID 01/14/24 09/17/24 Unknown History pantoprazole 40 mg tablet,delayed 40 mg PO DAILY 01/14/24 09/17/24 Unknown History release paroxetine HCl 40 mg tablet 40 mg PO DAILY 01/14/24 09/17/24 Unknown History vibegron 75 mg tablet (Gemtesa) 75 mg PO DAILY 01/14/24 06/17/24 Unknown History solifenacin 5 mg tablet 5 mg PO DAILY 04/27/24 09/17/24 Unknown History azithromycin 500 mg tablet 500 mg PO DAILY 07/05/24 Unknown History gabapentin 300 mg capsule 300 mg PO DAILY 07/26/24 09/17/24 Unknown History fluorometholone 0.1 % eye drp ophthalmic (eye) 08/09/24 Unknown History drops,suspension Exam Pertinent Lab Results Pertinent Lab Results: Laboratory Tests 09/17/24 13:18 WBC 2.5 L Hgb 13.2 L Hct 38.3 L Plt Count 190 Sodium 139 Potassium 4.1 Chloride 105 Carbon Dioxide 24 BUN 17 H Creatinine 1.06 Assessment and Plan Assessment Anesthesia Assessment: Chart Reviewed Final Anesthetic Review Family History of Problems with Anesthesia: No History of Problems with Anesthesia: No Documented by User: Yaz Mendez MD 09/23/24 08:50 PMFSH Past Medical History Medical History Sinusitis Multiple myeloma Nontuberculous mycobacterial disease of lung History of cardiac murmur Immunodeficiency Chronic cough Chronic allergic rhinitis History of basal cell cancer Hx of skin cancer, basal cell Has a tremor Diverticulosis IBS (irritable colon syndrome) Thrombosed external hemorrhoids Irritable bowel syndrome with constipation and diarrhea PVC (premature ventricular contraction) Diverticulosis of colon History of alcohol abuse Back pain Arthritis Leukopenia Diarrhea OAB (overactive bladder) BPH (benign prostatic hyperplasia) Anxiety Depression Bipolar 1 disorder Seizure disorder Insomnia Heart palpitations Hypertension Family History Family History Maternal Aunt Colon cancer Father No problems noted. Mother No problems noted. Brother No problems noted. Surgical History Surgical History History of bone marrow biopsy History of bronchoscopy Hx of right knee surgery Hx of esophagogastroduodenoscopy History of total knee arthroplasty Hx of colonoscopy Hx of cervical spine surgery Hx of bilateral inguinal hernia repair History of total knee arthroplasty Social History Social History Household Members: Family Household Members Other:: brother Housing: House Are you a primary career development engineer to a significant other at home: No Do you presently have visiting nurse or other home services: No Alcohol intake: former Patient Tobacco Use Status: Never used Tobacco Advance Directives: No Advance Directives Information Provided: Yes service: No Current occupational status: disabled Meds Allergies Allergy/AdvReac Type Severity Reaction Status Date / Time No Known Allergies Allergy Verified 09/17/24 13:37 Home Medications ?Medication ?Instructions ?Recorded ?Confirmed ?Last Taken ?Type mirabegron 25 mg tablet,extended 1 tab PO DAILY 08/17/20 09/17/24 05/07/22 History release 24 hr (Myrbetriq) multivit,Ca,min-iron 8 mg-folic 1 tab PO DAILY 08/17/20 09/17/24 Unknown History acid 200 mcg-lycopene 600 mcg tablet (Centrum Men) primidone 50 mg tablet 1 tab PO BID 08/17/20 09/17/24 05/07/22 History tamsulosin 0.4 mg capsule 1 cap PO BEDTIME 08/17/20 09/17/24 Unknown History trazodone 50 mg tablet 1 tab PO BEDTIME PRN insomnia 08/17/20 09/17/24 Unknown History zolpidem 10 mg tablet 1 tab PO BEDTIME 08/17/20 09/17/24 Unknown History Fiber Therapy Laxative 1 cap PO DAILY 01/24/23 09/17/24 Unknown History oxcarbazepine 300 mg tablet 300 mg PO BID 02/13/23 09/17/24 11/19/23 08:00 History buspirone 15 mg tablet 15 mg PO BID 01/14/24 09/17/24 Unknown History pantoprazole 40 mg tablet,delayed 40 mg PO DAILY 01/14/24 09/17/24 Unknown History release paroxetine HCl 40 mg tablet 40 mg PO DAILY 01/14/24 09/17/24 Unknown History vibegron 75 mg tablet (Gemtesa) 75 mg PO DAILY 01/14/24 06/17/24 Unknown History solifenacin 5 mg tablet 5 mg PO DAILY 04/27/24 09/17/24 Unknown History azithromycin 500 mg tablet 500 mg PO DAILY 07/05/24 Unknown History gabapentin 300 mg capsule 300 mg PO DAILY 07/26/24 09/17/24 Unknown History fluorometholone 0.1 % eye drp ophthalmic (eye) 08/09/24 Unknown History drops,suspension Exam Airway Mallampati Class: II TM Dist: >3cm Neck ROM: Full Heart: rrr Lungs: cta Assessment and Plan Assessment Anesthesia Assessment: Anesthesia Plan Discussed Final Anesthetic Review NPO: Yes ASA Class: III Final Preanesthetic Review: No Changes in Pt Med Stat, Meds/Allgs Chart Reviewed, Consent Obtained/Reviewed and Anes Risks/Benef Reviewed Patient Risk: Intermediate Procedure Risk: Low Anesthetic Plan Anesthetic Plan: GA Disposition: Standard PACU
--- NOTE | 2024-09-22 18:50 | MHC.SHP ---
Pre-Procedural Eval Section A - 24 Hr Update-Section A only Date of Service: 09/22/24 The patient is an INPATIENT: No Changes since office visit: No Cold of Flu in the past 2 weeks, No New Medical Problems, No Changes in Medication and No Patient answered all questions The patient has been examined within 24 hours of the surgical procedure. The History & Physical has been completed within 30 days and I have reviewed it.: No Section B - Complete if H&P > 30 days Chief Complaint: Mucopurulent chronic bronchitis Details of Present Illness: 73 y/o man with MM presenting with bronchitis and sinusitis. Not improving after multiple courses of antibiotics Relevant Family History (Specify if Yes): No Relevant Social History: None Present Medications: see Short Stay Collaborative assessment Medical History: Significant History History of Previous Operations: No relevant previous surgery Allergies: Allergies Allergy/AdvReac Type Severity Reaction Status Date / Time No Known Allergies Allergy Verified 09/17/24 13:37 Review of Systems Sugical H&P ROS: Negative: Constitution, Cardiovascular, Neurological, Psychiatric, Hem-Onc, Allergic/Immunologic, Gastrointestinal, Genitourinary and Musculoskeletal and Yes, Specify: Respiratory (cough) Exam Surgical H&P Exam: Normal: HEENT, Normal: Heart, Normal: Lungs, Normal: Extremities, Normal: Abdomen, Normal: Skin and Normal: Neurological Plan Diagnosis/Plan: Change (bronchoscopy, plan for bronchscopy for deep cultures and therapeutic cleaning) I have reviewed the history and physical and performed a pertinent physical examination on my patient. No changes have occurred unless specified. Time Spent With Patient Time: Total time managing care of this patient today ____ minutes.
[2024-09-23 06:14] VITALS: BMI 24.4
[2024-09-23 06:29] VITALS: BP 139/49; PULSE 51; RESP 16; TEMP 36.6; O2SAT 94
[2024-09-23] MEDS: Lactated Ringers 1,000 ML 100 ML IVCONT (06:31)
[2024-09-23 08:14] VITALS: BP 95/37; PULSE 57; RESP 16; TEMP 36.1; O2SAT 98
[2024-09-23 08:19] VITALS: BP 120/49; PULSE 56; RESP 16; O2SAT 94
[2024-09-23 08:24] VITALS: BP 126/36; PULSE 59; RESP 16; O2SAT 94
[2024-09-23 08:29] VITALS: BP 116/56; PULSE 49; RESP 16; O2SAT 94
--- NOTE | 2024-09-23 08:30 | PM.OP ---
Brief Operative Note Date of Service: 09/23/24 Pre-op diagnosis: bronchitis Post-op diagnosis: other (fungal laryngitis, bronchitis, polypoid lesion Bronchus intermedious) Procedure: Bronchoscopy with washings,brushings, endobronchial biopsies Implants: Surgeon: Anshul Baez MD Anesthesia: GLMA Was an Demo Coordinator used for this Procedure?: No Estimated blood loss (mL): 0 Pathology: other (endobronchial bx BI) Condition: stable Disposition: same day
[2024-09-23 08:44] VITALS: BP 135/47; PULSE 47; RESP 16; TEMP 36.1; O2SAT 96
--- NOTE | 2024-09-23 08:47 | OP_ITS ---
DATE OF SERVICE: 09/23/2024 SURGEON: Anshul Baez MD PREOPERATIVE DIAGNOSIS: Bronchitis refractory to therapy. POSTOPERATIVE DIAGNOSIS: PROCEDURE PERFORMED: Bronchoscopy with washings, brushings, and endobronchial biopsies. ESTIMATED BLOOD LOSS: COMPLICATIONS: ANESTHESIA: LMA. ASSISTANTS: SPECIMENS: ASA CLASSIFICATION: III. POSTOPERATIVE DIAGNOSES: Fungal laryngitis, bronchitis, and polypoid lesion in the bronchus intermedius. DESCRIPTION OF PROCEDURE: After the patient was adequately sedated, a flexible digital bronchoscope was inserted to the larynx. The larynx appeared to be edematous and erythematous with some areas of plaque suggestive of a fungal infection. After instilling lidocaine, the bronchoscope was then passed the vocal chords to the level of the trachea. The trachea also appeared to be erythematous with moderate degree of mucus secretions. After instilling additional lidocaine, the bronchoscope was then navigated through the entire tracheobronchial tree that was exsanguinated to the subsegmental level. The patient's airways were all erythematous, left more than right. He did have again mucus secretions moderately, left more than right, prominently in the left upper lingular area. A microscopic brush was introduced bilaterally and sent for Microbiology. Using saline, bronchial washings were collected throughout the airways up to the subsegmental level. Mucus plugs were removed from most of the airways. The specimens were sent off for Cytology and Microbiology. The patient did have a polypoid lesion in the bronchus intermedius. It was covered with normal mucosa, but since it appeared to be slightly raised and abnormal, we did do endobronchial biopsies. We sent that in formalin. No evidence of any bleeding after the biopsies. We used ice saline with good hemostasis. No active bleeding at the end of the procedure. The bronchoscope was then removed. The total endoscopic time approximately 12 minutes. The patient tolerated the procedure well. Vital signs were stable. No complications noted. CAMPAIGN DEVELOPER: None. Anshul Baez MD MR/PERNELLL / [id number]
== END 2024-09-23 09:19 | disposition home or self-care (01) ==
PROVIDERS: PCP Internal Medicine; Visit Provider Hospitalist
PROC: 0BJ08ZZ Inspection of Tracheobronchial Tree, Via Natural or Artificial Opening Endoscopic (ICD-10-PCS; CPT 31622; principal; 2024-09-23 07:30)
DX: J41.1 Mucopurulent chronic bronchitis (principal); J37.0 Chronic laryngitis; J32.9 Chronic sinusitis, unspecified; B96.3 Hemophilus influenzae [H. influenzae] as the cause of diseases classified elsewhere; J98.09 Other diseases of bronchus, not elsewhere classified; J45.909 Unspecified asthma, uncomplicated; R05.3 Chronic cough; G40.909 Epilepsy, unspecified, not intractable, without status epilepticus; C90.00 Multiple myeloma not having achieved remission; I49.3 Ventricular premature depolarization; F10.11 Alcohol abuse, in remission; Z85.828 Personal history of other malignant neoplasm of skin; Z98.890 Other specified postprocedural states
CPT/HCPCS: 31623; 31625; 36415; 87070; 87077; 87102; 87107; 87116; 87185; 87205; 87206; 87798; 88305; J0171; J2003; J2250; J2704; J3010

== ENCOUNTER → 2024-09-23 06:00 | Outpatient (BNV) | payer MEDICARE, MEDICAID, SELFPAY | PROVIDERS: PCP Internal Medicine; Visit Provider Hospitalist | DX: J41.1 Mucopurulent chronic bronchitis (principal); J04.0 Acute laryngitis; J98.09 Other diseases of bronchus, not elsewhere classified | CPT/HCPCS: 31623; 31625 ==

== ENCOUNTER 2024-09-30 13:46 | Outpatient (AMB) | payer MEDICARE, MEDICAID, SELFPAY ==
[2024-09-30 13:52] VITALS: BP 130/70; PULSE 56; O2SAT 96; BMI 25.0
--- NOTE | 2024-09-30 13:52 | A.OFFVIS_ITS ---
Vital Signs 09/30/24 13:52 Height 5 ft 10 in Weight 174 lb 2.643 oz BMI 25.0 BP 130/70 Blood Pressure Location Lt brachial Position Sitting Pulse 56 Pulse Source Pulse Oximeter Pulse Oximetry (%) 96 Oxygen Delivery Method Room Air Intake Visit Reasons: Asthma Allergies No Known Allergies Allergy (Verified 09/30/24 13:55) HPI Comments Details: The patient is a 74-year-old gentleman with a known history multiple myeloma in addition to a chronic cough. The patient states that he has had a chronic cough since he was a teenager. Although he has noticed that since the fall 2021 the cough has gotten worse. The cough is persistent. He is constantly clearing his throat. He coughs usually nonproductive although sometimes she does bring up a speck of sputum. Feels like there is irritation to his throat. He did try to get to ENT but it was a 6 month wait for an appointment so he was sent to Pulmonary. In the meantime he has tried prednisone without any significant help. He has tried Flonase. In addition to that he had tried a rescue inhaler many years ago which did not feel that it was helpful. In addition to the cough is noticed some voice changes. Typically he loses the his voice after the a day is speaking throughout the day. His cough and clearing his throat because he feels a sensation of something within the throat area. He does have medications for reflux disease and also has a degree of postnasal drip. He has never tested for allergies and has never had breathing studies. As far as imaging studies he did have a PET scan back in Jul 2022 with no parenchymal disease, normal larynx, just some evidence of bronchitis. The patient does not have any pulmonary function studies at this time. Will plan to treating for an upper airway cough syndrome and provide him with cough suppressants. Will follow-up after the patient undergoes blood work including allergy testing and pulmonary function studies. 01/14/2024 the patient is here for sick visit. He has been having worsening respiratory symptoms with this couple weeks. Productive cough with yellow phlegm. Moderate severity. He has been using his respiratory inhalers with partial improvement. recently, he was seen in the ER. He did undergo CT scan the chest which demonstrated no evidence of any pneumonia. Although he did have a Density on the trachea. He was given a course of prednisone and doxycycline. Currently his symptoms are improving. Still feels some chest congestion. He is immunosuppressed. Go ahead and give him longer course of antibiotics. Also he is having some wheezing on exam. Therefore switch him over to Medrol where he can do another 6 days. He will return in 3 months and we will repeat his CT chest prior to that visit. 04/27/2024 the patient is here for a pulmonary follow-up visit. the patient has been no better. Still complaining of significant productive cough with green sputum. Moderate in severity. He has been on a couple courses of doxycycline. He has not seen any improvement. He also did of small course of prednisone. He complains of sinus pressure and ear pressure. He is also felt some dizziness. He did recently had a CT scan of chest that would I personally reviewed with him. This was done in 04/15/2024. Had not been officially read yet. However, looks pretty stable some minimal areas of mosaic pattern ground-glass opacities but these have been there before. No significant airspace disease to be concerned about although explain his ongoing symptoms. His respiratory exam is also reassuring. It appears that mainly his symptoms are from the sinuses. Will go ahead and switch his antibiotic to Augmentin to try help him with that. In the meantime also provide him with additional therapies. If the patient is no better he may benefit from getting sinus CT scan to better address any sinus disease specially with immunosuppression. 07/05/2024 this is a telehealth visit. The patient called for sick visit. For the last week and a half he has had worsening respiratory symptoms. He has complaint of throat soreness in addition to cough. He is having worsening productive cough with green mucus. Having some increasing shortness breath and chest tightness. He has been having to use a nebulizer more often. Unfortunately he wishes sick couple months ago. He did require a prolonged course of antibiotics as well. The patient had an adverse reaction prednisone would like to hold off on any additional prednisone at this time. He continues uses respiratory therapy though. He was oriented 3 with Augmentin. The patient is immunocompromised. Will go ahead and give him Levaquin for treatment of bronchopneumonia. If the patient's symptoms do not improve in 24-48 hours. As far as imaging studies, the patient did have a CT scan of the abdomen. The lung bases appear clear. 07/26/2024 the patient is here for a pulmonary follow-up visit. He continues to struggle with his respiratory complaints. Having significant sinus pressure nasal drainage. Also postnasal drip. Also productive cough with very thick tenacious yellow phlegm. Sometimes resulting in cast. He sometimes chokes up because of the significant mucus burden. He was able to provide us sample here in the office. It appears to be greenish purulent in appearance. Will go ahead and treat him with Levaquin. In the meantime wait for the culture. We may have to switch therapies depending on the sensitivities in the identification of the organism. It would not able to get a appropriate specimen we can always consider bronchoscopy if the patient is not responding to the current therapy. No recent x-rays or sinus x-rays available to review. Therefore be reasonable for him to undergo additional imaging testing. 08/09/2024 the patient is here for a pulmonary follow-up visit. He started the doxycycline to treat the MRSA infection in the sputum. He also started Bactroban for the nose. Overall he is doing okay although he is still having significant thick tenacious mucus. Breo should greenish in color. He did bring other sample with send the laboratory in case he has poly bacterial infection. He has also spending a lot of time in the steam room and I did advise him not to do that as this is potentially a hardware of Pseudomonas and other enteric bacteria. The patient did have an x-ray which was clear although has not been officially read. The sinus x-rays were limited that did appreciate some opacification but is not clear. Therefore will continue the doxy and will see with the new sputum culture shows. If the patient continues to have worsening chest congestion without clear improvement then we can consider bronchoscopy. Otherwise if he is doing okay he should still follow-up with ENT in order to have laryngoscopy to assess his hoarseness. 09/30/2024 the patient is here for a pulmonary follow-up visit. He is status post bronchoscopy. He continued to have underlying upper and lower respiratory symptoms with cough chest congestion hoarseness. His sputum cultures positive for MRSA. Initially placed on doxycycline also Bactrim without any significant improvement. Ultimately placed on linezolid and this seems to be more effective. We did review the bronchoscopy. Did have some fungus on his vocal cords. He did grew Haemophilus parainfluenza and also a filamentous fungus that were trying to identify still. Currently on fluconazole for the candidiasis and completing the linezolid. Hopefully he continues to recover. Once he completes the fluconazole will start him on azithromycin 3 times a week to treat him for the Haemophilus. Holding off on any treatment for the filamentous fungus. He will continue with the current respiratory therapy will follow-up in 3 months. If the patient develops any worsening symptoms prior to that he will call for an earlier assessment. [facility] Medical History Sinusitis Multiple myeloma Nontuberculous mycobacterial disease of lung History of cardiac murmur Immunodeficiency Chronic cough Chronic allergic rhinitis History of basal cell cancer Hx of skin cancer, basal cell Has a tremor Diverticulosis IBS (irritable colon syndrome) Thrombosed external hemorrhoids Irritable bowel syndrome with constipation and diarrhea PVC (premature ventricular contraction) Diverticulosis of colon History of alcohol abuse Back pain Arthritis Leukopenia Diarrhea OAB (overactive bladder) BPH (benign prostatic hyperplasia) Anxiety Depression Bipolar 1 disorder Seizure disorder Insomnia Heart palpitations Hypertension Surgical History History of bone marrow biopsy History of bronchoscopy Hx of right knee surgery Hx of esophagogastroduodenoscopy History of total knee arthroplasty Hx of colonoscopy Hx of cervical spine surgery Hx of bilateral inguinal hernia repair History of total knee arthroplasty Family History Maternal Aunt Colon cancer Father No problems noted. Mother No problems noted. Brother No problems noted. Social History Household Members: Family Household Members Other:: brother Both parents involved: No Housing: House Are you a primary skin care specialist to a significant other at home: No Do you presently have visiting nurse or other home services: No Alcohol intake: former Patient Tobacco Use Status: Never used Tobacco service: No Current occupational status: disabled Review of Systems Const Denies body aches, Reports fatigue, Denies fever(s) and Reports headache(s) Eyes Denies change in vision ENT Reports change in voice, Reports dizziness, Reports headache(s), Reports hoarseness, Reports nasal congestion, Reports nasal discharge, Reports nasal obstruction, Reports post nasal drip and Reports sinus pressure Card Denies chest pain Resp Reports chest congestion, Reports cough and Denies wheezing GI Reports dyspepsia and Reports heartburn Musc Reports no additional complaints Skin/Breast Denies jaundice Neuro Reports no additional complaints, Reports dizziness and Reports headache(s) Endo Reports fatigue and Denies heat intolerance Leobardo/Lymph Denies easy bleeding and Denies easy bruising Aller/Immun Denies wheezing Physical Exam Vital Signs: Last Vital Signs Pulse 56 09/30/24 13:52 BP 130/70 09/30/24 13:52 Pulse Ox 96 09/30/24 13:52 Oxygen Delivery Method Room Air 09/30/24 13:52 BMI result Body Mass Index 25.0 Const General: comfortable HEENT General nose exam: Abnormal mucous membranes and turbinates present erythematous Throat: Yes postnasal drainage and Yes cobblestoning Eyes General: appearance normal, both eyes and all related structures Neck Neck: Yes supple Chest Chest palpation & inspection: normal inspection of the chest Resp Effort & Inspection: normal respiratory effort and able to speak in complete sentences Auscultation: no wheezes and diminished lung sounds Cardio Rate: regular rate Rhythm: regular rhythm Heart sounds: S1 normal heart sound present and S2 normal heart sound present GI Palpation (GI): Soft to palpation Auscultation: normal bowel sounds Skin General skin exam: no rashes or lesions noted Extrem General: Yes no clubbing, cyanosis or edema Assessment & Plan Assessment & Plan (1) Sinusitis: Code(s): J32.9 - Chronic sinusitis, unspecified Category: Medical Qualifiers: Chronicity: subacute Sinusitis location: unspecified location Qualified Code(s): J01.90 - Acute sinusitis, unspecified (2) Bronchitis with wheezing: Code(s): J40 - Bronchitis, not specified as acute or chronic Category: Medical (3) 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 Code(s): A31.0 - Pulmonary mycobacterial infection Category: Medical (4) Chronic allergic rhinitis: Code(s): J30.9 - Allergic rhinitis, unspecified Category: Medical (5) Immunodeficiency: Comment: low IgA and IgM, likely poor functioning IgG Code(s): D84.9 - Immunodeficiency, unspecified Category: Medical Plan continue Symbicort complete Linezolid complete Fluconazole start Azithromycin MWF after Flucinazole cough medicine CPT with acapella valve for pulmonary clearence nasal rinsing F/U 3-4 months Medications: New azithromycin Take 1 tablet on Friday/Friday/Friday 250 mg PO 3XW 12 tabs 6RF 28 days K21.9 - Gastro-esophageal reflux disease without esophagitis Coding Level of Care Code Est Pt Level 4 (76031) Complex EM visit Add On G2211 Diagnoses Subacute sinusitis, unspecified location J01.90 Chronicity: subacute Sinusitis location: unspecified location Bronchitis with wheezing J40 Nontuberculous mycobacterial disease of lung A31.0 Chronic allergic rhinitis J30.9 Immunodeficiency D84.9 Time Spent (min) 17
== END 2024-09-30 14:20 | disposition home or self-care (01) ==
PROVIDERS: PCP Internal Medicine; Visit Provider Hospitalist
DX: J01.90 Acute sinusitis, unspecified (principal); J40 Bronchitis, not specified as acute or chronic; A31.0 Pulmonary mycobacterial infection; J30.9 Allergic rhinitis, unspecified; D84.9 Immunodeficiency, unspecified
CPT/HCPCS: 99214; G2211

== ENCOUNTER → 2024-09-30 13:46 | Outpatient (BNVA) | payer MEDICARE, MEDICAID, SELFPAY | PROVIDERS: PCP Internal Medicine; Visit Provider Hospitalist | DX: J01.90 Acute sinusitis, unspecified (principal); J40 Bronchitis, not specified as acute or chronic; J30.9 Allergic rhinitis, unspecified; A31.0 Pulmonary mycobacterial infection; C90.00 Multiple myeloma not having achieved remission; D84.9 Immunodeficiency, unspecified | CPT/HCPCS: 99212 ==

== ENCOUNTER 2024-11-22 13:35 | Outpatient (REF) | payer MEDICARE, MEDICAID, SELFPAY ==
[2024-11-22 13:59] LABS: MANUAL DIFF FLAG NO
[2024-11-22 14:46] LABS: Basophils Percent Auto 1.2 % (0-2); Eosinophils Absolute Auto 0.2 X10*3/uL (0.0-0.4); Eosinophils Percent Auto 6.7 % (0-4); Hematocrit 40.3 % (42.0-52.0); Hemoglobin 13.3 g/dl (14.0-18.0); Imm Gran Abs Auto 0.01 X10*3/uL (0.00-0.03); Imm Gran Pct Auto 0.3 % (0.0-0.4); Lymphocytes Absolute Auto 0.6 X10*3/uL (1.2-4.9); Lymphocytes Percent Auto 18.8 % (20-40); Mean Corpuscular Volume 96.9 fL (80.0-98.0); Mean Platelet Volume 8.8 fL (9.4-12.4); Monocytes Absolute Auto 0.3 X10*3/uL (0.1-1.2); Monocytes Percent Auto 8.5 % (2-11); Neutrophils Absolute Auto 2.1 x10*3/uL (2.0-8.3); Neutrophils Percent Auto 64.5 % (45-73); Platelet Count 134 X10*3/uL (160-400); Red Blood Count 4.16 X10*6/uL (4.60-5.80); Red Cell Distribution Width 13.5 % (11.0-16.0); White Blood Count 3.3 X10*3/uL (4.8-10.8)
[2024-11-22 16:18] LABS: Alanine Aminotransferase 27 U/L (0-40); Albumin Level 4.1 g/dL (3.5-5.0); Alkaline Phosphatase 79 U/L (39-117); Anion Gap 11 (12-20); Aspartate Amino Transferase 28 U/L (5-37); Bilirubin Total 0.4 mg/dL (0.0-1.0); Blood Urea Nitrogen 14 mg/dL (9-16); Carbon Dioxide 25 mmol/L (22-29); Chloride 108 mmol/L (96-108); Estimated Glomerular Filt Rate > 60; Glucose Random 139 mg/dL (60-115); Lipase 28 U/L (8-78); Potassium 4.2 mmol/L (3.3-5.1); Sodium 140 mmol/L (135-145); Total Protein 6.3 g/dL (6.5-8.0)
== END 2024-11-22 13:36 | disposition home or self-care (01) ==
LOC: HO.LAB 13:35
PROVIDERS: PCP Internal Medicine; Visit Provider Internal Medicine
DX: K58.9 Irritable bowel syndrome, unspecified (principal); D64.9 Anemia, unspecified; R10.84 Generalized abdominal pain
CPT/HCPCS: 36415; 80053; 83690; 85025

== ENCOUNTER 2024-11-25 08:56 | Outpatient (AMB) | payer MEDICARE, MEDICAID, SELFPAY ==
--- NOTE | 2024-11-25 08:56 | A.OFFVIS_ITS ---
Intake Visit Reasons: bloating with diarrhea Intake Note: Patient telehealth follow up for abdominal pain with diarrhea. Patient cc: sharp abdominal pain with bloating on every meal and also with diarrhea. Hay Buckler Required: No Allergies No Known Allergies Allergy (Verified 11/22/24 07:50) Medication List - Last Reconciled 11/25/24 by Anu Vallejo MD acyclovir 400 mg PO BID albuterol sulfate 90 mcg/actuation 2 puffs inhalation Q4-6H PRN aspirin 81 mg PO DAILY buspirone 15 mg PO BID chlorhexidine gluconate 0.12% 15 mL buccal BID 14 days dicyclomine 10 mg PO TID PRN [Fiber Therapy Laxative 1 cap PO DAILY] gabapentin 300 mg PO DAILY hydrocortisone-aloe vera 1 % (Hydrocortisone Plus) 1 appl topical BID lenalidomide (Revlimid) 5 mg PO DAILY linaclotide (Linzess) 145 mcg orally take every other day; Take every other day 30 days bpvcde-hsofnyux-fzdjiir 12,000-38,000 -60,000 unit (Creon) 1 cap PO TID 60 days metoprolol succinate ER (Toprol XL) 25 mg PO DAILY mirabegron ER (Myrbetriq) 1 tab PO DAILY mv,Ca,jgn-aosc-LH-lycopene 8 mg iron- 200 mcg-600 mcg (Centrum Men) 1 tab PO DAILY oxcarbazepine 300 mg PO BID oxymetazoline 0.05% (Afrin (oxymetazoline)) 2 sprays intranasal Q12H PRN 5 days pantoprazole 40 mg PO DAILY paroxetine HCl 40 mg PO DAILY primidone 1 tab PO BID solifenacin 5 mg PO DAILY tamsulosin 1 cap PO BEDTIME trazodone 1 tab PO BEDTIME PRN vibegron (Gemtesa) 75 mg PO DAILY zolpidem 1 tab PO BEDTIME HPI HPI bloating with diarrhea: Details: TELMEDICINE VISIT FOR THIS 74-YEAR-OLD MALE FOR FOLLOW-UP OF IBS. TODAY'S VISIT: Patoent cc: abdominal pain/cramps with diarrhea after any meal with some vomit. Every time I have dinner, I have abdominal cramps 45 min later followed by diarrhea Has deep cramps that hurt real bad Usually has potatoes with meat for dinner Has been eating a light dinner - wt loss of 6 lbs in 1.5 months. Has an [place] muffin for breakfast and a soup, sandwich or deviled ham. Denies diarrhea after breakfast or lunch - just after dinner. Pantoprazole seems to help and has been taking it 2 times a day. Denies heartburn. PAST VISITS: Noted RLQ pain radiating to the rt flank for the past 2 weeks. Pain is 10/10 in intensity, constant and is worse on moving and standing - unable to sleep on the right side Admits to burning micturation Has been drinking a lot water. Denies fever, chills or sweating, nausea or vomiting Had vicious diarrhea for the past 2 days. Notes diarrhea 1/2 an hour after eating dinner Takes 2 tablets of max strength gas X before dinner No change in wt. Taking gas x and dicyclomine Abd cramps every time he eats Has to strain while having a BM - takes Miralax once a day Stool can be soft or sometimes like a rock. Has 2 BMs a day Notes abdominal cramps in the stomach. Gets up late and has a snack ([place] muffin) eats when [facility]. Being treated with Revlimid every Friday for multiple myloma Patient cc: gassy, abdominal cramping and bloating, and hard BM even with medication. Has the flu. COVID test was negative. Took Miralax day before yesterday for constipation Does not feel hungry. Taking only soup with bread and butter. Has abdominal cramps, notes stomach aches after he eats Tried FODMAP diet and unable to follow Tries to avoid things like chocolates, peanuts and fruits. Has to have red meat due to anemia. Has grilled chicken and does not eats fries. Not taking Omeprazole due to prostate problem Zenpep 2 capsules with dinner (is eating 1 to 2 times a day). Has a lot of gas. Stopped eating pizza and avoids greasy and fried foods. Weighs 173 lbs. Seen at [facility] in [place] for multiple myeloma and no treatment advised PAST VISITS: Feels Zenpep is not working.Zenpep with each meal and 2 at night with cereal Increased to 2-3 Zenpep with each meal. Has one meal a day and a snack at night. Wt was 188 lbs and decreased to 171 lbs. Eating rice crispies at night. Notes deep stomach cramps which go away later in the day. Had multiple BMs with vomiting on 08/12/22. Roast beef potatoes, sweet carrots at [employer] on 08/11/2208/12 he ate pizza (no onions or peppers) - had a couple of lactaid pills with the pizza. No BMs yesterday and the day before. Pt had knee replacement surgery on his rt knee in 06/2022. Saw a chiropracter who worked on the same knee resulting in damage to the knee. Right knee surgery was redone on 06/04/22. Has been home and having a lot of pain in the knee. Taking Dilaudid for knee pain. When he urinates he is unable to empty his bladder and then has to go again af ter 20 min. Has not had a BM since 05/31/22 (had a large BM). Abdominal cramps are better since he started taking the Zenpep. Planning to take a chocolate bar since it helps him have a BM. Saw Vicky and taking Lactaid pills with cheese pizza. Took glucose free wafers the following day Drinking Lactaid milk. Had abdominal cramps with soft stools and vomiting in the afternoon. Usually has abdominal cramps with diarrhea or soft stools Denies constipation. Following a FODMAP and not following it too strictly Not noticing any improvement yet. Patient 3 month follow up for IBS. Patient cc: N/V, stomach discomfort, diarrhea/constipation, and medication is helping him with GERD a little bite, some problem with swallowing food, and a lot of burping. Continues to have intermittent symptoms. Has not been having bland foods. Can have intermittent abdominal pain. Has to stay away from vegetables and fruits. Eats beets due to high iron content. Eats at 4:30 or 5 pm. Gets pains from non-eating at 11:30 pm - has rice crispies and dance hall hostess cupcakes. Past hx of episodes of pancreatitis related to ETOH abuse. Stopped ETOH 4 yrs?ago ENDOSCOPIC STUDIES: 04/17/21 EGD AND COLONOSCOPY SHOWED: ESOPHAGUS:? Hiatal hernia 37 to 41 cms.? Irregular Z line with focal esophagitis at GE junction - biopsied to check for Vides's. STOMACH: Multiple 3-8 mm benign appearing sessile polyps.? A 7-8 mm hemorrhagic appearing polyp in the fundus removed with a cold snare.? Mild gastric erythema. Antral biopsies were obtained. DUODENUM:? Duodenitis in the bulb with 5-6 mm superficial erosions.? Normal descending duodenum - biopsies obtained to check for celiac sprue Colonoscopy Findings:? Four small to medium sized polyps removed Moderate to severe diverticulosis seen in the left colon Plan:? Patient has an appointment on 05/02/21 in the GI Clinic with HARRY Wilcox. Repeat Colonoscopy interval based on path results - in 3-5 years if polyps are adenomatous and 10 years if polyps are hyperplastic. BIOPSIES SHOWED:? ? Gastric biopsies were negative for Helicobacter pylori, esophageal biopsies were negative for Vides's E.? Cecum, polypectomy:? Fragments of tubular adenoma; no high-grade dysplasia or carcinoma seen. F.? Colon, ascending, polypectomies:? Fragments of tubular adenoma; no high- grade dysplasia or carcinoma seen. 08/22/20 COLONOSCOPY SHOWED: Ten polyps removed - one polyp was not retrieved Random biopsies were obtained from the right and left colon. Moderate to severe diverticulosis seen in the left colon Small hemorrhoids on retroflexed exam. Plan:? Patient has an appointment on 08/29/20 in the GI Clinic with HARRY Wilcox. Repeat Colonoscopy interval based on path results - in 1 years if several polyps are adenomatous and consider Genetic Testing since multiple polyps removed. Above findings were reviewed with the patient and colon polyps and diverticulosis handouts were given in the discharge area IMAGING STUDIES:? 08/14/[address] SCAN SHOWED: GASTROINTESTINAL TRACT: There are scattered diverticula of the colon. There is no diverticulitis. There is no bowel wall thickening /edema. There is no bowel obstruction. There is a moderate volume of stool in the colon. The appendix is normal . The small bowel loops are unremarkable. The stomach is normal. There is no hiatal hernia.? [facility] Medical History Sinusitis Multiple myeloma Nontuberculous mycobacterial disease of lung History of cardiac murmur Immunodeficiency Chronic cough Chronic allergic rhinitis History of basal cell cancer Hx of skin cancer, basal cell Has a tremor Diverticulosis IBS (irritable colon syndrome) Thrombosed external hemorrhoids Irritable bowel syndrome with constipation and diarrhea PVC (premature ventricular contraction) Diverticulosis of colon History of alcohol abuse Back pain Arthritis Leukopenia Diarrhea OAB (overactive bladder) BPH (benign prostatic hyperplasia) Anxiety Depression Bipolar 1 disorder Seizure disorder Insomnia Heart palpitations Hypertension Surgical History History of bone marrow biopsy History of bronchoscopy Hx of right knee surgery Hx of esophagogastroduodenoscopy History of total knee arthroplasty Hx of colonoscopy Hx of cervical spine surgery Hx of bilateral inguinal hernia repair History of total knee arthroplasty Family History Maternal Aunt Colon cancer Father No problems noted. Mother No problems noted. Brother No problems noted. Social History Household Members: Family Household Members Other:: brother Both parents involved: No Housing: House Are you a primary emergency care attendant to a significant other at home: No Do you presently have visiting nurse or other home services: No Alcohol intake: former Patient Tobacco Use Status: Never used Tobacco service: No Current occupational status: disabled Review of Systems Const All systems reviewed & are unremarkable except as noted in HPI and below Telehealth Telehealth Telehealth Platform: Telephone Location of provider rendering services: practice address Location of patient: address on file Patient Identification confirmed using: Name, : Yes Telehealth method: voice only Patient verbally consented to treatment: Yes Patient verbally consented to billing insurance company: Yes Patient informed of any privacy concerns related to visit: Yes Minutes spent on Phone/Video with Pt.: 21 Assessment & Plan Assessment & Plan (1) Adenomatous colon polyp: Comment: 04/2021 Four small to medium sized adenomatous polyps were removed. Repeat colonoscopy advised in 3 year (due 04/2024) Code(s): D12.6 - Benign neoplasm of colon, unspecified Category: Medical (2) Irritable bowel syndrome with constipation and diarrhea: Comment: He is willing to trial with Citrucel 2 tabs b.i.d. in hopes this gives him more consistent stool pattern. Code(s): K58.2 - Mixed irritable bowel syndrome Category: Medical (3) Abdominal bloating: Code(s): R14.0 - Abdominal distension (gaseous) Category: Medical (4) Diverticulosis of colon: Comment: Moderate to severe diverticulosis-maintain high-fiber diet, review says symptoms diverticulitis Code(s): K57.30 - Diverticulosis of large intestine without perforation or abscess without bleeding Category: Medical (5) Anemia: Code(s): D64.9 - Anemia, unspecified Category: Medical (6) GERD (gastroesophageal reflux disease): Code(s): K21.9 - Gastro-esophageal reflux disease without esophagitis Category: Medical Qualifiers: Esophagitis presence: without esophagitis Qualified Code(s): K21.9 - Gastro-esophageal reflux disease without esophagitis (7) IBS (irritable bowel syndrome): Comment: Pt was referred for low FODMAP diet. Per conversation Pt reports improvement in GI symptoms when drinking lactose free milk however consuming other foods with lactose contributing to GI Code(s): K58.9 - Irritable bowel syndrome, unspecified Category: Medical (8) Chronic diarrhea: Code(s): K52.9 - Noninfective gastroenteritis and colitis, unspecified Category: Medical (9) Pancreatic insufficiency: Comment: Pancreatic elastase was 33 indicating severe pancreatic insufficiency. Patient was started on Zenpep with improvement in abdominal cramping. Code(s): K86.89 - Other specified diseases of pancreas Category: Medical Plan 74 year-old anxious male with IBS associated with diarrhea and constipation.? He is managing his symptoms with a change in diet and imodium prn. He was advised to take Citrucel daily and Dicyclomine prn for abdominal pain. Patient does admit to anxiety worsening his symptoms, he is currently living with his brother which is not the best scenario but is tolerable.? He has and? been followed recently for mild seizure activity and has not had any further issue? since dose of medications was increased. 04/2021 Four small to medium sized adenomatous polyps were removed. Repeat colonoscopy advised in 3 year (due 04/2024). Pt was given the following advice: 1.? Please continue to keep a FOOD dairy 2.? Take Polyethylene Glycol once a day on days you do not have a bowel movement 3.? No milk products - Ok to take yogurt with Probiotics. 4.? If you continue to have problems, you can start a FODMAP diet. 5.? Famotidine twice daily for GERD in place of Omeprazole Pt was seen by Nutrition and advised to take Lactaid pills with cheese and pizza. He is keeping a food dairy. Advised to follow a FODMAP diet and not following it too strictly. Stool tests showed a low pancreatic elastase suggestive of pancreatic insufficiency Prescription for Zenpep (pancreatic enzyme preparation) was sent to the pharmacy. Patient had a surgery on his right knee on 06/04/2022 and has been taking Dilaudid. Patient is advised to start MiraLax 1-2 times daily for constipation. If he continues to have symptoms he can take senna 2 capsules at bedtime p.r.n. 11/07/22 Pt advised to resume taking Dicyclomine 10 mg three times daily prn for abd cramps 03/22/24 Abd cramps every time he eats Has to strain while having a BM - takes Miralax once a day Pt advised to start Linzess for constipation and schedule an EGD and Colon (scheduled 09/06/24) 06/17/24 Noted RLQ pain radiating to the rt flank for the past 2 weeks. Pain is 10/10 in intensity, constant and is worse on moving and standing - unable to sleep on the right side Admits to burning micturation Has been drinking a lot water. Flank pain suggestive of kidney stones Pt advised to go to the ED for evaluation Pt is scheduled for an EGD and Colon on 09/06/24 - rescheduled to 02/07/25 ADDENDUM: Seen in the ER and finnegan was negative: Clinical Impression: Dysuria, Diarrhea Patient Disposition: Home, Self-Car 11/25/24 Pt complains of abdominal cramps with diarrhea and 6 lb weight loss. Has not been taking Creon for pancreatic insufficiency and patient was advised to resume taking 1 capsule with breakfast and lunch and 2 capsules with dinner. Continue taking pantoprazole 40 mg twice daily for 4-6 weeks. Patient is scheduled for a colonoscopy on 02/07/2025 and a follow-up appointment on 02/24/25 He was advised to call back if he continued to have symptoms 2-3 weeks after resuming the Creon. Medications: Changed From pszege-xybbupyy-wetdcqo 12,000-38,000 -60,000 unit (Creon) administer with meals and/or snacks 1 cap PO TID 60 days 180 caps 3RF K86.89 - Other specified diseases of pancreas To yltczi-xhfzruuv-vdozvdh 12,000-38,000 -60,000 unit (Creon) Take 1 capsule with breakfast and lunch and 2 capsules with dinner 1 cap PO QID 60 days 240 caps 3RF K86.89 - Other specified diseases of pancreas From pantoprazole 40 mg PO DAILY To pantoprazole 40 mg PO BID 60 days 120 tabs 3RF Coding Level of Care Code Tele Est Pt Level 4 (43558) Diagnoses Adenomatous colon polyp D12.6 Irritable bowel syndrome with constipation and diarrhea K58.2 Abdominal bloating R14.0 Diverticulosis of colon K57.30 Anemia D64.9 Gastroesophageal reflux disease without esophagitis K21.9 Esophagitis presence: without esophagitis IBS (irritable bowel syndrome) K58.9 Chronic diarrhea K52.9 Pancreatic insufficiency K86.89
== END 2024-11-25 09:25 | disposition home or self-care (01) ==
LOC: HO.HGI 08:56
PROVIDERS: PCP Internal Medicine; Visit Provider Internal Medicine Gastroenterology
DX: K58.2 Mixed irritable bowel syndrome (principal); Z86.0100 Personal history of colon polyps, unspecified; K57.30 Diverticulosis of large intestine without perforation or abscess without bleeding; D64.9 Anemia, unspecified; K21.9 Gastro-esophageal reflux disease without esophagitis; K86.89 Other specified diseases of pancreas
CPT/HCPCS: 99443

== ENCOUNTER 2025-01-07 13:04 | Outpatient (AMB) | payer MEDICARE, MEDICAID, SELFPAY ==
--- NOTE | 2025-01-07 13:05 | A.OFFVIS_ITS ---
Vital Signs 01/07/25 13:06 Height 5 ft 10 in Weight 171 lb 15.369 oz BMI 24.7 BP 120/70 Blood Pressure Location Rt brachial Position Sitting Pulse 52 Pulse Source Pulse Oximeter Pulse Oximetry (%) 99 Oxygen Delivery Method Room Air Intake Visit Reasons: Asthma Allergies No Known Allergies Allergy (Verified 01/07/25 13:09) HPI Comments Details: The patient is a 74-year-old gentleman with a known history multiple myeloma in addition to a chronic cough. The patient states that he has had a chronic cough since he was a teenager. Although he has noticed that since the fall 2021 the cough has gotten worse. The cough is persistent. He is constantly clearing his throat. He coughs usually nonproductive although sometimes she does bring up a speck of sputum. Feels like there is irritation to his throat. He did try to get to ENT but it was a 6 month wait for an appointment so he was sent to Pulmonary. In the meantime he has tried prednisone without any significant help. He has tried Flonase. In addition to that he had tried a rescue inhaler many years ago which did not feel that it was helpful. In addition to the cough is noticed some voice changes. Typically he loses the his voice after the a day is speaking throughout the day. His cough and clearing his throat because he feels a sensation of something within the throat area. He does have medications for reflux disease and also has a degree of postnasal drip. He has never tested for allergies and has never had breathing studies. As far as imaging studies he did have a PET scan back in Jul 2022 with no parenchymal disease, normal larynx, just some evidence of bronchitis. The patient does not have any pulmonary function studies at this time. Will plan to treating for an upper airway cough syndrome and provide him with cough suppressants. Will follow-up after the patient undergoes blood work including allergy testing and pulmonary function studies. 01/14/2024 the patient is here for sick visit. He has been having worsening respiratory symptoms with this couple weeks. Productive cough with yellow phlegm. Moderate severity. He has been using his respiratory inhalers with partial improvement. recently, he was seen in the ER. He did undergo CT scan the chest which demonstrated no evidence of any pneumonia. Although he did have a Density on the trachea. He was given a course of prednisone and doxycycline. Currently his symptoms are improving. Still feels some chest congestion. He is immunosuppressed. Go ahead and give him longer course of antibiotics. Also he is having some wheezing on exam. Therefore switch him over to Medrol where he can do another 6 days. He will return in 3 months and we will repeat his CT chest prior to that visit. 04/27/2024 the patient is here for a pulmonary follow-up visit. the patient has been no better. Still complaining of significant productive cough with green sputum. Moderate in severity. He has been on a couple courses of doxycycline. He has not seen any improvement. He also did of small course of prednisone. He complains of sinus pressure and ear pressure. He is also felt some dizziness. He did recently had a CT scan of chest that would I personally reviewed with him. This was done in 04/15/2024. Had not been officially read yet. However, looks pretty stable some minimal areas of mosaic pattern ground-glass opacities but these have been there before. No significant airspace disease to be concerned about although explain his ongoing symptoms. His respiratory exam is also reassuring. It appears that mainly his symptoms are from the sinuses. Will go ahead and switch his antibiotic to Augmentin to try help him with that. In the meantime also provide him with additional therapies. If the patient is no better he may benefit from getting sinus CT scan to better address any sinus disease specially with immunosuppression. 07/05/2024 this is a telehealth visit. The patient called for sick visit. For the last week and a half he has had worsening respiratory symptoms. He has complaint of throat soreness in addition to cough. He is having worsening productive cough with green mucus. Having some increasing shortness breath and chest tightness. He has been having to use a nebulizer more often. Unfortunately he wishes sick couple months ago. He did require a prolonged course of antibiotics as well. The patient had an adverse reaction prednisone would like to hold off on any additional prednisone at this time. He continues uses respiratory therapy though. He was oriented 3 with Augmentin. The patient is immunocompromised. Will go ahead and give him Levaquin for treatment of bronchopneumonia. If the patient's symptoms do not improve in 24-48 hours. As far as imaging studies, the patient did have a CT scan of the abdomen. The lung bases appear clear. 07/26/2024 the patient is here for a pulmonary follow-up visit. He continues to struggle with his respiratory complaints. Having significant sinus pressure nasal drainage. Also postnasal drip. Also productive cough with very thick tenacious yellow phlegm. Sometimes resulting in cast. He sometimes chokes up because of the significant mucus burden. He was able to provide us sample here in the office. It appears to be greenish purulent in appearance. Will go ahead and treat him with Levaquin. In the meantime wait for the culture. We may have to switch therapies depending on the sensitivities in the identification of the organism. It would not able to get a appropriate specimen we can always consider bronchoscopy if the patient is not responding to the current therapy. No recent x-rays or sinus x-rays available to review. Therefore be reasonable for him to undergo additional imaging testing. 08/09/2024 the patient is here for a pulmonary follow-up visit. He started the doxycycline to treat the MRSA infection in the sputum. He also started Bactroban for the nose. Overall he is doing okay although he is still having significant thick tenacious mucus. Breo should greenish in color. He did bring other sample with send the laboratory in case he has poly bacterial infection. He has also spending a lot of time in the steam room and I did advise him not to do that as this is potentially a hardware of Pseudomonas and other enteric bacteria. The patient did have an x-ray which was clear although has not been officially read. The sinus x-rays were limited that did appreciate some opacification but is not clear. Therefore will continue the doxy and will see with the new sputum culture shows. If the patient continues to have worsening chest congestion without clear improvement then we can consider bronchoscopy. Otherwise if he is doing okay he should still follow-up with ENT in order to have laryngoscopy to assess his hoarseness. 09/30/2024 the patient is here for a pulmonary follow-up visit. He is status post bronchoscopy. He continued to have underlying upper and lower respiratory symptoms with cough chest congestion hoarseness. His sputum cultures positive for MRSA. Initially placed on doxycycline also Bactrim without any significant improvement. Ultimately placed on linezolid and this seems to be more effective. We did review the bronchoscopy. Did have some fungus on his vocal cords. He did grew Haemophilus parainfluenza and also a filamentous fungus that were trying to identify still. Currently on fluconazole for the candidiasis and completing the linezolid. Hopefully he continues to recover. Once he completes the fluconazole will start him on azithromycin 3 times a week to treat him for the Haemophilus. Holding off on any treatment for the filamentous fungus. He will continue with the current respiratory therapy will follow-up in 3 months. If the patient develops any worsening symptoms prior to that he will call for an earlier assessment. 01/07/2025 the patient is here for a pulmonary follow-up visit. He did follow-up with ENT. He was given additional antibiotics. Now he is complaining of hoarseness and chest congestion chest tightness and wheezing. He is using his respiratory therapy as prescribed. But he does not feel well. Moderate severity. He does have some wheezing and rhonchi on exam. The patient does need to get a nebulizer. Will go ahead and request 1. He also has a flutter valve that he can use for chest PT. if he is able he should be able to get a sputum culture and also a chest x-ray. At some point when he returns will talk about rescheduling him for another CT scan to follow up with his nodular densities. Patient follow-up in a couple months. [facility] Medical History Sinusitis Multiple myeloma Nontuberculous mycobacterial disease of lung History of cardiac murmur Immunodeficiency Chronic cough Chronic allergic rhinitis History of basal cell cancer Hx of skin cancer, basal cell Has a tremor Diverticulosis IBS (irritable colon syndrome) Thrombosed external hemorrhoids Irritable bowel syndrome with constipation and diarrhea PVC (premature ventricular contraction) Diverticulosis of colon History of alcohol abuse Back pain Arthritis Leukopenia Diarrhea OAB (overactive bladder) BPH (benign prostatic hyperplasia) Anxiety Depression Bipolar 1 disorder Seizure disorder Insomnia Heart palpitations Hypertension Surgical History History of bone marrow biopsy History of bronchoscopy Hx of right knee surgery Hx of esophagogastroduodenoscopy History of total knee arthroplasty Hx of colonoscopy Hx of cervical spine surgery Hx of bilateral inguinal hernia repair History of total knee arthroplasty Family History Maternal Aunt Colon cancer Father No problems noted. Mother No problems noted. Brother No problems noted. Social History Household Members: Family Household Members Other:: brother Both parents involved: No Housing: House Are you a primary animal daycare provider to a significant other at home: No Do you presently have visiting nurse or other home services: No Alcohol intake: former Patient Tobacco Use Status: Never used Tobacco service: No Current occupational status: disabled Review of Systems Const Denies body aches, Reports fatigue, Denies fever(s) and Reports headache(s) Eyes Denies change in vision ENT Reports change in voice, Reports dizziness, Reports headache(s), Reports hoarseness, Reports nasal congestion, Reports nasal discharge, Reports nasal obstruction, Reports post nasal drip and Reports sinus pressure Card Denies chest pain Resp Reports chest congestion, Reports cough and Denies wheezing GI Reports dyspepsia and Reports heartburn Musc Reports no additional complaints Skin/Breast Denies jaundice Neuro Reports no additional complaints, Reports dizziness and Reports headache(s) Endo Reports fatigue and Denies heat intolerance Leobardo/Lymph Denies easy bleeding and Denies easy bruising Aller/Immun Denies wheezing Physical Exam Vital Signs: Last Vital Signs Pulse 52 01/07/25 13:06 BP 120/70 01/07/25 13:06 Pulse Ox 99 01/07/25 13:06 Oxygen Delivery Method Room Air 01/07/25 13:06 BMI result Body Mass Index 24.7 Const General: comfortable HEENT General nose exam: Abnormal mucous membranes and turbinates present erythematous Throat: Yes postnasal drainage and Yes cobblestoning Eyes General: appearance normal, both eyes and all related structures Neck Neck: Yes supple Chest Chest palpation & inspection: normal inspection of the chest Resp Effort & Inspection: normal respiratory effort and able to speak in complete sentences Auscultation: no wheezes and diminished lung sounds Cardio Rate: regular rate Rhythm: regular rhythm Heart sounds: S1 normal heart sound present and S2 normal heart sound present GI Palpation (GI): Soft to palpation Auscultation: normal bowel sounds Skin General skin exam: no rashes or lesions noted Extrem General: Yes no clubbing, cyanosis or edema Assessment & Plan Assessment & Plan (1) Sinusitis: Code(s): J32.9 - Chronic sinusitis, unspecified Category: Medical Qualifiers: Chronicity: subacute Sinusitis location: unspecified location Qualified Code(s): J01.90 - Acute sinusitis, unspecified (2) Bronchitis with wheezing: Code(s): J40 - Bronchitis, not specified as acute or chronic Category: Medical (3) 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 Code(s): A31.0 - Pulmonary mycobacterial infection Category: Medical (4) Chronic allergic rhinitis: Code(s): J30.9 - Allergic rhinitis, unspecified Category: Medical (5) Immunodeficiency: Comment: low IgA and IgM, likely poor functioning IgG Code(s): D84.9 - Immunodeficiency, unspecified Category: Medical Plan stop Symbicort start Dulera start Incruse Prednisone taper CXR Sputum cx start Azithromycin MWF after Flucinazole cough medicine CPT with acapella valve for pulmonary clearence nasal rinsing F/U 3-4 months Orders: Orders XR chest 2V 01/07/25 J40 - Bronchitis, not specified as acute or chronic Sputum Cult + Gram stain 01/07/25 J40 - Bronchitis, not specified as acute or chronic, R91.1 - Solitary pulmonary nodule Medications: New umeclidinium 62.5 mcg/actuation (Incruse Ellipta) 1 inh inhalation DAILY 30 ea 11RF 30 days J45.909 - Unspecified asthma, uncomplicated azithromycin Take 1 tablet on Friday/Friday/Friday 250 mg PO 3XW 12 tabs 6RF 28 days K21.9 - Gastro-esophageal reflux disease without esophagitis mometasone-formoterol 200-5 mcg/actuation (Dulera) 2 puffs inhalation Q12H 13 grams 11RF 30 days prednisone PO daily; Take 2 tabs daily x 5 days, then 1 tab daily x 5 days 15 tabs 0RF 10 days Coding Level of Care Code Est Pt Level 4 (95385) Complex EM visit Add On G2211 Diagnoses Subacute sinusitis, unspecified location J01.90 Chronicity: subacute Sinusitis location: unspecified location Bronchitis with wheezing J40 Nontuberculous mycobacterial disease of lung A31.0 Chronic allergic rhinitis J30.9 Immunodeficiency D84.9 Time Spent (min) 17
[2025-01-07 13:06] VITALS: BP 120/70; PULSE 52; O2SAT 99; BMI 24.7
--- OUTSIDE RECORDS SUMMARY | 2025-01-07 13:32 | XMS_ITS | Clinical Summary ---
Author Organization [facility] Address [address] [place] [address] Care Team Providers Care Sewage Screen Operator Name Role Phone Nito Newell MD Primary Care Provider [phone] Allergies No known active allergies Medications Medication Sig Dispensed Refills Start Date End Date Status acyclovir (ZOVIRAX) 400 mg tablet Oral for 30 Days Activ e budesonide-formotero l (Symbicort) 160-4.5 MCG/ACT inhaler Inhalation for 30 Days Active busPIRone (BUSPAR) 15 MG tablet Oral for 30 Days Active gabapentin (NEURONTIN) 300 MG capsule 1 capsule. 05/20/2024 Active hydrOXYzine HCl (ATARAX) 25 MG tablet Oral for 28 Days Active lenalidomide (REVLIMID) 5 MG capsule Oral for 21 Days Active linezolid (ZYVOX) 600 MG tablet 09/20/2024 Active metoPROLOL SUCCINATE (TOPROL-XL) 25 MG 24 hr tablet 10/09/2024 Active mirabegron (Myrbetriq) 25 mg ER tablet Oral for 30 Days Active Multiple Vitamins-Minerals (Centrum Men) Tab Take by mouth. 10/02/2023 Act valetnine OXcarbazepine (TRILEPTAL) 300 MG tablet Oral for 28 Days Active pancrelipase, Iwn-Zdzb-Uqmu, (Zenpep) [address] Particles capsule Take by mouth. 10/02/2023 Act valentine PANTOprazole (PROTONIX) 40 MG EC tablet 10/08/2024 Active PARoxetine (PAXIL) 40 MG tablet 10/04/2024 Active primidone (MYSOLINE) 50 MG tablet 10/09/2024 Active solifenacin (VESICARE) 5 MG tablet 10/06/2024 Active tamsulosin (FLOMAX) 0.4 MG capsule Oral for 28 Days Acti ve traZODone (DESYREL) 100 MG tablet 10/10/2024 Active zolpidem (AMBIEN) 10 MG tablet 1 tablet at bedtime as needed Orally Once a day 10/02/2023 Active Active Problems Problem Noted Date Diagnosed Date Premature ventricular contractions 10/19/2024 Bipolar depression 10/19/2024 GERD without esophagitis 10/19/2024 Insomnia 10/19/2024 Osteoarthritis 10/19/2024 Palpitations 10/19/2024 Seizure, temporal lobe 10/19/2024 Migraine 06/05/2015 Prediabetes 01/18/2015 Microscopic hematuria 03/14/2014 High cholesterol 03/11/2014 Colon polyps 01/18/2013 Bipolar disorder 07/21/2012 Overview (10/19/2024): Patient follow with psych in [place] and [place] 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 The patient did not respond to injection and he has an electrical stimulator in place. Patient follows with the [facility] pain management clinic. Dr Cash was the surgeon. Vertigo 07/21/2012 Immunizations Name Administration Dates Next Due Influenza, Trivalent (FLUARI X, AFLURIA, FLULAVAL, FLUZONE) Preservative Free IM 2014,07/21/2013,09/19/2012,2011 PPD Test 12/15/2013 Pneumococcal Conjugate, Unspecified 08/07/2015 TD Preservative Free 09/18/2006 Zoster Vaccine Live/Attenuat ed (Zostavax) 08/07/2015 Social History Tobacco Use Types Packs/Day Years Used Date Smoking Tobacco: Never Assessed Sex and Gender Information Value Date Recorded Sex Assigned at Male 09/04/2024 10:30 AM EDT Gender Identity Male 09/04/2024 10:30 AM EDT Sexual Orientation Heterosexual (straight) 09/04 10:30 AM EDT Plan of Treatment Health Maintenance Due Date Last Done Comments Hepatitis C Virus Screening 1950 Pneumococcal Vaccines 50+ (1 of 1 - PCV) 2001 08/07/2015 DTaP/Tdap/Td Vaccines (1 - Tdap) 09/19/2006 09/18/2006 Zoster (Shingles) Vaccine (2 of 3) 10/02/2015 08/07/2015 COVID-19 Vaccine (1 - 2023- season) 2024 RSV Vaccine 60 years and older and Patients (1 - 1-dose 75+ series) 2026 Influenza Vaccine Discontinued 2014, , 09/19/2012, Additional history exists Hepatitis B Vaccines Aged Out No long er eligible based on patient's age to complete this topic Care Teams Sewage Screen Operator Relationship Specialty Start Date End Date Nito Newell MD [address] [place] [address] [place] [id number] PCP - General 10/19/24
--- OUTSIDE RECORDS SUMMARY | 2025-01-07 13:32 | XMS_ITS ---
Author Organization [facility] Address [address] [place] [address] Care Team Providers Care Rock Lather Name Role Phone Reece VILLALBA, Nito Primary Care Provider Ninfa Quinones [phone] Encounters Encounter Location Date Provider Diagnosis [address] [address] 12/16/2024 Ninfa Vargas Plan Of Treatment No Information Progress Notes * Storm MARTINEZ DottyDOB:[birth year] (74 yo M)Acc No.[id number]:12/16/2024 Progress Note Patient:?Storm MARTINEZ Provider:?Ninfa Vargas DPM :1950???Age:74 Y???Sex:Male Scott e:12/16/2024 Address:[address] [place], [place] [address] [facility] Pcp:Nito Newell MD Subjective: * Chief Complaints: * ??? * Medical History:? Objective: * Vitals:? Assessment: Plan: * Treatment: * Images: * The named appointment provid er may or may not be the originator of this progress note, and it is not deemed complete until electronically signed by the appointment provider. Sign off status: Pending * Provider:?Ninfa Vargas DPM Date:? Generated for Ward coppola/Kalyani/eTransmitting on:?01/07/2025 01:32 PM EST
--- OUTSIDE RECORDS SUMMARY | 2025-01-07 13:32 | XMS_ITS | Patient Health Record ---
Author Organization [facility] Yair carl [facility] Address [address] [facility] [place] [address] Care Team Providers Care Employment Service Specialist Name Role Phone Nito Newell MD Primary Care Provider UnavailNinfa Araiza Unavailable [phone] Aj Ariza Unavailable [phone] Allergies No Known Allergies Reason For Referral No Information Medications Medication SIG (Take, Route, Frequency, Duration) Notes Start Date End Date Status hydrOXYzine HCl 25 MG Oral for 28 Days Active Dicyclomine HCl 10 MG Oral for 20 Days Active Fiber Therapy Laxative 10/02/2023 Active Chlorhexidine Gluconate 0.12 % Mouth/Throat for 14 Days Active Codeine 10/02/2023 Active traMADol HCl 50 MG Oral for 20 Days Active Symbicort 160-4.5 MCG/ACT Inhalation for 30 Days Not-Taking Centrum Men - as directed Orally 10/02/2023 Active chlorproMAZINE HCl 25 MG Oral for 15 Days Not-Taking Lenalidomide 5 MG Oral for 21 Days Active Hydrocortisone Junito-Aloe Vera 10/02/2023 Not-Taking LORazepam 0.5 MG Oral for 10 Days Active Ondansetron 8 MG Oral for 20 Days Not-Taking Gabapentin 300 MG 1 capsule Orally Onc e a day as needed for 30 days 05/20/2024 Active Aspirin 325 MG 1 tablet Orally Once a day for 30 day(s) 10/02/2023 Active Cephalexin 500 MG 1 capsule Orally Fou r times a day for 5 day(s) 10/02/2023 Not-Taking Zolpidem Tartrate 10 MG 1 tablet at bedt gómez as needed Orally Once a day 10/02/2023 Active Zithromax Active Acyclovir 400 MG Oral for 30 Days Active traZODone HCl 50 MG Oral for 28 Days Active Augmentin Active Zenpep 30854-11011 UNIT as directed Orally 023 Active Primidone 50 MG 1 tablet Orally Once a day for 30 day(s) 10/02/2023 Active Tamsulosin HCl 0.4 MG Oral for 28 Days Active Metoprolol Succinate ER 50 MG Oral for 28 Days Active busPIRone HCl 15 MG Oral for 30 Days Active Myrbetriq 25 MG Oral for 30 Days Active OXcarbazepine 300 MG Oral for 28 Days Active Ipratropium [place] 0.06 % Nasal for 30 Days Active Loratadine 10 MG 1 tablet Orally Once a day for 30 day(s) 10/02/2023 Active Social History Tobacco Use: Social History Observation Description Date Details (start date - stop date) Never Smoker NA - NA Tobacco Use/Smoking Question Answer Notes Are you a: nonsmoker Additional Findings: Tobacco Non-User Current no n-smoker Alcohol Screen Question Answer Notes Did you have a drink containing alcohol in the p ast year? No Points 0 Interpretation Negative Tobacco use other than smoking: Question Answer Notes Are you an other tobacco user? No Problems Problem Type SNOMED Code ICD Code Onset Dates Problem Status W/U Status Risk Notes Problem [id number] Neuritis of right foot (G57.91) Active confirmed Problem Mononeuropathy of lower limb (627673169) Neuritis of left foot (G57.92) Active confirmed Vital Signs Height 5ft 10in in 06/24/2024 Weight 176 lbs 06/24/2024 BMI 25.25 kg/m2 06/24/2024 Encounters Encounter Location Date [facility] [address] [address] 12/16/2024 Ninfa Vargas [address] [address] 01/15/2024 Ninfa Vargas Ingrown nail L60.0 ; Cellulitis of toe of left foot L03.032 ; Tinea unguium B35.1 ; Pain in right toe(s) M79.674 and Pain in left toe(s) M79.[address] [facility] [address] 03/25/2024 Ninfa Perica Tinea unguium B35.1 ; Pain in right toe(s) M79.674 and Pain in left toe(s) M79.[address] [place] [address] 05/03/2024 Ninfa Perica Pain in left foot M79.672 ; Neuritis of left foot G57.92 ; Neuritis of right foot G57.91 and Pain in right foot M79.[address] [place] [address] 06/24/2024 Ninfa Perica Pain in left foot M79.672 ; Neuritis of left foot G57.92 ; Neuritis of right foot G57.91 ; Pain in right foot M79.671 ; Tinea unguium B35.1 ; Pain in right toe(s) M79.674 and Pain in left toe(s) M79.[address] [address] 01/12/2024 Ninfa Perica [address] [address] 01/13/2024 [facility] [address] 05/03/2024 Ninfa Perica [address] [address] 05/19/2024 Ninfa Perica [facility] [address] 09/23/2024 Ninfa Perica Assessments Encounter Date Diagnosis (ICD Code) Assessment Notes Treatment Notes Treatment Clinical Notes Section Notes 01/15/2024 Ingrown nail (ICD-10 - L60.0) 01/15/2024 Cellulitis of toe of left foot (ICD-10 - L03.032) 03/25/2024 Tinea unguium (ICD-10 - B35.1) 03/25/2024 Pain in right toe(s) (ICD-10 - M79.674) 05/03/2024 Pain in left foot (ICD-10 - M79.672) 05/03/2024 Neuritis of left foot (ICD-10 - G57.92) 06/24/2024 Pain in left foot (ICD-10 - M79.672) 05/03/2024 Neuritis of right foot (ICD-10 - G57.91) 03/25/2024 Pain in left toe(s) (ICD-10 - M79.675) 01/15/2024 Tinea unguium (ICD-10 - B35.1) 06/24/2024 Neuritis of left foot (ICD-10 - G57.92) 06/24/2024 Neuritis of right foot (ICD-10 - G57.91) 01/15/2024 Pain in right toe(s) (ICD-10 - M79.674) 05/03/2024 Pain in right foot (ICD-10 - M79.671) 01/15/2024 Pain in left toe(s) (ICD-10 - M79.675) 06/24/2024 Pain in right foot (ICD-10 - M79.671) 06/24/2024 Tinea unguium (ICD-10 - B35.1) 06/24/2024 Pain in right toe(s) (ICD-10 - M79.674) 06/24/2024 Pain in left toe(s) (ICD-10 - M79.675) Plan Of Treatment No Information Insurance Providers Payer Name Payer Address Payer Phone Subscriber Number Group Number Insured Name Patient Relationship to Insured Coverage Start Date Coverage End Date Medicare National Govt Svcs Inc [address] [place] [address] [id number] Storm Garcia Self - patient is the insured Medical (General) History Medical History History ICD Code Anxiety Arthritis High blood pressure Multiple Myloma Joint implants/screws Cancer blood Surgical History Surgery Date(Month/Year) Right Knee 08/17/2021 left knee 2007 plate and mesha in neck 2013
--- OUTSIDE RECORDS SUMMARY | 2025-01-07 13:32 | XMS_ITS | Clinical Summary ---
Author Organization [facility] Address [address] [place] [address] Care Team Providers Care Master Planner Name Role Phone Name, Alejandro VILLALBA Primary Care Provider [phone] Social History Tobacco Use Types Packs/Day Years Used Date Smoking Tobacco: Never Assessed Sex and Gender Information Value Date Recorded Sex Assigned at Not on file Legal Sex Male 11:20 PM EST Gender Identity Not on file Sexual Orientation Not on file Plan of Treatment Health Maintenance Due Date Last Done Comments Zoster Vaccines (1 of 2) 2001 DTaP,Tdap,and Td Vaccines (2 - Td or Tdap) 09/18/2016 09/18/2006 Pneumococcal Vaccine: 50+ Years (2 of 2 - PCV) 02/10/2019 02/10/2018 Abdominal Aortic Aneurysm (AAA) Screen 10/20/2022 Cholesterol Screening (Lipid Panel) 10/20/2022 Colorectal Cancer Screening: Stool Based Tests (FOBT/FIT) 10/20/2022 Depression Screening 10/20/2022 Falls Risk Assessment 10/20/2022 Hepatitis C Screening 10/20/2022 Social Influencers of Health Screening 10/20/2022 Hypertension/CHF/CAD Annual BMP Blood Test 11/02/2022 COVID-19 Vaccine (2023- season) 2024 Influenza Vaccine (#1) 2024 4, 07/21/2013, 09/19/2012, Additional history exists RSV Immunization Patients 60+ Years Old (1 - 1-dose 75+ series) 2026 HIB Vaccines Aged Out No longer eligi ble based on patient's age to complete this topic HPV Vaccines Aged Out No longer eligi ble based on patient's age to complete this topic Hepatitis A Vaccines Aged Out No long er eligible based on patient's age to complete this topic Hepatitis B Vaccines Aged Out No long er eligible based on patient's age to complete this topic IPV Vaccines Aged Out No longer eligi ble based on patient's age to complete this topic MMR Vaccines Aged Out No longer eligi ble based on patient's age to complete this topic Meningococcal ACWY Vaccine Aged Out N o longer eligible based on patient's age to complete this topic Meningococcal B Vacine Aged Out No lo nger eligible based on patient's age to complete this topic RSV Immunization Patients Under 20 months Aged Out No longer eligible based on patient's age to complete this topic Varicella Vaccines Aged Out No longer eligible based on patient's age to complete this topic Care Teams Master Planner Relationship Specialty Start Date End Date Name, MD Alejandro [address] [place] [address] PCP - General Internal Medicine 07/14/12
--- OUTSIDE RECORDS SUMMARY | 2025-01-07 13:32 | XMS_ITS ---
Author Organization [facility] Address [address] [place] [address] Care Team Providers Care Home Health Care Physician Name Role Phone Nito Newell MD Primary Care Provider Ninfa Quinones [phone] REASON FOR VISIT No Show Encounters Encounter Location Date Provider Diagnosis [facility] [address] [place] [address] 09/23/2024 Ninfa Vargas Plan Of Treatment No Information Progress Notes * Storm MARTINEZDOB:[birth year] (74 yo M)Acc No.[id number]:09/23/2024 Patient:?Storm MARTINEZ :1950???Age:73 Y???Sex:Male Address:[address] [place] [address] * true * Date:? Generated for Manueli abdon/Kalyani/eTransmitting on:?01/07/2025 01:32 PM EST
--- OUTSIDE RECORDS SUMMARY | 2025-01-07 13:32 | XMS_ITS ---
Author Organization [facility] Yair carl [place] Address [address] [place] [address] Care Team Providers Care Inspector Technician Name Role Phone Nito Newell MD Primary Care Provider Ninfa Quinones Unavailable [phone] Medications Medication SIG (Take, Route, Frequency, Duration) Notes Start Date End Date Status Dicyclomine HCl 10 MG Oral for 20 Days Active Chlorhexidine Gluconate 0.12 % Mouth/Throat for 14 Days Active Codeine 10/02/2023 Active traMADol HCl 50 MG Oral for 20 Days Active Centrum Men - as directed Orally 10/02/2023 Active Zithromax Active Acyclovir 400 MG Oral for 30 Days Active Lenalidomide 5 MG Oral for 21 Days Active LORazepam 0.5 MG Oral for 10 Days Active Aspirin 325 MG 1 tablet Orally Once a day for 30 day(s) 10/02/2023 Active Augmentin Active Symbicort 160-4.5 MCG/ACT Inhalation for 30 Days Not-Taking chlorproMAZINE HCl 25 MG Oral for 15 Days Not-Taking Hydrocortisone Junito-Aloe Vera 10/02/2023 Not-Taking Ondansetron 8 MG Oral for 20 Days Not-Taking traZODone HCl 50 MG Oral for 28 Days Active Zenpep 66367-22662 UNIT as directed Orally 023 Active Gabapentin 300 MG 1 capsule Orally Onc e a day as needed for 30 days 05/20/2024 Active Cephalexin 500 MG [...] 15 MG Oral for 30 Days Active OXcarbazepine 300 MG Oral for 28 Days Active hydrOXYzine HCl 25 MG Oral for 28 Days Active Fiber Therapy Laxative 10/02/2023 Active Myrbetriq 25 MG Oral for 30 Days Active Ipratropium [place] 0.06 % Nasal for 30 Days Active Loratadine 10 MG 1 tablet Orally Once a day for 30 day(s) 10/02/2023 Active Encounters Encounter Location Date Provider Diagnosis [address] [place] [address] 09/23/2024 Ninfa Vargas Plan Of Treatment No Information Progress Notes * Storm MARTINEZDOB:[birth year] (74 yo M)Acc No.[id number]:09/23/2024 Progress Note Patient:?Storm MARTINEZ Provider:?Ninfa Vargas DPM :1950???Age:73 Y???Sex:Male Scott e:09/23/2024 Address:[address] [place] [address] [facility] Pcp:Nito Newell MD Subjective: * Chief Complaints: * ??? * Medical History:? * Medications:?Taking Augmenti n , Taking Zithromax , Taking Acyclovir 400 [...] 25 MG Tablet Oral , Taking Ipratropium [place] 0.06 % Solution Nasal , Taking Loratadine [...] 50 MG Tablet Oral , Taking Zenpep 679[address] UNIT Capsule Delayed Release Particles as directed Orally , Taking Zolpidem Tartrate 10 MG Tablet 1 tablet at bedtime as needed Orally Once a day , Taking Gabapentin 300 MG Capsule 1 capsule Orally Once a day as needed , Not-Taking/PRN Cephalexin 500 MG Capsule 1 capsule Orally Four times a day , Not-Taking/PRN Hydrocortisone Junito-Aloe Vera , Not-Taking/PRN Ondansetron 8 MG Tablet Disintegrating Oral , Not-Taking/PRN Symbicort 160-4.5 MCG/ACT Aerosol Inhalation , Not-Taking/PRN chlorproMAZINE HCl 25 MG Tablet Oral Objective: * Vitals:? Assessment: Plan: * Treatment: * Images: * The named appointment provid er may or may not be the originator of this progress note, and it is not deemed complete until electronically signed by the appointment provider. Sign off status: Pending * Provider:?Ninfa Vargas DPM Date:?05/2024 Generated for Ward coppola/Kalyani/Raimundo on:?01/07/2025 01:32 PM EST
== END 2025-01-07 13:33 | disposition home or self-care (01) ==
PROVIDERS: PCP Internal Medicine; Visit Provider Hospitalist
DX: J01.90 Acute sinusitis, unspecified (principal); J40 Bronchitis, not specified as acute or chronic; A31.0 Pulmonary mycobacterial infection; J30.9 Allergic rhinitis, unspecified; D84.9 Immunodeficiency, unspecified
CPT/HCPCS: 99214; G2211

== ENCOUNTER → 2025-01-07 13:04 | Outpatient (BNVA) | payer MEDICARE, MEDICAID, SELFPAY | PROVIDERS: PCP Internal Medicine; Visit Provider Hospitalist | DX: J01.90 Acute sinusitis, unspecified (principal); J40 Bronchitis, not specified as acute or chronic; J30.9 Allergic rhinitis, unspecified; A31.0 Pulmonary mycobacterial infection; D84.9 Immunodeficiency, unspecified | CPT/HCPCS: 99212 ==

== ENCOUNTER 2025-01-21 15:35 | Outpatient (REF) | payer MEDICARE, MEDICAID, SELFPAY ==
--- NOTE | ~2025-01-21 | XR_ITS ---
EXAMINATION: XR CHEST 2 VIEWS HISTORY: J40 - Bronchitis, not specified as acute or chronic COMPARISON: Comparison is made with the prior examination dated 09/20/2024. FINDINGS: PA and lateral views of the chest are submitted. The lungs are expanded and clear. There is no pleural effusion, pneumothorax, or pulmonary vascular congestion. The heart is normal in size. There is degenerative disc disease of the spine. XR/XR chest 2V IMPRESSION: No acute cardiopulmonary abnormality. Electronically signed by: Temo Jackson MD 01/24/2025 03:14 PM EDT
--- OUTSIDE RECORDS SUMMARY | 2025-01-21 17:06 | XMS_ITS | Encounter Summary ---
Author Organization [facility] Address [address] [place] [address] Care Team Providers Care Hair Dresser Name Role Phone Name, Alejandro VILLALBA Primary Care Provider Unavailabl e Community, Pcp Primary Care Provider Unavailabl e Name, Alejandro VILLALBA Primary Care Provider Unavailabl e Encounter Details Date Type Department Care Team Description 03/14/2014 Orders Only Adult Medicine [address] [address] Oksana Tovar DO Microscopic hematuria (Primary Dx) Social History Tobacco Use Types Packs/Day Years Used Date Smoking Tobacco: Never Smokeless Tobacco: Never Alcohol Use Standard Drinks/Week Comments No 0 (1 standard drink = 0.6 oz pur e alcohol) quit 2008 Sex Assigned at Date Recorded Not on file documented as of this encounter Plan of Treatment Not on file documented as of this encounter Results * URINALYSIS, COMPLETE (03/17/2014 12:39 PM EDT) SPECIFIC GRAVITY, URINE 1.025 1.005 - 1.030 03/17/2014 1:22 PM EDT [facility] PH, URINE 6.0 5 - 8 03/17/2014 1:22 PM EDT [facility] PROTEIN, URINE TRACE <=TRACE mg/dL 03/17/2014 1:22 PM EDT [facility] GLUCOSE, URINE (UA) NEGATIVE NEGATIVE mg/dL 03/17/2014 1:22 PM EDT [facility] KETONE, URINE NEGATIVE NEGATIVE mg/dL 03/17/2014 1:39 PM EDT [facility] BILIRUBIN URINE NEGATIVE NEGATIVE 03/17/2014 1:39 PM EDT [facility] UROBILINOGEN, URINE 0.2 0.2 - 1.0 E.U./dL 03/17/2014 1:22 PM EDT [facility] BLOOD, URINE NEGATIVE NEGATIVE 03/17/2014 1:22 PM EDT [facility] NITRITE,URINE NEGATIVE NEGATIVE 03/17/2014 1:22 PM EDT [facility] LEUKOCYTE ESTERASE, URINE NEGATIVE NEGATIVE 03/17/2014 1:22 PM EDT [facility] RBC-Urine NONE 0 - 4 /hpf 03/17/2014 2:59 PM EDT [facility] WBC, URINE NONE 0 - 4 /hpf 03/17/2014 2:59 PM EDT [facility] EPITHELIAL CELLS URINE 0-1 0 - 60 03/17/2014 2:59 PM EDT [facility] MUCUS, URINE LIGHT 03/17/2014 2:59 PM EDT [facility] 03/17/2014 12:3 9 PM EDT 03/17/2014 12:38 PM EDT Oksana Grayson DO LAB Performing Organization Address City/State/[facility] Co de Phone Number [facility] [address] [facility] documented in this encounter Visit Diagnoses Diagnosis Microscopic hematuria- Primary Microscopic hematuria documented in this encounter Care Teams Hair Dresser Relationship Specialty Start Date End Date Alejandro Li MD PCP - General Internal Medicine 02/09/14 12/21/15 [facility], Pcp PCP - General Internal Medicine 12/22/15 12/27/15 Alejandro Li MD PCP - General Internal Medicine 12/28/15 documented as of this encounter
--- OUTSIDE RECORDS SUMMARY | 2025-01-21 17:06 | XMS_ITS | Patient Health Record ---
Author Organization [facility] Yair carl [place] Address [address] [facility] [place] [address] Care Team Providers Care Oven Tender Name Role Phone Nito Newell MD Primary Care Provider UnavailNinfa Araiza Unavailable [phone] Aj Ariza Unavailable [phone] Allergies No Known Allergies Reason For Referral No Information Medications Medication SIG (Take, Route, Frequency, Duration) Notes Start Date End Date Status chlorproMAZINE HCl 25 MG Oral for 15 Days Not-Taking Symbicort 160-4.5 MCG/ACT Inhalation for 30 Days Not-Taking Ondansetron 8 MG Oral for 20 Days Not-Taking Night Splint AFO - L1930 1 wear at rest for 30 days Active Hydrocortisone Junito-Aloe Vera 10/02/2023 Not-Taking Revlimid 5 MG Oral for 28 Days Active Loratadine 10 MG 1 tablet Orally Once a day for 30 day(s) 10/02/2023 Active Medrol makenzie 4mg as directed orally a s directed for 6 days 01/11/2025 Active Ipratropium [place] 0.06 % Nasal for 30 Days Active Zithromax Active hydrOXYzine HCl 25 MG Oral for 28 Days Active Augmentin Active busPIRone HCl 15 MG Oral for 30 Days Active Metoprolol Succinate ER 50 MG Oral for 28 Days Active OXcarbazepine 300 MG Oral for 28 Days Active Myrbetriq 25 MG Oral for 30 Days Active traZODone HCl 50 MG Oral for 28 Days Active Tamsulosin HCl 0.4 MG Oral for 28 Days Active Primidone 50 MG 1 tablet Orally Once a day for 30 day(s) 10/02/2023 Active Acyclovir 400 MG Oral for 30 Days Active traMADol HCl 50 MG Oral for 20 Days Active LORazepam 0.5 MG Oral for 10 Days Active Lenalidomide 5 MG Oral for 21 Days Active Aspirin 325 MG 1 tablet Orally Once a day for 30 day(s) 10/02/2023 Active Dicyclomine HCl 10 MG Oral for 20 Days Active Codeine 10/02/2023 Active Chlorhexidine Gluconate 0.12 % Mouth/Throat for 14 Days Active Centrum Men - as directed Orally 10/02/2023 Active Cephalexin 500 MG 1 capsule Orally Fou r times a day for 5 day(s) 10/02/2023 Not-Taking Gabapentin 300 MG 1 capsule Orally Onc e a day as needed for 30 days 05/20/2024 Active Zolpidem Tartrate 10 MG 1 tablet at bedt gómez as needed Orally Once a day 10/02/2023 Active Fiber Therapy Laxative 10/02/2023 Active Zenpep 91816-[address]17 UNIT as directed Orally 023 Active Social History Tobacco Use: Social History [...] Problem Status W/U Status Risk Notes Problem [id number] Neuritis of right foot (G57.91) Active confirmed Problem Mononeuropathy of lower limb (465522437) Neuritis of left foot (G57.92) Active confirmed Problem Plantar fasciitis of left foot (56450705245294950) Plantar fasciitis of left foot (M72.2) Active confirmed Problem Interstitial myositis (81081916) Interstitial myositis of left foot (M60.172) Active confirmed Vital Signs Blood pressure diastolic 70 mm Hg 01/11/2025 Height 5gy60oh in 01/11/2025 Blood pressure systolic 120 mm Hg 01/11/2025 Weight 172 lbs 01/11/2025 BMI 24.68 kg/m2 01/11/2025 Encounters Encounter Location Date Provider Diagnosis [facility] [address] [place] [address] 03/25/2024 Ninfa Perica Tinea unguium B35.1 ; Pain in right toe(s) M79.674 and Pain in left toe(s) M79.675 [facility] [address] [place] [address] 05/03/2024 Ninfa Perica Pain in left foot M79.672 ; Neuritis of left foot G57.92 ; Neuritis of right foot G57.91 and Pain in right foot M79.671 [facility] [address] [place] [address] 06/24/2024 Ninfa Perica Pain in left foot M79.672 ; Neuritis of left foot G57.92 ; Neuritis of right foot G57.91 ; Pain in right foot M79.671 ; Tinea unguium B35.1 ; Pain in right toe(s) M79.674 and Pain in left toe(s) M79.[address] [facility] [address] 01/11/2025 Ninfa Perica Pain in left foot M79.672 ; Plantar fasciitis of left foot M72.2 ; Calcaneal spur, left foot M77.32 ; Interstitial myositis of left foot M60.172 and Bursitis of left foot M77.[address] [address] 05/03/2024 [facility] [address] [place] [address] 05/19/2024 Ninfa Perica [facility] [address] 09/23/2024 Ninfa [facility] [address] 01/11/2025 [facility] [address] [facility] [place] [address] 01/13/2025 [facility] [address] [place] [address] 01/17/2025 Ninfa Vargas [facility] [place] [address] [facility] [address] [place] [address] 01/17/2025 Ninfa [facility] [place] [address] [place] [address] 01/19/2025 Ninfa Worley Encounter Date Diagnosis (ICD Code) Assessment Notes Treatment Notes Treatment Clinical Notes Section Notes 03/25/2024 Tinea unguium (ICD-10 - B35.1) 03/25/2024 Pain in right toe(s) (ICD-10 - M79.674) 05/03/2024 Pain in left foot (ICD-10 - M79.672) 05/03/2024 Neuritis of left foot (ICD-10 - G57.92) 06/24/2024 Pain in left foot (ICD-10 - M79.672) 01/11/2025 Pain in left foot (ICD-10 - M79.672) 01/11/2025 Plantar fasciitis of left foot (ICD-10 - M72.2) Patient Educated with: HEEL CORD STRETCHES.pdf (HEEL CORD STRETCHES.pdf) Patient Educated with: RICE THERAPY.pdf (RICE THERAPY.pdf) 01/11/2025 Calcaneal spur, left foot (ICD-10 - M77.32) 06/24/2024 Neuritis of left foot (ICD-10 - G57.92) 05/03/2024 Neuritis of right foot (ICD-10 - G57.91) 03/25/2024 Pain in left toe(s) (ICD-10 - M79.675) 05/03/2024 Pain in right foot (ICD-10 - M79.671) 06/24/2024 Neuritis of right foot (ICD-10 - G57.91) 01/11/2025 Interstitial myositis of left foot (ICD-10 - M60.172) 06/24/2024 Pain in right foot (ICD-10 - M79.671) 01/11/2025 Bursitis of left foot (ICD-10 - M77.52) 06/24/2024 Tinea unguium (ICD-10 - B35.1) 06/24/2024 Pain in right toe(s) (ICD-10 - M79.674) 06/24/2024 Pain in left toe(s) (ICD-10 - M79.675) Plan Of Treatment Pending Test Test Name Order Date X ray : Foot, left 3V 01/11/2025 Next Appt Details Provider Name:Ninfa levy, 03/14/2025 02:30:00 PM, [address] [place] [address], [place], [address], Insurance Providers Payer Name Payer Address Payer Phone Subscriber Number Group Number Insured Name Patient Relationship to Insured Coverage Start Date Coverage End Date Medicare National Govt Svcs Inc [address] [place] [address] [id number] Storm Garcia Self - patient is the insured Medical (General) History Medical History History ICD Code Anxiety Arthritis High blood pressure Multiple Myloma Joint implants/screws Cancer blood Surgical History Surgery Date(Month/Year) Right Knee 08/17/2021 left knee 2007 plate and mesha in neck 2012
--- OUTSIDE RECORDS SUMMARY | 2025-01-21 17:06 | XMS_ITS | Encounter Summary ---
Author Organization [facility] Address [address] [place] [address] Care Team Providers Care Retail Shift Leader Name Role Phone Alejandro Li MD Primary Care Provider Unavailabl e Community, Pcp Primary Care Provider Unavailabl e Alejandro Li MD Primary Care Provider Unavailabl e Encounter Details Date Type Department Care Team Description 03/17/2014 Refill Adult Medicine [address] [address] NameAlejandro MD Social History Tobacco Use Types Packs/Day Years Used Date Smoking Tobacco: Never Smokeless Tobacco: Never Alcohol Use Standard Drinks/Week Comments No 0 (1 standard drink = 0.6 oz pur e alcohol) quit 2008 Sex Assigned at Date Recorded Not on file documented as of this encounter Plan of Treatment Not on file documented as of this encounter Visit Diagnoses Not on filedocumented in this encounter Care Teams Retail Shift Leader Relationship Specialty Start Date End Date Alejandro Li MD PCP - General Internal Medicine 02/09/14 12/21/15 [facility], Pcp PCP - General Internal Medicine 12/22/15 12/27/15 Alejandro Li MD PCP - General Internal Medicine 12/28/15 documented as of this encounter
--- OUTSIDE RECORDS SUMMARY | 2025-01-21 17:06 | XMS_ITS | Encounter Summary ---
Author Organization [facility] Address [address] [place] [address] Care Team Providers Care Fbi Sharpshooter Name Role Phone Valarie Santacruz DO Primary Care Provider Unavail able Name, Alejandro VILLALBA Primary Care Provider Unavailabl e Community, Pcp Primary Care Provider Unavailabl e Name, Alejandro VILLALBA Primary Care Provider Unavailabl e Reason for Visit * Reason Onset Date Comments Provider Call Back 02/01/2014 Encounter Details Date Type Department Care Team Description 02/01/2014 Telephone Adult Medicine [address] [address] Valarie Santacruz DO Provider Call Back Social History Tobacco Use Types Packs/Day Years Used Date Smoking Tobacco: Never Smokeless Tobacco: Never Alcohol Use Standard Drinks/Week Comments No 0 (1 standard drink = 0.6 oz pur e alcohol) quit 2008 Sex Assigned at Date Recorded Not on file documented as of this encounter Miscellaneous Notes * Telephone Encounter - Kelli Hill R.N. - 02/01/2014 3:08 PM EDT Pt wants to discuss why he is being dismissed from practice,he will write a letter to the non compliance committee and ask for reconsideration detailing the reasons he was not able to make appointments. He will bring that letter in and see if they will re instate him/ * Telephone Encounter - Alejandro Li MD - 02/01/2014 2:49 PM EDT Kelli can you call this patient * Telephone Encounter - Maryse Strauss - 02/01/2014 1:50 PM EDT Caller requesting call back from provider: Rea Santacruz MD Is the caller the patient? YES If caller is not the patient, what is the callers name? N/A Callers relationship to patient? N/A If person calling is not the patient themselves, is there a verbal release in FYI or permanent comments for this person: Reason for call back: Pt requesting to speak with Dr pato, pt is aware he is no longer listed as his PCP, pt states he still wishes to speak with him, pt states it is personal. Caller offered to speak with the nurse for assistance: YES Response: Patient offered to speak with nurse for assistance and patient agreed. Message forwarded to nurse. documented in this encounter Plan of Treatment Not on file documented as of this encounter Visit Diagnoses Not on filedocumented in this encounter Care Teams Fbi Sharpshooter Relationship Specialty Start Date End Date Valarie Santacruz DO PCP - General Internal Medicine 02/01/14 02/08/14 Alejandro Li MD PCP - General Internal Medicine 02/09/14 12/21/15 [facility] PCP - General Internal Medicine 12/22/15 12/27/15 Alejandro Li MD PCP - General Internal Medicine 12/28/15 documented as of this encounter
--- OUTSIDE RECORDS SUMMARY | 2025-01-21 17:06 | XMS_ITS ---
Author Organization [facility]hartha [place] Address [address] [place] [address] Care Team Providers Care Bread Slicer Machine Name Role Phone Nito Newell MD Primary Care Provider Ninfa Quinones [phone] REASON FOR VISIT severe heel pain Encounters Encounter Location Date Provider Diagnosis [address] [address] 01/19/2025 Ninfa Vargas Plan Of Treatment Next Appt Details Provider Name:Ninfa levy, 03/14/2025 02:30:00 PM, [address] [place] [address] [place], [address], Progress Notes * Storm MARTINEZDOB:[birth year] (74 yo M)Acc No.[id number]:01/19/2025 Patient:?Storm MARTINEZ :1950???Age:74 Y???Sex:Male Address:[facility] [place] [address] * true * Date:? Generated for Manueli abdon/Kalyani/eTransmitting on:?01/21/2025 05:06 PM EST
--- OUTSIDE RECORDS SUMMARY | 2025-01-21 17:06 | XMS_ITS | Encounter Summary ---
Author Organization [facility] Address [address] [place] [address] Care Team Providers Care Airport Tower Controller Name Role Phone Name, Alejandro VILLALBA Primary Care Provider Unavailabl e [facility], Pcp Primary Care Provider Unavailabl e Alejandro Whyte MD Primary Care Provider Unavailabl e Reason for Visit * Reason Onset Date Comments other 01/03/2015 Encounter Details Date Type Department Care Team Description 01/03/2015 Telephone Adult [address] [address] Alejandro Whyte MD other Social History Tobacco Use Types Packs/Day Years Used Date Smoking Tobacco: Never Smokeless Tobacco: Never Alcohol Use Standard Drinks/Week Comments No 0 (1 standard drink = 0.6 oz pur e alcohol) quit 2008 Sex Assigned at Date Recorded Not on file documented as of this encounter Miscellaneous Notes * Telephone Encounter - Juliana Mendioal M.A. - 01/16/2015 3:36 PM EST [phone] (home) [phone] (work) Left a message for the patient to return my call. * Telephone Encounter - Alejandro Whyte MD - 01/13/2015 4:30 PM EST Done, I will put the order in, please tell him. * Telephone Encounter - Dorene Rohit - 01/13/2015 3:01 PM EST Patient is still waiting for a call back from Alejandro Whyte. Please call him today. * Telephone Encounter - Lynda Linn - 01/03/2015 1:22 PM EST Yes I called him and told him . * Telephone Encounter - Bettie Hinkle M.A. - 01/03/2015 1:19 PM EST Is pt aware that dr whyte is out of the office til Friday? * Telephone Encounter - Essence Mcgregor - 01/03/2015 1:12 PM EST Pt would like to know if dr whyte will refer him to get MRI done at [facility] in [place] because they have an open MRI. Pt is claustrophobic, he tried getting it done here but couldn't do it because of that. Please call him and let him know if this is ok. documented in this encounter Plan of Treatment Not on file documented as of this encounter Visit Diagnoses Diagnosis Vertigo- Primary Dizziness and giddiness documented in this encounter Care Teams Airport Tower Controller Relationship Specialty Start Date End Date Alejandro Whyte MD PCP - General Internal Medicine 02/09/14 12/21/15 [facility], Pcp PCP - General Internal Medicine 12/22/15 12/27/15 Alejandro Whyte MD PCP - General Internal Medicine 12/28/15 documented as of this encounter
--- OUTSIDE RECORDS SUMMARY | 2025-01-21 17:07 | XMS_ITS | Encounter Summary ---
Author Organization [facility] Address [address] [place] [address] Care Team Providers Care Lumber Sticker Name Role Phone Name, Alejandro VILLALBA Primary Care Provider Unavailabl e Community, Pcp Primary Care Provider Unavailabl e Name, Alejandro VILLALBA Primary Care Provider Unavailabl e Reason for Visit * Reason Onset Date Comments Call-returning From Provider 01/16/2015 Encounter Details Date Type Department Care Team Description 01/16/2015 Telephone Adult [address] [address] Name, MD Alejandro Call-returning From Provider Social History Tobacco Use Types Packs/Day Years Used Date Smoking Tobacco: Never Smokeless Tobacco: Never Alcohol Use Standard Drinks/Week Comments No 0 (1 standard drink = 0.6 oz pur e alcohol) quit 2008 Sex Assigned at Date Recorded Not on file documented as of this encounter Miscellaneous Notes * Telephone Encounter - Juliana Mendiola M.A. - 01/16/2015 4:55 PM EST [phone] (home) [phone] (work) Left a message on the voice machine for the patient to return my call tomorrow. The patient was sent a letter on 01/16/15 with the information of his MRI appt. * Telephone Encounter - Violette Graham - 01/16/2015 4:29 PM EST Pt calling back for Juliana * Telephone Encounter - Bettie Hinkle M.A. - 01/16/2015 4:22 PM EST Please add this message to the already open msg (01/03/15)that juliana left a message for ptso she will know he called back * Telephone Encounter - Violette Graham - 01/16/2015 3:55 PM EST The pt returning a call from Dr Li's nurse Juliana documented in this encounter Plan of Treatment Not on file documented as of this encounter Visit Diagnoses Not on filedocumented in this encounter Care Teams Lumber Sticker Relationship Specialty Start Date End Date Alejandro Li MD PCP - General Internal Medicine 02/09/14 12/21/15 [facility] PCP - General Internal Medicine 12/22/15 12/27/15 Alejandro Li MD PCP - General Internal Medicine 12/28/15 documented as of this encounter
--- OUTSIDE RECORDS SUMMARY | 2025-01-21 17:07 | XMS_ITS | Encounter Summary ---
Author Organization [facility] Address [address] [place] [address] Care Team Providers Care Cloth Grader Name Role Phone Name, Alejandro VILLALBA Primary Care Provider Unavailabl e Community, Pcp Primary Care Provider Unavailabl e Name, Alejandro VILLALBA Primary Care Provider Unavailabl e Encounter Details Date Type Department Care Team Description 10/04/2014 Voice Instructor Report Medical Records [address] [place] [address] Temo Cash Social History Tobacco Use Types Packs/Day Years [...] on filedocumented in this encounter Care Teams Cloth Grader Relationship Specialty Start Date End Date Alejandro Li MD PCP - General Internal Medicine 02/09/14 12/21/15 Community, Pcp PCP - General Internal Medicine 12/22/15 12/27/15 Alejandro Li MD PCP - General Internal Medicine 12/28/15 documented as of this encounter
--- OUTSIDE RECORDS SUMMARY | 2025-01-21 17:07 | XMS_ITS | Clinical Summary ---
Author Organization [facility] Address [address] [place] [address] Care Team Providers Care Hop Weigher Name Role Phone Name, Alejandro VILLALBA Primary Care Provider [phone] Social History Tobacco Use Types Packs/Day Years [...] Annual BMP Blood Test 11/02/2022 COVID-19 Vaccine ( season) 2024 Influenza Vaccine (#1) 2024 4, [...] age to complete this topic Care Teams Hop Weigher Relationship Specialty Start Date End Date Name, MD Alejandro [address] [place] [address] PCP - General Internal Medicine 07/14/12
--- OUTSIDE RECORDS SUMMARY | 2025-01-21 17:07 | XMS_ITS | Encounter Summary ---
Author Organization [facility] Address [address] [place] [address] Care Team Providers Care Lumber Press Operator Name Role Phone Name, Alejandro VILLALBA Primary Care Provider Unavailabl e Community, Pcp Primary Care Provider Unavailabl e Name, Alejandro VILLALBA Primary Care Provider Unavailabl e Encounter Details Date Type Department Care Team Description 09/21/2014 Inventory Taker Report Medical Records [address] [place] [address] Thiago Romero PA-C Social History Tobacco Use Types Packs/Day Years [...] filedocumented in this encounter Care Teams Lumber Press Operator Relationship Specialty Start Date End Date Alejandro Li MD PCP - General Internal Medicine 02/09/14 12/21/15 [facility], Pcp PCP - General Internal Medicine 12/22/15 12/27/15 Alejandro Li MD PCP - General Internal Medicine 12/28/15 documented as of this encounter
--- OUTSIDE RECORDS SUMMARY | 2025-01-21 17:07 | XMS_ITS | Encounter Summary ---
Author Organization [facility] Address [address] [place] [address] Care Team Providers Care Strategic Communications Specialist Name Role Phone Name, Alejandro VILLALBA Primary Care Provider Unavailabl e Valarie Santacruz DO Primary Care Provider Unavail able Name, Alejandro VILLALBA Primary Care Provider Unavailabl e Community, Pcp Primary Care Provider Unavailabl e Name, Alejandro VILLALBA Primary Care Provider Unavailabl e Encounter Details Date Type Department Care Team Description 01/20/2013 Controlled Substance Contract with Plan Medical Records [address] [place] [id number] Abstract, Provider Social History Tobacco Use Types Packs/Day [...] on filedocumented in this encounter Care Teams Strategic Communications Specialist Relationship Specialty Start Date End Date Alejandro Li MD PCP - General Internal Medicine 07/14/12 01/31/14 Valarie Santacruz DO PCP - General Internal Medicine 02/01/14 02/08/14 Alejandro Li MD PCP - General Internal Medicine 02/09/14 12/21/15 [facility], Pcp PCP - General Internal Medicine 12/22/15 12/27/15 Alejandro Li MD PCP - General Internal Medicine 12/28/15 documented as of this encounter
--- OUTSIDE RECORDS SUMMARY | 2025-01-21 17:07 | XMS_ITS | Encounter Summary ---
Author Organization [facility] Address [address] [place] [address] Care Team Providers Care Machine Setter And Repairer Name Role Phone Name, Alejandro VILLALBA Primary Care Provider Unavailabl e Community, Pcp Primary Care Provider Unavailabl e NameAlejandro MD Primary Care Provider Unavailabl e Encounter Details Date Type Department Care Team Description 11/24/2014 Hospital Medical Records [address] [place] [address] Temo Cash Social History Tobacco Use Types [...] on filedocumented in this encounter Care Teams Machine Setter And Repairer Relationship Specialty Start Date End Date Alejandro Li MD PCP - General Internal Medicine 02/09/14 12/21/15 [facility], Pcp PCP - General Internal Medicine 12/22/15 12/27/15 Alejandro Li MD PCP - General Internal Medicine 12/28/15 documented as of this encounter
--- OUTSIDE RECORDS SUMMARY | 2025-01-21 17:07 | XMS_ITS | Encounter Summary ---
Author Organization [facility] Address [address] [place] [address] Care Team Providers Care Step Down Specialist Name Role Phone Name, Alejandro VILLALBA Primary Care Provider Unavailabl e Encounter Details Date Type Department Care Team Description 06/23/2017 Transfer Records Medical Records [address] [place] [address] Abstract, Provider Social History Tobacco Use Types [...] on filedocumented in this encounter Care Teams Step Down Specialist Relationship Specialty Start Date End Date NameAlejandro MD PCP - General Internal Medicine 12/28/15 documented as of this encounter
--- OUTSIDE RECORDS SUMMARY | 2025-01-21 17:07 | XMS_ITS ---
Author Organization [facility] siddhartha [place] Address [address] [place] [address] Care Team Providers Care Information Tech Name Role Phone Nito Newell MD Primary Care Provider Ninfa Quinones [phone] REASON FOR VISIT Night Splint Encounters Encounter Location Date Provider Diagnosis [address] [address] 01/17/2025 Ninfa Vargas Plan Of Treatment Next Appt Details Provider Name:Ninfa levy, 03/14/2025 02:30:00 PM, [address] [place] [address] [place], [address], Progress Notes * Storm MARTINEZDOB:[birth year] (74 yo M)Acc No.[id number]:01/17/2025 Patient:?Storm MARTINEZ :1950???Age:74 Y???Sex:Male Address:[facility] [place] [address] * true * Date:? Generated for Manueli abdon/Kalyani/eTransmitting on:?01/21/2025 05:07 PM EST
--- OUTSIDE RECORDS SUMMARY | 2025-01-21 17:07 | XMS_ITS | Clinical Summary ---
Author Organization [facility] Address [address] [place] [address] Care Team Providers Care Electroneurodiagnostic Technician Name Role Phone Name, Alejandro VILLALBA Primary Care Provider Unavailabl e Allergies No known active allergies Medications Medication Sig Dispensed Refills Start Date End Date Status loratadine (CLARITIN) 10 MG tabletIndications:Saima tamayo general medical examination at a health care facility,Low back pain radiating to right leg,Post-nasal drip,Need for prophylactic vaccination and inoculation against influenza,Dysphagia,Sh oulder pain, right Take 1 Tab by mouth daily. 0 Active Multiple Vitamin (MULTIVITAMIN OR)Indications:Routine general medical examination at a health care facility,Low back pain radiating to right leg,Post-nasal drip,Need for prophylactic vaccination and inoculation against influenza,Dysphagia,Sh oulder pain, right Po daily 0 Active omeprazole (PRILOSEC) 20 MG capsule TAKE ONE CAPSULE BY MOUTH ONCE DAILY 30 Cap 4 06/20/2015 Active Meclizine HCl 25 MG Tab TAKE ONE TABLET BY MOUTH EVERY 6 HOURS NEEDED 30 Tab 4 06/20/2015 Active fluticasone (FLONASE) 50 MCG/ACT nasal sprayIndications:Nereida argueta general medical examination at a health care facility,Low back pain radiating to right leg,Post-nasal drip,Need for prophylactic vaccination and inoculation against influenza,Dysphagia,Sh oulder pain, right 2 Sprays by Nasal route daily. 1 Bottle 3 08/11/2015 Active propranolol (INDERAL) 10 MG tablet Take 1 Tab by mouth 2 times daily. 60 Tab 5 11/21/2015 Active clonidine (CATAPRES) 0.1 MG tablet 1 Tab daily. 0 03/20/2016 Active ibuprofen (ADVIL,MOTRIN) 800 MG tablet Take 800 mg by mouth every 8 hours as needed. 0 Active hydrOXYzine (VISTARIL) 50 MG capsule 1 Cap at bedtime. 0 04/10/2016 Acti ve gabapentin (NEURONTIN) 600 MG tablet 1 Tab 2 times daily. 0 07/25/2017 Active hydrocodone-acetaminop hen (NORCO) 5-325 MG per tablet 1 tablet every 6 hours as needed. 0 08/18/2017 Active baclofen (LIORESAL) 20 MG tablet 1 Tab 2 times daily. 0 07/25/2017 Active paroxetine (PAXIL) 40 MG tablet 1 Tab daily. 0 07/25/2017 Active tamsulosin (FLOMAX) 0.4 MG 24 hr capsule 1 capsule at bedtime. 0 07/28/2017 Active Active Problems Problem Noted Date Migraine 06/05/2015 Prediabetes 01/18/2015 Microscopic hematuria 03/14/2014 High cholesterol 03/11/2014 Colon polyps 01/18/2013 Bipolar disorder 07/21/2012 Overview: Patient follow with psych in [place] and [place] HTN (hypertension) 07/21/2012 Vertigo 07/21/2012 Heartburn 07/21/2012 Low back pain potentially associated wit h radiculopathy 07/21/2012 Overview: Many years of pain. The patient did not respond to injection and he has an electrical stimulator in place. Patient follows with the [facility] pain management clinic. Dr Cash was the surgeon. 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 Immunizations Name Administration Dates Next Due Influenza (> 6 Months) 2014,2012,09/19/2012, 012 PPD-RBMG 12/15/2013 Pneumovax Adult(PT Reported) 08/07/2015 TD (STATE SUPPLIED FOR ADULT S AND CHILDREN) 09/18/2006 Zostavax (Patient Reported) 08/07/2015 Family History Medical History Relation Name Comments Autoimmune Negative Hx CA Breast Negative Hx CA Colon Negative Hx CA Prostate Negative Hx CAD Negative Hx CHF Negative Hx Cholesterol Level Negative Hx Diabetes Negative Hx Hypertension Negative Hx IL Negative Hx Mental Disorder Negative Hx Sleep Apnea Negative Hx Thyroid Disorder Negative Hx Relation Name Status Comments Brother 1 arthritis Brother 2 Alive Father DJD, [place] Mother CHF, osteoporos is Social History Tobacco Use Types Packs/Day Years Used Date Smoking Tobacco: Never Smokeless Tobacco: Never Alcohol Use Standard Drinks/Week Comments No 0 (1 standard drink = 0.6 oz pur e alcohol) quit 2008 Sex Assigned at Date Recorded Not on file Last Filed Vital Signs Vital Sign Reading Time Taken Comments Blood Pressure 120/70 08/21/2017 1:31 PM EDT Pulse 72 08/21/2017 1:31 PM EDT Temperature 36.6 ??C (97.8 ??F) 10/25/2015 4:04 PM ES T Respiratory Rate 12 08/21/2017 1:31 PM EDT Oxygen Saturation 95% 01/11/2015 10:25 AM EST Inhaled Oxygen Concentration - - Weight 82.7 kg (182 lb 6.4 oz) 08/21/2017 1:31 P M EDT Height 177.8 cm (5' 10 ) 08/21/2017 1:31 PM EDT Body Mass Index 26.17 08/21/2017 1:31 PM EDT Plan of Treatment Health Maintenance Due Date Last Done Comments Covid-19 Vaccine (#1) 03/30/1951 DEPRESSION SCREEN 1963 TOBACCO CHECK/ADVISE 1969 DTAP/TDAP/TD (1 - Tdap) 09/19/2006 09/18/2006 SHINGLES VACCINE (1 of 2) 10/02/2015 FALL RISK ASSESSMENT 2016 PNEUMOCOCCAL VACCINE (1 - PCV) 2016 COLON CANCER SCREENING 10/25/2016 10/25/2015 (Refuse d), 01/08/2013 CHOLESTEROL SCREENING 10/30/2020 10/30/2015 , 02/03/2015, 03/11/2014, Additional history exists INFLUENZA (#1) 2024 2014, 02/2013, 09/19/2012, Additional history exists BMI CHECK/ADVISE 11/17/2024 12/15/2013, 11/25/2013 HEPATITIS C SCREENING Completed 07/21/2013 Care Teams Electroneurodiagnostic Technician Relationship Specialty Start Date End Date Name, MD Alejandro PCP - General Internal Medicine 12/28/15
--- OUTSIDE RECORDS SUMMARY | 2025-01-21 17:07 | XMS_ITS | Clinical Summary ---
Author Organization [facility] Address [address] [place] [address] Care Team Providers Care Atm Technician Name Role Phone Nito Newell MD Primary Care Provider [phone] Allergies No known active allergies Medications Medication [...] Men) Tab Take by mouth. 10/02/2023 Act valentine OXcarbazepine (TRILEPTAL) 300 MG tablet Oral for 28 Days Active pancrelipase, Pau-Dmei-Lnfn, (Zenpep) [address]-[address] Particles capsule Take by [...] Overview (10/19/2024): Patient follow with psych in [place] and [place] Heart murmur 07/21/2012 Overview (10/19/2024): congenital Heartburn [...] age to complete this topic Care Teams Atm Technician Relationship Specialty Start Date End Date Nito Newell MD [address] [place] [address] [place] [address] PCP - General 10/19/24
--- OUTSIDE RECORDS SUMMARY | 2025-01-21 17:07 | XMS_ITS ---
Author Organization [facility] siddhartha [place] Address [address] [place] [address] Care Team Providers Care Supervisor Kosher Dietary Service Name Role Phone Nito Newell MD Primary Care Provider Ninfa Quinones [phone] REASON FOR VISIT Night Splint Encounters Encounter Location Date Provider Diagnosis [facility] [address] [facility] [address] [place] [address] 01/17/2025 Ninfa Vargas Plan Of Treatment Next Appt Details Provider Name:Ninfa levy, 03/14/2025 02:30:00 PM, [address] [facility], [place], [address], Progress Notes * Storm MARTINEZDOB:[birth year] (74 yo M)Acc No.[id number]:01/17/2025 Patient:?Storm MARTINEZ :1950???Age:74 Y???Sex:Male Address:[place] [address] * true * Date:? Generated for Manueli abdon/Kalyani/eTransmitting on:?01/21/2025 05:06 PM EST
--- OUTSIDE RECORDS SUMMARY | 2025-01-21 17:07 | XMS_ITS | Encounter Summary ---
Author Organization [facility] Address [address] [place] [address] Care Team Providers Care Instrumentation Engineer Name Role Phone Name, Alejandro VILLALBA Primary Care Provider Unavailabl e Community, Pcp Primary Care Provider Unavailabl e Name, Alejandro VILLALBA Primary Care Provider Unavailabl e Encounter Details Date Type Department Care Team Description 11/22/2014 Book Packer Report Medical Records [address] [place] [address] Riki Nunez MD Social History Tobacco Use Types Packs/Day [...] on filedocumented in this encounter Care Teams Instrumentation Engineer Relationship Specialty Start Date End Date Alejandro Li MD PCP - General Internal Medicine 02/09/14 12/21/15 [facility], Pcp PCP - General Internal Medicine 12/22/15 12/27/15 Alejandro Li MD PCP - General Internal Medicine 12/28/15 documented as of this encounter
--- OUTSIDE RECORDS SUMMARY | 2025-01-21 17:07 | XMS_ITS | Encounter Summary ---
Author Organization [facility] Address [address] [place] [address] Care Team Providers Care Piano Regulator Inspector Name Role Phone Alejandro Li MD Primary Care Provider Unavailabl e [facility], Pcp Primary Care Provider Unavailabl e Alejandro Li MD Primary Care Provider Unavailabl e Reason for Visit * Reason Onset Date Comments TEST RESULTS 02/07/2015 Encounter Details Date Type Department Care Team Description 02/07/2015 Telephone Adult [address] [address] Alejandro Li MD TEST RESULTS Social History Tobacco Use Types Packs/Day Years Used Date Smoking Tobacco: Never Smokeless Tobacco: Never Alcohol Use Standard Drinks/Week Comments No 0 (1 standard drink = 0.6 oz pur e alcohol) quit 2008 Sex Assigned at Date Recorded Not on file documented as of this encounter Miscellaneous Notes * Telephone Encounter - Zaida Child M.A. - 02/08/2015 12:58 PM EDT STEFANIE Ford called looking for Dr. Li's MA (Juliana), she is not in the office at this time, pt is looking for MRI results done at [facility] on 01/21/15. I called [facility] & requested results be faxed to [phone]. Pt was swearing & threatening the BSR, I advised her to report his inappropiate behavior to pt services. MRI were faxed here and reviewed by Reilly in Dr. Li's absence, MRI cannot explain pt's symptoms, I will call pt. Pt was called and results were given, pt apoligized to me for his inappropiate behavior earlier today. Pt is requesting a ref to Neurology, please advise * Telephone Encounter - Alejandro Li MD - 02/07/2015 3:08 PM EDT I do not have the results. Please try to get the results from the hospital. * Telephone Encounter - Annmarie Alexander - 02/07/2015 1:45 PM EDT Inform patient: ANY URGENT OR ABNORMAL RESULTS WIILL RESULT IN A CALL BACK TO THE PATIENT MISTY. Type of test: :MRI Date test was performed: 01/21/15 Where was the test performed: [facility] Who ordered this test?: Alejandro Name Is the doctor here today?: YES Can the message wait until the doctor returns?: YES IF PATIENT'S PCP IS NOT IN INSTRUCT PATIENT THAT THEY WILL RECEIVE A CALL BACK WHEN THE PCP IS IN THE OFFICE NEXT. documented in this encounter Plan of Treatment Not on file documented as of this encounter Visit Diagnoses Not on filedocumented in this encounter Care Teams Piano Regulator Inspector Relationship Specialty Start Date End Date Alejandro Li MD PCP - General Internal Medicine 02/09/14 12/21/15 [facility], Pcp PCP - General Internal Medicine 12/22/15 12/27/15 Alejandro Li MD PCP - General Internal Medicine 12/28/15 documented as of this encounter
--- OUTSIDE RECORDS SUMMARY | 2025-01-21 17:07 | XMS_ITS | Encounter Summary ---
Author Organization [facility] Address [address] [place] [address] Care Team Providers Care Molder Sweep Name Role Phone Name, Alejandro VILLALBA Primary Care Provider Unavailabl e [facility], Pcp Primary Care Provider Unavailabl e Name, Alejandro VILLALBA Primary Care Provider Unavailabl e Reason for Visit * Reason Onset Date Comments refill request 10/20/2014 Encounter Details Date Type Department Care Team Description 10/20/2014 Refill Adult Medicine [address] [address] Name, MD Alejandro refill request Social History Tobacco Use Types Packs/Day Years Used Date Smoking Tobacco: Never Smokeless Tobacco: Never Alcohol Use Standard Drinks/Week Comments No 0 (1 standard drink = 0.6 oz pur e alcohol) quit 2008 Sex Assigned at Date Recorded Not on file documented as of this encounter Miscellaneous Notes * Telephone Encounter - Bettie Hinkle M.A. - 10/20/2014 1:19 PM EST Script is in ppu since 10/17/14 when it was requested * Telephone Encounter - Chelsea Seay - 10/20/2014 10:52 AM EST Patient would like script to be: PLACED IN PATIENT PIECE MARKER SMALL ARMS WHEN WAS THE PATIENT'S LAST APPOINTMENT IN ADULT MEDICINE? 09/30/14 WHEN WAS THE LAST TIME THE PATIENT SAW THEIR PCP? Same as above Does patient have an upcoming appointment? Yes 02/01/15 (THE MEDICATION REQUESTED IS ON THE MED LIST ABOVE) All of the medications requested were on the CURRENT MEDS list Did you check the Pharmacy information above?: NO Patient wants: 30 -day supply Is this a mail order prescription request ? NO Patients current insurance carrier is: Payor: [employer] FFS / Plan: FFS HMO $0 Funding Profiles [id number] / Product Type: MEDICAID RISK documented in this encounter Plan of Treatment Not on file documented as of this encounter Visit Diagnoses Diagnosis Low back pain radiating to right leg- Primary Lumbago documented in this encounter Care Teams Molder Sweep Relationship Specialty Start Date End Date Alejandro Li MD PCP - General Internal Medicine 02/09/14 12/21/15 [facility], Pcp PCP - General Internal Medicine 12/22/15 12/27/15 Alejandro Li MD PCP - General Internal Medicine 12/28/15 documented as of this encounter
--- OUTSIDE RECORDS SUMMARY | 2025-01-21 17:07 | XMS_ITS | Encounter Summary ---
Author Organization [facility] Address [address] [place] [address] Care Team Providers Care Direct Mail Clerk Name Role Phone Name, Alejandro VILLALBA Primary Care [facility] Primary Care Provider Unavail able Name, Alejandro VILLALBA Primary Care Provider Unavailabl e [facility], Pcp Primary Care Provider Unavailabl e Name, Alejandro VILLALBA Primary Care Provider Unavailabl e Reason for Visit * Reason Onset Date Comments Provider Call Back 03/22/2013 Encounter Details Date Type Department Care Team Description 03/22/2013 Telephone Adult Medicine [address] [address] Name, MD Alejandro Provider Call Back Social History Tobacco Use Types Packs/Day Years Used Date Smoking Tobacco: Never Smokeless Tobacco: Never Alcohol Use Standard Drinks/Week Comments No 0 (1 standard drink = 0.6 oz pur e alcohol) quit 2008 Sex Assigned at Date Recorded Not on file documented as of this encounter Miscellaneous Notes * Telephone Encounter - Juliana Mendiola M.A. - 03/25/2013 9:28 AM EDT [phone] (ronco) Called patient no answer left message on answering machine. I've called patient 3 times to avail. Saez send message to Dr. Li so he could send letter to patient. * Telephone Encounter - Juliana Mendiola M.A. - 03/23/2013 2:38 PM EDT [phone] (ronco) Left message on machine to return my call. * Telephone Encounter - Juliana Mendiola M.A. - 03/22/2013 4:[address] Li sent amoxicillin to patients pharmacy as requested. * Telephone Encounter - Juliana Mendiola M.A. - 03/22/2013 4:43 PM EDT [phone] (home) Called patient no answer left message on machine to return my call. * Telephone Encounter - Alejandro Li MD - 03/22/2013 2:47 PM EDT I will order the medication. This is likely because of his of electrical stimulator placement. * Telephone Encounter - Carito Castano - 03/22/2013 2:09 PM EDT Caller requesting call back from provider: Is the caller the patient? YES If caller is not the patient, what is the callers name? N/A Callers relationship to patient? N/A If person calling is not the patient themselves, is there a verbal release in FYI or permanent comments for this person: YES Reason for call back: Pt is planning on going in for a dental procedure today but he needs to be perscribed amoxicilan? But he forgot to request it until now. He has the appt at 2:30 today. Please call to discuss this with him. He says if he cannot get this in time they may just do xrays at the appt today. Caller offered to speak with the nurse for assistance: YES Response: Patient offered to speak with nurse for assistance and patient agreed. Message forwarded to nurse. documented in this encounter Plan of Treatment Not on file documented as of this encounter Visit Diagnoses Not on filedocumented in this encounter Care Teams Direct Mail Clerk Relationship Specialty Start Date End Date Guillermo, MD Alejandro PCP - General Internal Medicine 07/14/12 01/31/14 Valarie Santacruz DO PCP - General Internal Medicine 02/01/14 02/08/14 NameAlejandro MD PCP - General Internal Medicine 02/09/14 12/21/15 [facility] PCP - General Internal Medicine 12/22/15 12/27/15 Alejandro Li MD PCP - General Internal Medicine 12/28/15 documented as of this encounter
--- OUTSIDE RECORDS SUMMARY | 2025-01-21 17:07 | XMS_ITS | Encounter Summary ---
Author Organization [facility] Address [address] [place] [address] Care Team Providers Care Radio Division Officer Name Role Phone Name, Alejandro VILLALBA Primary Care Provider Unavailabl e Simikic[facility]arie DO Primary Care Provider Unavail able Name, Alejandro VILLALBA Primary Care Provider Unavailabl e [facility], Pcp Primary Care Provider Unavailabl e Name, Alejandro VILLALBA Primary Care Provider Unavailabl e Reason for Visit * Reason Onset Date Comments APPOINTMENT 12/01/2012 Encounter Details Date Type Department Care Team Description 12/01/2012 Telephone Adult [address] [address] Name, MD Alejandro APPOINTMENT Social History Tobacco Use Types Packs/Day Years Used Date Smoking Tobacco: Never Smokeless Tobacco: Never Alcohol Use Standard Drinks/Week Comments No 0 (1 standard drink = 0.6 oz pur e alcohol) quit 2008 Sex Assigned at Date Recorded Not on file documented as of this encounter Miscellaneous Notes * Telephone Encounter - Kelli Hill R.N. - 12/01/2012 1:32 PM EST pt booked for 01/18 at 3:30 * Telephone Encounter - Bere Jaquelin - 12/01/2012 1:15 PM EST Is the caller the patient? YES Reason for call back: patient looking for appt with Dr Li after 01-08-13 appt with GI. His currentappt is before the GI appt. He made change to GI appt. Caller offered to speak with the nurse for assistance: YES Response: Patient offered to speak with nurse for assistance and patient agreed. Message forwarded to nurse. documented in this encounter Plan of Treatment Not on file documented as of this encounter Visit Diagnoses Not on filedocumented in this encounter Care Teams Radio Division Officer Relationship Specialty Start Date End Date Name, MD Alejandro PCP - General Internal Medicine 07/14/12 01/31/14 Valarie Santacruz DO PCP - General Internal Medicine 02/01/14 02/08/14 Alejandro Li MD PCP - General Internal Medicine 02/09/14 12/21/15 [facility] PCP - General Internal Medicine 12/22/15 12/27/15 Alejandro Li MD PCP - General Internal Medicine 12/28/15 documented as of this encounter
--- OUTSIDE RECORDS SUMMARY | 2025-01-21 17:07 | XMS_ITS | Encounter Summary ---
Author Organization [facility] Address [address] [place] [address] Care Team Providers Care Kiln Labourer Name Role Phone Name, Alejandro VILLALBA Primary Care Provider Unavailabl e Encounter Details Date Type Department Care Team Description 09/03/2016 Release of Information Medical Records [address] [place] [id number] Abstract, Provider Social History Tobacco Use Types [...] on filedocumented in this encounter Care Teams Kiln Labourer Relationship Specialty Start Date End Date NameAlejandro MD PCP - General Internal Medicine 12/28/15 documented as of this encounter
--- OUTSIDE RECORDS SUMMARY | 2025-01-21 17:07 | XMS_ITS | Encounter Summary ---
Author Organization [facility] Address [address] [place] [address] Care Team Providers Care Pointer Helper Name Role Phone Name, Alejandro VILLALBA Primary Care Provider Unavailabl e [facility], Pcp Primary Care Provider Unavailabl e Name, Alejandro VILLALBA Primary Care Provider Unavailabl e Encounter Details Date Type Department Care Team Description 11/24/2014 Hospital Medical Records [address] [place] [address] Chris Lama PA-C Social History Tobacco Use Types Packs/Day [...] on filedocumented in this encounter Care Teams Pointer Helper Relationship Specialty Start Date End Date Alejandro Li MD PCP - General Internal Medicine 02/09/14 12/21/15 [facility], Pcp PCP - General Internal Medicine 12/22/15 12/27/15 Alejandro Li MD PCP - General Internal Medicine 12/28/15 documented as of this encounter
== END 2025-01-21 15:36 | disposition home or self-care (01) ==
LOC: HO.XRAY 15:35
PROVIDERS: PCP Internal Medicine; Visit Provider Hospitalist
DX: J40 Bronchitis, not specified as acute or chronic (principal)
CPT/HCPCS: 71046

== ENCOUNTER → 2025-01-21 15:42 | Outpatient (BNV) | payer MEDICARE, MEDICAID, SELFPAY | PROVIDERS: PCP Internal Medicine; Visit Provider Radiology Diagnostic Radiology | DX: J40 Bronchitis, not specified as acute or chronic (principal) | CPT/HCPCS: 71046 ==

== ENCOUNTER 2025-02-07 10:20 | Day surgery (SDC) | payer MEDICARE, MEDICAID, SELFPAY ==
[2025-02-03 13:01] VITALS: BMI 24.3
--- NOTE | 2025-02-04 09:46 | P.CONAN_ITS ---
Documented by User: Adali Garcia NP 02/04/25 09:51 HPI - Anesthesia Eval Consult details Narrative: 74yo M for Upper Endoscopy and Colonoscopy Follows [facility] Pulmo - optimized pre op, the patient does have increased risk for perioperative pulmonary complications. At this time he is medically stable and medically optimized from a pulmonary standpoint. The patient may proceed with anesthesia and EGD/colonoscopy. s/p Bronchoscopy Fiberoptic 09/2024 with GA-LMA 4 Multiple myeloma - follows [facility] onc and [place] Follows [facility] Cardiology for PVCs - stable at 03/2024 office visit [facility] Active Problems Active Problems: All Active Problems Sinusitis (Acute) Bronchitis with wheezing (Acute) Essential hypertension (Acute) Bradycardia (Acute) Multiple myeloma (Chronic) Chronic back pain (Acute) Pancreatic insufficiency (Acute) Chronic diarrhea (Acute) Right knee pain (Acute) Status post total right knee replacement (Acute) IBS (irritable bowel syndrome) (Acute) S/P insertion of spinal cord stimulator (Acute) Spondylosis of lumbar spine (Acute) GERD (gastroesophageal reflux disease) (Acute) Anemia (Acute) Diverticulosis of colon (Acute) Abdominal bloating (Acute) Leukopenia (Chronic) Adenomatous colon polyp (Acute) 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 (Acute) Chronic cough (Acute) Chronic allergic rhinitis (Acute) Diverticulosis of colon (Acute) PVC (premature ventricular contraction) (Acute) Irritable bowel syndrome with constipation and diarrhea (Acute) Thrombosed external hemorrhoids (Acute) Past Medical History Medical History Sinusitis Multiple myeloma Nontuberculous mycobacterial disease of lung History of cardiac murmur Immunodeficiency Chronic cough Chronic allergic rhinitis History of basal cell cancer Hx of skin cancer, basal cell Has a tremor Diverticulosis IBS (irritable colon syndrome) Thrombosed external hemorrhoids Irritable bowel syndrome with constipation and diarrhea PVC (premature ventricular contraction) Diverticulosis of colon History of alcohol abuse Back pain Arthritis Leukopenia Diarrhea OAB (overactive bladder) BPH (benign prostatic hyperplasia) Anxiety Depression Bipolar 1 disorder Seizure disorder Insomnia Heart palpitations Hypertension Family History Family History Maternal Aunt Colon cancer Father No problems noted. Mother No problems noted. Brother No problems noted. Family history of problems with anesthesia: No Surgical History Surgical History History of bone marrow biopsy History of bronchoscopy Hx of right knee surgery Hx of esophagogastroduodenoscopy History of total knee arthroplasty Hx of colonoscopy Hx of cervical spine surgery Hx of bilateral inguinal hernia repair History of total knee arthroplasty History of Problems with Anesthesia: No Social History Social History Household Members: Family Household Members Other:: brother Housing: House Are you a primary child day care center worker to a significant other at home: No Do you presently have visiting nurse or other home services: No Alcohol intake: former Patient Tobacco Use Status: Never used Tobacco Are you DNR?: No Advance Directives: No Advance Directives Information Provided: Yes service: No Current occupational status: disabled Meds Allergies Allergy/AdvReac Type Severity Reaction Status Date / Time No Known Allergies Allergy Verified 02/07/25 10:56 Home Medications ?Medication ?Instructions ?Recorded ?Confirmed ?Last Taken ?Type multivit,Ca,min-iron 8 mg-folic 1 tab PO DAILY 08/17/20 02/03/25 Unknown History acid 200 mcg-lycopene 600 mcg tablet (Centrum Men) primidone 50 mg tablet 1 tab PO BID 08/17/20 02/03/25 05/07/22 History tamsulosin 0.4 mg capsule 1 cap PO BEDTIME 08/17/20 02/03/25 Unknown History trazodone 50 mg tablet 1 tab PO BEDTIME PRN insomnia 08/17/20 02/03/25 Unknown History zolpidem 10 mg tablet 1 tab PO BEDTIME 08/17/20 02/03/25 Unknown History Fiber Therapy Laxative 1 cap PO DAILY 01/24/23 02/03/25 Unknown History oxcarbazepine 300 mg tablet 300 mg PO BID 02/13/23 02/03/25 11/19/23 08:00 History buspirone 15 mg tablet 15 mg PO BID 01/14/24 02/03/25 Unknown History paroxetine HCl 40 mg tablet 40 mg PO DAILY 01/14/24 02/03/25 Unknown History solifenacin 5 mg tablet 5 mg PO DAILY 04/27/24 02/03/25 Unknown History amoxicillin 500 mg tablet 500 mg PO ONCE 02/03/25 02/03/25 Unknown History linaclotide 145 mcg capsule 145 mcg PO Q OTHER DAY 02/03/25 02/03/25 Unknown History Exam Height,Weight and Vital Signs: Height 5 ft 10.5 in Weight 78 kg Pertinent Lab Results Pertinent Lab Results: Laboratory Tests 01/21/25 13:33 WBC 5.3 Hgb 13.1 L Hct 38.9 L Plt Count 156 L Sodium 139 Potassium 4.0 Chloride 102 Carbon Dioxide 29 BUN 18 H Creatinine 1.01 Assessment and Plan Assessment Anesthesia Assessment: Chart Reviewed Final Anesthetic Review Family History of Problems with Anesthesia: No History of Problems with Anesthesia: No Documented by User: Lady Logan MD 02/07/25 11:17 [facility] Past Medical History Medical History Sinusitis Multiple myeloma Nontuberculous mycobacterial disease of lung History of cardiac murmur Immunodeficiency Chronic cough Chronic allergic rhinitis History of basal cell cancer Hx of skin cancer, basal cell Has a tremor Diverticulosis IBS (irritable colon syndrome) Thrombosed external hemorrhoids Irritable bowel syndrome with constipation and diarrhea PVC (premature ventricular contraction) Diverticulosis of colon History of alcohol abuse Back pain Arthritis Leukopenia Diarrhea OAB (overactive bladder) BPH (benign prostatic hyperplasia) Anxiety Depression Bipolar 1 disorder Seizure disorder Insomnia Heart palpitations Hypertension Family History Family History Maternal Aunt Colon cancer Father No problems noted. Mother No problems noted. Brother No problems noted. Surgical History Surgical History History of bone marrow biopsy History of bronchoscopy Hx of right knee surgery Hx of esophagogastroduodenoscopy History of total knee arthroplasty Hx of colonoscopy Hx of cervical spine surgery Hx of bilateral inguinal hernia repair History of total knee arthroplasty Social History Social History Household Members: Family Household Members Other:: brother Housing: House Are you a primary child day care center worker to a significant other at home: No Do you presently have visiting nurse or other home services: No Alcohol intake: former Patient Tobacco Use Status: Never used Tobacco Are you DNR?: No Advance Directives: No Advance Directives Information Provided: Yes service: No Current occupational status: disabled Meds Allergies Allergy/AdvReac Type Severity Reaction Status Date / Time No Known Allergies Allergy Verified 02/07/25 10:56 Home Medications ?Medication ?Instructions ?Recorded ?Confirmed ?Last Taken ?Type multivit,Ca,min-iron 8 mg-folic 1 tab PO DAILY 08/17/20 02/03/25 Unknown History acid 200 mcg-lycopene 600 mcg tablet (Centrum Men) primidone 50 mg tablet 1 tab PO BID 08/17/20 02/03/25 05/07/22 History tamsulosin 0.4 mg capsule 1 cap PO BEDTIME 08/17/20 02/03/25 Unknown History trazodone 50 mg tablet 1 tab PO BEDTIME PRN insomnia 08/17/20 02/03/25 Unknown History zolpidem 10 mg tablet 1 tab PO BEDTIME 08/17/20 02/03/25 Unknown History Fiber Therapy Laxative 1 cap PO DAILY 01/24/23 02/03/25 Unknown History oxcarbazepine 300 mg tablet 300 mg PO BID 02/13/23 02/03/25 11/19/23 08:00 History buspirone 15 mg tablet 15 mg PO BID 01/14/24 02/03/25 Unknown History paroxetine HCl 40 mg tablet 40 mg PO DAILY 01/14/24 02/03/25 Unknown History solifenacin 5 mg tablet 5 mg PO DAILY 04/27/24 02/03/25 Unknown History amoxicillin 500 mg tablet 500 mg PO ONCE 02/03/25 02/03/25 Unknown History linaclotide 145 mcg capsule 145 mcg PO Q OTHER DAY 02/03/25 02/03/25 Unknown History Exam Airway Mallampati Class: II (implant top left tooth) TM Dist: >3cm Neck ROM: Full Heart: rrr Lungs: cta Assessment and Plan Assessment Anesthesia Assessment: Anesthesia Plan Discussed Final Anesthetic Review NPO: Yes ASA Class: II Final Preanesthetic Review: No Changes in Pt Med Stat, Meds/Allgs Chart Reviewed and Consent Obtained/Reviewed Patient Risk: Intermediate Procedure Risk: Intermediate Anesthetic Plan Anesthetic Plan: MAC: Disposition: Standard PACU
[2025-02-07 10:33] VITALS: BMI 24.1
[2025-02-07 10:50] VITALS: BP 121/68; PULSE 67; RESP 18; TEMP 36.5; O2SAT 97
[2025-02-07] MEDS: Lactated Ringers 1,000 ML 100 ML IVCONT (10:54)
--- NOTE | 2025-02-07 11:09 | MHC.SHP ---
Pre-Procedural Eval Section A - 24 Hr Update-Section A only Date of Service: 02/07/25 The patient is an INPATIENT: No The patient has been examined within 24 hours of the surgical procedure. The History & Physical has been completed within 30 days and I have reviewed it.: No Section B - Complete if H&P > 30 days Chief Complaint: Surveillance for colon polyps Relevant Family History (Specify if Yes): Yes Relevant Social History: None Present Medications: see Short Stay Collaborative assessment Medical History: Significant History (Multiple myeloma Nontuberculous mycobacterial disease of lung History of cardiac murmur Immunodeficiency Chronic cough Chronic allergic rhinitis History of basal cell cancer Hx of skin cancer, basal cell Has a tremor Diverticulosis IBS (irritable colon syndrome)) History of Previous Operations: Relevant previous surgery/procedure and date(s) (History of bone marrow biopsy History of bronchoscopy Hx of right knee surgery Hx of esophagogastroduodenoscopy History of total knee arthroplasty Hx of colonoscopy Hx of cervical spine surgery Hx of bilateral inguinal hernia repair History of total knee arthroplasty) Allergies: Allergies Allergy/AdvReac Type Severity Reaction Status Date / Time No Known Allergies Allergy Verified 02/07/25 10:56 Review of Systems Sugical H&P ROS: Negative: Constitution, Cardiovascular, Respiratory and Gastrointestinal Exam Surgical H&P Exam: Normal: Heart, Normal: Lungs, Normal: Extremities and Normal: Abdomen Plan Diagnosis/Plan: Unchanged I have reviewed the history and physical and performed a pertinent physical examination on my patient. No changes have occurred unless specified. Time Spent With Patient Time: Total time managing care of this patient today ____ minutes.
--- NOTE | 2025-02-07 11:56 | HO.OPN-COLON ---
Colonoscopy Operative Note Operative Note Date of Service: 02/07/25 Narrative: FLEXIBLE TRANSORAL UPPER GASTROINTESTINAL ENDOSCOPY WITH BIOPSIES AND ESOPHAGEAL BALLOON DILATION AND COLONOSCOPY TILL CECUM WITH BIOPSIES AND SNARE POLYPECTOMY Pre-op diagnosis: Surveillance for colon polyps, GERD Post-op diagnosis: Hiatal hernia, Schatzki's ring, Gastritis, Colon Polyps, Diverticulosis. Endoscopist:Roosevelt Vallejo MD Anesthesia:?MAC UPPER ENDOSCOPY Consent: Indications for the procedure and potential complications of bleeding, perforation, reaction to medications and missed diagnosis were discussed with the patient and informed consent was obtained. Instrument: Olympus GIF H 190 mid size upper endoscope Monitoring: Vital signs and clinical assessment, continuous EKG monitoring, Pulse oximetry, Carbon Dioxide monitoring and blood pressure monitoring were done throughout the procedure. Procedure: The patient was placed in the left lateral decubitis position and pre-procedure medications were administered and a bite block was placed. The endoscope was inserted into the mouth and advanced under direct vision to the third part of duodenum. A careful inspection was made as the upper endoscope was withdrawn including a retroflexed examination of the proximal stomach; Findings and interventions are described below. Findings: Larynx: Erythema of arytenoid cartilages Esophagus: GE junction at 38 cms, hiatal hernia 38 to 42 cms. Partially obstructing Schatzki's ring at the GE junction - dilated with a 20 mm (60 F) CRE balloon x 60 seconds. No esophagitis or Vides's. Stomach: Moderate diffuse gastric erythema - biopsies were obtained from the antrum. Grade 3 flap valve on retroflexed examination of the cardia. Duodenum: Normal bulb and descending duodenum Intervention: Biopsies as noted above COLONOSCOPY PROCEDURE NOTE Instrument: Olympus CF H 190 L variable stiffness adult colonoscope Monitoring: Vital signs and clinical assessment, intermittent blood pressure monitoring, continuous EKG monitoring, Pulse oximetry and Carbon Dioxide monitoring were done throughout the procedure. Please see anesthesia flowsheet. Colon withdrawl time was 35 minutes. Procedure: The patient was placed in the left lateral decubitis position and pre-procedure medications were administered. After a digital rectal examination of the ano-rectum, the video colonoscope was inserted into the rectum and advanced through the colon to the cecum. The colonoscope was slowly withdrawn in a retrograde panoramic fashion and the colon mucosa was carefully examined including a retroflexed view of the rectum. Findings and interventions are described below. Procedure Difficulty: without difficulty Findings: Terminal Ileum: Not evaluated Cecum: Normal Ascending Colon: Two 5-8 mm sessile polyps - removed with a cold snare and cold biopsy Transverse Colon: Two 5-8 mm sessile polyps - removed with a cold biopsy Descending Colon: Moderate diverticulosis Sigmoid Colon: Moderate diverticulosis Rectum: Normal Ano-rectum: Normal Colon preparation: Good after copious irrigation. [place] Bowel Preparation Scale Right colon; 2 Transverse colon: 2 Left colon; 2 (0 = Unprepared colon segment with mucosa not seen due to solid stool that cannot be cleared. 1 = Portion of mucosa of the colon segment seen, but other areas of the colon segment not well seen due to staining, residual stool and/or opaque liquid. 2 = Minor amount of residual staining, small fragments of stool and/or opaque liquid, but mucosa of colon segment seen well. 3 = Entire mucosa of colon segment seen well with no residual staining, small fragments of stool or opaque liquid) Impression and Post Procedure Diagnosis: Endoscopy Findings: ESOPHAGUS: Hiatal hernia 38 to 42 cms. Partially obstructing Schatzki's ring at the GE junction - dilated to 20 mm (60 F) STOMACH: Diffuse gastritis DUODENUM: Normal Colonoscopy Findings: Four small polyps were removed Moderate diverticulosis seen in the left colon Plan: Pt has a FU appointment on 02/24/[address] Vallejo Repeat Colonoscopy in 3-5 years if polyps are adenomatous and due to a history adenomatous colon polyps Above findings were reviewed with the patient and relevant handouts were given and the discharge area. BIOPSIES SHOWED: A. Stomach, antrum, biopsy: Antral-type and oxyntic mucosa with mild chronic inactive inflammation and focal intestinal metaplasia; negative for dysplasia; no Helicobacter organisms seen. B. Colon, ascending, polypectomy: Fragments of tubular adenoma; negative for high-grade dysplasia or carcinoma. C. Colon, transverse, polypectomy: Fragments of tubular adenoma; negative for high-grade dysplasia or carcinoma Letter sent to the patient advising repeat EGD (FU of gastric intestinal metaplasia) and colonoscopy in 3 years Patient was placed on the colonoscopy recall list.
[2025-02-07 12:46] VITALS: BP 113/48; PULSE 57; RESP 16; TEMP 36.1; O2SAT 99
[2025-02-07 13:00] VITALS: BP 116/45; PULSE 57; RESP 16; O2SAT 97
[2025-02-07 13:15] VITALS: BP 120/52; PULSE 50; RESP 16; TEMP 36.2; O2SAT 98
== END 2025-02-07 13:54 | disposition home or self-care (01) ==
PROVIDERS: PCP Internal Medicine; Visit Provider Internal Medicine Gastroenterology
PROC: (CPT 45385; principal; 2025-02-07 11:50)
DX: Z12.11 Encounter for screening for malignant neoplasm of colon (principal); Z86.0101 Personal history of adenomatous and serrated colon polyps; D12.2 Benign neoplasm of ascending colon; D12.3 Benign neoplasm of transverse colon; K57.30 Diverticulosis of large intestine without perforation or abscess without bleeding; K58.2 Mixed irritable bowel syndrome; K21.9 Gastro-esophageal reflux disease without esophagitis; K22.2 Esophageal obstruction; K29.50 Unspecified chronic gastritis without bleeding; K44.9 Diaphragmatic hernia without obstruction or gangrene; I10 Essential (primary) hypertension; C90.00 Multiple myeloma not having achieved remission; A31.0 Pulmonary mycobacterial infection; D84.9 Immunodeficiency, unspecified; R25.1 Tremor, unspecified; R05.3 Chronic cough; J30.89 Other allergic rhinitis; Z85.828 Personal history of other malignant neoplasm of skin; Z79.899 Other long term (current) drug therapy
CPT/HCPCS: 45385; 45380; 43249; 43239; 88305; 88313; 88342; C1726; J2003; J2704

== ENCOUNTER → 2025-02-07 10:20 | Outpatient (BNV) | payer MEDICARE, MEDICAID, SELFPAY | PROVIDERS: PCP Internal Medicine; Visit Provider Internal Medicine Gastroenterology | DX: Z12.11 Encounter for screening for malignant neoplasm of colon (principal); Z86.0100 Personal history of colon polyps, unspecified; D12.2 Benign neoplasm of ascending colon; D12.3 Benign neoplasm of transverse colon; K57.30 Diverticulosis of large intestine without perforation or abscess without bleeding; K21.9 Gastro-esophageal reflux disease without esophagitis; K22.2 Esophageal obstruction; K29.70 Gastritis, unspecified, without bleeding | CPT/HCPCS: 43239; 43249; 45380; 45385 ==

== ENCOUNTER 2025-02-24 12:27 | Outpatient (AMB) | payer MEDICARE, MEDICAID, SELFPAY ==
[2025-02-24 12:30] VITALS: BP 109/48; PULSE 68; O2SAT 96; BMI 24.2
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
--- OUTSIDE RECORDS SUMMARY | 2025-02-24 14:57 | XMS_ITS | Encounter Summary ---
Author Organization [facility] Address [address] [place] [address] Care Team Providers Care Spray Blender Name Role Phone Name, Alejandro VILLALBA Primary Care Provider Unavailabl e Community, Pcp Primary Care Provider Unavailabl e NameAlejandro MD Primary Care Provider Unavailabl e Encounter Details Date Type Department Care Team Description 06/09/2014 [employer] Report Medical Records [address] [place] [address] Abstract, Provider Social History Tobacco Use Types [...] on filedocumented in this encounter Care Teams Spray Blender Relationship Specialty Start Date End Date Alejandro Li MD PCP - General Internal Medicine 02/09/14 12/21/15 [facility], Pcp PCP - General Internal Medicine 12/22/15 12/27/15 Alejandro Li MD PCP - General Internal Medicine 12/28/15 documented as of this encounter
--- OUTSIDE RECORDS SUMMARY | 2025-02-24 14:57 | XMS_ITS ---
Author Organization [facility] Yair carl Melrose Address [address] [facility] [place] [address] Care Team Providers Care Lvn Lpn Name Role Phone Nito Newell MD Primary Care Provider Ninfa Quinones Unavailable [phone] Allergies No Known Allergies REASON FOR VISIT severe heel pain Medications Medication SIG (Take, Route, Frequency, Duration) Notes Start Date End Date Status chlorproMAZINE HCl 25 MG Oral for 15 Days Not-Taking Hydrocortisone Junito-Aloe Vera 10/02/2023 Not-Taking Cephalexin 500 MG 1 capsule Orally Fou r times a day for 5 day(s) 10/02/2023 Not-Taking Symbicort 160-4.5 MCG/ACT Inhalation for 30 Days Not-Taking Ondansetron 8 MG Oral for 20 Days Not-Taking Revlimid 5 MG Oral for 28 Days Active Medrol makenzie 4mg as directed orally a s directed for 6 days 01/11/2025 Active Night Splint AFO - L1930 1 wear at rest for 30 days Active Gabapentin 300 MG 1 capsule Orally Onc e a day as needed for 30 days 05/20/2024 Active Zolpidem Tartrate 10 MG 1 tablet at bedt gómez as needed Orally Once a day 10/02/2023 Active Walking Boot/Pneumatic As directed Wear Daily for Until further notice 02/17/2025 Active Zenpep 41128-48865 UNIT as directed Orally 023 Active traZODone HCl 50 MG Oral for 28 Days Active Tamsulosin HCl 0.4 MG Oral for 28 Days Active Primidone 50 MG 1 tablet Orally Once a day for 30 day(s) 10/02/2023 Active OXcarbazepine 300 MG Oral for 28 Days Active Myrbetriq 25 MG Oral for 30 Days Not-Taking Loratadine 10 MG 1 tablet Orally Once a day for 30 day(s) 10/02/2023 Active busPIRone HCl 15 MG Oral for 30 Days Active Metoprolol Succinate ER 50 MG Oral for 28 Days Active Fiber Therapy Laxative 10/02/2023 Active Dicyclomine HCl 10 MG Oral for 20 Days Active Ipratropium Davis 0.06 % Nasal for 30 Days Active hydrOXYzine HCl 25 MG Oral for 28 Days Active Codeine 10/02/2023 Not-Takin g LORazepam 0.5 MG Oral for 10 Days Active Lenalidomide 5 MG Oral for 21 Days Active Centrum Men - as directed Orally 10/02/2023 Active traMADol HCl 50 MG Oral for 20 Days Active Chlorhexidine Gluconate 0.12 % Mouth/Throat for 14 Days Active Aspirin 325 MG 1 tablet Orally Once a day for 30 day(s) 10/02/2023 Active Augmentin Active Acyclovir 400 MG Oral for 30 Days Active Zithromax Active Social History Tobacco Use: Social History Observation Description Date Details (start date - stop date) Never Smoker NA - NA Tobacco use other than smoking: Question Answer Notes Are you an other tobacco user? No Tobacco Control (Standard) Question Answer Notes Tobacco use: Nonsmoker Additional Findings: Tobacco non-user Current no nsmoker AUDIT-C (Standard) Question Answer Notes Did you have a drink containing alcohol in the p ast year? No Points 0 Interpretation Negative Problems Problem Type SNOMED Code ICD Code Onset Dates Problem Status W/U Status Risk Notes Problem Plantar fasciitis (953149993) Plantar fasciitis (M72.2) Active confirmed Resistant to previous conservative treatment Vital Signs Blood pressure systolic 120 mm Hg 02/18/20 25 Blood pressure diastolic 70 mm Hg 025 Height 5ft 10in in 02/17/2025 Weight 172 lbs 02/17/2025 BMI 24.68 kg/m2 02/17/2025 Encounters Encounter Location Date Provider Diagnosis [facility] [address] 02/17/2025 Ninfa Perica Pain in left foot M79.672 ; Plantar fasciitis of left foot M72.2 ; Calcaneal spur, left foot M77.32 ; Interstitial myositis of left foot M60.172 ; Bursitis of left foot M77.52 ; Left Achilles tendinitis M76.62 and Neuritis of left foot G57.92 Assessments Encounter Date Diagnosis (ICD Code) Assessment Notes Treatment Notes Treatment Clinical Notes Section Notes 02/17/2025 Pain in left foot (ICD-10 - M79.672) 02/17/2025 Plantar fasciitis of left foot (ICD-10 - M72.2) 02/17/2025 Calcaneal spur, left foot (ICD-10 - M77.32) 02/17/2025 Interstitial myositis of left foot (ICD-10 - M60.172) 02/17/2025 Bursitis of left foot (ICD-10 - M77.52) 02/17/2025 Left Achilles tendinitis (ICD-10 - M76.62) 02/17/2025 Neuritis of left foot (ICD-10 - G57.92) 02/17/2025 Other Patient Educated with: RICE THERAPY.pdf (RICE THERAPY.pdf) Patient Educated with: INJECTIONTHERA PY.pdf (INJECTIONTHER APY.pdf) Plan Of Treatment Medication Medication Name Sig Start Date Stop Date Notes Walking Boot/Pneumatic As directed Wear Daily for Until further notice 02/17/2025 Treatment Notes Assessment Notes Other Patient Educated wit h: RICE THERAPY.pdf (RICE THERAPY.pdf) Patient Educated with: INJECTIONTHERAPY.pdf (INJECTIONTHERAPY.pdf) Pending Test Test Name Order Date MRI : Foot, left 02/17/2025 X ray : Foot, left 3V 02/17/2025 Next Appt Details Follow Up: prn, Reason: afte r MRI Provider Name:Ninfa levy, 03/14/2025 02:30:00 PM, [address] [facility], [place], [address], Procedure Notes * Category Sub-Category Detail Notes Injection Tendon Sheath or Fascia 19258, J 4902 Injection - #1 Left Plantar Fascia w/ mixture of Celestone Soluspan 3mg and 1cc 1 percent Xylocaine Plain anes. utilizing aseptic technique. The patient tolerated the procedure well. A dry sterile dressing was applied. Post injection instructions were dispensed, verbally discussed, and confirmed understood by the patient. SHORT TERM GOAL - I explained that a steroid and local anesthetic injection is to relieve pain and inflammation in order to GROUP HOME GOAL - properly improve function and restore the patient to their prior pain-free activity. I explained the possible complications including but not limited to signs/symptoms of steroid flare, change/deviation in toe position, infection, bruising, atrophy, discoloration of skin, and that additional injections may be necessary in order to achieve the short and machine long goods helper established goals. Patient relates post-procedural pain assessment improved at ( 0-1) out of 10, VACCINATION: Confirmed with patient the absence of vaccination either 2 weeks before or after todays cortisone injection Progress Notes * Storm MARTINEZDOB:[birth year] (74 yo M)Acc No.[id number]:02/17/2025 Progress Note Patient:?Storm MARTINEZ Provider:?Ninfa Vargas DPM :1950???Age:74 Y???Sex:Male Scott e:02/17/2025 Address:[address] [place] [address] [facility] Pcp:Nito Newell MD Subjective: * Chief Complaints: * ???Severe heel pain * HPI: ???Heel pain:?Nature:?aching, tenderness, throbbing, tingling, sharp pain.?Location:?Proximal plantar aspect of Heel, LEFT.?Duration:?two months.?Onset/Cause:?gradual, denies trauma, unknown.?Course:?worse, severe, no improvement with any treatments.?Aggravated:?standing, walking, walking first thing in the morning/after rest, any pressure, shoe gear, hard surfaces, worse at end of the day.?Treatments:?rest/alter normal daily activity , change in shoes, ice, pre-fabricated orthoses, medication ( Medrol ), oral anti-inflammatories, stretching, AFO-nightsplint.?Severity/Quality:?Pre-injection procedure pain assessment - ( 10 ) out of 10.?Misc:?Patient states previous conservative therapy has not provided acceptable relief. Despite previous treatments/efforts, patient continues to relate substantial pain and significant functional disability during activity , The patient denies to have received any vaccine therapy within the past month.? * ROS:?General/Constitutional:?Nausea?denies.?Vomiting?denies.?Hunger Thirst?denies.?Loss appetite?denies.?Chills?denies.?Fatigue?denies.?Fever?denies.?Night Sweats?denies.?Unexplained weight loss?denies.?Unexplained weight gain?denies.?HEENTM:?Dentures?denies.?Dizziness?denies.?Glasses/contacts?admits.?Retinopathy?de nies.?Blurred/double vision?denies.?TMJ?denies.?Discharge/drainage?denies.?Implants?denies.?Sore throat?denies.?Dental implants?denies.?Hard of hearing ?denies.?Difficulty chewing/swallowing/speaking?denies.?Nose bleeds?denies.?Sore mouth?denies.?Respiratory:?On Oxygen?denies.?Pneumonia/pleurisy?denies.?Bronchitis?denies.?Emphysema?denies.?C oughing?denies.?Cough blood?denies.?Shortness of breath?denies.?Wheezing?denies.?Cardiovascular:?Pacemaker?denies.?MVP?denies.?WPW?denies.?CHF?denies.?Heart attack?denies.?Septal defect?denies.?Rapid beat?denies.?Chest pain ?denies.?Atrial Fib.?denies.?Murmur/Palpitations?denies.?Gastrointestinal:?Hemorrhoids?denies.?Stomach/Abdominal pain?denies.?Dark blood stool?denies.?Irritable bowel ?denies.?Constipation?admits.?Diarrhea?denies.?Hematology:?Swelling?denies.?Clots?denies.?Varicose Veins?denies.?Bruising?denies.?Bleeding problem?denies.?Genitourinary:?Blood urine?denies.?Frequent/Painfu/urination/bladder control?denies.?Kidney stones?denies.?Infection (UTI)?denies.?Nephropathy?denies.?sex trans dis (STD)?denies.?Prostate?denies.?Musculoskeletal:?Hammertoes?denies.?Bunions?denies.?Back Pain?denies.?Muscle Cramps/ Resting?denies.?Muscle cramps / walking?denies.?Generalized aches and pains?denies.?Weakness?denies.?Integ.:?Burgess?denies.?Scars?denies.?Corns/calluses?denies.?Ingrown nails?denies.?Painful nails?denies.?Open Sores?denies.?Rashes?denies.?Neurologic:?Difficulty sleeping?denies.?Brain disorder?denies.?Numbness?denies.?Balance trouble?denies.?Confusion?denies.?Fainting/blackouts?denies.?Tingling?denies.?Tr emors?denies.? * Medical History:? * Surgical History:?Right Knee 1left knee 2007plate and mesha in neck 2013 * Hospitalization/Major Diagno stic Procedure:?Denies Past Hospitalization * Family History:?Mother: dece ased, arthritis, cancer, high blood pressure.?Father: , stroke.? * Social History:?Tobacco Use:?Tobacco use other than smoking?Are you an other tobacco user??No ?Tobacco Control (Standard)?Tobacco use:?Nonsmoker ?Additional Findings: Tobacco non-user?Current nonsmoker ???Drugs/Alcohol:?Drugs?Have you used drugs other than those for medical reasons in the past 12 months??No ???Miscellaneous:?Caffeine: yes, tea. ?Children: no. ?Exercise: yes, walking, gym. ?Marital status: single. ?Occupation: Retired. ???Drug/Alcohol:?AUDIT-C (Standard)?Did you have a drink containing alcohol in the past year??No ?Points?0 ?Interpretation?Negative * Medications:?TakingAugmentin Zithromax Acyclovir 400 MG Tablet Oral Aspirin 325 MG Tablet 1 tablet Orally Once a day Lenalidomide 5 MG Capsule Oral LORazepam 0.5 MG Tablet Oral traMADol HCl 50 MG Tablet Oral Centrum Men - Tablet as directed Orally Chlorhexidine Gluconate 0.12 % Solution Mouth/Throat Dicyclomine HCl 10 MG Capsule Oral Fiber Therapy Laxative hydrOXYzine HCl 25 MG Tablet Oral Ipratropium Davis 0.06 % Solution Nasal Loratadine 10 MG Tablet 1 tablet Orally Once a day OXcarbazepine 300 MG Tablet Oral Metoprolol Succinate ER 50 MG Tablet Extended Release 24 Hour Oral busPIRone HCl 15 MG Tablet Oral Primidone 50 MG Tablet 1 tablet Orally Once a day Tamsulosin HCl 0.4 MG Capsule Oral traZODone HCl 50 MG Tablet Oral Zenpep 07550-65642 UNIT Capsule Delayed Release Particles as directed Orally Zolpidem Tartrate 10 MG Tablet 1 tablet at bedtime as needed Orally Once a day Gabapentin 300 MG Capsule 1 capsule Orally Once a day as needed Revlimid 5 MG Capsule Oral Night Splint AFO - L1930 1 wear at rest Medrol makenzie 4mg Tablet Therapy Pack as directed orally as directed Taking Augmentin Taking Zithromax Taking Acyclovir 400 MG Tablet Oral Taking Aspirin 325 MG Tablet 1 tablet Orally Once a day Taking Lenalidomide 5 MG Capsule Oral Taking LORazepam 0.5 MG Tablet Oral Taking traMADol HCl 50 MG Tablet Oral Taking Centrum Men - Tablet as directed Orally Taking Chlorhexidine Gluconate 0.12 % Solution Mouth/Throat Taking Dicyclomine HCl 10 MG Capsule Oral Taking Fiber Therapy Laxative Taking hydrOXYzine HCl 25 MG Tablet Oral Taking Ipratropium Davis 0.06 % Solution Nasal Taking Loratadine 10 MG Tablet 1 tablet Orally Once a day Taking OXcarbazepine 300 MG Tablet Oral Taking Metoprolol Succinate ER 50 MG Tablet Extended Release 24 Hour Oral Taking busPIRone HCl 15 MG Tablet Oral Taking Primidone 50 MG Tablet 1 tablet Orally Once a day Taking Tamsulosin HCl 0.4 MG Capsule Oral Taking traZODone HCl 50 MG Tablet Oral Taking Zenpep 98489-47883 UNIT Capsule Delayed Release Particles as directed Orally Taking Zolpidem Tartrate 10 MG Tablet 1 tablet at bedtime as needed Orally Once a day Taking Gabapentin 300 MG Capsule 1 capsule Orally Once a day as needed Taking Revlimid 5 MG Capsule Oral Taking Night Splint AFO - L1930 1 wear at rest Taking Medrol makenzie 4mg Tablet Therapy Pack as directed orally as directed Not-Taking/PRNCodeine Myrbetriq 25 MG Tablet Extended Release 24 Hour Oral Cephalexin 500 MG Capsule 1 capsule Orally Four times a day Hydrocortisone Junito-Aloe Vera Ondansetron 8 MG Tablet Disintegrating Oral Symbicort 160-4.5 MCG/ACT Aerosol Inhalation chlorproMAZINE HCl 25 MG Tablet Oral Medication List reviewed and reconciled with the patientNot-Taking/PRN Codeine Not-Taking/PRN Myrbetriq 25 MG Tablet Extended Release 24 Hour Oral Not-Taking/PRN Cephalexin 500 MG Capsule 1 capsule Orally Four times a day Not-Taking/PRN Hydrocortisone Junito-Aloe Vera Not-Taking/PRN Ondansetron 8 MG Tablet Disintegrating Oral Not-Taking/PRN Symbicort 160-4.5 MCG/ACT Aerosol Inhalation Not-Taking/PRN chlorproMAZINE HCl 25 MG Tablet Oral Medication List reviewed and reconciled with the patient * Allergies:?N.K.D.A.yes[Aller gies Verified] Objective: * Vitals:?Ht: 5ft 10in, Wt:172 , BMI:24.68, Shoe size: 10.5, BP:120/70mm Hg, Ht-cm: 177.8 cm, Wt-k.02 kg. * Examination: ???Heel Pain: ?INSPECTION:?Severe Pain on Palpation to Plantar Fascia med. and central bands, intrinsic musc., infra-calcaneal bursa, and med calc tubercle , Pain on Heel Compression present, Pain on Palpation to Posterior Superior Aspect Calcaneus, Pain on Palpation to Achilles tendon/bursa with inflammation and swelling present, Equinus contracture knee extended, LEFT (+) swelling plantar heel.?Orthopedic: ?MUSCLE STRENGTH:?5/5 all groups in a symmetrical fashion, B/L.?GAIT ABNORMALITY:?antalgic.?FOOTWEAR EVALUATION:?shoe gear properties exacerbate patients foot/toe deformity.?X-Rays - IMAGING REPORT: ?Clinical Indication(s):? Evaluate for Fracture, Evaluate Biomechanical Deformity.?Views:?3 views of Foot, LAT, LO, AP, LEFT??Taken by trained?Podiatric Jointer Machine (?KL).?Findings:? normal bone and soft tissue density consistent for patients age and sex,positive infra-calcaneal exostosis, no coalitions identified.?Foot structure:? reveals excess pronation with, anterior break in cyme line, increased talar declination, decreased calcaneal inclination.?Fracture:?Negative fractures identified.?Neurological: ?SENSORY:?, Neurological exam reveals intact sensorium, pain sensation normal, vibration sensation intact, pinprick sensation is normal in the lower extremities, Pt relates, hyperesthesia, paresthesia, shooting/radiating sensation, Forefoot, B/L.?TINEL'S COMPRESSION:?Negative tarsal tunnel, tahira pedis, and medial calcaneal nerves.?General Examination: ?GENERAL APPEARANCE:?Reveals a pleasant, alert, well nourished, well- developed, well hydrated individual, who demonstrates proper attention to hygiene/body habitus, and is in no acute distress, Pt serves as own historian for office visit today.?ORIENTED:?person, place, and time.?Vascular: ?DP PULSES (B):?3/4, B/L.?PT PULSES (B):?3/4, B/L.?CAPILLARY FILL TIME:?immediate, all digits, B/L.?TROPHIC CONDITION-TEXTURE/ELASTICITY/TURGOR/HAIR GROWTH (B):?normal, B/L.?TEMPERTURE GRADIENT (C):?normal, warm to cool, proximal to distal, B/L, B/L.?PIGMENTATION:?normal, B/L.?Dermatologic: ?SKIN FINDINGS:?Skin exam reveals normal color, texture, elasticity, and turgor. There are no masses, nor excrescences. The interspaces are clear, B/L.? 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 Plan: * Treatment: 2.?Pain in left foot?Imaging: X ray : Foot, left 3V 3.?Others? Notes: Patient Educated with: RICE THERAPY.pdf (RICE THERAPY.pdf) Patient Educated with: INJECTIONTHERAPY.pdf (INJECTIONTHERAPY.pdf)?? * Procedures:?Injection:?Tendon Sheath or Fascia?88559, J0702 Injection - #1 Left Plantar Fascia w/ mixture of Celestone Soluspan 3mg and 1cc 1 percent Xylocaine Plain anes. utilizing aseptic technique. The patient tolerated the procedure well. A dry sterile dressing was applied. Post injection instructions were dispensed, verbally discussed, and confirmed understood by the patient.SHORT TERM GOAL- I explained that a steroid and local anesthetic injection is to relieve pain and inflammation in order toLONG TERM GOAL- properly improve function and restore the patient to their prior pain-free activity. I explained the possible complications including but not limited to signs/symptoms of steroid flare, change/deviation in toe position, infection, bruising, atrophy, discoloration of skin, and that additional injections may be necessary in order to achieve the short and machine long goods helper established goals. Patient relates post-procedural pain assessment improved at ( 0-1) out of 10,VACCINATION: Confirmed with patient the absence of vaccination either 2 weeks before or after todays cortisone injection.? * Procedure Codes:?47267 X-RAY EXAM OF LEFT FOOT 3V, Modifiers: 26 , [id number] INJ TENDON SHEATH/[id number] INJ BETAMETHSN ACTAT&SOD PHOSPH-3MG * Preventive Medicine:? ??Counseling:?Discussion:?-14: Office or other outpatient visit for the evaluation and management of an established patient, which required a medically appropriate history and/or examination and MODERATE level of DECISION MAKING for: 1 OR MORE CHRONIC PROBLEM(S) THATS WORSENING, 2 STABLE CHRONIC PROBLEMS, A NEWLY DIAGNOSED PROBLEM WITH UNCERTAIN PROGNOSIS, AN ACUTE COMPLICATED INJURY WITH MULTIPLE TREATMENT OPTIONS, OR AN ACUTE PROBLEM WITH ACCOMPANYING SYSTEMIC SYMPTOMS, THAT POSE(S) A MODERATE RISK OF MORBIDITY. THIS CONDITION MAY ALSO INCLUDE RX DRUG MANAGEMENT, OR A DECISON FOR MINOR SURGERY. The visit on the day of the encounter encompassed interpreting the data and educating the patient as to the nature of their condition, treatment options available according to their individual PMH, meds, allergies, and overall health/living conditions, as well as any potential risks or complications that may occur from a failure to adhere to, and participate in, the recommended course of therapy. The discussion included a complete verbal, and/or written explanation of the examination results, any x-rays taken, the proposed diagnosis, and outline of the treatment plan. A schedule for future care needs was also explained. The patient verbalized an understanding of the instructions at this time and agreed to be an active participant in their treatment. If the patient should think of any questions or concerns after the visit, I have encouraged the patient to call the office.?Consult:?The patient was counseled on the diagnosis, treatment options, and the need for a, MRI, [facility] was contacted. When todays office notes are received, they state they will contact patient for appt.?BioMech.:?I discussed the Pts foot biomechanics with them and how it relates to their problem.?Heel pain:?FASCIITIS: I explained to the patient the possible etiologies of Plantar Fasciitis including foot type/shoegear/activity level/exercise routine and the risks/benefits of all the different treatment options for heel pain including: No treatment at all, Rest, Ice, NSAIDs(only if well tolerated after meals), New/supportive Shoegear, Strappings and Tapings, Stretching exercises, Deep Tissue Massage, Heel cups/cushions, Arch support/shoe inserts, Custom orthoses, Topical analgesics including Aspercream/Voltaren gel, Night splint AFO for am stiffness, Cortisone injection therapy, Cast boot with crutches/cane/or walker for assisted ambulation, Physical Therapy, EPAT/ESWT, Interfil injection therapy, as well as surgical Sealevel/Endoscopic Fasciitomy surgical procedures if needed. Recommendations were made to limit barefoot walking, eliminate wearing nonsupportive shoegear (i.e. flip-flops or sandals, or a shoe with an easily bendable, foldable, or twistable sole) and wear shoegear with a good solid sole, a supportive arch, and plenty of room for an insert/orthotic if necessary. If wearing sandals was required by the patient, we recommended orthopedic sandals such as Orthoheel or Birkenstock even while in the home. If the patient wore heels in the past, we recommended they continue, but eliminate the use of flats. The advantages and disadvantages of each option were discussed and the patients questions re: types of shoegear, custom vs prefabricated inserts, activity level, PO vs Topical medications (and their respective potential complications/drug interactions/side effects), and consistency in home treatment regimens for optimal success were answered to their satisfaction. Literature detailing plantar fasciitis and the various treatment options were dispensed and reviewed.?P.R.I.C.E.:?The patient was counseled on the use of P.R.I.C.E. and NSAIDS (if well tolerated) to aid in the recovery from their painful condition, The patient was counseled on the use of P.R.I.C.E. and NSAIDS (if well tolerated) to aid in the recovery from their painful condition.?Shoe Gear Counseling:?The patient and I reviewed the types of shoes they should be wearing. My recommendation included obtaining a well-fitted shoe with a good supportive, non-foldable nor twistable sole, plenty of toe/room for the forefoot, and proper arch support. Based on todays examination, I recommended the patient look for new shoes, by having their feet professionally measured. We discussed that generally the best time of the day for a shoe fitting is the afternoon. Different shoes types and brands to best match the patients occupation and vocation were discussed. Specific brand selection will be up to the patient, their individual foot condition/deformities, and fit. The patient and I reviewed the standard new shoe break in period by wearing them for a few hours a day while checking for redness or sores as wear time is increased. The patient verbally confirmed to understanding the information discussed.?Steriod Injection:?I explained that a steroid and local anesthetic injections are administered to relieve pain and inflammation and thereby meant to improve function. I explained the possible complications including but not limited to signs/symptoms of steroid flare, infection, bruising, atrophy, discoloration of skin, change/deviation in toe position, and that additional injections may be necessary, cortisone post-injection informative educational handout was dispensed to and reviewed with the patient, Pt defers injection today, I explained that a steroid and local anesthetic injections are administered to relieve pain and inflammation and thereby meant to improve function. I explained the possible complications including but not limited to signs/symptoms of steroid flare, infection, bruising, atrophy, discoloration of skin, change/deviation in toe position, and that additional injections may be necessary, cortisone post-injection informative educational handout was dispensed to and reviewed with the patient, In order to prevent any compromise of an effective immune response, it was recommended the patient refrain from any vaccine therapy for the next month. Patient verbally confirmed understanding the previously mentioned protocol.?Stretching Exercises:?Stretching and deep tissue massage exercises for the patients injury/diagnosis were discussed and demonstrated, handouts were dispensed; RX for nightsplint given.?X-rays:?Discussed and reviewed the X-rays with the patient. We discussed how the findings relate to the patients symptoms/complaints. Answered any and all questions..? ??Screening/Special Tests:?Fall Risk?Screening:?No falls in the past year ?FALLS: Screening for Future Fall Risk?Have you had any falls with injury in the past year??No * Follow Up:?prn (Reason: afte r MRI) * Images: * Sign off status: Completed true * Provider:?Ninfa Vargas DPM Date:?01/2025 Generated for Ward coppola/Kalyani/Raimundo on:?02/24/2025 02:57 PM EDT History and Physical Notes * HPI (History of Present Illness) Category Sub-Category Detail Notes Category Not es Heel pain Duration: two months Nature: aching, tenderness, throbbing, tingling, sharp pain Severity/Quality: Pre-injection proced ure pain assessment - ( 10 ) out of 10 Location: Proximal plantar asp ect of Heel, LEFT Onset/Cause: gradual, denies annie be, unknown Aggravated: standing, walking, w alking first thing in the morning/after rest, any pressure, shoe gear, hard surfaces, worse at end of the day Course: worse, severe, no im provement with any treatments Treatments: rest/alter normal da sherry activity , change in shoes, ice, pre- fabricated orthoses, medication ( Medrol ), oral anti-inflammatories, stretching, AFO-nightsplint Misc: Patient states previ ous conservative therapy has not provided acceptable relief. Despite previous treatments/efforts, patient continues to relate substantial pain and significant functional disability during activity , The patient denies to have received any vaccine therapy within the past month Examination Category Sub-Category Detail Notes Category Not es Neurological SENSORY: , Neurological e xam reveals intact sensorium, pain sensation normal, vibration sensation intact, pinprick sensation is normal in the lower extremities, Pt relates, hyperesthesia, paresthesia, shooting/radiating sensation, Forefoot, B/L TINEL'S COMPRESSION: Negative tarsal amos elizabeth, tahira pedis, and medial calcaneal nerves Dermatologic SKIN FINDINGS: Skin exam reveal s normal color, texture, elasticity, and turgor. There are no masses, nor excrescences. The interspaces are clear, B/L Orthopedic GAIT ABNORMALITY: antalgic FOOTWEAR EVALUATION: shoe gear propertie s exacerbate patients foot/toe deformity MUSCLE STRENGTH: 5/5 all groups in a symmetrical fashion, B/L General Examination GENERAL APPEARANCE: Reveals a pleasant, alert, well nourished, well-developed, well hydrated individual, who demonstrates proper attention to hygiene/body habitus, and is in no acute distress, Pt serves as own historian for office visit today ORIENTED: person, place, and t gómez Vascular DP PULSES (B): 3/4, B/L PT PULSES (B): 3/4, B/L CAPILLARY FILL TIME: immediate, all digi ts, B/L TEMPERTURE GRADIENT (C): normal, warm to cool, proximal to distal, B/L, B/L TROPHIC CONDITION-TEXTURE/ELASTICITY/TURGOR/HAIR GROWTH (B): normal, B/L PIGMENTATION: normal, B/L X-Rays - IMAGING REPORT Findings: normal b one and soft tissue density consistent for patients age and sex,positive infra-calcaneal exostosis, no coalitions identified Fracture: Negative fractures i dentified Foot structure: reveals excess prona tion with, anterior break in cyme line, increased talar declination, decreased calcaneal inclination Views: 3 views of Foot, LAT , LO, AP, LEFT Taken by trained Podiatric Jointer Machine ( KL) Clinical Indication(s): Evaluate for Fra cture, Evaluate Biomechanical Deformity Heel Pain INSPECTION: Severe Pain on P alpation to Plantar Fascia med. and central bands, intrinsic musc., infra-calcaneal bursa, and med calc tubercle , Pain on Heel Compression present, Pain on Palpation to Posterior Superior Aspect Calcaneus, Pain on Palpation to Achilles tendon/bursa with inflammation and swelling present, Equinus contracture knee extended, LEFT (+) swelling plantar heel
--- OUTSIDE RECORDS SUMMARY | 2025-02-24 14:57 | XMS_ITS | Encounter Summary ---
Author Organization [facility] Address [address] [place] [address] Care Team Providers Care Senior Qa Automation Engineer Name Role Phone Name, Alejandro VILLALBA Primary Care Provider Unavailabl e Community, Pcp Primary Care Provider Unavailabl e Name, Alejandro VILLALBA Primary Care Provider Unavailabl e Encounter Details Date Type Department Care Team Description 12/09/2014 Retrieval Specialist Report Medical Records [address] [place] [address] Temo Cash Social History Tobacco Use Types [...] on filedocumented in this encounter Care Teams Senior Qa Automation Engineer Relationship Specialty Start Date End Date Alejandro Li MD PCP - General Internal Medicine 02/09/14 12/21/15 Community, Pcp PCP - General Internal Medicine 12/22/15 12/27/15 Alejandro Li MD PCP - General Internal Medicine 12/28/15 documented as of this encounter
--- OUTSIDE RECORDS SUMMARY | 2025-02-24 14:57 | XMS_ITS | Encounter Summary ---
Author Organization [facility] Address [address] [place] [address] Care Team Providers Care Junior Legal Secretary Name Role Phone Name, Alejandro VILLALBA Primary Care Provider Unavailabl e Community, Pcp Primary Care Provider Unavailabl e Name, Alejandro VILLALBA Primary Care Provider Unavailabl e Encounter Details Date Type Department Care Team Description 03/14/2014 Orders Only Adult Medicine [address] [address] Oksana Tovar DO Microscopic hematuria (Primary Dx) [...] 1.005 - 1.030 03/17/2014 1:22 PM EDT [facility] PH, URINE 6.0 5 - 8 03/17/2014 1:22 PM EDT [facility] PROTEIN, URINE TRACE <=TRACE mg/dL 03/17/2014 1:22 PM EDT [facility] GLUCOSE, URINE (UA) NEGATIVE NEGATIVE mg/dL 03/17/2014 1:22 PM EDT [facility] KETONE, URINE NEGATIVE NEGATIVE mg/dL 03/17/2014 1:39 PM EDT [facility] BILIRUBIN URINE NEGATIVE NEGATIVE 03/17/2014 1:39 PM EDT [facility] UROBILINOGEN, URINE 0.2 0.2 - 1.0 E.U./dL 03/17/2014 1:22 PM EDT [facility] BLOOD, URINE NEGATIVE NEGATIVE 03/17/2014 1:22 PM EDT [facility] NITRITE,URINE NEGATIVE NEGATIVE 03/17/2014 1:22 PM EDT [facility] LEUKOCYTE ESTERASE, URINE NEGATIVE NEGATIVE 03/17/2014 1:22 PM EDT [facility] RBC-Urine NONE 0 - 4 /hpf 03/17/2014 2:59 PM EDT [facility] WBC, URINE NONE 0 - 4 /hpf 03/17/2014 2:59 PM EDT [facility] EPITHELIAL CELLS URINE 0-1 0 - 60 03/17/2014 2:59 PM EDT [facility] MUCUS, URINE LIGHT 03/17/2014 2:59 PM EDT [facility] 03/17/2014 12:3 9 PM EDT 03/17/2014 12:38 PM EDT Oksana Grayson DO LAB Performing Organization Address City/State/[facility] Co de Phone Number [facility] [address] [facility] documented in this encounter Visit Diagnoses Diagnosis Microscopic hematuria- Primary Microscopic hematuria documented in this encounter Care Teams Junior Legal Secretary Relationship Specialty Start Date End Date Alejandro Li MD PCP - General Internal Medicine 02/09/14 12/21/15 [facility], Pcp PCP - General Internal Medicine 12/22/15 12/27/15 Alejandro Li MD PCP - General Internal Medicine 12/28/15 documented as of this encounter
--- OUTSIDE RECORDS SUMMARY | 2025-02-24 14:57 | XMS_ITS | Encounter Summary ---
Author Organization [facility] Address [address] [place] [address] Care Team Providers Care Laborer Laboratory Name Role Phone Name, Alejandro VILLALBA Primary Care Provider Unavailabl e SimikicValarie DO Primary Care Provider Unavail able Name, Alejandro VILLALBA Primary Care Provider Unavailabl e [facility], Pcp Primary Care Provider Unavailabl e Name, Alejandro VILLALBA Primary Care Provider Unavailabl e Reason for Visit * Reason Onset Date Comments APPOINTMENT 12/01/2012 Encounter Details Date Type Department Care Team Description 12/01/2012 Telephone Adult [address] [address] Name, MD Alejandro APPOINTMENT Social History Tobacco [...] on filedocumented in this encounter Care Teams Laborer Laboratory Relationship Specialty Start Date End Date Name, MD Alejandro PCP - General Internal Medicine 07/14/12 01/31/14 Valarie Santacruz DO PCP - General Internal Medicine 02/01/14 02/08/14 Alejandro Li MD PCP - General Internal Medicine 02/09/14 12/21/15 [facility] PCP - General Internal Medicine 12/22/15 12/27/15 Alejandro Li MD PCP - General Internal Medicine 12/28/15 documented as of this encounter
--- OUTSIDE RECORDS SUMMARY | 2025-02-24 14:57 | XMS_ITS | Encounter Summary ---
Author Organization [facility] Address [address] [place] [address] Care Team Providers Care Cone Former Name Role Phone Name, Alejandro VILLALBA Primary Care Provider Unavailabl e Community, Pcp Primary Care Provider Unavailabl e Name, Alejandro VILLALBA Primary Care Provider Unavailabl e Reason for Visit * Reason Onset Date Comments Testing 06/14/2014 MRI of arm/hand joint no contrast CPT 34030 Encounter Details Date Type Department Care Team Description 06/14/2014 Telephone Adult [address] [address] Name, MD Alejandro Testing (MRI of arm/hand joint no contrast CPT 23571) Social History Tobacco Use Types Packs/Day Years Used Date Smoking Tobacco: Never Smokeless Tobacco: Never Alcohol Use Standard Drinks/Week Comments No 0 (1 standard drink = 0.6 oz pur e alcohol) quit 2008 Sex Assigned at Date Recorded Not on file documented as of this encounter Miscellaneous Notes * Telephone Encounter - Sumit Mchugh - 06/14/2014 1:01 PM EDT Insurance denied CPT 43266 MRI arm/hand joint no contrast. For peer to peer reconsideration, pleasecall option #4. Case # is [id number], please advise. documented in this encounter Plan of Treatment Not on file documented as of this encounter Visit Diagnoses Not on filedocumented in this encounter Care Teams Cone Former Relationship Specialty Start Date End Date Alejandro Li MD PCP - General Internal Medicine 02/09/14 12/21/15 Community, Pcp PCP - General Internal Medicine 12/22/15 12/27/15 Name, MD Alejandro PCP - General Internal Medicine 12/28/15 documented as of this encounter
--- OUTSIDE RECORDS SUMMARY | 2025-02-24 14:57 | XMS_ITS ---
Author Organization [facility] Address [address] [place] [address] Care Team Providers Care Cordwainer Name Role Phone Nito Newell MD Primary Care Provider Ninfa Quinones [phone] REASON FOR VISIT Cortisone Encounters Encounter Location Date Provider Diagnosis [facility] [address] [place] [address] 02/22/2025 Ninfa Vargas Plan Of Treatment Next Appt Details Provider Name:Ninfa levy, 03/14/2025 02:30:00 PM, [address] [place] [address], [place], [address], Progress Notes * Storm MARTINEZDOB:[birth year] (74 yo M)Acc No.[id number]:02/22/2025 Patient:?Storm MARTINEZ :1950???Age:74 Y???Sex:Male Address:[address] [place] [address] * * Date:?
--- OUTSIDE RECORDS SUMMARY | 2025-02-24 14:57 | XMS_ITS ---
Author Organization [facility] Address [address] [place] [address] Care Team Providers Care Software Publisher Name Role Phone Nito Newell MD Primary Care Provider Ninfa Quinones [phone] REASON FOR VISIT MRI Encounters Encounter Location Date Provider Diagnosis [facility] [address] [place] [address] 02/17/2025 Ninfa Vargas Plan Of Treatment Next Appt Details Provider Name:Ninfa levy, 03/14/2025 02:30:00 PM, [address] [place] [address], [place], [address], Progress Notes * Storm MARTINEZDOB:[birth year] (74 yo M)Acc No.[id number]:02/17/2025 Patient:?Storm MARTINEZ :1950???Age:74 Y???Sex:Male Address:[place] [address] * * Date:?
--- OUTSIDE RECORDS SUMMARY | 2025-02-24 14:57 | XMS_ITS | Encounter Summary ---
Author Organization [facility] Address [address] [place] [address] Care Team Providers Care Firewall Security Engineer Name Role Phone Alejandro Li MD Primary Care Provider Unavailabl e Encounter Details Date Type Department Care Team Description 03/19/2017 Research Professor Of Biostatistics Report Medical Records [address] [place] [address] NameAlejandro MD Social History Tobacco Use Types [...] on filedocumented in this encounter Care Teams Firewall Security Engineer Relationship Specialty Start Date End Date Alejandro Li MD PCP - General Internal Medicine 12/28/15 documented as of this encounter
--- OUTSIDE RECORDS SUMMARY | 2025-02-24 14:57 | XMS_ITS | Encounter Summary ---
Author Organization [facility] Address [address] [place] [address] Care Team Providers Care Independent Sales Representative Name Role Phone Name, Alejandro VILLALBA Primary Care Provider Unavailabl e Community, Pcp Primary Care Provider Unavailabl e Name, Alejandro VILLALBA Primary Care Provider Unavailabl e Reason for Visit * Reason Onset Date Comments injection 08/03/2015 Provider Call Back 08/03/2015 Encounter Details Date Type Department Care Team Description 08/03/2015 Telephone Physiatry - [address] [address] Ousmane Newton DO injection; Provider Call Back Social History Tobacco Use Types Packs/Day Years Used Date Smoking Tobacco: Never Smokeless Tobacco: Never Alcohol Use Standard Drinks/Week Comments No 0 (1 standard drink = 0.6 oz pur e alcohol) quit 2008 Sex Assigned at Date Recorded Not on file documented as of this encounter Miscellaneous Notes * Telephone Encounter - Staci Blackman M.A. - 08/03/2015 10:59 AM EDT Please book patient an appointment 08/10@11:30am * Telephone Encounter - Ishan Lunsford - 08/03/2015 10:51 AM EDT Pt was seen by on 06/22/15 for right shoulder pain. Pt was given medication for this pain and was told if it did not work to call for an injection. Pt is calling requesting an injection for his shoulder. Please advise documented in this encounter Plan of Treatment Not on file documented as of this encounter Visit Diagnoses Not on filedocumented in this encounter Care Teams Independent Sales Representative Relationship Specialty Start Date End Date Guillermo, MD Alejandro PCP - General Internal Medicine 02/09/14 12/21/15 [facility], Pcp PCP - General Internal Medicine 12/22/15 12/27/15 Name, MD Alejandro PCP - General Internal Medicine 12/28/15 documented as of this encounter
--- OUTSIDE RECORDS SUMMARY | 2025-02-24 14:57 | XMS_ITS | Encounter Summary ---
Author Organization [facility] Address [address] [place] [address] Care Team Providers Care Cement Mason Helper Name Role Phone Name, Alejandro VILLALBA Primary Care Provider Unavailabl e [facility], Pcp Primary Care Provider Unavailabl e Name, Alejandro VILLALBA Primary Care Provider Unavailabl e Reason for Visit * Reason Onset Date Comments refill request 10/20/2014 Encounter Details Date Type Department Care Team Description 10/20/2014 Refill Adult Medicine [address] [address] Name, MD Alejandro refill request Social History [...] like script to be: PLACED IN PATIENT COAT OPERATOR WHEN WAS THE PATIENT'S LAST APPOINTMENT IN [...] NO Patients current insurance carrier is: Payor: [employer] FFS / Plan: FFS HMO $0 Oration [id number] / Product Type: MEDICAID RISK documented in this encounter Plan of Treatment Not on file documented as of this encounter Visit Diagnoses Diagnosis Low back pain radiating to right leg- Primary Lumbago documented in this encounter Care Teams Cement Mason Helper Relationship Specialty Start Date End Date Alejandro Li MD PCP - General Internal Medicine 02/09/14 12/21/15 [facility], Pcp PCP - General Internal Medicine 12/22/15 12/27/15 Alejandro Li MD PCP - General Internal Medicine 12/28/15 documented as of this encounter
--- OUTSIDE RECORDS SUMMARY | 2025-02-24 14:57 | XMS_ITS | Encounter Summary ---
Author Organization [facility] Address [address] [place] [address] Care Team Providers Care Automatic Door Mechanic Name Role Phone Name, Alejandro VILLALBA Primary Care Provider Unavailabl e Community, Pcp Primary Care Provider Unavailabl e Name, Alejandro VILLALBA Primary Care Provider Unavailabl e Encounter Details Date Type Department Care Team Description 11/22/2014 Aeronautical Test Engineer Report Medical Records [address] [place] [address] Riki Nunez MD Social History Tobacco Use [...] on filedocumented in this encounter Care Teams Automatic Door Mechanic Relationship Specialty Start Date End Date Alejandro Li MD PCP - General Internal Medicine 02/09/14 12/21/15 [facility], Pcp PCP - General Internal Medicine 12/22/15 12/27/15 Alejandro iL MD PCP - General Internal Medicine 12/28/15 documented as of this encounter
--- OUTSIDE RECORDS SUMMARY | 2025-02-24 14:57 | XMS_ITS | Patient Health Record ---
Author Organization [facility] [place] Address [address] [facility] [place] [address] Care Team Providers Care Content Manager Name Role Phone Nito Newell MD Primary Care Provider UnavailNinfa Araiza Unavailable [phone] Aj Ariza Unavailable [phone] Allergies No Known Allergies Reason For Referral No Information Medications Medication SIG (Take, Route, Frequency, Duration) Notes Start Date End Date Status Revlimid 5 MG Oral for 28 Days Active LORazepam 0.5 MG Oral for 10 Days Active Medrol makenzie 4mg as directed orally a s directed for 6 days 01/11/2025 Active Night Splint AFO - L1930 1 wear at rest for 30 days Active Loratadine 10 MG 1 tablet Orally Once a day for 30 day(s) 10/02/2023 Active Fiber Therapy Laxative 10/02/2023 Active Dicyclomine HCl 10 MG Oral for 20 Days Active chlorproMAZINE HCl 25 MG Oral for 15 Days Not-Taking Ipratropium Garden 0.06 % Nasal for 30 Days Active hydrOXYzine HCl 25 MG Oral for 28 Days Active Centrum Men - as directed Orally 10/02/2023 Active Hydrocortisone Junito-Aloe Vera 10/02/2023 Not-Taking traMADol HCl 50 MG Oral for 20 Days Active Cephalexin 500 MG 1 capsule Orally Fou r times a day for 5 day(s) 10/02/2023 Not-Taking Codeine 10/02/2023 Not-Takin g Symbicort 160-4.5 MCG/ACT Inhalation for 30 Days Not-Taking Chlorhexidine Gluconate 0.12 % Mouth/Throat for 14 Days Active Ondansetron 8 MG Oral for 20 Days Not-Taking OXcarbazepine 300 MG Oral for 28 Days Active Myrbetriq 25 MG Oral for 30 Days Not-Taking Walking Boot/Pneumatic As directed Wear Daily for Until further notice 02/17/2025 Active Lenalidomide 5 MG Oral for 21 Days Active Aspirin 325 MG 1 tablet Orally Once a day for 30 day(s) 10/02/2023 Active Augmentin Active Zenpep [address] UNIT as directed Orally 023 Active traZODone HCl 50 MG Oral for 28 Days Active Acyclovir 400 MG Oral for 30 Days Active Gabapentin 300 MG 1 capsule Orally Onc e a day as needed for 30 days 05/20/2024 Active Zithromax Active Zolpidem Tartrate 10 MG 1 tablet at bedt gómez as needed Orally Once a day 10/02/2023 Active busPIRone HCl 15 MG Oral [...] W/U Status Risk Notes Problem Plantar fasciitis (842189716) Plantar fasciitis (M72.2) Active confirmed Resistant to previous conservative treatment Problem [id number] Neuritis of right foot (G57.91) Active confirmed Problem Mononeuropathy of lower limb (451900946) Neuritis of left foot (G57.92) Active confirmed Problem Plantar fasciitis of left foot (6711748046739126 1) Plantar fasciitis of left foot (M72.2) Active confirmed Problem Interstitial myositis (18909137) Interstitial myositis of left foot (M60.172) Active confirmed Vital Signs Blood pressure diastolic 70 mm Hg 02/17/2025 Height 5ft 10in in 02/17/2025 Blood pressure systolic 120 mm Hg 02/17/2025 Weight 172 lbs 02/17/2025 BMI 24.68 kg/m2 02/17/2025 Encounters Encounter Location Date Provider Diagnosis [address] [place] [address] 03/25/2024 Ninfa Perica Tinea unguium B35.1 ; Pain in right toe(s) M79.674 and Pain in left toe(s) M79.675 [facility] [address] [place] [address] 05/03/2024 Ninfa Perica Pain in left foot M79.672 ; Neuritis of left foot G57.92 ; Neuritis of right foot G57.91 and Pain in right foot M79.671 [facility] [address] [facility] [place] [address] 06/24/2024 Ninfa Perica Pain in left foot M79.672 ; Neuritis of left foot G57.92 ; Neuritis of right foot G57.91 ; Pain in right foot M79.671 ; Tinea unguium B35.1 ; Pain in right toe(s) M79.674 and Pain in left toe(s) M79.[address] [address] 01/11/2025 Ninfa Perica Pain in left foot M79.672 ; Plantar fasciitis of left foot M72.2 ; Calcaneal spur, left foot M77.32 ; Interstitial myositis of left foot M60.172 and Bursitis of left foot M77.[address] [address] 02/17/2025 Ninfa Perica Pain in left foot M79.672 ; Plantar fasciitis of left foot M72.2 ; Calcaneal spur, left foot M77.32 ; Interstitial myositis of left foot M60.172 ; Bursitis of left foot M77.52 ; Left Achilles tendinitis M76.62 and Neuritis of left foot G57.[address] [place] [address] 02/17/2025 Ninfa Perica [facility] [address] [address] 02/22/2025 Ninfa Perica [facility] [address] 05/03/2024 Ninfa Perica [facility] [address] [address] 05/19/2024 Ninfa Perica [facility] [place] [address] [place] [address] 09/23/2024 Ninfa Perica [facility] [place] [address] [place] [address] 01/11/2025 Ninfa Perica [facility] [address] [address] 01/13/2025 Ninfa Perica [facility] [address] [address] 01/17/2025 [facility] [address] [place] [address] 01/17/2025 Ninfa Perica [facility] [address] [address] 01/19/2025 Ninfa Perica [facility] [address] 01/26/2025 Ninfa Perica [facility] Encounter Date Diagnosis (ICD Code) Assessment Notes [...] Patient Educated with: RICE THERAPY.pdf (RICE THERAPY.pdf) 02/17/2025 Pain in left foot (ICD-10 - M79.672) 02/17/2025 Calcaneal spur, left foot (ICD-10 - M77.32) 02/17/2025 Plantar fasciitis of left foot (ICD-10 - M72.2) 01/11/2025 Calcaneal spur, left foot (ICD-10 - M77.32) 06/24/2024 Neuritis of left foot (ICD-10 - G57.92) 05/03/2024 Neuritis of right foot (ICD-10 - G57.91) 03/25/2024 Pain in left toe(s) (ICD-10 - M79.675) 05/03/2024 Pain in right foot (ICD-10 - M79.671) 06/24/2024 Neuritis of right foot (ICD-10 - G57.91) 02/17/2025 Interstitial myositis of left foot (ICD-10 - M60.172) 01/11/2025 Interstitial myositis of left foot (ICD-10 - M60.172) 02/17/2025 Bursitis of left foot (ICD-10 - M77.52) 06/24/2024 Pain in right foot (ICD-10 - M79.671) 01/11/2025 Bursitis of left foot (ICD-10 - M77.52) 06/24/2024 Tinea unguium (ICD-10 - B35.1) 02/17/2025 Left Achilles tendinitis (ICD-10 - M76.62) 02/17/2025 Neuritis of left foot (ICD-10 - G57.92) 06/24/2024 Pain in right toe(s) (ICD-10 - M79.674) 06/24/2024 Pain in left toe(s) (ICD-10 - M79.675) 02/17/2025 Other Patient Educated with: RICE THERAPY.pdf (RICE THERAPY.pdf) Patient Educated with: INJECTIONTHERA PY.pdf (INJECTIONTHER APY.pdf) Plan Of Treatment Pending Test Test Name Order Date MRI : Foot, left 02/17/2025 X ray : Foot, left 3V 01/11/2025 X ray : Foot, left 3V 02/17/2025 Next Appt Details Provider Name:Ninfa Yajaira levy, 03/14/2025 02:30:00 PM, [address] [facility], [place], [address], Insurance Providers Payer Name Payer Address Payer Phone Subscriber Number Group Number Insured Name Patient Relationship to Insured Coverage Start Date Coverage End Date Medicare National Govt [facility] [address] [place] [place] [address] [id number] Storm Garcia Self - patient is the insured Medical (General) History Medical History History ICD Code Anxiety Arthritis High blood pressure Multiple Myloma Joint implants/screws Cancer blood Surgical History Surgery Date(Month/Year) Right Knee 08/17/2021 left knee 2006 plate and mesha in neck 2013
--- OUTSIDE RECORDS SUMMARY | 2025-02-24 14:57 | XMS_ITS | Encounter Summary ---
Author Organization [facility] Address [address] [place] [address] Care Team Providers Care Classroom Coordinator Name Role Phone Name, Alejandro VILLALBA Primary Care Provider Unavailabl e Community, Pcp Primary Care Provider Unavailabl e Name, Alejandro VILLALBA Primary Care Provider Unavailabl e Encounter Details Date Type Department Care Team Description 09/21/2014 Ditch Inspector Report Medical Records [address] [place] [address] Thiago Romero PA-C Social History Tobacco Use [...] on filedocumented in this encounter Care Teams Classroom Coordinator Relationship Specialty Start Date End Date Alejandro Li MD PCP - General Internal Medicine 02/09/14 12/21/15 [facility], Pcp PCP - General Internal Medicine 12/22/15 12/27/15 Alejandro Li MD PCP - General Internal Medicine 12/28/15 documented as of this encounter
--- OUTSIDE RECORDS SUMMARY | 2025-02-24 14:57 | XMS_ITS | Encounter Summary ---
Author Organization [facility] Address [address] [place] [address] Care Team Providers Care Wood Box Maker Name Role Phone Name, Alejandro VILLALBA Primary Care Provider Unavailabl e Valarie Santacruz DO Primary Care Provider Unavail able Name, Alejandro VILLALBA Primary Care Provider Unavailabl e Community, Pcp Primary Care Provider Unavailabl e Name, Alejandro VILLALBA Primary Care Provider Unavailabl e Encounter Details Date Type Department Care Team Description 01/20/2013 Controlled Substance Contract with Plan Medical Records [address] [place] [address] Abstract, Provider Social History Tobacco Use Types [...] on filedocumented in this encounter Care Teams Wood Box Maker Relationship Specialty Start Date End Date Alejandro Li MD PCP - General Internal Medicine 07/14/12 01/31/14 Valarie Santacruz DO PCP - General Internal Medicine 02/01/14 02/08/14 Alejandro Li MD PCP - General Internal Medicine 02/09/14 12/21/15 [facility], Pcp PCP - General Internal Medicine 12/22/15 12/27/15 Alejandro Li MD PCP - General Internal Medicine 12/28/15 documented as of this encounter
--- OUTSIDE RECORDS SUMMARY | 2025-02-24 14:57 | XMS_ITS | Encounter Summary ---
Author Organization [facility] Address [address] [place] [address] Care Team Providers Care Linseed Cake Trimmer Name Role Phone Name, Alejandro VILLALBA Primary Care Provider Unavailabl e Community, Pcp Primary Care Provider Unavailabl e NameAlejandro MD Primary Care Provider Unavailabl e Encounter Details Date Type Department Care Team Description 12/06/2015 Release of Information Medical Records [address] [place] [id number] Abstract, Provider Social History Tobacco Use Types [...] on filedocumented in this encounter Care Teams Linseed Cake Trimmer Relationship Specialty Start Date End Date Alejandro Li MD PCP - General Internal Medicine 02/09/14 12/21/15 [facility], Pcp PCP - General Internal Medicine 12/22/15 12/27/15 Alejandro Li MD PCP - General Internal Medicine 12/28/15 documented as of this encounter
--- OUTSIDE RECORDS SUMMARY | 2025-02-24 14:57 | XMS_ITS ---
Author Name [facility] Organization Unknown Care Team Organization Name Specialty Phone Email Start Date End Da te [facility] Nito Groves [facility] 10/19/2024 [facility] 09/04/2024
--- OUTSIDE RECORDS SUMMARY | 2025-02-24 14:57 | XMS_ITS | Clinical Summary ---
Author Organization [facility] Address [address] [place] [id number] Care Team Providers Care Network Developer Name Role Phone Name, Alejandro VILLALBA Primary Care Provider [phone] Social History Tobacco Use Types Packs/Day Years [...] COVID-19 Vaccine ( season) 2024 Influenza Vaccine (Season Ended) 2025 2014, 07/21/2013, 09/19/2012, Additional history exists RSV Immunization Adult Patients (1 - 1-dose 75+ series) 2026 HIB [...] age to complete this topic Meningococcal B Vaccine Aged Out No l onger eligible based on patient's age to complete this topic RSV Immunization Patients Under 20 months Aged Out No longer eligible based on patient's age to complete this topic Varicella Vaccines Aged Out No longer eligible based on patient's age to complete this topic Care Teams Network Developer Relationship Specialty Start Date End Date Name, MD Alejandro [address] [place] [address] PCP - General Internal Medicine 07/14/12
--- OUTSIDE RECORDS SUMMARY | 2025-02-24 14:57 | XMS_ITS | Clinical Summary ---
Author Organization [facility] Address [address] [place] [address] Care Team Providers Care Radio Rigger Name Role Phone Name, Alejandro VILLALBA Primary [...] 07/21/2012 Overview: Patient follow with psych in [place] and [place] HTN (hypertension) 07/21/2012 Vertigo 07/21/2012 Heartburn 07/21/2012 Low back pain potentially associated wit h radiculopathy 07/21/2012 Overview: Many years of pain. The patient did not respond to injection and he has an electrical stimulator in place. [place] [facility] [place]. Dr Cash was the [...] Hx Diabetes Negative Hx Hypertension Negative Hx AK Negative Hx Mental Disorder Negative Hx Sleep Apnea Negative Hx Thyroid Disorder Negative Hx Relation Name Status Comments Brother 1 arthritis Brother 2 Alive Father DJD, [place] Mother CHF, osteoporos is Social History Tobacco [...] 10/30/2015 , 02/03/2015, 03/11/2014, Additional history exists BMI CHECK/ADVISE 11/17/2024 12/15/2013, 11/25/2013 INFLUENZA (Season Ended) 2025 014, 07/21/2013, 09/19/2012, Additional history exists HEPATITIS C SCREENING Completed 07/21/2013 Care Teams Radio Rigger Relationship Specialty Start Date End Date Name, MD Alejandro PCP - General Internal Medicine 12/28/15
--- OUTSIDE RECORDS SUMMARY | 2025-02-24 14:57 | XMS_ITS | Clinical Summary ---
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
== END 2025-02-24 14:13 | disposition home or self-care (01) ==
LOC: HO.HGI 12:28
PROVIDERS: PCP Internal Medicine; Visit Provider Internal Medicine Gastroenterology
DX: D12.6 Benign neoplasm of colon, unspecified (principal); D72.819 Decreased white blood cell count, unspecified; K58.2 Mixed irritable bowel syndrome; K57.30 Diverticulosis of large intestine without perforation or abscess without bleeding; K21.9 Gastro-esophageal reflux disease without esophagitis; K86.89 Other specified diseases of pancreas
CPT/HCPCS: 99214

== ENCOUNTER 2025-02-24 12:27 | Outpatient (REF) | payer MEDICARE, MEDICAID, SELFPAY ==
--- OUTSIDE RECORDS SUMMARY | 2025-02-25 14:42 | XMS_ITS | Encounter Summary ---
Author Organization [facility] Address [address] [place] [address] Care Team Providers Care Mail Carriers Supervisor Name Role Phone Name, Alejandro VILLALBA Primary Care Provider Unavailabl e Community, Pcp Primary Care Provider Unavailabl e Name, Alejandro VILLALBA Primary Care Provider Unavailabl e Encounter Details Date Type Department Care Team Description 03/14/2014 Orders Only Adult Medicine [address] [address] Oksana Tovar DO Microscopic hematuria (Primary Dx) [...] 1.005 - 1.030 03/17/2014 1:22 PM EDT [email or web address] PH, URINE 6.0 5 - 8 03/17/2014 1:22 PM EDT [facility] PROTEIN, URINE TRACE <=TRACE mg/dL 03/17/2014 1:22 PM EDT [facility] GLUCOSE, URINE (UA) NEGATIVE NEGATIVE mg/dL 03/17/2014 1:22 PM EDT [facility] KETONE, URINE NEGATIVE NEGATIVE mg/dL 03/17/2014 1:39 PM EDT [facility] BILIRUBIN URINE NEGATIVE NEGATIVE 03/17/2014 1:39 PM EDT [facility] UROBILINOGEN, URINE 0.2 0.2 - 1.0 E.U./dL 03/17/2014 1:22 PM EDT [facility] BLOOD, URINE NEGATIVE NEGATIVE 03/17/2014 1:22 PM EDT [facility] NITRITE,URINE NEGATIVE NEGATIVE 03/17/2014 1:22 PM EDT [facility] LEUKOCYTE ESTERASE, URINE NEGATIVE NEGATIVE 03/17/2014 1:22 PM EDT [facility] RBC-Urine NONE 0 - 4 /hpf 03/17/2014 2:59 PM EDT [facility] WBC, URINE NONE 0 - 4 /hpf 03/17/2014 2:59 PM EDT [facility] EPITHELIAL CELLS URINE 0-1 0 - 60 03/17/2014 2:59 PM EDT [facility] MUCUS, URINE LIGHT 03/17/2014 2:59 PM EDT [facility] 03/17/2014 12:3 9 PM EDT 03/17/2014 12:38 PM EDT Oksana Grayson DO LAB Performing Organization Address City/State/[facility] Co de Phone Number [facility] [address] [facility] documented in this encounter Visit Diagnoses Diagnosis Microscopic hematuria- Primary Microscopic hematuria documented in this encounter Care Teams Mail Carriers Supervisor Relationship Specialty Start Date End Date Alejandro Li MD PCP - General Internal Medicine 02/09/14 12/21/15 [facility], Pcp PCP - General Internal Medicine 12/22/15 12/27/15 Alejandro iL MD PCP - General Internal Medicine 12/28/15 documented as of this encounter
--- OUTSIDE RECORDS SUMMARY | 2025-02-25 14:42 | XMS_ITS | Encounter Summary ---
Author Organization [facility] Address [address] [place] [address] Care Team Providers Care Commercial Drone Software Developer Name Role Phone Name, Alejandro VILLALBA Primary Care Provider Unavailabl e [facility], Pcp Primary Care Provider Unavailabl e Alejandro Whyte MD Primary Care Provider Unavailabl e Reason for Visit * Reason Onset Date Comments other 01/03/2015 Encounter Details Date Type Department Care Team Description 01/03/2015 Telephone Adult [address] [address] Alejandro Whyte MD other Social History Tobacco Use Types Packs/Day Years Used Date Smoking Tobacco: Never Smokeless Tobacco: Never Alcohol Use Standard Drinks/Week Comments No 0 (1 standard drink = 0.6 oz pur e alcohol) quit 2008 Sex Assigned at Date Recorded Not on file documented as of this encounter Miscellaneous Notes * Telephone Encounter - Juliana Mendiola M.A. - 01/16/2015 3:36 PM EST [phone] (home) [phone] (work) Left a message for the patient [...] refer him to get MRI done at [facility] in [place] because they have an open MRI. Pt is claustrophobic, he tried getting it done here but couldn't do it because of that. Please call him and let him know if this is ok. documented in this encounter Plan of Treatment Not on file documented as of this encounter Visit Diagnoses Diagnosis Vertigo- Primary Dizziness and giddiness documented in this encounter Care Teams Commercial Drone Software Developer Relationship Specialty Start Date End Date Alejandro Whyte MD PCP - General Internal Medicine 02/09/14 12/21/15 [facility], Pcp PCP - General Internal Medicine 12/22/15 12/27/15 Alejandro Whyte MD PCP - General Internal Medicine 12/28/15 documented as of this encounter
--- OUTSIDE RECORDS SUMMARY | 2025-02-25 14:42 | XMS_ITS | Encounter Summary ---
Author Organization [facility] Address [address] [place] [address] Care Team Providers Care Crane Helper Name Role Phone Name, Alejandro VILLALBA Primary Care Provider [facility] e [facility] Primary Care Provider Unavail able Name, Alejandro VILLALBA Primary Care Provider Unavailabl e [facility], Pcp Primary Care Provider Unavailabl e Name, Alejandro VILLALBA Primary Care Provider Unavailabl e Reason for Visit * Reason Onset Date Comments Special Procedure 11/15/2013 1 yr colon Encounter Details Date Type Department Care Team Description 11/15/2013 Telephone Gastroenterology - [address] [address] Name, MD Alejandro Special Procedure (2 yr colon) Social History Tobacco Use Types Packs/Day Years Used Date Smoking Tobacco: Never Smokeless Tobacco: Never Alcohol Use Standard Drinks/Week Comments No 0 (1 standard drink = 0.6 oz pur e alcohol) quit 2008 Sex Assigned at Date Recorded Not on file documented as of this encounter Miscellaneous Notes * Telephone Encounter - Janette Arguello M.A. - 11/25/2013 9:57 AM EST Left message for pt: to return my call Re: the need to change appt:P * Telephone Encounter - Lady Paredes - 11/15/2013 9:39 AM EST After attempting to contact patient via 2 calls/ 1 letter, patient has not contacted gastroenterology to schedule repeat screening colonoscopy. At this time, patient will be removed from actively worked waitlist until calling back to schedule procedure. documented in this encounter Plan of Treatment Not on file documented as of this encounter Visit Diagnoses Not on filedocumented in this encounter Care Teams Crane Helper Relationship Specialty Start Date End Date Guillermo, MD Alejandro PCP - General Internal Medicine 07/14/12 01/31/14 Valarie Santacruz DO PCP - General Internal Medicine 02/01/14 02/08/14 NameAlejandro MD PCP - General Internal Medicine 02/09/14 12/21/15 [facility], Pcp PCP - General Internal Medicine 12/22/15 12/27/15 Alejandro Li MD PCP - General Internal Medicine 12/28/15 documented as of this encounter
--- OUTSIDE RECORDS SUMMARY | 2025-02-25 14:42 | XMS_ITS | Patient Health Record ---
Author Organization [facility] [place] Address [address] [facility] [place] [address] Care Team Providers Care Service Delivery Consultant Name Role Phone Nito Newell MD Primary Care Provider UnavailNinfa Araiza Unavailable [phone] Aj Ariza Unavailable [phone] Allergies No Known Allergies Reason For Referral [...] MG Oral for 15 Days Not-Taking Ipratropium [place] 0.06 % Nasal for 30 Days Active [...] 30 day(s) 10/02/2023 Active Augmentin Active Zenpep 57768-06919 UNIT as directed Orally 023 Active traZODone [...] W/U Status Risk Notes Problem Plantar fasciitis (254119082) Plantar fasciitis (M72.2) Active confirmed Resistant to previous conservative treatment Problem 308017001942209 Neuritis of right foot (G57.91) Active confirmed Problem Mononeuropathy of lower limb (505770452) Neuritis of left foot (G57.92) Active confirmed Problem Plantar fasciitis of left foot (8971274300120634 1) Plantar fasciitis of left foot (M72.2) Active confirmed Problem Interstitial myositis (06888570) Interstitial myositis of left foot (M60.172) Active confirmed Vital Signs Blood pressure diastolic 70 mm Hg 02/17/2025 Height 5ft 10in in 02/17/2025 Blood pressure systolic 120 mm Hg 02/17/2025 Weight 172 lbs 02/17/2025 BMI 24.68 kg/m2 02/17/2025 Encounters Encounter Location Date Provider Diagnosis [address] [place] [address] 03/25/2024 Ninfa Perica Tinea unguium B35.1 ; Pain in right toe(s) M79.674 and Pain in left toe(s) M79.675 [facility] [address] [place] [address] 05/03/2024 Ninfa Perica Pain in left foot M79.672 ; Neuritis of left foot G57.92 ; Neuritis of right foot G57.91 and Pain in right foot M79.671 [facility] [address] [facility] [place] [address] 06/24/2024 Ninfa Perica Pain in left foot M79.672 ; Neuritis of left foot G57.92 ; Neuritis of right foot G57.91 ; Pain in right foot M79.671 ; Tinea unguium B35.1 ; Pain in right toe(s) M79.674 and Pain in left toe(s) M79.[address] [address] 01/11/2025 Ninfa Perica Pain in left foot M79.672 ; Plantar fasciitis of left foot M72.2 ; Calcaneal spur, left foot M77.32 ; Interstitial myositis of left foot M60.172 and Bursitis of left foot M77.[address] [address] 02/17/2025 Ninfa Perica Pain in left foot M79.672 ; Plantar fasciitis of left foot M72.2 ; Calcaneal spur, left foot M77.32 ; Interstitial myositis of left foot M60.172 ; Bursitis of left foot M77.52 ; Left Achilles tendinitis M76.62 and Neuritis of left foot G57.[address] [place] [address] 02/17/2025 Ninfa Perica [facility] [address] [address] 02/22/2025 Ninfa Perica [facility] [address] 05/03/2024 Ninfa Perica [facility] [address] [address] 05/19/2024 Ninfa Perica [facility] [place] [address] [place] [address] 09/23/2024 Ninfa Perica [facility] [place] [address] [place] [address] 01/11/2025 Ninfa Perica [facility] [address] [address] 01/13/2025 Ninfa Perica [facility] [address] [address] 01/17/2025 [facility] [address] [place] [address] 01/17/2025 Ninfa Perica [facility] [address] [address] 01/19/2025 Ninfa Perica [facility] [address] 01/26/2025 Ninfa Perica [facility] Encounter Date Diagnosis (ICD Code) Assessment Notes [...] Name:Ninfa Yajaira levy, 03/14/2025 02:30:00 PM, [address] [facility], [place], [address], Insurance Providers Payer Name Payer Address Payer Phone Subscriber Number Group Number Insured Name Patient Relationship to Insured Coverage Start Date Coverage End Date Medicare National Govt [facility] [address] [place] [address] [id number] Storm Garcia Self - patient is the insured Medical (General) History Medical History History ICD Code Anxiety Arthritis High blood pressure Multiple Myloma Joint implants/screws Cancer blood Surgical History Surgery Date(Month/Year) Right Knee 08/17/2021 left knee 2006 plate and mesha in neck 2013
--- OUTSIDE RECORDS SUMMARY | 2025-02-25 14:42 | XMS_ITS | Encounter Summary ---
Author Organization [facility] Address [address] [place] [address] Care Team Providers Care Ironer Or Presser Name Role Phone Name, Alejandro VILLALBA Primary Care Provider Unavailabl e Valarie Santacruz DO Primary Care Provider Unavail able Name, Alejandro VILLALBA Primary Care Provider Unavailabl e Community, Pcp Primary Care Provider Unavailabl e Name, Alejandro VILLALBA Primary Care Provider Unavailabl e Encounter Details Date Type Department Care Team Description 10/26/2013 Controlled Substance Contract with Plan Medical Records [address] [place] [address] Abstract, Provider Social History Tobacco Use Types [...] on filedocumented in this encounter Care Teams Ironer Or Presser Relationship Specialty Start Date End Date Alejandro Li MD PCP - General Internal Medicine 07/14/12 01/31/14 Valarie Santacruz DO PCP - General Internal Medicine 02/01/14 02/08/14 Alejandro Li MD PCP - General Internal Medicine 02/09/14 12/21/15 [facility], Pcp PCP - General Internal Medicine 12/22/15 12/27/15 Alejandro Li MD PCP - General Internal Medicine 12/28/15 documented as of this encounter
--- OUTSIDE RECORDS SUMMARY | 2025-02-25 14:42 | XMS_ITS ---
Author Organization [facility] Address [address] [place] [address] Care Team Providers Care Guidance Secretary Name Role Phone Nito Newell MD Primary Care Provider Ninfa Quinones [phone] REASON FOR VISIT MRI Encounters Encounter Location Date Provider Diagnosis [facility] [address] [place] [address] 02/17/2025 Ninfa Vargas Plan Of Treatment Next Appt Details Provider Name:Ninfa levy, 03/14/2025 02:30:00 PM, [address] [place] [address], [place], [address], Progress Notes * Storm MARTINEZDOB:[birth year] (74 yo M)Acc No.[id number]:02/17/2025 Patient:?Storm MARTINEZ :1950???Age:74 Y???Sex:Male Address:[place] [address] * * Date:?
--- OUTSIDE RECORDS SUMMARY | 2025-02-25 14:43 | XMS_ITS | Encounter Summary ---
Author Organization [facility] Address [address] [place] [address] Care Team Providers Care Practical Nurse Name Role Phone Name, Alejandro VILLALBA Primary Care Provider Unavailabl e Community, Pcp Primary Care Provider Unavailabl e Name, Alejandro VILLALBA Primary Care Provider Unavailabl e Encounter Details Date Type Department Care Team Description 09/21/2014 Research Chef Report Medical Records [address] [place] [address] Thiago Romero PA-C Social History Tobacco Use [...] on filedocumented in this encounter Care Teams Practical Nurse Relationship Specialty Start Date End Date Alejandro Li MD PCP - General Internal Medicine 02/09/14 12/21/15 [facility], Pcp PCP - General Internal Medicine 12/22/15 12/27/15 Alejandro Li MD PCP - General Internal Medicine 12/28/15 documented as of this encounter
--- OUTSIDE RECORDS SUMMARY | 2025-02-25 14:43 | XMS_ITS | Encounter Summary ---
Author Organization [facility] Address [address] [place] [address] Care Team Providers Care Box Spring Maker Name Role Phone Name, Alejandro VILLALBA Primary Care Provider Unavailabl e Community, Pcp Primary Care Provider Unavailabl e Name, Alejandro VILLALBA Primary Care Provider Unavailabl e Reason for Visit * Reason Onset Date Comments injection 08/03/2015 Provider Call Back 08/03/2015 Encounter Details Date Type Department Care Team Description 08/03/2015 Telephone Physiatry - [address] [address] Ousmane Newton DO injection; Provider Call Back [...] on filedocumented in this encounter Care Teams Box Spring Maker Relationship Specialty Start Date End Date Guillermo, MD Alejandro PCP - General Internal Medicine 02/09/14 12/21/15 [facility], Pcp PCP - General Internal Medicine 12/22/15 12/27/15 Name, MD Alejandro PCP - General Internal Medicine 12/28/15 documented as of this encounter
--- OUTSIDE RECORDS SUMMARY | 2025-02-25 14:43 | XMS_ITS ---
Author Organization [facility] Yair [place]l [place] Address [address] [facility] [place] [address] Care Team Providers Care Longwall Foreman Name Role Phone Nito Newell MD Primary Care Provider Ninfa Quinones Unavailable [phone] Allergies No Known Allergies REASON FOR VISIT [...] for Until further notice 02/17/2025 Active Zenpep 74966-23774 UNIT as directed Orally 023 Active traZODone [...] MG Oral for 20 Days Active Ipratropium [place] 0.06 % Nasal for 30 Days Active [...] W/U Status Risk Notes Problem Plantar fasciitis (644378593) Plantar fasciitis (M72.2) Active confirmed Resistant to previous conservative treatment Vital Signs Height 5ft 10in in 02/17/2025 Weight 172 lbs 02/17/2025 BMI 24.68 kg/m2 02/17/2025 Blood pressure systolic 120 mm Hg 02/18/20 25 Blood pressure diastolic 70 mm Hg 025 Encounters Encounter Location Date Provider Diagnosis [facility] [address] 02/17/2025 Ninfa Perica Pain in left foot [...] Provider Name:Ninfa levy, 03/14/2025 02:30:00 PM, [address] [facility], [place], [address], Procedure Notes * Category Sub-Category Detail Notes Injection Tendon Sheath or Fascia 14596, J 7902 Injection - #1 Left Plantar Fascia w/ [...] relieve pain and inflammation in order to CUSTODIAL GOAL - properly improve function and restore the patient to their prior pain-free activity. I explained the possible complications including but not limited to signs/symptoms of steroid flare, change/deviation in toe position, infection, bruising, atrophy, discoloration of skin, and that additional injections may be necessary in order to achieve the short and sourcing intern established goals. Patient relates post-procedural pain assessment improved at ( 0-1) out of 10, VACCINATION: Confirmed with patient the absence of vaccination either 2 weeks before or after todays cortisone injection Progress Notes * Storm MARTINEZDOB:[birth year] (74 yo M)Acc No.[id number]:02/17/2025 Progress Note Patient:?Storm MARTINEZ Provider:?Ninfa Vargas DPM :1950???Age:74 Y???Sex:Male Scott e:02/17/2025 Address:[address] [place] [address] [facility] Pcp:Nito Newell MD Subjective: * Chief [...] hydrOXYzine HCl 25 MG Tablet Oral Ipratropium [place] 0.06 % Solution Nasal Loratadine 10 MG Tablet 1 tablet Orally Once a day OXcarbazepine 300 MG Tablet Oral Metoprolol Succinate ER 50 MG Tablet Extended Release 24 Hour Oral busPIRone HCl 15 MG Tablet Oral Primidone 50 MG Tablet 1 tablet Orally Once a day Tamsulosin HCl 0.4 MG Capsule Oral traZODone HCl 50 MG Tablet Oral Zenpep 07644-11201 UNIT Capsule Delayed Release Particles as directed [...] HCl 25 MG Tablet Oral Taking Ipratropium [place] 0.06 % Solution Nasal Taking Loratadine 10 [...] HCl 50 MG Tablet Oral Taking Zenpep 35613-28704 UNIT Capsule Delayed Release Particles as directed [...] Foot, LAT, LO, AP, LEFT??Taken by trained?[facility] (?[facility]).?Findings:? normal bone and soft tissue density [...] with: INJECTIONTHERAPY.pdf (INJECTIONTHERAPY.pdf)?? * Procedures:?Injection:?Tendon Sheath or Fascia?25717, J0702 Injection - #1 Left Plantar Fascia [...] in order to achieve the short and sourcing intern established goals. Patient relates post-procedural pain assessment improved at ( 0-1) out of 10,VACCINATION: Confirmed with patient the absence of vaccination either 2 weeks before or after todays cortisone injection.? * Procedure Codes:?76540 X-RAY EXAM OF LEFT FOOT 3V, Modifiers: 26 , TK40131 INJ TENDON SHEATH/[id number] INJ BETAMETHSN ACTAT&SOD PHOSPH-3MG * Preventive Medicine:? [...] Interfil injection therapy, as well as surgical [place]/Endoscopic Fasciitomy surgical procedures if needed. Recommendations were [...] Vargas DPM Date:?01/2025 Generated for Ward coppola/Kalyani/Raimundo on:?02/25/2025 02:42 PM EDT History and Physical Notes * [...] LO, AP, LEFT Taken by trained [facility] ( [facility]) Clinical Indication(s): Evaluate for Fra [...]
--- OUTSIDE RECORDS SUMMARY | 2025-02-25 14:43 | XMS_ITS | Encounter Summary ---
Author Organization [facility] Address [address] [place] [address] Care Team Providers Care Product Safety Test Engineer Name Role Phone Name, Alejandro VILLALBA Primary Care Provider Unavailabl e Community, Pcp Primary Care Provider Unavailabl e Name, Alejandro VILLALBA Primary Care Provider Unavailabl e Encounter Details Date Type Department Care Team Description 11/22/2014 Legal Services Manager Report Medical Records [address] [place] [address] Riki Nunez MD Social History Tobacco Use [...] on filedocumented in this encounter Care Teams Product Safety Test Engineer Relationship Specialty Start Date End Date Alejandro Li MD PCP - General Internal Medicine 02/09/14 12/21/15 [facility], [facility], Pcp PCP - General Internal Medicine 12/22/15 12/27/15 Alejandro Li MD PCP - General Internal Medicine 12/28/15 documented as of this encounter
--- OUTSIDE RECORDS SUMMARY | 2025-02-25 14:43 | XMS_ITS ---
Author Organization [facility] Address [address] [place] [address] Care Team Providers Care Cleaning Supervisor Name Role Phone Nito Newell MD Primary Care Provider Ninfa Quinones [phone] REASON FOR VISIT Cortisone Encounters Encounter Location Date Provider Diagnosis [facility] [address] [place] [address] 02/22/2025 Ninfa Vargas Plan Of Treatment Next Appt Details Provider Name:Ninfa levy, 03/14/2025 02:30:00 PM, [address] [place] [address], [place], [address], Progress Notes * Storm MARTINEZDOB:[birth year] (74 yo M)Acc No.[id number]:02/22/2025 Patient:?Storm MARTINEZ :1950???Age:74 Y???Sex:Male Address:[facility] [place] [place] [address] * * Date:?
--- OUTSIDE RECORDS SUMMARY | 2025-02-25 14:43 | XMS_ITS | Clinical Summary ---
Author Organization [facility] Address [address] [place] [address] Care Team Providers Care Driver Wheelchair Name Role Phone Name, Alejandro VILLALBA Primary Care Provider [phone] Social History Tobacco Use Types Packs/Day Years [...] age to complete this topic Care Teams Driver Wheelchair Relationship Specialty Start Date End Date Name, MD Alejandro [address] [place] [address] PCP - General Internal Medicine 07/14/12
--- OUTSIDE RECORDS SUMMARY | 2025-02-25 14:43 | XMS_ITS | Encounter Summary ---
Author Organization [facility] Address [address] [place] [address] Care Team Providers Care Exterior Work Helper Name Role Phone Name, Alejandro VILLALBA Primary Care Provider [facility]ailabl e [facility] Primary Care Provider Unavail able Name, Alejandro VILLALBA Primary Care Provider Unavailabl e [facility], Pcp Primary Care Provider Unavailabl e Name, Alejandro VILLALBA Primary Care Provider Unavailabl e Reason for Visit * Reason Onset Date Comments Provider Call Back 03/22/2013 Encounter Details Date Type Department Care Team Description 03/22/2013 Telephone Adult Medicine [address] [address] Name, MD Alejandro Provider Call Back Social [...] Mendiola M.A. - 03/25/2013 9:28 AM EDT [phone] (dulzura) Called patient no answer left message on answering machine. I've called patient 3 times to avail. Saez send message to Dr. Li so he could send letter to patient. * Telephone Encounter - Juilana Mendiola M.A. - 03/23/2013 2:38 PM EDT [phone] (dulzura) Left message on machine to return my call. * Telephone Encounter - Juliana Mendiola M.A. - 03/22/2013 4:[address] Li sent amoxicillin to patients pharmacy as requested. * Telephone Encounter - Juliana Mendiola M.A. - 03/22/2013 4:43 PM EDT [phone] (home) Called patient no answer left message [...] on filedocumented in this encounter Care Teams Exterior Work Helper Relationship Specialty Start Date End Date Guillermo, MD Alejandro PCP - General Internal Medicine 07/14/12 01/31/14 Valarie Santacruz DO PCP - General Internal Medicine 02/01/14 02/08/14 NameAlejandro MD PCP - General Internal Medicine 02/09/14 12/21/15 [facility] PCP - General Internal Medicine 12/22/15 12/27/15 Alejandro Li MD PCP - General Internal Medicine 12/28/15 documented as of this encounter
--- OUTSIDE RECORDS SUMMARY | 2025-02-25 14:43 | XMS_ITS | Encounter Summary ---
Author Organization [facility] Address [address] [place] [address] Care Team Providers Care Supervisor Hot Dip Tinning Name Role Phone Name, Alejandro VILLALBA Primary Care Provider Unavailabl e Community, Pcp Primary Care Provider Unavailabl e NameAlejandro MD Primary Care Provider Unavailabl e Encounter Details Date Type Department Care Team Description 11/24/2014 Hospital Medical Records [address] [place] [address] Temo Cash Social History Tobacco Use Types [...] on filedocumented in this encounter Care Teams Supervisor Hot Dip Tinning Relationship Specialty Start Date End Date Alejandro Li MD PCP - General Internal Medicine 02/09/14 12/21/15 [facility], Pcp PCP - General Internal Medicine 12/22/15 12/27/15 Alejandro Li MD PCP - General Internal Medicine 12/28/15 documented as of this encounter
--- OUTSIDE RECORDS SUMMARY | 2025-02-25 14:43 | XMS_ITS | Encounter Summary ---
Author Organization [facility] Address [address] [place] [address] Care Team Providers Care Legal Financial Specialist Name Role Phone Alejandro Li MD Primary Care Provider Unavailabl e [facility], Pcp Primary Care Provider Unavailabl e Alejandro Li MD Primary Care Provider Unavailabl e Reason for Visit * Reason Onset Date Comments TEST RESULTS 02/07/2015 Encounter Details Date Type Department Care Team Description 02/07/2015 Telephone Adult [address] [address] Alejandro Li MD TEST RESULTS Social History [...] is looking for MRI results done at [facility] on 01/21/15. I called [facility] & requested results be faxed to [phone]. Pt was swearing & threatening the [facility], [...] on filedocumented in this encounter Care Teams Legal Financial Specialist Relationship Specialty Start Date End Date Alejandro Li MD PCP - General Internal Medicine 02/09/14 12/21/15 [facility], Pcp PCP - General Internal Medicine 12/22/15 12/27/15 Alejandro Li MD PCP - General Internal Medicine 12/28/15 documented as of this encounter
--- OUTSIDE RECORDS SUMMARY | 2025-02-25 14:43 | XMS_ITS | Encounter Summary ---
Author Organization [facility] Address [address] [place] [address] Care Team Providers Care Digital Controls Technical Officer Name Role Phone Name, Alejandro VILLALBA Primary Care Provider Unavailabl e Community, Pcp Primary Care Provider Unavailabl e Name, Alejandro VILLALBA Primary Care Provider Unavailabl e Reason for Visit * Reason Onset Date Comments Testing 06/14/2014 MRI of arm/hand joint no contrast CPT 28941 Encounter Details Date Type Department Care Team Description 06/14/2014 Telephone Adult [address] [address] Name, MD Alejandro Testing (MRI of arm/hand joint no contrast CPT 06285) Social History Tobacco Use Types Packs/Day Years Used Date Smoking Tobacco: Never Smokeless Tobacco: Never Alcohol Use Standard Drinks/Week Comments No 0 (1 standard drink = 0.6 oz pur e alcohol) quit 2008 Sex Assigned at Date Recorded Not on file documented as of this encounter Miscellaneous Notes * Telephone Encounter - Sumit Mchugh - 06/14/2014 1:01 PM EDT Insurance denied CPT 51558 MRI arm/hand joint no contrast. For peer to peer reconsideration, pleasecall option #4. Case # is [id number], please advise. documented in this encounter Plan of Treatment Not on file documented as of this encounter Visit Diagnoses Not on filedocumented in this encounter Care Teams Digital Controls Technical Officer Relationship Specialty Start Date End Date Alejandro Li MD PCP - General Internal Medicine 02/09/14 12/21/15 Community, Pcp PCP - General Internal Medicine 12/22/15 12/27/15 Name, MD Alejandro PCP - General Internal Medicine 12/28/15 documented as of this encounter
--- OUTSIDE RECORDS SUMMARY | 2025-02-25 14:43 | XMS_ITS | Clinical Summary ---
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
--- OUTSIDE RECORDS SUMMARY | 2025-02-25 14:43 | XMS_ITS | Encounter Summary ---
Author Organization [facility] Address [address] [place] [address] Care Team Providers Care Horse Breeder Name Role Phone Name, Alejandro VILLALBA Primary Care Provider Unavailabl e SimikicValarie DO Primary Care Provider Unavail able Name, Alejandro VILLALBA Primary Care Provider Unavailabl e [facility], Pcp Primary Care Provider Unavailabl e Name, Alejandro VILLALBA Primary Care Provider Unavailabl e Reason for Visit * Reason Onset Date Comments APPOINTMENT 12/01/2012 Encounter Details Date Type Department Care Team Description 12/01/2012 Telephone Adult [address] [address] Name, MD Alejandro APPOINTMENT Social History Tobacco [...] on filedocumented in this encounter Care Teams Horse Breeder Relationship Specialty Start Date End Date Name, MD Alejandro PCP - General Internal Medicine 07/14/12 01/31/14 Valarie Santacruz DO PCP - General Internal Medicine 02/01/14 02/08/14 Alejandro Li MD PCP - General Internal Medicine 02/09/14 12/21/15 [facility] PCP - General Internal Medicine 12/22/15 12/27/15 Alejandro Li MD PCP - General Internal Medicine 12/28/15 documented as of this encounter
--- OUTSIDE RECORDS SUMMARY | 2025-02-25 14:43 | XMS_ITS | Encounter Summary ---
Author Organization [facility] Address [address] [place] [address] Care Team Providers Care Vamp Strap Ironer Name Role Phone Alejandro Li MD Primary Care Provider Unavailabl e Encounter Details Date Type Department Care Team Description 03/19/2017 Protein Specialist Report Medical Records [address] [place] [address] NameAlejandro MD Social History Tobacco Use Types [...] on filedocumented in this encounter Care Teams Vamp Strap Ironer Relationship Specialty Start Date End Date Alejandro Li MD PCP - General Internal Medicine 12/28/15 documented as of this encounter
[2025-03-03 17:39] LABS: Calprotectin, Fecal 388 mcg/g
[2025-03-04 04:24] LABS: Pancreatic Elastase-1 186 mcg/g (>200)
== END 2025-02-24 12:28 | disposition home or self-care (01) ==
LOC: HO.LNP 12:27
PROVIDERS: PCP Internal Medicine; Visit Provider Internal Medicine Gastroenterology
DX: K52.9 Noninfective gastroenteritis and colitis, unspecified (principal); K86.89 Other specified diseases of pancreas
CPT/HCPCS: 82656; 83993

== ENCOUNTER → 2025-04-05 14:06 | Outpatient (BNVA) | payer MEDICARE, MEDICAID, SELFPAY | PROVIDERS: PCP Internal Medicine | DX: Z13.89 Encounter for screening for other disorder (principal) ==

== ENCOUNTER 2025-04-18 11:12 | Outpatient (AMB) | payer MEDICARE, MEDICAID, SELFPAY ==
--- NOTE | 2025-04-18 11:36 | A.OFFVIS_ITS ---
Vital Signs 04/18/25 11:38 Height 5 ft 10 in Weight 165 lb 5.547 oz BMI 23.7 BP 110/60 Blood Pressure Location Lt brachial Position Sitting Pulse 86 Pulse Source Monitor Intake Visit Reasons: 1y follow up Intake Note: 1 yr f/up Claim Benefit Specialist Required: No Accompanied by: Brother Allergies No Known Allergies Allergy (Verified 02/24/25 12:29) Medication List - Last Reconciled 04/18/25 by Tigre Cook MD acyclovir 400 mg PO BID albuterol sulfate 90 mcg/actuation 2 puffs inhalation Q4-6H PRN aspirin 81 mg PO DAILY buspirone 15 mg PO BID chlorhexidine gluconate 0.12% 15 mL buccal BID 14 days dicyclomine 10 mg PO TID PRN 60 days [Fiber Therapy Laxative 1 cap PO DAILY] lenalidomide 5 mg PO DAILY linaclotide 145 mcg PO Q OTHER DAY vtdcjb-zakiveef-ymazbht 12,000-38,000 -60,000 unit (Creon) 1 cap PO QID 60 days metoprolol succinate ER (Toprol XL) 12.5 mg PO DAILY mometasone-formoterol 200-5 mcg/actuation (Dulera) 2 puffs inhalation Q12H 30 days mv,Ca,jbf-ukof-AT-lycopene 8 mg iron- 200 mcg-600 mcg (Centrum Men) 1 tab PO DAILY oxcarbazepine 300 mg PO BID pantoprazole 40 mg PO BID 60 days paroxetine HCl 40 mg PO DAILY primidone 1 tab PO BID solifenacin 5 mg PO DAILY tamsulosin 1 cap PO BEDTIME trazodone 1 tab PO BEDTIME PRN umeclidinium 62.5 mcg/actuation (Incruse Ellipta) 1 inh inhalation DAILY 30 days zolpidem 1 tab PO BEDTIME HPI Comments Details: 74-year-old gentleman who is here for follow-up. He was previously seen for PVCs and palpitations. Was started on beta-robbie. He did well after that and has not had significant palpitations. Is saying at nighttime occasionally gets some palpitation but during the day he has not had any symptoms. No chest pain or shortness of breath. Taking beta-robbie regularly without any issues. He has been exercising regularly without any exertional symptoms. 06/09/23: He returns for follow-up. He saw Dr. Hackett in the clinic for multiple myeloma. He was noticed to be bradycardic in the 40s. His beta- robbie was discontinued. He has been experiencing some side effects from problem it and. He got a rash on his body after getting Revlimid and was treated for that. He is saying the rash is improving at this point. He has no chest discomfort. He is getting some palpitations and feels the heart is pounding at times. He looks quite stress right now. His blood pressure is elevated. 04/14/24: He returns for follow-up. Saying myeloma is stable currently and is following in [place]. Denying significant palpitations on follow-up. He is saying that trazodone probably is playing a role in his palpitations because he has been taking 1-1/2 tablet at night for sleep. I have advised him to cut back to 1 tablet and discuss with his primary for alternate medications if this is causing side effects. 04/18/2025: He is here for follow-up. Recently he went to [facility] with shaking of upper body and arms. He is saying that he also fell out of bed and unclear whether he had low blood pressure. He is reporting that no infe ction or abnormalities were noticed on his testing while he was at [facility]. It appears it was advise to him to stop the metoprolol. Denying any significant palpitations. [facility] Medical History (Updated 03/04/25 @ 13:43 by Anu Vallejo MD) Sinusitis Multiple myeloma Nontuberculous mycobacterial disease of lung History of cardiac murmur Immunodeficiency Chronic cough Chronic allergic rhinitis History of basal cell cancer Hx of skin cancer, basal cell Has a tremor Diverticulosis IBS (irritable colon syndrome) Thrombosed external hemorrhoids Irritable bowel syndrome with constipation and diarrhea PVC (premature ventricular contraction) Diverticulosis of colon History of alcohol abuse Back pain Arthritis Leukopenia Diarrhea OAB (overactive bladder) BPH (benign prostatic hyperplasia) Anxiety Depression Bipolar 1 disorder Seizure disorder Insomnia Heart palpitations Hypertension Surgical History History of bone marrow biopsy History of bronchoscopy Hx of right knee surgery Hx of esophagogastroduodenoscopy History of total knee arthroplasty Hx of colonoscopy (02/07/25) Hx of cervical spine surgery Hx of bilateral inguinal hernia repair History of total knee arthroplasty Family History (Reviewed 04/18/25 @ 11:43 by Hannah Moore [facility]) Maternal Aunt Colon cancer Father No problems noted. Mother No problems noted. Brother No problems noted. Social History (Reviewed 04/18/25 @ 11:43 by Hannah Moore [facility]) Household Members: Family Household Members Other:: brother Both parents involved: No Housing: House Are you a primary point of care specialist to a significant other at home: No Do you presently have visiting nurse or other home services: No Alcohol intake: former Patient Tobacco Use Status: Never used Tobacco service: No Current occupational status: disabled Review of Systems Const Denies chills, Denies fatigue, Denies fever(s), Denies frequent falls, Denies weakness, Denies weight gain and Denies weight loss ENT Denies dizziness Card Denies chest pain, Denies leg edema, Denies lightheadedness, Denies palpitations, Denies dyspnea and Denies dyspnea on exertion Resp Denies cough, Denies dyspnea and Denies dyspnea on exertion GI Denies hematochezia Musc Denies abnormal gait, Denies muscle weakness, Denies numbness, Denies radiating pain into limb and Denies tingling Neuro Denies abnormal gait, Denies dizziness, Denies frequent falls, Denies numbness, Denies tingling and Denies weakness Endo Denies fatigue and Denies palpitations Physical Exam Vital Signs: Last Vital Signs Pulse 86 04/18/25 11:38 BP 110/60 04/18/25 11:38 BMI result Body Mass Index 23.7 GENERAL APPEARANCE: In no distress. Pleasant. Anxious appearing. NECK: no carotid bruit, no jugular venous distention. SKIN: no suspicious lesions, warm and dry. HEART: no murmurs, regular rate and rhythm. LUNGS: clear to auscultation bilaterally. ABDOMEN: soft, nontender. EXTREMITIES: no edema. PERIPHERAL PULSES: equal. NEUROLOGIC: No gross deficits, AAO X 3 Office Procedures EKG Details: Sinus rhythm 86 beats per minute, normal axis, nonspecific T-wave changes, QTC 423 milliseconds. [id number], Complete Assessment & Plan Assessment & Plan (1) PVC (premature ventricular contraction): Code(s): I49.3 - Ventricular premature depolarization Category: Medical Plan Pleasant 74-year-old gentleman with multiple myeloma on lenalidomide and previous history of palpitations and premature ventricular complexes. He was on very low-dose metoprolol 12.5 mg daily with improvement in palpitations. Recent admission with shaking of upper body and fall out of bed. It appears he was advised to stop the metoprolol. He has been holding it and has not had any significant palpitations. I have explained to him that he was on a very small dose of metoprolol and currently after holding it if he has been doing fine then I think we can continue to hold it. Obviously if he gets palpitations or PVCs start re emerging on his EKG then we can resume the beta-robbie again. Unclear why he had the shaking episode. He does have history of seizures but they were mostly temporal lobe seizures which were well controlled with oxcarbazepine. Thank you for allowing me to participate in the care of your patient. Please feel free to contact me if you have any questions. Coding Level of Care Code Est Pt Level 3 (52271) Diagnoses PVC (premature ventricular contraction) I49.3 CPT Codes EKG - CPT: 89950-[id number], Complete ([id number])
[2025-04-18 11:38] VITALS: BP 110/60; PULSE 86; BMI 23.7
--- OUTSIDE RECORDS SUMMARY | 2025-04-18 12:29 | XMS_ITS ---
Author Organization [facility] Address [address] [place] [address] Care Team Providers Care Life Sciences Manager Name Role Phone Reece VILLALBA, Nito Primary Care Provider Ninfa Quinones [phone] Encounters Encounter Location Date Provider Diagnosis [address] [address] 03/03/2025 Ninfa Vargas Plan Of Treatment Next Appt Details Provider Name:Ninfa levy, 04/25/2025 02:30:00 PM, [address] [place] [address], [id number], Progress Notes * Storm MARTINEZDOB:[birth year] (74 yo M)Acc No.[id number]:03/03/2025 Progress Note Patient:?Storm MARTINEZ Provider:?Ninfa Vargas DPM :1950???Age:74 Y???Sex:Male Scott e:03/03/2025 Address:[address] [facility] [id number] Pcp:Nito Newell MD Subjective: * Chief Complaints: * ??? * Medical History:? Objective: * Vitals:? Assessment: Plan: * Treatment: * Images: * The named appointment provid er may or may not be the originator of this progress note, and it is not deemed complete until electronically signed by the appointment provider. Sign off status: Pending * Provider:?Ninfa Vargas DPM Date:? Generated for Ward coppola/Kalyani/Raimundo on:?04/18/2025 12:29 PM EDT
== END 2025-04-18 12:05 | disposition home or self-care (01) ==
LOC: HO.HCS 11:12
PROVIDERS: PCP Internal Medicine; Visit Provider Internal Medicine Cardiovascular Disease
DX: I49.3 Ventricular premature depolarization (principal)
CPT/HCPCS: 93010; 99213

== ENCOUNTER → 2025-04-18 11:12 | Outpatient (BNVA) | payer MEDICARE, MEDICAID, SELFPAY | PROVIDERS: PCP Internal Medicine; Visit Provider Internal Medicine Cardiovascular Disease | DX: I49.3 Ventricular premature depolarization (principal); Z91.81 History of falling | CPT/HCPCS: 93005; 99212 ==

== ENCOUNTER 2025-04-28 12:34 | Outpatient (AMB) | payer MEDICARE, MEDICAID, SELFPAY ==
--- NOTE | 2025-04-28 12:39 | MHC.OFFVIS ---
Vital Signs 04/28/25 12:40 Height 5 ft 10 in Weight 166 lb BMI 23.8 BP 125/60 Blood Pressure Location Lt brachial Position Sitting Pulse 68 Pulse Oximetry (%) 95 Oxygen Delivery Method Room Air Intake Visit Reasons: ABDOMINAL BLOATING Intake Note: Patient follow up for Adenomatous colon polyp, abdominal bloating and stool results. Patient denies any GI issues for today. Private Tutors And Teachers Required: No Accompanied by: Family/Other Allergies No Known Allergies Allergy (Verified 04/28/25 12:39) Medication List - Last Reconciled 04/28/25 by Anu Vallejo MD acyclovir 400 mg PO BID albuterol sulfate 90 mcg/actuation 2 puffs inhalation Q4-6H PRN aspirin 81 mg PO DAILY buspirone 15 mg PO BID chlorhexidine gluconate 0.12% 15 mL buccal BID 14 days dicyclomine 10 mg PO TID PRN 60 days [Fiber Therapy Laxative 1 cap PO DAILY] lenalidomide 5 mg PO DAILY linaclotide 145 mcg PO Q OTHER DAY lphqgr-xymklwdt-jcbzejb 12,000-38,000 -60,000 unit (Creon) 1 cap PO QID 60 days mometasone-formoterol 200-5 mcg/actuation (Dulera) 2 puffs inhalation Q12H 30 days mv,Ca,zsy-stbz-MM-lycopene 8 mg iron- 200 mcg-600 mcg (Centrum Men) 1 tab PO DAILY oxcarbazepine 300 mg PO BID pantoprazole 40 mg PO BID 60 days paroxetine HCl 40 mg PO DAILY primidone 1 tab PO BID solifenacin 5 mg PO DAILY tamsulosin 1 cap PO BEDTIME trazodone 1 tab PO BEDTIME PRN umeclidinium 62.5 mcg/actuation (Incruse Ellipta) 1 inh inhalation DAILY 30 days zolpidem 1 tab PO BEDTIME HPI HPI ABDOMINAL BLOATING: Details: GI CLINIC VISIT FOR THIS 74-YEAR-OLD MALE FOR FOLLOW-UP OF IBS AND PANCREATIC INSUFFICIENCY. TODAY'S VISIT: Patient is accompanied by his brother. Patient cc: Patient cc: abdominal cramps after eating meal, diarrhea, weight lost, Taking Creon and Gas X. Has a BM every 3rd day - has hard BMs followed by softer stools Appetite is good. Can have abdominal cramps an hour after eating (mostly dinner) - resolve after he has a BM. Wt loss of 10 lbs over the past year PAST VISITS: Notes abdominal cramps 30 min after he has dinner at 5:30 pm Wakes up at 11 am and does not feel hungry when he wakes up. He has 1 meal a day at 5:30 pm at has abd cramps 30 to 45 min. An hour after eating he has a BM with urgency, has a lot of gas He has a lump of hard stool followed by soft stools Last night he had diarrhea with loose to watery stool Can have sharp pains in the rectum/anal area. Takes 2 Gas X and then Creon before dinner. Takes Dicyclomine twice a day - at 11 am and 2 tab before bedtime Every time I have dinner, I have abdominal cramps 45 min later followed by diarrhea Has deep cramps that hurt real bad Usually has potatoes with meat for dinner Has been eating a light dinner - wt loss of 6 lbs in 1.5 months. Has an Sudanese muffin for breakfast and a soup, sandwich or deviled ham. Denies diarrhea after breakfast or lunch - just after dinner. Pantoprazole seems to help and has been taking it 2 times a day. Denies heartburn. Noted RLQ pain radiating to the rt flank for the past 2 weeks. Pain is 10/10 in intensity, constant and is worse on moving and standing - unable to sleep on the right side Admits to burning micturation Has been drinking a lot water. Denies fever, chills or sweating, nausea or vomiting Had vicious diarrhea for the past 2 days. Notes diarrhea 1/2 an hour after eating dinner Takes 2 tablets of max strength gas X before dinner No change in wt. Taking gas x and dicyclomine Abd cramps every time he eats Has to strain while having a BM - takes Miralax once a day Stool can be soft or sometimes like a rock. Has 2 BMs a day Notes abdominal cramps in the stomach. Gets up late and has a snack (Sudanese muffin) eats when [facility]. Being treated with Revlimid every Friday for multiple myloma Patient cc: gassy, abdominal cramping and bloating, and hard BM even with medication. Has the flu. COVID test was negative. Took Miralax day before yesterday for constipation Does not feel hungry. Taking only soup with bread and butter. Has abdominal cramps, notes stomach aches after he eats Tried FODMAP diet and unable to follow Tries to avoid things like chocolates, peanuts and fruits. Has to have red meat due to anemia. Has grilled chicken and does not eats fries. Not taking Omeprazole due to prostate problem Zenpep 2 capsules with dinner (is eating 1 to 2 times a day). Has a lot of gas. Stopped eating pizza and avoids greasy and fried foods. Weighs 173 lbs. Seen [place] [facility] [place] for multiple myeloma and no treatment advised PAST VISITS: Feels Zenpep is not working.Zenpep with each meal and 2 at night with cereal Increased to 2-3 Zenpep with each meal. Has one meal a day and a snack at night. Wt was 188 lbs and decreased to 171 lbs. Eating rice crispies at night. Notes deep stomach cramps which go away later in the day. Had multiple BMs with vomiting on 08/12/22. Roast beef potatoes, sweet carrots at [employer] on 08/11/2208/12 he ate pizza (no onions or peppers) - had a couple of lactaid pills with the pizza. No BMs yesterday and the day before. Pt had knee replacement surgery on his rt knee in 06/2022. Saw a chiropracter who worked on the same knee resulting in damage to the knee. Right knee surgery was redone on 06/04/22. Has been home and having a lot of pain in the knee. Taking Dilaudid for knee pain. When he urinates he is unable to empty his bladder and then has to go again after 20 min. Has not had a BM since 05/31/22 (had a large BM). Abdominal cramps are better since he started taking the Zenpep. Planning to take a chocolate bar since it helps him have a BM. Saw Vicky and taking Lactaid pills with cheese pizza. Took glucose free wafers the following day Drinking Lactaid milk. Had abdominal cramps with soft stools and vomiting in the afternoon. Usually has abdominal cramps with diarrhea or soft stools Denies constipation. Following a FODMAP and not following it too strictly Not noticing any improvement yet. Patient 3 month follow up for IBS. Patient cc: N/V, stomach discomfort, diarrhea/constipation, and medication is helping him with GERD a little bite, some problem with swallowing food, and a lot of burping. Continues to have intermittent symptoms. Has not been having bland foods. Can have intermittent abdominal pain. Has to stay away from vegetables and fruits. Eats beets due to high iron content. Eats at 4:30 or 5 pm. Gets pains from non-eating at 11:30 pm - has rice crispies and golf superintendent cupcakes. Past hx of episodes of pancreatitis related to ETOH abuse. Stopped ETOH 4 yrs?ago ENDOSCOPIC STUDIES: 04/17/21 EGD AND COLONOSCOPY SHOWED: ESOPHAGUS:? Hiatal hernia 37 to 41 cms.? Irregular Z line with focal esophagitis at GE junction - biopsied to check for Vides's. STOMACH: Multiple 3-8 mm benign appearing sessile polyps.? A 7-8 mm hemorrhagic appearing polyp in the fundus removed with a cold snare.? Mild gastric erythema. Antral biopsies were obtained. DUODENUM:? Duodenitis in the bulb with 5-6 mm superficial erosions.? Normal descending duodenum - biopsies obtained to check for celiac sprue Colonoscopy Findings:? Four small to medium sized polyps removed Moderate to severe diverticulosis seen in the left colon Plan:? Patient has an appointment on 05/02/21 in the GI Clinic with HARRY Wilcox. Repeat Colonoscopy interval based on path results - in 3-5 years if polyps are adenomatous and 10 years if polyps are hyperplastic. BIOPSIES SHOWED:? ? Gastric biopsies were negative for Helicobacter pylori, esophageal biopsies were negative for Vides's E.? Cecum, polypectomy:? Fragments of tubular adenoma; no high-grade dysplasia or carcinoma seen. F.? Colon, ascending, polypectomies:? Fragments of tubular adenoma; no high-grade dysplasia or carcinoma seen. 08/22/20 COLONOSCOPY SHOWED: Ten polyps removed - one polyp was not retrieved Random biopsies were obtained from the right and left colon. Moderate to severe diverticulosis seen in the left colon Small hemorrhoids on retroflexed exam. Plan:? Patient has an appointment on 08/29/20 in the GI Clinic with HARRY Wilcox. Repeat Colonoscopy interval based on path results - in 1 years if several polyps are adenomatous and consider Genetic Testing since multiple polyps removed. Above findings were reviewed with the patient and colon polyps and diverticulosis handouts were given in the discharge area IMAGING STUDIES:? 08/14/[address] SCAN SHOWED: GASTROINTESTINAL TRACT: There are scattered diverticula of the colon. There is no diverticulitis. There is no bowel wall thickening /edema. There is no bowel obstruction. There is a moderate volume of stool in the colon. The appendix is normal . The small bowel loops are unremarkable. The stomach is normal. There is no hiatal herna [facility] Medical History (Updated 03/04/25 @ 13:43 by Anu Vallejo MD) Sinusitis Multiple myeloma Nontuberculous mycobacterial disease of lung History of cardiac murmur Immunodeficiency Chronic cough Chronic allergic rhinitis History of basal cell cancer Hx of skin cancer, basal cell Has a tremor Diverticulosis IBS (irritable colon syndrome) Thrombosed external hemorrhoids Irritable bowel syndrome with constipation and diarrhea PVC (premature ventricular contraction) Diverticulosis of colon History of alcohol abuse Back pain Arthritis Leukopenia Diarrhea OAB (overactive bladder) BPH (benign prostatic hyperplasia) Anxiety Depression Bipolar 1 disorder Seizure disorder Insomnia Heart palpitations Hypertension Surgical History History of bone marrow biopsy History of bronchoscopy Hx of right knee surgery Hx of esophagogastroduodenoscopy History of total knee arthroplasty Hx of colonoscopy (02/07/25) Hx of cervical spine surgery Hx of bilateral inguinal hernia repair History of total knee arthroplasty Family History Maternal Aunt Colon cancer Father No problems noted. Mother No problems noted. Brother No problems noted. Social History Household Members: Family Household Members Other:: brother Both parents involved: No Housing: House Are you a primary care trainer to a significant other at home: No Do you presently have visiting nurse or other home services: No Alcohol intake: former Patient Tobacco Use Status: Never used Tobacco service: No Current occupational status: disabled Review of Systems Const All systems reviewed & are unremarkable except as noted in HPI and below Physical Exam Vital Signs: Last Vital Signs Pulse 68 04/28/25 12:40 BP 125/60 04/28/25 12:40 Pulse Ox 95 04/28/25 12:40 Oxygen Delivery Method Room Air 04/28/25 12:40 BMI result Body Mass Index 23.8 Const General: no acute distress Nutritional Appearance: average body habitus Orientation/consciousness: patient oriented x3 Limitations: no limitations HEENT Head: Yes normal to inspection Ears: hearing grossly normal bilaterally Eyes Sclerae: sclerae normal Pupils: Equal, round and reactive pupils present Neck Neck: Yes normal visual inspection Chest Chest palpation & inspection: normal inspection of the chest Resp Effort & Inspection: normal respiratory effort Auscultation: clear to auscultation bilaterally Cardio Palpation: normal PMI Rate: regular rate Rhythm: regular rhythm Heart sounds: S1 normal heart sound present, S2 normal heart sound present and no murmurs GI Palpation (GI): Soft to palpation, nontender and No hepatosplenomegaly present Auscultation: normal bowel sounds Rectal Exam - Male: Yes deferred Skin General skin exam: no rashes or lesions noted Neuro General: patient oriented x3, gait normal and moves all extremities Cranial nerves: Yes Equal, round and reactive pupils present Psych Appearance: grossly normal Mental Status: mental status grossly normal Assessment & Plan Assessment & Plan (1) Adenomatous colon polyp: Comment: 04/2021 Four small to medium sized adenomatous polyps were removed. Repeat colonoscopy advised in 3 year (due 04/2024) Code(s): D12.6 - Benign neoplasm of colon, unspecified Category: Medical (2) Leukopenia: Code(s): D72.819 - Decreased white blood cell count, unspecified Category: Medical (3) Irritable bowel syndrome with constipation and diarrhea: Comment: He is willing to trial with Citrucel 2 tabs b.i.d. in hopes this gives him more consistent stool pattern. Code(s): K58.2 - Mixed irritable bowel syndrome Category: Medical (4) Diverticulosis of colon: Comment: Moderate to severe diverticulosis-maintain high-fiber diet, review says symptoms diverticulitis Code(s): K57.30 - Diverticulosis of large intestine without perforation or abscess without bleeding Category: Medical (5) GERD (gastroesophageal reflux disease): Code(s): K21.9 - Gastro-esophageal reflux disease without esophagitis Category: Medical Qualifiers: Esophagitis presence: without esophagitis Qualified Code(s): K21.9 - Gastro-esophageal reflux disease without esophagitis (6) IBS (irritable bowel syndrome): Comment: Pt was referred for low FODMAP diet. Per conversation Pt reports improvement in GI symptoms when drinking lactose free milk however consuming other foods with lactose contributing to GI Code(s): K58.9 - Irritable bowel syndrome, unspecified Category: Medical (7) Chronic diarrhea: Code(s): K52.9 - Noninfective gastroenteritis and colitis, unspecified Category: Medical (8) Pancreatic insufficiency: Comment: Pancreatic elastase was 33 indicating severe pancreatic insufficiency. Patient was started on Zenpep with improvement in abdominal cramping. Code(s): K86.89 - Other specified diseases of pancreas Category: Medical (9) Elevated fecal calprotectin: Code(s): R19.5 - Other fecal abnormalities Category: Medical (10) Abdominal bloating: Code(s): R14.0 - Abdominal distension (gaseous) Category: Medical Plan 74 year-old anxious male with IBS associated with diarrhea and constipation.? He is managing his symptoms with a change in diet and imodium prn. He was advised to take Citrucel daily and Dicyclomine prn for abdominal pain. Patient does admit to anxiety worsening his symptoms, he is currently living with his brother which is not the best scenario but is tolerable.? He has and? been followed recently for mild seizure activity and has not had any further issue?since dose of medications was increased. 04/2021 Four small to medium sized adenomatous polyps were removed. Repeat colonoscopy advised in 3 year (due 04/2024). Pt was given the following advice: 1.? Please continue to keep a FOOD dairy 2.? Take Polyethylene Glycol once a day on days you do not have a bowel movement 3.? No milk products - Ok to take yogurt with Probiotics. 4.? If you continue to have problems, you can start a FODMAP diet. 5.? Famotidine twice daily for GERD in place of Omeprazole Pt was seen by Nutrition and advised to take Lactaid pills with cheese and pizza. He is keeping a food dairy. Advised to follow a FODMAP diet and not following it too strictly. Stool tests showed a low pancreatic elastase suggestive of pancreatic insufficiency Prescription for Zenpep (pancreatic enzyme preparation) was sent to the pharmacy. Patient had a surgery on his right knee on 06/04/2022 and has been taking Dilaudid. Patient is advised to start MiraLax 1-2 times daily for constipation. If he continues to have symptoms he can take senna 2 capsules at bedtime p.r.n. 11/07/22 Pt advised to resume taking Dicyclomine 10 mg three times daily prn for abd cramps 03/22/24 Abd cramps every time he eats Has to strain while having a BM - takes Miralax once a day Pt advised to start Linzess for constipation and schedule an EGD and Colon (scheduled 09/06/24) 06/17/24 Noted RLQ pain radiating to the rt flank for the past 2 weeks. Pain is 10/10 in intensity, constant and is worse on moving and standing - unable to sleep on the right side Admits to burning micturation Has been drinking a lot water. Flank pain suggestive of kidney stones Pt advised to go to the ED for evaluation ADDENDUM: Seen in the ER and finnegan was negative: Clinical Impression: Dysuria, Diarrhea 11/25/24 Pt complains of abdominal cramps with diarrhea and 6 lb weight loss. Has not been taking Creon for pancreatic insufficiency and patient was advised to resume taking 1 capsule with breakfast and lunch and 2 capsules with dinner. Continue taking pantoprazole 40 mg twice daily for 4-6 weeks. Patient is scheduled for a colonoscopy on 02/07/2025 and a follow-up appointment on 02/24/25 He was advised to call back if he continued to have symptoms 2-3 weeks after resuming the Creon 02/07/25 EGD AND COLON SHOWED: Endoscopy Findings: ESOPHAGUS: Hiatal hernia 38 to 42 cms. Partially obstructing Schatzki's ring at the GE junction - dilated to 20 mm (60 F) STOMACH: Diffuse gastritis DUODENUM: Normal Colonoscopy Findings: Four small polyps were removed Moderate diverticulosis seen in the left colon Plan: Repeat Colonoscopy in 3-5 years if polyps are adenomatous and due to a history adenomatous colon polyps BIOPSIES SHOWED: A. Stomach, antrum, biopsy: Antral-type and oxyntic mucosa with mild chronic inactive inflammation and focal intestinal metaplasia; negative for dysplasia; no Helicobacter organisms seen. B. Colon, ascending, polypectomy: Fragments of tubular adenoma; negative for high-grade dysplasia or carcinoma. C. Colon, transverse, polypectomy: Fragments of tubular adenoma; negative for high-grade dysplasia or carcinoma Letter sent to the patient advising repeat EGD (FU of gastric intestinal metaplasia) and colonoscopy in 3 years Patient was placed on the colonoscopy recall list 04/28/25 Pt complains of constipation and intermittent postprandial abdominal pain. He was advised to: 1. Increase Creon to 2 Capsules with each meal - take 1 capsule before dinner and 2nd capsule in half way through dinner 2. Take Dicyclomine 1 tab 30 min before dinner and at bedtime 3. Take Linzess daily FU in 3 months Medications: New simethicone (Gas-X Extra Strength) 250 mg (2 x 125 mg) PO BID 30 days PRN 120 caps 4RF abdominal distention R14.0 - Abdominal distension (gaseous) Coding Level of Care Code Est Pt Level 4 (42615) Diagnoses Adenomatous colon polyp D12.6 Leukopenia D72.819 Irritable bowel syndrome with constipation and diarrhea K58.2 Diverticulosis of colon K57.30 Gastroesophageal reflux disease without esophagitis K21.9 Esophagitis presence: without esophagitis IBS (irritable bowel syndrome) K58.9 Chronic diarrhea K52.9 Pancreatic insufficiency K86.89 Elevated fecal calprotectin R19.5 Abdominal bloating R14.0 Time Spent (min) 21
[2025-04-28 12:40] VITALS: BP 125/60; PULSE 68; O2SAT 95; BMI 23.8
--- OUTSIDE RECORDS SUMMARY | 2025-04-28 14:27 | XMS_ITS | Encounter Summary ---
Author Organization [facility] Address [address] [place] [address] Care Team Providers Care Chemical Supervisor Name Role Phone Name, Alejandro VILLALBA Primary Care Provider Unavailabl e [facility], Pcp Primary Care Provider Unavailabl e Alejandro Whyte MD Primary Care Provider Unavailabl e Reason for Visit * Reason Onset Date Comments other 01/03/2015 Encounter Details Date Type Department Care Team Description 01/03/2015 Telephone Adult [address] [address] Alejandro Whyte MD other Social History Tobacco [...] Mendiola M.A. - 01/16/2015 3:36 PM EST [phone] (home) [phone] (work) Left a message for the patient [...] refer him to get MRI done at [facility] in [place] because they have an open MRI. Pt is claustrophobic, he tried getting it done here but couldn't do it because of that. Please call him and let him know if this is ok. documented in this encounter Plan of Treatment Not on file documented as of this encounter Visit Diagnoses Diagnosis Vertigo- Primary Dizziness and giddiness documented in this encounter Care Teams Chemical Supervisor Relationship Specialty Start Date End Date Alejandro Whyte MD PCP - General Internal Medicine 02/09/14 12/21/15 [facility], Pcp PCP - General Internal Medicine 12/22/15 12/27/15 Alejandro Whyte MD PCP - General Internal Medicine 12/28/15 documented as of this encounter
== END 2025-04-28 13:28 | disposition home or self-care (01) ==
LOC: HO.HGI 12:35
PROVIDERS: PCP Internal Medicine; Visit Provider Internal Medicine Gastroenterology
DX: D12.6 Benign neoplasm of colon, unspecified (principal); D72.819 Decreased white blood cell count, unspecified; K58.2 Mixed irritable bowel syndrome; K57.30 Diverticulosis of large intestine without perforation or abscess without bleeding; K21.9 Gastro-esophageal reflux disease without esophagitis; K58.9 Irritable bowel syndrome, unspecified; K52.9 Noninfective gastroenteritis and colitis, unspecified; K86.89 Other specified diseases of pancreas; R19.5 Other fecal abnormalities; R14.0 Abdominal distension (gaseous)
CPT/HCPCS: 99214

== ENCOUNTER → 2025-04-28 12:34 | Outpatient (BNVA) | payer MEDICARE, MEDICAID, SELFPAY | PROVIDERS: PCP Internal Medicine; Visit Provider Internal Medicine Gastroenterology | DX: D12.6 Benign neoplasm of colon, unspecified (principal); D72.819 Decreased white blood cell count, unspecified; K58.2 Mixed irritable bowel syndrome; K57.30 Diverticulosis of large intestine without perforation or abscess without bleeding; K21.9 Gastro-esophageal reflux disease without esophagitis; K52.9 Noninfective gastroenteritis and colitis, unspecified; K86.89 Other specified diseases of pancreas; R19.5 Other fecal abnormalities; R14.0 Abdominal distension (gaseous) | CPT/HCPCS: 99212 ==

== ENCOUNTER 2025-07-28 13:00 | Outpatient (AMB) | payer MEDICARE, MEDICAID, SELFPAY ==
--- OUTSIDE RECORDS SUMMARY | 2025-03-03 11:15 | XMS_ITS ---
Author Organization [facility] Address [address] [facility] [address] Care Team Providers Care Vice President Payer Name Role Phone Reece VILLALBA, Nito Primary Care Provider Ninfa Quinones [phone] Encounters Encounter Location Date Provider Diagnosis [address] [address] 03/03/2025 Ninfa Vargas Plan Of Treatment No Information Progress Notes * Storm MARTINEZ JDOB:[birth year] (74 yo M)Acc No.[id number]:03/03/2025 Progress Note Patient: Storm PETIT Provider: Elder Vargas DPM :1950 A ge:74 Y S ex:Male Date:03/03/2025 Address:[address] [facility] Pcp:Nito Newell MD Subjective: * [...] Vargas DPM Date: 0 03/03/2025 Generated for Printi ng/Faxing/eTransmitting on: 0 07/28/2025 05:04 PM EDT
--- NOTE | 2025-07-28 13:02 | MHC.OFFVIS ---
Vital Signs 07/28/25 13:04 Height 5 ft 10 in Weight 170 lb BMI 24.4 BP 119/56 L Blood Pressure Location Lt brachial Position Sitting Pulse 57 Pulse Oximetry (%) 98 Oxygen Delivery Method Room Air Intake Visit Reasons: FU of IBS and pancreatic insufficiency Intake Note: Patient follow up for abdominal bloating. Patient cc: abdominal cramps and diarrhea, denies any other GI issues for today. Product Examiner Required: No Accompanied by: Self / Same As Patient Allergies No Known Allergies Allergy (Verified 07/28/25 13:04) HPI HPI FU of IBS and pancreatic insufficiency: Details: GI CLINIC VISIT FOR THIS 74-YEAR-OLD MALE FOR FOLLOW-UP OF IBS AND PANCREATIC INSUFFICIENCY. TODAY'S VISIT: Patient cc: abdominal cramps and diarrhea, After I eat dinner I have to go to the bathroom to have a BM After eating at a restuarant he has vomiting and diarrhea 1/2 hour later. Took Rifaximin for 14 days and felt perfect Symptoms recurrent 4 days after he finished the medication Takes grilled chicken at [facility] and notes symptoms Seeing a Chripopracter for back pains PAST VISITS: Taking Creon and Gas X. Has a BM every 3rd day - has hard BMs followed by softer stools Appetite is good. Can have abdominal cramps an hour after eating (mostly dinner) - resolve after he has a BM. Wt loss of 10 lbs over the past year Notes abdominal cramps 30 min after he has dinner at 5:30 pm Wakes up at 11 am and does not feel hungry when he wakes up. He has 1 meal a day at 5:30 pm at has abd cramps 30 to 45 min. An hour after eating he has a BM with urgency, has a lot of gas He has a lump of hard stool followed by soft stools Last night he had diarrhea with loose to watery stool Can have sharp pains in the rectum/anal area. Takes 2 Gas X and then Creon before dinner. Takes Dicyclomine twice a day - at 11 am and 2 tab before bedtime Every time I have dinner, I have abdominal cramps 45 min later followed by diarrhea Has deep cramps that hurt real bad Usually has potatoes with meat for dinner Has been eating a light dinner - wt loss of 6 lbs in 1.5 months. Has an Khmer muffin for breakfast and a soup, sandwich or deviled ham. Denies diarrhea after breakfast or lunch - just after dinner. Pantoprazole seems to help and has been taking it 2 times a day. Denies heartburn. Noted RLQ pain radiating to the rt flank for the past 2 weeks. Pain is 10/10 in intensity, constant and is worse on moving and standing - unable to sleep on the right side Admits to burning micturation Has been drinking a lot water. Denies fever, chills or sweating, nausea or vomiting Had vicious diarrhea for the past 2 days. Notes diarrhea 1/2 an hour after eating dinner Takes 2 tablets of max strength gas X before dinner No change in wt. Taking gas x and dicyclomine Abd cramps every time he eats Has to strain while having a BM - takes Miralax once a day Stool can be soft or sometimes like a rock. Has 2 BMs a day Notes abdominal cramps in the stomach. Gets up late and has a snack (Khmer muffin) eats when he [facility]. Being treated with Revlimid every Friday for multiple myloma Patient cc: gassy, abdominal cramping and bloating, and hard BM even with medication. Has the flu. COVID test was negative. Took Miralax day before yesterday for constipation Does not feel hungry. Taking only soup with bread and butter. Has abdominal cramps, notes stomach aches after he eats Tried FODMAP diet and unable to follow Tries to avoid things like chocolates, peanuts and fruits. Has to have red meat due to anemia. Has grilled chicken and does not eats fries. Not taking Omeprazole due to prostate problem Zenpep 2 capsules with dinner (is eating 1 to 2 times a day). Has a lot of gas. Stopped eating pizza and avoids greasy and fried foods. Weighs 173 lbs. Seen at [facility] in [place] for multiple myeloma and no treatment advised PAST VISITS: Feels Zenpep is not working.Zenpep with each meal and 2 at night with cereal Increased to 2-3 Zenpep with each meal. Has one meal a day and a snack at night. Wt was 188 lbs and decreased to 171 lbs. Eating rice crispies at night. Notes deep stomach cramps which go away later in the day. Had multiple BMs with vomiting on 08/12/22. Roast beef potatoes, sweet carrots at [employer] on 08/11/2208/12 he ate pizza (no onions or peppers) - had a couple of lactaid pills with the pizza. No BMs yesterday and the day before. Pt had knee replacement surgery on his rt knee in 06/2022. Saw a chiropracter who worked on the same knee resulting in damage to the knee. Right knee surgery was redone on 06/04/22. Has been home and having a lot of pain in the knee. Taking Dilaudid for knee pain. When he urinates he is unable to empty his bladder and then has to go again after 20 min. Has not had a BM since 05/31/22 (had a large BM). Abdominal cramps are better since he started taking the Zenpep. Planning to take a chocolate bar since it helps him have a BM. Saw Vicky and taking Lactaid pills with cheese pizza. Took glucose free wafers the following day Drinking Lactaid milk. Had abdominal cramps with soft stools and vomiting in the afternoon. Usually has abdominal cramps with diarrhea or soft stools Denies constipation. Following a FODMAP and not following it too strictly Not noticing any improvement yet. Patient 3 month follow up for IBS. Patient cc: N/V, stomach discomfort, diarrhea/constipation, and medication is helping him with GERD a little bite, some problem with swallowing food, and a lot of burping. Continues to have intermittent symptoms. Has not been having bland foods. Can have intermittent abdominal pain. Has to stay away from vegetables and fruits. Eats beets due to high iron content. Eats at 4:30 or 5 pm. Gets pains from non-eating at 11:30 pm - has rice crispies and wood patternmaker cupcakes. Past hx of episodes of pancreatitis related to ETOH abuse. Stopped ETOH 4 yrs?ago ENDOSCOPIC STUDIES: 04/17/21 EGD AND COLONOSCOPY SHOWED: ESOPHAGUS:? Hiatal hernia 37 to 41 cms.? Irregular Z line with focal esophagitis at GE junction - biopsied to check for Vides's. STOMACH: Multiple 3-8 mm benign appearing sessile polyps.? A 7-8 mm hemorrhagic appearing polyp in the fundus removed with a cold snare.? Mild gastric erythema. Antral biopsies were obtained. DUODENUM:? Duodenitis in the bulb with 5-6 mm superficial erosions.? Normal descending duodenum - biopsies obtained to check for celiac sprue Colonoscopy Findings:? Four small to medium sized polyps removed Moderate to severe diverticulosis seen in the left colon Plan:? Patient has an appointment on 05/02/21 in the GI Clinic with HARRY Wilcox. Repeat Colonoscopy interval based on path results - in 3-5 years if polyps are adenomatous and 10 years if polyps are hyperplastic. BIOPSIES SHOWED:? ? Gastric biopsies were negative for Helicobacter pylori, esophageal biopsies were negative for Vides's E.? Cecum, polypectomy:? Fragments of tubular adenoma; no high-grade dysplasia or carcinoma seen. F.? Colon, ascending, polypectomies:? Fragments of tubular adenoma; no high-grade dysplasia or carcinoma seen. 08/22/20 COLONOSCOPY SHOWED: Ten polyps removed - one polyp was not retrieved Random biopsies were obtained from the right and left colon. Moderate to severe diverticulosis seen in the left colon Small hemorrhoids on retroflexed exam. Plan:? Patient has an appointment on 08/29/20 in the GI Clinic with HARRY Wilcox. Repeat Colonoscopy interval based on path results - in 1 years if several polyps are adenomatous and consider Genetic Testing since multiple polyps removed. Above findings were reviewed with the patient and colon polyps and diverticulosis handouts were given in the discharge area IMAGING STUDIES:? 08/14/[address] SCAN SHOWED: GASTROINTESTINAL TRACT: There are scattered diverticula of the colon. There is no diverticulitis. There is no bowel wall thickening /edema. There is no bowel obstruction. There is a moderate volume of stool in the colon. The appendix is normal . The small bowel loops are unremarkable. The stomach is normal. There is no hiatal hernia [facility] Medical History (Updated 10/07/25 @ 14:16 by Nancy Avila NP) Carotid stenosis, bilateral Sinusitis Multiple myeloma Nontuberculous mycobacterial disease of lung History of cardiac murmur Immunodeficiency Chronic cough Chronic allergic rhinitis History of basal cell cancer Hx of skin cancer, basal cell Has a tremor Diverticulosis IBS (irritable colon syndrome) Thrombosed external hemorrhoids Irritable bowel syndrome with constipation and diarrhea PVC (premature ventricular contraction) Diverticulosis of colon History of alcohol abuse Back pain Arthritis Leukopenia Diarrhea OAB (overactive bladder) BPH (benign prostatic hyperplasia) Anxiety Depression Bipolar 1 disorder Seizure disorder Insomnia Heart palpitations Hypertension Surgical History History of bone marrow biopsy History of bronchoscopy Hx of right knee surgery Hx of esophagogastroduodenoscopy History of total knee arthroplasty Hx of colonoscopy (02/07/25) Hx of cervical spine surgery Hx of bilateral inguinal hernia repair History of total knee arthroplasty Family History Maternal Aunt Colon cancer Father No problems noted. Mother No problems noted. Brother No problems noted. Social History Household Members: Family Household Members Other:: brother Both parents involved: No Housing: House Are you a primary childcare aide to a significant other at home: No Do you presently have visiting nurse or other home services: No Alcohol intake: former Patient Tobacco Use Status: Never used Tobacco service: No Current occupational status: disabled Review of Systems Const All systems reviewed & are unremarkable except as noted in HPI and below Physical Exam Vital Signs: Last Vital Signs Pulse 57 07/28/25 13:04 BP 119/56 L 07/28/25 13:04 Pulse Ox 98 07/28/25 13:04 Oxygen Delivery Method Room Air 07/28/25 13:04 BMI result Body Mass Index 24.4 Const General: healthy appearing, no acute distress and anxious Nutritional Appearance: average body habitus Orientation/consciousness: patient oriented x3 HEENT Head: Yes normal to inspection Ears: hearing grossly normal bilaterally Eyes Sclerae: sclerae normal Pupils: Equal, round and reactive pupils present Neck Neck: Yes normal visual inspection Chest Chest palpation & inspection: normal inspection of the chest Resp Effort & Inspection: normal respiratory effort Auscultation: clear to auscultation bilaterally Cardio Palpation: normal PMI Rate: regular rate Rhythm: regular rhythm Heart sounds: S1 normal heart sound present, S2 normal heart sound present and no murmurs GI Palpation (GI): Soft to palpation, nontender and No hepatosplenomegaly present Auscultation: normal bowel sounds Rectal Exam - Male: Yes deferred Skin General skin exam: no rashes or lesions noted Neuro General: patient oriented x3, gait normal and moves all extremities Cranial nerves: Yes Equal, round and reactive pupils present Psych Appearance: grossly normal Mental Status: mental status grossly normal Assessment & Plan Assessment & Plan (1) Adenomatous colon polyp: Comment: 04/2021 Four small to medium sized adenomatous polyps were removed. Repeat colonoscopy advised in 3 year (due 04/2024) Code(s): D12.6 - Benign neoplasm of colon, unspecified Category: Medical (2) Diverticulosis of colon: Comment: diverticulosis, he has never had episode of diverticulitis. Code(s): K57.30 - Diverticulosis of large intestine without perforation or abscess without bleeding Category: Medical (3) Irritable bowel syndrome with constipation and diarrhea: Comment: He is willing to trial with Citrucel 2 tabs b.i.d. in hopes this gives him more consistent stool pattern. Code(s): K58.2 - Mixed irritable bowel syndrome Category: Medical (4) Abdominal bloating: Code(s): R14.0 - Abdominal distension (gaseous) Category: Medical (5) Diverticulosis of colon: Comment: Moderate to severe diverticulosis-maintain high-fiber diet, review says symptoms diverticulitis Code(s): K57.30 - Diverticulosis of large intestine without perforation or abscess without bleeding Category: Medical (6) GERD (gastroesophageal reflux disease): Code(s): K21.9 - Gastro-esophageal reflux disease without esophagitis Category: Medical Qualifiers: Esophagitis presence: without esophagitis Qualified Code(s): K21.9 - Gastro-esophageal reflux disease without esophagitis (7) IBS (irritable bowel syndrome): Comment: Pt was referred for low FODMAP diet. Per conversation Pt reports improvement in GI symptoms when drinking lactose free milk however consuming other foods with lactose contributing to GI Code(s): K58.9 - Irritable bowel syndrome, unspecified Category: Medical (8) Chronic diarrhea: Code(s): K52.9 - Noninfective gastroenteritis and colitis, unspecified Category: Medical (9) Pancreatic insufficiency: Comment: Pancreatic elastase was 33 indicating severe pancreatic insufficiency. Patient was started on Zenpep with improvement in abdominal cramping. Code(s): K86.89 - Other specified diseases of pancreas Category: Medical (10) Elevated fecal calprotectin: Code(s): R19.5 - Other fecal abnormalities Category: Medical Plan 74 year-old anxious male with IBS associated with diarrhea and constipation.? He is managing his symptoms with a change in diet and imodium prn. He was advised to take Citrucel daily and Dicyclomine prn for abdominal pain. Patient does admit to anxiety worsening his symptoms, he is currently living with his brother which is not the best scenario but is tolerable.? He has and? been followed recently for mild seizure activity and has not had any further issue?since dose of medications was increased. 04/2021 Four small to medium sized adenomatous polyps were removed. Repeat colonoscopy advised in 3 year (due 04/2024). Pt was given the following advice: 1.? Please continue to keep a FOOD dairy 2.? Take Polyethylene Glycol once a day on days you do not have a bowel movement 3.? No milk products - Ok to take yogurt with Probiotics. 4.? If you continue to have problems, you can start a FODMAP diet. 5.? Famotidine twice daily for GERD in place of Omeprazole Pt was seen by Nutrition and advised to take Lactaid pills with cheese and pizza. He is keeping a food dairy. Advised to follow a FODMAP diet and not following it too strictly. Stool tests showed a low pancreatic elastase suggestive of pancreatic insufficiency Prescription for Zenpep (pancreatic enzyme preparation) was sent to the pharmacy. Patient had a surgery on his right knee on 06/04/2022 and has been taking Dilaudid. Patient is advised to start MiraLax 1-2 times daily for constipation. If he continues to have symptoms he can take senna 2 capsules at bedtime p.r.n. 11/07/22 Pt advised to resume taking Dicyclomine 10 mg three times daily prn for abd cramps 03/22/24 Abd cramps every time he eats Has to strain while having a BM - takes Miralax once a day Pt advised to start Linzess for constipation and schedule an EGD and Colon (scheduled 09/06/24) 06/17/24 Noted RLQ pain radiating to the rt flank for the past 2 weeks. Pain is 10/10 in intensity, constant and is worse on moving and standing - unable to sleep on the right side Admits to burning micturation Has been drinking a lot water. Flank pain suggestive of kidney stones Pt advised to go to the ED for evaluation ADDENDUM: Seen in the ER and finnegan was negative: Clinical Impression: Dysuria, Diarrhea 11/25/24 Pt complains of abdominal cramps with diarrhea and 6 lb weight loss. Has not been taking Creon for pancreatic insufficiency and patient was advised to resume taking 1 capsule with breakfast and lunch and 2 capsules with dinner. Continue taking pantoprazole 40 mg twice daily for 4-6 weeks. Patient is scheduled for a colonoscopy on 02/07/2025 and a follow-up appointment on 02/24/25 He was advised to call back if he continued to have symptoms 2-3 weeks after resuming the Creon 02/07/25 EGD AND COLON SHOWED: Endoscopy Findings: ESOPHAGUS: Hiatal hernia 38 to 42 cms. Partially obstructing Schatzki's ring at the GE junction - dilated to 20 mm (60 F) STOMACH: Diffuse gastritis DUODENUM: Normal Colonoscopy Findings: Four small polyps were removed Moderate diverticulosis seen in the left colon Plan: Repeat Colonoscopy in 3-5 years if polyps are adenomatous and due to a history adenomatous colon polyps BIOPSIES SHOWED: A. Stomach, antrum, biopsy: Antral-type and oxyntic mucosa with mild chronic inactive inflammation and focal intestinal metaplasia; negative for dysplasia; no Helicobacter organisms seen. B. Colon, ascending, polypectomy: Fragments of tubular adenoma; negative for high-grade dysplasia or carcinoma. C. Colon, transverse, polypectomy: Fragments of tubular adenoma; negative for high-grade dysplasia or carcinoma Letter sent to the patient advising repeat EGD (FU of gastric intestinal metaplasia) and colonoscopy in 3 years Patient was placed on the colonoscopy recall list 04/28/25 Pt complains of constipation and intermittent postprandial abdominal pain. He was advised to: 1. Increase Creon to 2 Capsules with each meal - take 1 capsule before dinner and 2nd capsule in half way through dinner 2. Take Dicyclomine 1 tab 30 min before dinner and at bedtime 3. Take Linzess daily 07/28/25 After eating at a restuarant he has vomiting and diarrhea 1/2 hour later. Took Rifaximin for 14 days and felt perfect Symptoms recurrent 4 days after he finished the medication Pt advised to schedule a capsule endoscopy - elevated fecal calprotectin FU in 4 months Coding Level of Care Code Est Pt Level 4 (72561) Diagnoses Adenomatous colon polyp D12.6 Diverticulosis of colon K57.30 Irritable bowel syndrome with constipation and diarrhea K58.2 Abdominal bloating R14.0 Gastroesophageal reflux disease without esophagitis K21.9 Esophagitis presence: without esophagitis IBS (irritable bowel syndrome) K58.9 Chronic diarrhea K52.9 Pancreatic insufficiency K86.89 Elevated fecal calprotectin R19.5 Time Spent (min) 23
[2025-07-28 13:04] VITALS: BP 119/56; PULSE 57; O2SAT 98; BMI 24.4
--- OUTSIDE RECORDS SUMMARY | 2025-07-28 17:04 | XMS_ITS | Clinical Summary ---
Author Organization [facility] Address [address] [place] [address] Care Team Providers Care Signal Inspector Name Role Phone Nito Newell MD Primary Care Provider [phone] Allergies No known active allergies Medications acyclovir (ZOVIRAX) 400 mg tablet Oral for 30 Days Active budesonide-form oterol (Symbicort) 160-4.5 MCG/ACT inhaler Inhalation for 30 Days Active busPIRone (BUSPAR) 15 MG tablet Oral for 30 Days Active gabapentin (NEURONTIN) 300 MG capsule 1 capsule. 4 Active hydrOXYzine HCl (ATARAX) 25 MG tablet Oral for 28 Days Active lenalidomide (REVLIMID) 5 MG capsule Oral for 21 Days Active linezolid (ZYVOX) 600 MG tablet 4 Active metoPROLOL SUCCINATE (TOPROL-XL) 25 MG 24 hr tablet 4 Active mirabegron (Myrbetriq) 25 mg ER tablet Oral for 30 Days Active Multiple Vitamins-Minera ls (Centrum Men) Tab Take by mouth. 3 Active OXcarbazepine (TRILEPTAL) 300 MG tablet Oral for 28 Days Active pancrelipase, Upt-Vufe-Zxos, (Zenpep) [address] Particles capsule Take by mouth. 3 Active PANTOprazole (PROTONIX) 40 MG EC tablet 4 Active PARoxetine (PAXIL) 40 MG tablet 4 Active primidone (MYSOLINE) 50 MG tablet 4 Active solifenacin (VESICARE) 5 MG tablet 4 Active tamsulosin (FLOMAX) 0.4 MG capsule Oral for 28 Days Active traZODone (DESYREL) 100 MG tablet 4 Active zolpidem (AMBIEN) 10 MG tablet 1 tablet at bedtime as needed Orally Once a day 3 Active Active Problems Problem Noted Date Diagnosed Date Premature ventricular contractions 10/19/2024 Bipolar depression 10/19/2024 GERD without esophagitis 10/19/2024 Insomnia 10/19/2024 Osteoarthritis 10/19/2024 Palpitations 10/19/2024 Seizure, temporal lobe 10/19/2024 Migraine 06/05/2015 Prediabetes 01/18/2015 Microscopic hematuria 03/14/2014 High cholesterol 03/11/2014 Colon polyps 01/18/2013 Bipolar disorder 07/21/2012 Overview (10/19/2024): Patient follow with psych in [place] and [place] 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 The patient did not respond to injection and he has an electrical stimulator in place. Patient follows with the [facility] pain management clinic. Dr Cash was the surgeon. Vertigo 07/21/2012 Immunizations Immunization Administration Dates Next Due Influenza, Trivalent (FLUARI X, AFLURIA, FLULAVAL, FLUZONE) Preservative Free IM 2014,07/21/2013,09/19/2012,2011 PPD Test 12/15/2013 Pneumococcal Conjugate, Unspecified 08/07/2015 TD Preservative Free 09/18/2006 Zoster Vaccine Live/Attenuat ed (Zostavax) 08/07/2015 Social History Tobacco Use Types Packs/Day Years Used Date Smoking Tobacco: Never Assessed Sex and Gender Information Value Date Recorded Sex Assigned at Male 09/04/2024 10:30 AM EDT Legal Sex Male 10:27 AM EDT Gender Identity Male 09/04/2024 10:30 AM EDT Sexual Orientation Heterosexual (straight) 09/04 10:30 AM EDT Plan of Treatment Health Maintenance Due Date Last Done Comments Advance Care Planning 1950 Hepatitis C Virus Screening 1950 Pneumococcal Vaccines 50+ (1 of 1 - PCV) 2001 08/07/2015 DTaP/Tdap/Td Vaccines (1 - Tdap) 09/19/2006 09/18/2006 Zoster (Shingles) Vaccine (2 of 3) 10/02/2015 08/07/2015 COVID-19 Vaccine (1 - season) 2024 RSV Vaccine 60 years and older and Patients (1 - 1-dose 75+ series) 2026 Influenza Vaccine Discontinued 2014, , 09/19/2012, Additional history exists Hepatitis B Vaccines Aged Out No long er eligible based on patient's age to complete this topic Care Teams Signal Inspector Relationship Specialty Start Date End Date Nito Newell MD [address] [place] [address] [place], [place] [id number] PCP - General 10/19/24
--- OUTSIDE RECORDS SUMMARY | 2025-07-28 17:04 | XMS_ITS | Clinical Summary ---
Author Organization [facility] Address [address] [place] [address] Phone Care Team Providers Care Closing Agent Name Role Phone Nito Newell MD Primary Care Provider Payal Hackett MD Unavailable [phone] Reece Zavala MD, PhD Unavailable [phone] Social History Tobacco Use Types Packs/Day Years Used Date Smoking Tobacco: Never Assessed Education Answer Date Recorded Are you interested in more education? Not on nasra e 03/14/2023 Are you concerned about learning? Not on file 03/14/2023 No 03/14/2023 No 03/14/2023 Digital Access Answer Date Recorded No 04/09/2023 No 04/09/2023 No 04/09/2023 Reliable internet access at home? Not on file 04/09/2023 Device with a working camera? Not on file Sex and Gender Information Value Date Recorded Sex Assigned at Male 07/15/2022 2:32 PM EDT Legal Sex Male 10:00 PM EDT Gender Identity Male 07/15/2022 2:32 PM EDT Sexual Orientation Choose not to disclose Last Filed Vital Signs Vital Sign Reading Time Taken Comments Blood Pressure 120/52 10/12/2024 1:32 PM EST Pulse 60 10/12/2024 1:32 PM EST Temperature 36.6 C (97.8 F) 10/12/2024 1:32 PM EST Respiratory Rate 18 10/12/2024 1:32 PM EST Oxygen Saturation 98% 10/12/2024 1:32 PM EST Inhaled Oxygen Concentration - - Weight 79.3 kg (174 lb 12.8 oz) 10/12/2024 1:32 PM EST Height 177.8 cm (5' 10 ) 08/06/2022 1:08 PM EDT Body Mass Index 25.08 08/06/2022 1:08 PM EDT Plan of Treatment Upcoming Encounters Date Type Department Care Team (Late st Contact Info) Description 08/02/2025 11:15 AM EDT Blood Draw [address] [place] [address] Reece Zavala MD, PhD [address] [place] [address] [email or web address] 08/09/2025 4:00 PM EDT Telemedicine - audio only [address] [place] [address] Reece Zavala MD, PhD [address] [place] [address] [email or web address] Health Maintenance Due Date Last Done Comments LIPID PANEL 1951 DEPRESSION SCREENING 1963 SMOKING Hx and SMOKELESS TOBACCO SCREENING 1964 HEPATITIS C SCREENING 1969 COLOGUARD 1996 COLONOSCOPY 1996 COLORECTAL CANCER SCREENING 1996 FIT TEST 1996 FOBT 1996 SIGMOIDOSCOPY 1996 VIRTUAL COLONOSCOPY 1996 RSV VACCINE (1 - Risk 60-74 years 1-dose series) 2011 ZOSTER VACCINES (1 of 2) 03/18/2014 01/21/2014 INFLUENZA VACCINE (#1) 2025 , 07/11/2020, 07/30/2019, Additional history exists COVID-19 VACCINE ( season) 2025 03/04/2022, 09/26/2021, 03/13/2021, Additional history exists Adult Td,Tdap Booster 12/17/2026 12/17/2016, 006 PNEUMOCOCCAL VACCINES (50+ years) Completed 07/11/2020, 10/27/2019, 08/19/2018, Additional history exists HEPATITIS A VACCINES Aged Out No long er eligible based on patient's age to complete this topic HIB VACCINES Aged Out No longer eligi ble based on patient's age to complete this topic MENINGOCOCCAL VACCINES (ACWY) Aged Out No longer eligible based on patient's age to complete this topic MENINGOCOCCAL VACCINES (B) Aged Out N o longer eligible based on patient's age to complete this topic Medical Devices Not on file Insurance MEDICARE PART A & B [facility] MEDICARE PART A & B [place] MED[place] PART [place] & B [facility]ALTH MEDICARE PART A & B [facility] & [place] & [facility] MEDIC[facility] PART A & [place] Care Teams Closing Agent Relationship Specialty Start Date End Date Nito Newell MD [address] [place] [address] [address] PCP - General Internal Medicine 07/15/22 Payal Hackett MD [address] [place] [address] [email or web address] Primary Oncologist Internal Medicine 04/03/23 Reece Zavala MD, PhD [address] [place], [place] [id number] [place] [address] [email or web address] Consulting Provider Medical Oncology 04/03/23 Additional Source Comments The information contained in this document represents components of the legal health record. It is not the complete legal health record.[facility]
--- OUTSIDE RECORDS SUMMARY | 2025-07-28 17:04 | XMS_ITS ---
Author Name [facility] Organization Unknown Care Team Organization Name Specialty Phone Email Start Date End Da jessica [facility] Nito Newell Primary Care 10/19/2024 [facility] 09/04/2024
--- OUTSIDE RECORDS SUMMARY | 2025-07-28 17:04 | XMS_ITS | Patient Health Record ---
Author Organization [facility] [place] Address [address] [facility] [place] [address] Care Team Providers Care Compressor Technician Name Role Phone Nito Newell MD Primary Care Provider Ninfa Quinones Unavailable [phone] Allergies No Known Allergies Reason For Referral No Information Medications Medication SIG (Take, Route, Frequency, Duration) Notes Start Date End Date Status Physical Therapy . . . 2-3x/week; Duration: 3-4 weeks Active Metoprolol Succinate ER 50 MG Oral; Duration: 28 Days Not-Taking busPIRone HCl 15 MG Oral; Duration: 30 Days Active Primidone 50 MG 1 tablet Orally Once a day; Duration: 30 day(s) 10/02/2023 Active hydrOXYzine HCl 25 MG Oral; Duration: 28 Days Active Symbicort 160-4.5 MCG/ACT Inhalation; Du ration: 30 Days Not-Taking Ipratropium [place] 0.06 % Nasal; Durati on: 30 Days Active chlorproMAZINE HCl 25 MG Oral; Duration: 15 Days Not-Taking Loratadine 10 MG 1 tablet Orally Once a day; Duration: 30 day(s) 10/02/2023 Active OXcarbazepine 300 MG Oral; Duration: 28 Days Active Myrbetriq 25 MG Oral; Duration: 30 Days Not-Taking Chlorhexidine Gluconate 0.12 % Mouth/Throat; Duration: 14 Days Active Cephalexin 500 MG 1 capsule Orally Fou r times a day; Duration: 5 day(s) 10/02/2023 Not-Taking Dicyclomine HCl 10 MG Oral; Duration: 20 Days Active Hydrocortisone Junito-Aloe Vera 10/02/2023 Not-Taking Fiber Therapy Laxative 10/02/2023 Active Ondansetron 8 MG Oral; Duration: 20 Days Not-Taking Codeine 10/02/2023 Not-Takin g Lenalidomide 5 MG Oral; Duration: 21 Days Active Walking Boot/Pneumatic As directed Wear Daily; Duration: Until further notice 02/17/2025 Active LORazepam 0.5 MG Oral; Duration: 10 Days Active traMADol HCl 50 MG Oral; Duration: 20 Days Active Centrum Men - as directed Orally 10/02/2023 Active Augmentin Active Gabapentin 300 MG 1 capsule Orally Onc e a day as needed; Duration: 30 days 05/20/2024 Active Zithromax Active Revlimid 5 MG Oral; Duration: 28 Days Active Acyclovir 400 MG Oral; Duration: 30 Days Active Night Splint AFO - L1930 1 wear at rest; Duration: 30 days Active Aspirin 325 MG 1 tablet Orally Once a day; Duration: 30 day(s) 10/02/2023 Active Medrol makenzie 4mg as directed orally a s directed; Duration: 6 days 01/11/2025 Active Tamsulosin HCl 0.4 MG Oral; Duration: 28 Days Active traZODone HCl 50 MG Oral; Duration: 28 Days Active Zenpep 27960-[address]2746 UNIT as directed Orally 023 Active Zolpidem Tartrate 10 MG 1 tablet at bedt gómez as needed Orally Once a day 10/02/2023 Active Immunizations Vaccine Route Administration Date Status Comme nts Influenza Unknown 08/31/2024 Administered Social History Tobacco Use: Social History Observation [...] W/U Status Risk Notes Problem Plantar fasciitis (984317131) Plantar fasciitis (M72.2) Active confirmed Resistant to previous conservative treatment Problem Mononeuropathy of lower limb (264818029) Neuritis of right foot (G57.91) Active confirmed Problem Mononeuropathy of lower limb (972388855) Neuritis of left foot (G57.92) Active confirmed Problem Plantar fasciitis of left foot (683889967435110 01) Plantar fasciitis of left foot (M72.2) Active confirmed Problem Interstitial myositis (89505175) Interstitial myositis of left foot (M60.172) Active confirmed Vital Signs Blood pressure diastolic 70 mm Hg 04/25/2025 Height 5ft 10in in 04/25/2025 Blood pressure systolic 120 mm Hg 04/25/2025 Weight 172 lbs 04/25/2025 BMI 24.68 kg/m2 04/25/2025 Encounters Encounter Location Date Provider Diagnosis [facility] [address] [place] [address] 01/11/2025 Ninfa Perica Pain in left foot M79.672 ; Plantar fasciitis of left foot M72.2 ; Calcaneal spur, left foot M77.32 ; Interstitial myositis of left foot M60.172 and Bursitis of left foot M77.[address] [address] 02/17/2025 Ninfa Perica Pain in left foot M79.672 ; Plantar fasciitis of left foot M72.2 ; Calcaneal spur, left foot M77.32 ; Interstitial myositis of left foot M60.172 ; Bursitis of left foot M77.52 ; Left Achilles tendinitis M76.62 and Neuritis of left foot G57.[address] [address] 03/14/2025 Ninfa Perica Pain in left foot M79.672 ; Plantar fasciitis of left foot M72.2 ; Calcaneal spur, left foot M77.32 ; Interstitial myositis of left foot M60.172 ; Bursitis of left foot M77.52 and Neuritis of left foot G57.[address] [address] 04/25/2025 Ninfa Perica Pain in left foot M79.672 ; Plantar fasciitis of left foot M72.2 ; Calcaneal spur, left foot M77.32 ; Interstitial myositis of left foot M60.172 ; Bursitis of left foot M77.52 ; Neuritis of left foot G57.92 ; Pain in right toe(s) M79.674 ; Onychomycosis B35.1 and Pain in left toe(s) M79.[address] [facility] [address] [facility]23/2024 [facility] [address] [place] [address] 01/11/2025 [facility] [place] [address] [address] [facility]/20[facility] [place] [address] [address] 01/17/2025 [facility] [address] [place] [address] 01/17/2025 [facility] [place] [address] [address] 01/19/2025 [facility] [address] [place] [address] 01/26/[address] [address] 02/17/[address] [address] 02/22/2025 [facility] [address] 03/16/20[facility] [address] 04/25/2025 Ninfa Perica [facility] Encounter Date Diagnosis (ICD Code) Assessment Notes Treatment Notes Treatment Clinical Notes Section Notes 01/11/2025 Pain in left foot (ICD-10 - M79.672) 01/11/2025 Plantar fasciitis of left foot (ICD-10 - M72.2) Patient Educated with: HEEL CORD STRETCHES.pdf (HEEL CORD STRETCHES.pdf) Patient Educated with: RICE THERAPY.pdf (RICE THERAPY.pdf) 02/17/2025 Pain in left foot (ICD-10 - M79.672) 03/14/2025 Pain in left foot (ICD-10 - M79.672) 03/14/2025 Plantar fasciitis of left foot (ICD-10 - M72.2) 04/25/2025 Pain in left foot (ICD-10 - M79.672) 04/25/2025 Calcaneal spur, left foot (ICD-10 - M77.32) 04/25/2025 Plantar fasciitis of left foot (ICD-10 - M72.2) 03/14/2025 Calcaneal spur, left foot (ICD-10 - M77.32) 02/17/2025 Calcaneal spur, left foot (ICD-10 - M77.32) 02/17/2025 Plantar fasciitis of left foot (ICD-10 - M72.2) 01/11/2025 Calcaneal spur, left foot (ICD-10 - M77.32) 02/17/2025 Interstitial myositis of left foot (ICD-10 - M60.172) 04/25/2025 Interstitial myositis of left foot (ICD-10 - M60.172) 01/11/2025 Interstitial myositis of left foot (ICD-10 - M60.172) 03/14/2025 Interstitial myositis of left foot (ICD-10 - M60.172) 03/14/2025 Bursitis of left foot (ICD-10 - M77.52) 04/25/2025 Bursitis of left foot (ICD-10 - M77.52) 02/17/2025 Bursitis of left foot (ICD-10 - M77.52) 01/11/2025 Bursitis of left foot (ICD-10 - M77.52) 02/17/2025 Left Achilles tendinitis (ICD-10 - M76.62) 03/14/2025 Neuritis of left foot (ICD-10 - G57.92) 04/25/2025 Neuritis of left foot (ICD-10 - G57.92) 04/25/2025 Pain in right toe(s) (ICD-10 - M79.674) 02/17/2025 Neuritis of left foot (ICD-10 - G57.92) 04/25/2025 Onychomycosis (ICD-10 - B35.1) 04/25/2025 Pain in left toe(s) (ICD-10 - M79.675) 02/17/2025 Other Patient Educated with: RICE THERAPY.pdf (RICE THERAPY.pdf) Patient Educated with: INJECTIONTHERA PY.pdf (INJECTIONTHER APY.pdf) 03/14/2025 Other Patient Educated with: RICE THERAPY.pdf (RICE THERAPY.pdf) Patient Educated with: INJECTIONTHERA PY.pdf (INJECTIONTHER APY.pdf) 04/25/2025 Other Plan Of Treatment Pending Test Test Name Order Date MRI : Foot, left 02/17/2025 X ray : Foot, left 3V 01/11/2025 X ray : Foot, left 3V 02/17/2025 Insurance Providers Payer Name Payer Address Payer Phone Subscriber Number Group Number Insured Name Patient Relationship to Insured Coverage Start Date Coverage End Date Medicare National Govt [employer] [address] [facility] [place] [address] [id number] Storm Garcia Self - patient is the insured Medical (General) History Medical History History ICD Code Anxiety Arthritis High blood pressure Multiple Myloma Joint implants/screws Cancer blood Surgical History Surgery Date(Month/Year) Right Knee 08/17/2021 left knee 2007 plate and mesha in neck 2013 Hospitalization History Reason Date(Month/Year) blood pressure dropped
== END 2025-07-28 13:46 | disposition home or self-care (01) ==
LOC: HO.HGI 13:01
PROVIDERS: PCP Internal Medicine; Visit Provider Internal Medicine Gastroenterology
DX: K21.9 Gastro-esophageal reflux disease without esophagitis (principal); K52.9 Noninfective gastroenteritis and colitis, unspecified; K86.89 Other specified diseases of pancreas; R19.5 Other fecal abnormalities
CPT/HCPCS: 99214

== ENCOUNTER → 2025-07-28 13:00 | Outpatient (BNVA) | payer MEDICARE, MEDICAID, SELFPAY | PROVIDERS: PCP Internal Medicine; Visit Provider Internal Medicine Gastroenterology | DX: K58.2 Mixed irritable bowel syndrome (principal); K86.89 Other specified diseases of pancreas; R14.0 Abdominal distension (gaseous); K57.30 Diverticulosis of large intestine without perforation or abscess without bleeding; K21.9 Gastro-esophageal reflux disease without esophagitis; D12.6 Benign neoplasm of colon, unspecified; R19.5 Other fecal abnormalities | CPT/HCPCS: 99212 ==

== ENCOUNTER 2025-09-20 14:40 | Outpatient (AMB) | payer MEDICARE, MEDICAID, SELFPAY ==
--- OUTSIDE RECORDS SUMMARY | 2024-06-15 08:00 | XMS_ITS ---
Author Organization [facility] Address [address] [place] [address] Care Team Providers [facility] Name Role Phone Nito Newell MD Primary Care Provider UnavailNinfa Araiza Unavailable [phone] Aj Ortega Unavailable [phone] REASON FOR VISIT Seen Sooner Encounters En[facility] [address] [address] 06/15/[facility]24 Aj Ortega Plan Of Treatment No Information Progress Notes * Storm MARTINEZ DottyDOB:[birth year] (74 yo M)Acc No.[id number]:06/15/2024 Progress Note Patient: Storm PETIT Provider: Odette Ariza DPM :1950 A ge:73 Y S ex:Male Date:06/15/2024 Address:[address] [place], [place] Pcp:Nito Newell MD Subjective: * Chief Complaints: * 1 . Seen Sooner. * Medical History: Objective: * Vitals: Assessment: Plan: * Treatment: * Images: * The named appointment provid er may or may not be the originator of this progress note, and it is not deemed complete until electronically signed by the appointment provider. Sign off status: Pending * Provider: Odette Ariza DPM Date: 06/15/2024 Generated for Ward Byrdg/Raimundo on: 1 11/20/2024 05:43 PM EST
--- OUTSIDE RECORDS SUMMARY | 2024-09-23 08:30 | XMS_ITS ---
Author Organization [facility] [place] Address [address] [facility] [place] [address] Care Team Providers Care High Rigger Name Role Phone Nito Newell MD Primary Care Provider Ninfa Quinones Unavailable [phone] Medications Medication SIG (Take, Route, Frequency, Duration) Notes Start Date End Date Status Dicyclomine HCl 10 MG Oral; Duration: 20 Days Active Chlorhexidine Gluconate 0.12 % Mouth/Throat; Duration: 14 Days Active Codeine 10/02/2023 Active traMADol HCl 50 MG Oral; Duration: 20 Days Active Centrum Men - as directed Orally 10/02/2023 Active Zithromax Active Acyclovir 400 MG Oral; Duration: 30 Days Active Lenalidomide 5 MG Oral; Duration: 21 Days Active LORazepam 0.5 MG Oral; Duration: 10 Days Active Aspirin 325 MG 1 tablet Orally Once a day; Duration: 30 day(s) 10/02/2023 Active Augmentin Active Symbicort 160-4.5 MCG/ACT Inhalation; Du ration: 30 Days Not-Taking chlorproMAZINE HCl 25 MG Oral; Duration: 15 Days Not-Taking Hydrocortisone Junito-Aloe Vera 10/02/2023 Not-Taking Ondansetron 8 MG Oral; Duration: 20 Days Not-Taking traZODone HCl 50 MG Oral; Duration: 28 Days Active Zenpep [id number] UNIT as directed Orally 023 Active Gabapentin 300 MG 1 capsule Orally Onc e a day as needed; Duration: 30 days 05/20/2024 Active Cephalexin 500 MG 1 capsule Orally Fou r times a day; Duration: 5 day(s) 10/02/2023 Not-Taking Zolpidem Tartrate 10 MG 1 tablet at bedt gómez as needed Orally Once a day 10/02/2023 Active Primidone 50 MG 1 tablet Orally Once a day; Duration: 30 day(s) 10/02/2023 Active Tamsulosin HCl 0.4 MG Oral; Duration: 28 Days Active Metoprolol Succinate ER 50 MG Oral; Duration: 28 Days Active busPIRone HCl 15 MG Oral; Duration: 30 Days Active OXcarbazepine 300 MG Oral; Duration: 28 Days Active hydrOXYzine HCl 25 MG Oral; Duration: 28 Days Active Fiber Therapy Laxative 10/02/2023 Active Myrbetriq 25 MG Oral; Duration: 30 Days Active Ipratropium [place] 0.06 % Nasal; Durati on: 30 Days Active Loratadine 10 MG 1 tablet Orally Once a day; Duration: 30 day(s) 10/02/2023 Active Encounters Encounter Location Date Provider Diagnosis [address] [address] 09/23/2024 Ninfa Vargas Plan Of Treatment No Information Progress Notes * Storm MARTINEZDOB:[birth year] (74 yo M)Acc No.[id number]:09/23/2024 Progress Note Patient: Storm PETIT Provider: Elder Vargas DPM :1950 A ge:73 Y S ex:Male Date:09/23/2024 Address:[address] [place] [id number] Pcp:Nito Newell MD Subjective: * Chief Complaints: * * Medical History: * Medications: T aking Augmentin , Taking Zithromax , Taking Acyclovir 400 MG Tablet Oral , Taking Aspirin 325 MG Tablet 1 tablet Orally Once a day , Taking Lenalidomide 5 MG Capsule Oral , Taking LORazepam 0.5 MG Tablet Oral , Taking traMADol HCl 50 MG Tablet Oral , Taking Centrum Men - Tablet as directed Orally , Taking Chlorhexidine Gluconate 0.12 % Solution Mouth/Throat , Taking Codeine , Taking Dicyclomine HCl 10 MG Capsule Oral , Taking Fiber Therapy Laxative , Taking hydrOXYzine HCl 25 MG Tablet Oral , Taking Ipratropium [place] 0.06 % Solution Nasal , Taking Loratadine 10 MG Tablet 1 tablet Orally Once a day , Taking Myrbetriq 25 MG Tablet Extended Release 24 Hour Oral , Taking OXcarbazepine 300 MG Tablet Oral , Taking Metoprolol Succinate ER 50 MG Tablet Extended Release 24 Hour Oral , Taking busPIRone HCl 15 MG Tablet Oral , Taking Primidone 50 MG Tablet 1 tablet Orally Once a day , Taking Tamsulosin HCl 0.4 MG Capsule Oral , Taking traZODone HCl 50 MG Tablet Oral , Taking Zenpep 10454- 60985 UNIT Capsule Delayed Release Particles as directed Orally , Taking Zolpidem Tartrate 10 MG Tablet 1 tablet at bedtime as needed Orally Once a day , Taking Gabapentin 300 MG Capsule 1 capsule Orally Once a day as needed , Not-Taking/PRN Cephalexin 500 MG Capsule 1 capsule Orally Four times a day , Not-Taking/PRN Hydrocortisone Junito- Aloe Vera , Not-Taking/PRN Ondansetron 8 MG Tablet Disintegrating Oral , Not- Taking/PRN Symbicort 160-4.5 MCG/ACT Aerosol Inhalation , Not-Taking/PRN chlorproMAZINE HCl 25 MG Tablet Oral Objective: * Vitals: Assessment: Plan: * Treatment: * Images: * The named appointment provid er may or may not be the originator of this progress note, and it is not deemed complete until electronically signed by the appointment provider. Sign off status: Pending * Provider: Elder Vargas DPM Date: 11/23/2023 Generated for Ward coppola/Kalyani/Raimundo on: 11/20/2024 05:44 PM EST
--- OUTSIDE RECORDS SUMMARY | 2024-12-16 09:30 | XMS_ITS ---
Author Organization [facility] Address [address] [address] Care Team Providers Care Paper Mill Superintendent Name Role Phone Reece VILLALBA, Nito Primary Care Provider Ninfa Quinones [phone] Encounters Encounter Location Date Provider Diagnosis [address] [address] 12/16/2024 Ninfa Vargas Plan Of Treatment No Information Progress Notes * Storm MARTINEZ JDOB:[birth year] (74 yo M)Acc No.[id number]:12/16/2024 Progress Note Patient: Storm PETIT Provider: Elder Vargas DPM :1950 A ge:74 Y S ex:Male Date:12/16/2024 Address:[address] [facility] Pcp:Nito Newell MD Subjective: * Chief Complaints: * * Medical History: Objective: * Vitals: Assessment: Plan: * Treatment: * Images: * The named appointment provid er may or may not be the originator of this progress note, and it is not deemed complete until electronically signed by the appointment provider. Sign off status: Pending * Provider: Elder Vargas DPM Date: 0 12/16/2024 Generated for Printi ng/Farosag/eTransmitting on: 11/20/2024 05:44 PM EST
--- OUTSIDE RECORDS SUMMARY | 2025-03-03 10:15 | XMS_ITS ---
Author Organization [facility] Address [address] [place] [address] Care Team Providers Care Glass Embosser Name Role Phone Reece VILLALBA, Nito Primary Care Provider Ninfa Quinones [phone] Encounters Encounter Location Date Provider Diagnosis [address] [address] 03/03/2025 Ninfa Vargas Plan Of Treatment No Information Progress Notes * Storm MARTINEZ JDOB:[birth year] (74 yo M)Acc No.[id number]:03/03/2025 Progress Note Patient: Storm PETIT Provider: Elder Vargas DPM :1950 A ge:74 Y S ex:Male Date:03/03/2025 Address:[address] [facility] Pcp:Nito Newell MD Subjective: * Chief Complaints: * * Medical History: Objective: * Vitals: Assessment: Plan: * Treatment: * Images: * The named appointment provid er may or may not be the originator of this progress note, and it is not deemed complete until electronically signed by the appointment provider. Sign off status: Pending * Provider: Elder Vargas DPM Date: 0 03/03/2025 Generated for Manueli ng/Farosag/eTransmitting on: 1 11/20/2024 05:43 PM EST
--- NOTE | 2025-09-20 15:13 | A.OFFVIS_ITS ---
Intake Visit Reasons: 6m CPS Allergies No Known Allergies Allergy (Verified 07/28/25 13:04) HPI Comments Details: 74 y/o man with alcohol abuse, anxiety, diagnosed with multiple myeloma in 2022 and getting [place] [facility], tremor, b/l carotid US, and complex partial seizure disorder (sudden sense of an odd smell, a few seconds of confusion, like unclear where he was at that time, leading to anxiety. It would also lead to a feeling of passing out. He had a de ja vu feeling.) He is presenting with seizure activity. He experienced two seizures three nights ago, which is atypical for him as he usually does not have multiple seizures in a row. These episodes occurred during sleep, with one happening after he woke up and went to the bathroom. He denies any new contributing factors. He is taking oxcarbazepine 300 mg twice daily to manage his condition. [facility] Medical History (Updated 09/20/25 @ 15:15 by Karan Jeter MD) Carotid stenosis, bilateral Sinusitis Multiple myeloma Nontuberculous mycobacterial disease of lung History of cardiac murmur Immunodeficiency Chronic cough Chronic allergic rhinitis History of basal cell cancer Hx of skin cancer, basal cell Has a tremor Diverticulosis IBS (irritable colon syndrome) Thrombosed external hemorrhoids Irritable bowel syndrome with constipation and diarrhea PVC (premature ventricular contraction) Diverticulosis of colon History of alcohol abuse Back pain Arthritis Leukopenia Diarrhea OAB (overactive bladder) BPH (benign prostatic hyperplasia) Anxiety Depression Bipolar 1 disorder Seizure disorder Insomnia Heart palpitations Hypertension Surgical History History of bone marrow biopsy History of bronchoscopy Hx of right knee surgery Hx of esophagogastroduodenoscopy History of total knee arthroplasty Hx of colonoscopy (02/07/25) Hx of cervical spine surgery Hx of bilateral inguinal hernia repair History of total knee arthroplasty Family History Maternal Aunt Colon cancer Father No problems noted. Mother No problems noted. Brother No problems noted. Social History Household Members: Family Household Members Other:: brother Both parents involved: No Housing: House Are you a primary out of school hours care worker to a significant other at home: No Do you presently have visiting nurse or other home services: No Alcohol intake: former Patient Tobacco Use Status: Never used Tobacco service: No Current occupational status: disabled Review of Systems Narrative - Neurologic: Reports seizures; denies any new precipitating factors for seizure activity. Physical Exam Neuro Other: Mental Status: Alert and oriented to person, place, and time. Normal attention. Normal sponta neous speech, fluency, and comprehension. No obvious issues with mood and memory. Affect is appropriate. Cranial Nerves: CN II: Visual wright full to confrontation, visual acuity intact. CN III, IV, : Pupils equal, round, reactive to light and accommodation. Extraocular movements are normal. CN V: Facial sensation is normal. CN VII: Facial movements symmetrical. CN VIII: Hearing intact to bedside conversation is normal. CN IX, X: Palate elevates symmetrically. CN XI: Shoulder shrug and head turn symmetrical. CN XII: Tongue midline without atrophy or fasciculations. Gait and Station: No obvious gait abnormality. No ataxia or instability. Extrapyramidal: Full facial expressions and blinking. No rigidity. Movements are appropriate with no tremor or abnormality. Speech: Normal; no dysarthria or tremor. Assessment & Plan Assessment & Plan (1) Complex partial seizure disorder: Code(s): G40.209 - Localization-related (focal) (partial) symptomatic epilepsy and epileptic syndromes with complex partial seizures, not intractable, without status epilepticus Category: Medical Qualifiers: Epilepsy type: partial symptomatic Intractability: not intractable Status epilepticus: without status epilepticus Qualified Code(s): G40.209 - Localization-related (focal) (partial) symptomatic epilepsy and epileptic syndromes with complex partial seizures, not intractable, without status epilepticus (2) Tremor: Code(s): R25.1 - Tremor, unspecified Category: Medical Plan Impression: 1. Complex partial seizure disorder 2. Benign essential tremor Recommendations: 1. Increase oxcarbazepine to 150 mg, 3, twice a day 2. Primidone 50 mg, 1, twice a day Medications: New oxcarbazepine 450 mg (3 x 150 mg) PO BID 540 tabs 1RF Refilled primidone 50 mg PO BID 180 tabs 1RF 90 days Discontinued oxcarbazepine Discontinued Reason: Doctor's Order 300 mg PO BID 30 days 60 tabs 5RF Coding Level of Care Code Est Pt Level 4 (83833) Diagnoses Partial symptomatic epilepsy with complex partial seizures, not intractable, without status epilepticus G40.209 Epilepsy type: partial symptomatic Intractability: not intractable Status epilepticus: without status epilepticus Tremor R25.1
--- OUTSIDE RECORDS SUMMARY | 2025-09-20 17:43 | XMS_ITS | Encounter Summary ---
Author Organization [facility] Address [address] [place] [address] Phone Care Team Providers Care Field Crop Harvest Contractor Name Role Phone Nito Newell MD Primary Care Provider Payal Hackett MD Unavailable [phone] Reece Zavala MD, PhD Unavailable [phone] Encounter Details Date Type Department Care Team (Late st Contact Info) Description 08/06/2025 Transcribe Orders [facility] [address] [place] [address] Reece Zavala MD, PhD [address] [place], [place] [address] [place] [address] [email or web address] Social History Tobacco Use Types Packs/Day Years [...] EDT Sexual Orientation Choose not to disclose documented as of this encounter Plan of Treatment Not on file documented as of this encounter Visit Diagnoses Not on filedocumented in this encounter Care Teams Field Crop Harvest Contractor Relationship Specialty Start Date End Date Nito Newell MD [address] [place] [address] PCP - General Internal Medicine 07/15/22 Payal Hackett MD [address] [place] [address] [email or web address] Primary Oncologist Internal Medicine 04/03/23 Reece Zavala MD, PhD [address] [place], [place] [address] [place] [address] [email or web address] Consulting Provider Medical Oncology 04/03/23 documented as of this encounter Additional Source Comments The information contained in this document represents components of the legal health record. It is not the complete legal health record.[facility]
--- OUTSIDE RECORDS SUMMARY | 2025-09-20 17:43 | XMS_ITS | Patient Health Record ---
Author Organization [facility] [place] Address [address] [facility] [place] [address] Care Team Providers Care Carrot Grader Inspector Name Role Phone Nito Newell MD Primary Care Provider Ninfa Quinones Unavailable [phone] Allergies No Known Allergies Reason For Referral [...] Inhalation; Du ration: 30 Days Not-Taking Ipratropium [place] 0.06 % Nasal; Durati on: 30 Days [...] MG Oral; Duration: 28 Days Active Zenpep 401[address] UNIT as directed Orally 023 Active Zolpidem [...] W/U Status Risk Notes Problem Plantar fasciitis (661837370) Plantar fasciitis (M72.2) Active confirmed Resistant to previous conservative treatment Problem Mononeuropathy of lower limb (495079189) Neuritis of right foot (G57.91) Active confirmed Problem Mononeuropathy of lower limb (673638492) Neuritis of left foot (G57.92) Active confirmed Problem Plantar fasciitis of left foot (516508626452786 01) Plantar fasciitis of left foot (M72.2) Active confirmed Problem Interstitial myositis (51313138) Interstitial myositis of left foot (M60.172) Active confirmed Vital Signs Blood pressure diastolic 70 mm Hg 04/25/2025 Height 5ft 10in in 04/25/2025 Blood pressure systolic 120 mm Hg 04/25/2025 Weight 172 lbs 04/25/2025 BMI 24.68 kg/m2 04/25/2025 Encounters Encounter Location Date Provider Diagnosis [facility] [address] [place] [address] 01/11/2025 Ninfa Perica Pain in left foot M79.672 ; Plantar fasciitis of left foot M72.2 ; Calcaneal spur, left foot M77.32 ; Interstitial myositis of left foot M60.172 and Bursitis of left foot M77.[address] [address] 02/17/2025 Ninfa Perica Pain in left foot M79.672 ; Plantar fasciitis of left foot M72.2 ; Calcaneal spur, left foot M77.32 ; Interstitial myositis of left foot M60.172 ; Bursitis of left foot M77.52 ; Left Achilles tendinitis M76.62 and Neuritis of left foot G57.[address] [address] 03/14/2025 Ninfa Perica Pain in left foot M79.672 ; Plantar fasciitis of left foot M72.2 ; Calcaneal spur, left foot M77.32 ; Interstitial myositis of left foot M60.172 ; Bursitis of left foot M77.52 and Neuritis of left foot G57.[address] [address] 04/25/2025 Ninfa Perica Pain in left foot M79.672 ; Plantar fasciitis of left foot M72.2 ; Calcaneal spur, left foot M77.32 ; Interstitial myositis of left foot M60.172 ; Bursitis of left foot M77.52 ; Neuritis of left foot G57.92 ; Pain in right toe(s) M79.674 ; Onychomycosis B35.1 and Pain in left toe(s) M79.[address] [facility] [address] 09/23/2024 [facility] [address] [place] [address] 01/11/2025 [facility] [address] [facility] [address] 01/17/2025 [facility] [address] [place] [address] 01/17/2025 [facility] [address] 01/19/2025 [facility] [address] [place] [address] 01/26/[address] [address] 02/17/[address] [address] 02/22/2025 [facility] [address] 03/16/2025 [facility] [address] 04/25/2025 Ninfa Perica [facility] Encounter Date Diagnosis (ICD Code) Assessment [...] National Govt [employer] [address] [facility] [place] [address] [id number] Storm Garcia Self - patient is the insured Medical (General) History Medical History History ICD Code Anxiety Arthritis High blood pressure Multiple Myloma Joint implants/screws Cancer blood Surgical History Surgery Date(Month/Year) Right Knee 08/17/2021 left knee 2007 plate and mesha in neck 2013 Hospitalization History Reason Date(Month/Year) blood pressure dropped
--- OUTSIDE RECORDS SUMMARY | 2025-09-20 17:44 | XMS_ITS | Clinical Summary ---
Author Organization [facility] Address [address] [place] [address] Phone Care Team Providers Care Seating Upholsterer Name Role Phone Physician, Pcp Unknown Primary Care Provider Tracie vailable Allergies No known active allergies Medications acyclovir (ZOVIRAX) 400 mg tablet Take 1 tablet (400 mg total) by mouth 2 (two) times a day. Active busPIRone (BUSPAR) 15 mg tablet Take 1 tablet (15 mg total) by mouth 2 (two) times a day. Active dicyclomine (BENTYL) 10 mg capsule Take 1 capsule (10 mg total) by mouth 3 (three) times a day. Active fluorometholone (FML) 0.1 % ophthalmic suspension Administer 1 drop into both eyes 2 (two) times a day. 5 Active lenalidomide (REVLIMID) 5 mg capsule Take 5 capsules (25 mg total) by mouth 1 (one) time each day Active Creon 12,000-38,000 -60,000 unit capsule Take 1 capsule (12,000 Units total) by mouth 3 (three) times a day with meals. 5 Active Dulera 200-5 mcg/actuation inhaler Inhale 2 puffs by mouth 2 (two) times a day. 5 Active OXcarbazepine (TRILEPTAL) 300 mg tablet Take 1 tablet (300 mg total) by mouth 2 (two) times a day. 2 Active pantoprazole (PROTONIX) 40 mg EC tablet Take 1 tablet (40 mg total) by mouth 2 (two) times daily before breakfast and lunch. 2 Active PARoxetine (PAXIL) 40 mg tablet Take 1 tablet (40 mg total) by mouth 1 (one) time each day in the morning. 7 Active primidone (MYSOLINE) 50 mg tablet Take 1 tablet (50 mg total) by mouth 2 (two) times a day. 2 Active tamsulosin (FLOMAX) 0.4 mg 24 hr capsule Take 1 capsule (0.4 mg total) by mouth 1 (one) time each day. 7 Active traZODone (DESYREL) 100 mg tablet Take 1-2 tablets (100-200 mg total) by mouth at bedtime. 4 Active Incruse Ellipta 62.5 mcg/actuation inhalation Inhale 1 puff by mouth 1 (one) time each day. 5 Active zolpidem (AMBIEN) 10 mg tablet Take 1 tablet (10 mg total) by mouth at bedtime as needed. Max Daily Amount: 10 mg 3 Active simethicone (MYLICON) 80 mg chewable tablet Chew 1 tablet (80 mg total) every 6 (six) hours if needed for flatulence. Active Active Problems Problem Noted Date Diagnosed Date Multiple myeloma ([facility] V24, [facility] V28) 03/2025 Partial seizure disorder ([facility] V24, [facility] V 28) 03/21/2025 Bradycardia 03/20/2025 Surgical History Surgery Date Site/Laterality Comments CERVICAL SPINE SURGERY TOTAL KNEE ARTHROPLASTY Bilateral CYSTOSCOPY Medical History Medical History Date Comments Multiple myeloma ([facility] V24, [facility] V28) 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 [facility] Asthma HTN (hypertension) Seizures ([facility] V24, [facility] V28) partial temporal seizure BPH (benign prostatic hyperplasia) Alcohol use disorder in remission Sober x 9 years on March 30, 2025 Anxiety with depression Insomnia Family History Medical History Relation Name Comments COPD Other Coronary artery disease Other Hyperlipidemia Other Hypertension Other Relation Name Status Comments Father Mother Other Social History Tobacco Use Types Packs/Day Years Used Date Smoking Tobacco: Never Smokeless Tobacco: Never Tobacco Cessation:Counseling Given: Not Answered Alcohol Use Standard Drinks/Week Comments Not Currently 0 (1 standard drink = 0.6 oz pure alcohol) History of ETOH abuse, sober x 9 years Housing Instability Answer Date Recorde d Are you worried that in the next 2 months you may not have stable housing? No 03/20/2025 Food Access & Nutrition Answer Date Rec orded Do you have access to a vari ety of food including fruits and vegetables? Yes 03/20/2025 Access to Healthcare Answer Date Record ed Within the last 3 months, ho w many times did you visit the emergency department for your medical care? 0 03/20/2025 Health Literacy Answer Date Recorded How often do you need to hav e someone help you when you read instructions, pamphlets, or other written material from your doctor or pharmacy? Never 03/20/2025 Caregiver: How often do you need to have someone help you when you read instructions, pamphlets, or other written material from your doctor or pharmacy? Not on file 03/20/2025 Financial Risk Answer Date Recorded How hard is it for you to pa y for the very basics like food, housing, medical care, and air conditioning / heating? Somewhat hard 03/20/2025 Transportation Answer Date Recorded Has the lack of transportati on kept you from meetings, work, or from getting things needed for daily living? No Has the lack of transportati on kept you from medical appointments or from getting medications? No 03/20/2025 Social Isolation Answer Date Recorded How often do you feel lonely or isolated from th ose around you? Rarely 03/20/2025 Food Risk Answer Date Recorded Within the past 12 months we worried whether our food would run out before we got money to buy more. Never true 03/20/2025 Within the past 12 months th e food we bought just didn't last and we didn't have money to get more. Never true 03/20/2025 Dependent Care Answer Date Recorded Do you need help finding or paying for care for your loved ones. For example, child center assistant or elderly care for an older adult? No 03/20/2025 Education Answer Date Recorded Do you think completing more education or training, like finishing a GED, going to college, or learning a trade, would be helpful for you? N/A 03/20/2025 Employment and Income Answer Date Recor ded During the last four weeks, have you been actively looking for work? No 03/20/2025 Living Situation Answer Date Recorded What is your living situation? Unrecognized valu e 03/20/2025 Interpersonal Safety Answer Date Record ed Physical Abuse Unrecognized value 03/20/2025 Verbal Abuse Unrecognized value 03/20/2025 Sex and Gender Information Value Date Recorded Sex Assigned at Not on file Legal Sex Male 11:20 PM EST Gender Identity Not on file Sexual Orientation Not on file Obstetrics History Last Filed Vital Signs Vital Sign Reading Time Taken Comments Blood Pressure 160/73 03/21/2025 4:12 PM EDT Pulse 62 03/21/2025 4:12 PM EDT Temperature 36.6 C (97.8 F) 03/21/2025 4:12 PM EDT Respiratory Rate 16 03/21/2025 4:12 PM EDT Oxygen Saturation 97% 03/21/2025 4:12 PM EDT Inhaled Oxygen Concentration - - Weight 77.1 kg (169 lb 15.6 oz) 03/21/2025 8:39 AM EDT Height 177.8 cm (5' 10 ) 03/21/2025 8:39 AM EDT Body Mass Index 24.39 03/21/2025 8:39 AM EDT Plan of Treatment Upcoming Encounters Date Type Department Care Team (Late st Contact Info) Description 10/19/2025 3:15 PM EST Office Visit Orthopedic Surgery - [address] [phone] Jai Ariza, [address] [phone] Health Maintenance Due Date Last Done Comments RSV Immunization Adult Patients (1 - Risk 50-74 years 1-dose series) 2001 Zoster Vaccines (1 of 2) 10/02/2015 08/07/2015, 0305/2014 Cholesterol Screening (Lipid Panel) 10/20/2022 Colorectal Cancer Screening: Stool Based Tests (FOBT/FIT) 10/20/2022 Hepatitis C Screening 10/20/2022 Medicare Annual Wellness Visit 10/20/2022 Depression Screening 11/17/2024 COVID-19 Vaccine ( season) 2025 03/04/2022, 09/26/2021, 03/13/2021, Additional history exists Influenza Vaccine (#1) 2025 , 07/11/2020, 07/30/2019, Additional history exists Social Influencers of Health Screening 03/20/2026 03/20/2025 Falls Risk Assessment 03/21/2026 03/21/2025 Hypertension/CHF/CAD Annual BMP Blood Test 03/21/2026 03/21/2025, 03/19/2025, 10/12/2024, Additional history exists DTaP,Tdap,and Td Vaccines (3 - Td or Tdap) 12/17/2026 12/17/2016, 09/18/2006 Pneumococcal Vaccine: 50+ Years Completed 07/11/2020, 10/27/2019, 08/19/2018, Additional history exists HIB Vaccines Aged Out No longer eligi [...] on patient's age to complete this topic Procedures Procedure Name Priority Date/Time Associated Diagnosis Comments BASIC METABOLIC PANEL Routine 03/21/2025 5:53 AM EDT from Last 3 Months or Most Recently Relevant to Health Maintenance Results * Basic metabolic panel (03/21/2025 5:53 AM EDT) Sodium 137 133 - 145 mmol/L LAB CHEMISTRY METHOD 03/21/2025 6:55 AM EDT [facility] Potassium 4.1 3.5 - 5.5 mmol/L LAB CHEMISTRY METHOD 03/21/2025 6:55 AM [facility] Chloride 105 96 - 110 mmol/L LAB CHEMISTRY METHOD 03/21/2025 6:55 AM [facility] CO2 28 21 - 32 mmol/L LAB CHEMISTRY METHOD 03/21/2025 6:55 AM [facility] Anion Gap 4 3 - 11 LAB CHEMISTRY METHOD 03/21/2025 6:55 AM [facility] Glucose 96 70 - 100 mg/dL LAB CHEMISTRY METHOD 03/21/2025 6:55 AM [facility] BUN 13 5 - 25 mg/dL LAB CHEMISTRY METHOD 03/21/2025 6:55 AM [facility] Creatinine 0.88 0.70 - 1.30 mg/dL LAB CHEMISTRY METHOD 03/21/2025 6:55 AM [facility] eGFR 91 >=60 mL/min/1. 73m2 LAB CHEMISTRY METHOD 03/21/2025 6:55 AM [facility] Comment:Calculation based on the Chronic Kidney Disease Epidemiology Collaboration (CKD-EPI) equation refit without adjustment for race. BUN/Creatinine Ratio 14.8 LAB CHEMISTRY METHOD 03/21/2025 6:55 AM [facility] Calcium 8.5 8.5 - 10.5 mg/dL LAB CHEMISTRY METHOD 03/21/2025 6:55 AM [facility] Blood Venous blood specimen / Unknown Venipuncture / Unknown 03/21/2025 5:53 AM EDT 03/21/2025 6:09 AM EDT us Charlee Jarvis MD LAB BLOOD ORDERABLES Final Res ult [facility] [address] [place] [address], [place] [phone] from Last 3 Months or Most Recently Relevant to Health Maintenance Insurance MEDICARE MEDICAID - [place] Advance Directives * Full Code - Default (Latest Code Status on File) Date Activated Date Inactivated Comments 03/20/2025 12:11 PM 03/21/2025 9:34 PM This is order is used when code status has not been discussed with the patient, or code status is otherwise unknown/unconfirmed To update the patient's code status, place a code status order. Do not modify or discontinue any currently active code status orders. Care Teams Seating Upholsterer Relationship Specialty Start Date End Date Physician, Pcp Unknown PCP - General 03/20/25
--- OUTSIDE RECORDS SUMMARY | 2025-09-20 17:44 | XMS_ITS | Clinical Summary ---
Author Organization [facility] Address [facility] [address] [place] [address] Phone Care Team Providers Care Policy And Planning Manager Name Role Phone Nito Newell MD Primary Care Provider Payal Hackett MD Unavailable [phone] Reece Zavala MD, PhD Unavailable Encounters Date Type Department Care Team Description 08/09/2025 4:00 PM EDT Telemedicine - audio only [address] [place] [phone] Reece Zavala MD, PhD Multiple myeloma not having achieved remission (Primary Dx) 08/06/2025 12:57 PM EDT - 08/06/2025 11:59 PM EDT Hospital Encounter [facility] [address] [address] Reece Zavala MD, PhD Discharge Disposition: Home or Self Care 08/06/2025 Transcribe Orders [facility] [address] [address] Reece Zavala MD, PhD 08/04/2025 Orders Only [address] [place] [address] Reece Zavala MD, PhD 08/03/2025 Orders Only [address] [place] [address] Reece Zavala MD, PhD from Last 3 Months Social History Tobacco Use Types Packs/Day Years [...] 08/06/2022 1:08 PM EDT Plan of Treatment Health Maintenance Due Date Last Done Comments LIPID PANEL 1951 DEPRESSION SCREENING 1963 SMOKING Hx and SMOKELESS TOBACCO SCREENING 1964 HEPATITIS C SCREENING 1969 COLOGUARD 1996 COLONOSCOPY 1996 COLORECTAL CANCER SCREENING 1996 FIT TEST 1996 FOBT 1996 SIGMOIDOSCOPY 1996 VIRTUAL COLONOSCOPY 1996 ZOSTER VACCINES (1 of 2) 03/18/2014 01/21/2014 INFLUENZA VACCINE (#1) 2025 1, 07/11/2020, 07/30/2019, Additional history exists COVID-19 VACCINE ( season) 2025 03/04/2022, 09/26/2021, 03/13/2021, Additional history exists RSV VACCINE (1 - 1-dose 75+ series) 2026 Adult Td,Tdap Booster 12/17/2026 12/17/2016, 006 PNEUMOCOCCAL [...] this topic Medical Devices Not on file Procedures Procedure Name Priority Date/Time Associated Diagnosis Comments OUTSIDE LAB 08/16/2025 LDH Routine 08/06/2025 1:11 PM EDT Multiple myeloma not having achieved remission MAGNESIUM Routine 08/06/2025 1:11 PM EDT Multiple myeloma not having achieved remission PHOSPHORUS Routine 08/06/2025 1:11 PM EDT Multiple myeloma not having achieved remission MONOCLONAL PROTEIN STUDY, SERUM Routine 08/06/2025 1:11 PM EDT Multiple myeloma not having achieved remission BETA-2 MICROGLOBULIN, BLOOD Routine 08/06/2025 1:11 PM EDT Multiple myeloma not having achieved remission CBC AND DIFFERENTIAL Routine 08/06/2025 1:11 PM EDT Multiple myeloma not having achieved remission COMPREHENSIVE METABOLIC PANEL (CMP) Routine 08/06/2025 1:11 PM EDT Multiple myeloma not having achieved remission FREE LIGHT CHAINS, SERUM Routine 08/06/2025 1:11 PM EDT Multiple myeloma not having achieved remission OUTSIDE LAB Routine 08/04/2025 10:45 AM EDT from Last 3 Months Results * Outside Lab (08/16/2025) Only the most recent of2 resultswithin the time period is included. us Scanning Interface Provider LAB BLOOD BKR ORDERA BLES Final Result * (ABNORMAL) Monoclonal protein study, serum (08/06/2025 1:11 PM EDT) M-protein GK 0.011(H) g/dL [facility] PT LAB MED/[address] M-protein GL 0.223(H) g/dL [facility] PT LAB MED/[address] M-protein [place] Test component not applicable or not reported. g/dL [facility] LAB MED/[address] M-protein AL Test component not applicable or not reported. g/dL [facility]/[address] M-protein MK Test component not applicable or not reported. g/dL [facility] LAB [facility]/[address] M-protein ML Test component not applicable or not reported. g/dL [facility] LAB MED/[address] Glycosylation Test component not applicable or not reported. [facility]/[address] Flag, M-protein Isotype Positive(A) Negative [facility] QMPTS Interpretation SEE NOTE [facility] MED[facility] Comment: (NOTE) IgG kappa 0.011 g/dL Consistent with Daratumumab. IgG lambda 0.223 g/dL If the patient is not on Daratumumab (Darzalex/Faspro), the monoclonal IgG kappa is indicative of a monoclonal gammopathy. ADDITIONAL INFORMATION The submitted sample was assayed by five separate immunopurifications for IgG, IgA, IgM, kappa and lambda. The result reflects the findings of either no monoclonal protein detected or those monoclonal immunoglobulins that were detected. This test was developed and its performance characteristics determined by [facility] in a manner consistent with CLIA requirements. This test has not been cleared or approved by the U.S. Food and Drug Administration. IgA 40(L) 61 - 356 mg/dL [facility] IgM 8(L) 37 - 286 mg/dL [facility] MED[facility] IgG 589(L) 767 - 1,590 mg/dL [facility] MED[facility] Therapeutic Antibody Administered? Unknown [facility] MED[facility] Blood 08/06/2025 1:11 PM EDT 08/06/2025 1:17 PM EDT Reece Zavala MD, PhD LAB BLOOD BKR ORDERABL ES Final Result [facility] LAB MED[facility] [place] [address] * LDH (08/06/2025 1:11 PM EDT) Pathologist [facility] LDH 129 118 - 273 U/L [facility] Blood 08/06/2025 1:11 PM EDT 08/06/2025 1:20 PM EDT us Reece Zavala MD, PhD LAB BLOOD BKR ORDERABL ES Final Result Performing Organization Address City/[facility]/ZIP Co de Phone Number [facility] [address] [place] [address] * (ABNORMAL) Comprehensive metabolic panel (08/06/2025 1:11 PM EDT) Pathologist [facility] SODIUM 141 133 - 146 mmol/L [facility] POTASSIUM 4.3 3.3 - 5.1 mmol/L [facility] CHLORIDE 105 96 - 108 mmol/L [facility] CO2 25 21 - 35 mmol/L [facility] BUN 17 6 - 19 mg/dL [facility] CREATININE 0.80 0.5 - 1.5 mg/dL [facility] GLUCOSE 117(H) 70 - 99 mg/dL [facility] ALBUMIN 4.2 3.9 - 4.8 g/dL [facility] TOTAL PROTEIN 6.2(L) 6.5 - 8.0 g/dL [facility] CALCIUM 9.0 8.4 - 10.3 mg/dL [facility] ALKALINE PHOSPHATASE 76 39 - 117 U/L [facility] TOTAL BILIRUBIN 0.3 0.0 - 1.2 mg/dL [facility] AST 15 0 - 37 U/L [facility] ALT 16 0 - 40 U/L [facility] GLOBULIN 2.0 1 - 4.8 g/dL [facility] EGFR 93 >59 mL/min/1.7 3m2 [facility] Comment:Estimated glomerular filtration rate calculated using the CKD-EPI refit equation. ANION GAP 15 10 - 20 mmol/L [facility] Blood 08/06/2025 1:11 PM EDT 08/06/2025 1:20 PM EDT us Reece Zavala MD, PhD LAB BLOOD BKR ORDERABL ES Final Result Performing Organization Address [facility]/ZIP Co de Phone Number [address] [phone] * (ABNORMAL) Free light chains, serum (08/06/2025 1:11 PM EDT) [place] Free Light Chain 0.4600 0.3300 - 1.94 mg/dL [facility] Lambda Free Light Chain 1.77 0.5700 - 2.63 mg/dL [facility] MED[facility] [place]/Lambda FLC Ratio 0.2599(L) 0.2600 - 1.65 [facility] Blood 08/06/2025 1:11 PM EDT 08/06/2025 1:17 PM EDT us Reece Zavala MD, PhD LAB BLOOD BKR ORDERABL ES Final Result [facility] MED[facility] [place] [address] * (ABNORMAL) CBC and differential (08/06/2025 1:11 PM EDT) WBC 4.38 4.00 - 11.00 K/uL [facility] RBC 3.96(L) 4.50 - 5.90 M/uL [facility] HGB 12.5(L) 13.5 - 17.5 g/dL [facility] HCT 37.3(L) 41.0 - 53.0 % [facility] PLT 151 150 - 450 K/uL [facility] MCV 94.2 80.0 - 100.0 fL [facility] MCH 31.6(H) 27.0 - 31.0 pg [facility] MCHC 33.5 32.0 - 36.0 g/dL [facility] RDW 14.1 11.5 - 14.5 % [facility] MPV 9.2 8.4 - 12.0 fL [facility] NRBC 0.00 0.00 /100 WBCs [facility] ABSOLUTE NRBC 0.00 0.00 K/uL [facility] DIFF METHOD Auto [facility] NEUTS 78.6(H) 48.0 - 76.0 % [facility] LYMPHS 11.6(L) 18.0 - 41.0 % [facility] MONOS 8.9 4.0 - 11.0 % [facility] EOS 0.2 0.0 - 5.0 % [facility] BASOS 0.2 0.0 - 1.5 % [facility] Granulocytes, immature (%) 0.5 0.0 - 0.9 % [facility] ABSOLUTE NEUTS 3.44 1.92 - 7.60 K/uL [facility] ABSOLUTE LYMPHS 0.51(L) 0.72 - 4.10 K/uL [facility] ABSOLUTE MONOS 0.39 0.16 - 1.10 K/uL [facility] ABSOLUTE EOS 0.01 0.00 - 0.50 K/uL [facility] ABSOLUTE BASOS 0.01 0.00 - 0.15 K/uL [facility] Granulocytes, immature 0.02 0.00 - 0.09 K/uL [facility] Blood 08/06/2025 1:11 PM EDT 08/06/2025 1:20 PM EDT us Reece Zavala MD, PhD LAB BLOOD BKR ORDERABL ES Final Result Performing Organization Address City/[facility]/ZIP Co de Phone Number [address] [address] * (ABNORMAL) Phosphorus (08/06/2025 1:11 PM EDT) PHOSPHORUS 2.0(L) 2.7 - 4.5 mg/dL [facility] Blood 08/06/2025 1:11 PM EDT 08/06/2025 1:20 PM EDT Reece Zavala MD, PhD LAB BLOOD BKR ORDERABL ES Final Result Performing Organization Address [facility] Co de Phone Number [address] [address] * Magnesium (08/06/2025 1:11 PM EDT) MAGNESIUM 1.8 1.6 - 2.6 mg/dL [facility] Blood 08/06/2025 1:11 PM EDT 08/06/2025 1:20 PM EDT Reece Zavala MD, PhD LAB BLOOD BKR ORDERABL ES Final Result Performing Organization Address [facility] Co de Phone Number [address] [address] * Beta-2 microglobulin, blood (08/06/2025 1:11 PM EDT) BETA 2 MICROGLOBUL 1.80 0.80 - 2.34 mcg/mL [facility] Blood 08/06/2025 1:11 PM EDT 08/06/2025 1:21 PM EDT Reece Zavala MD, PhD LAB BLOOD BKR ORDERABL ES Final Result Performing Organization Address City/[facility]/ZIP Co de Phone Number [address] [address] from Last 3 Months Insurance MEDICARE PART A & B [facility] MEDIC[facility] PART A & B [facility] MEDICARE PART A & [place] [address] [place] [address] MEDICARE PART A & B [facility] MEDICARE PART A & B [facility] MEDIC[facility] PART A & B [facility] MEDICARE PART A & B [facility] MEDICARE PART A & B [place] MED[facility] PART A & B [facility] Care Teams Policy And Planning Manager Relationship Specialty Start Date End Date Nito Newell MD [address] [place] [address] [address] [place] [address] PCP - General Internal Medicine 07/15/22 Payal Hackett MD [address] [place] [phone] [email or web address] Primary Oncologist Internal Medicine 04/03/23 Reece Zavala MD, PhD [address] [place] [address] [id number] [place] [address] [email or web address] Provider Medical Oncology 04/03/23 Additional Source Comments The information contained in this document represents components of the legal health record. It is not the complete legal health record.[facility]
== END 2025-09-20 15:21 | disposition home or self-care (01) ==
LOC: HO.HSM 14:40
PROVIDERS: PCP Internal Medicine; Visit Provider Psychiatry & Neurology Neurology
DX: G40.209 Localization-related (focal) (partial) symptomatic epilepsy and epileptic syndromes with complex partial seizures, not intractable, without status epilepticus (principal); R25.1 Tremor, unspecified
CPT/HCPCS: 99214

== ENCOUNTER → 2025-09-20 14:40 | Outpatient (BNVA) | payer MEDICARE, MEDICAID, SELFPAY | PROVIDERS: PCP Internal Medicine; Visit Provider Psychiatry & Neurology Neurology | DX: G40.209 Localization-related (focal) (partial) symptomatic epilepsy and epileptic syndromes with complex partial seizures, not intractable, without status epilepticus (principal); R25.1 Tremor, unspecified | CPT/HCPCS: 99212 ==